=== PATIENT | female | born 1985 | race Caucasian/White ===

== ENCOUNTER 2017-07-31 20:17 | Emergency (ER) | payer MEDICARE, MEDICAID ==
[~2017-07-31 20:17] MED LIST: ISOVUE-370 76%-LOCM 1 ML ONE
--- OUTSIDE RECORDS SUMMARY | 2017-07-31 20:19 | XMS | Clinical Summary ---
:1985 Author Organization [facility] Address [address] [place] [address] Phone Care Team Providers Name Role Phone , Primary Care Provider Unavailable Allergies Active Allergy Reactions Severity Noted Date Comments Loratadine 03/06/2013 Hydrocodone-Acetaminophen 03/06/2013 Current Medications Prescription Sig. Disp. Refills Start Date End Date Status norethindrone-ethinyl Take 1 tablet by Active estradiol (MICROGESTIN mouth daily. 11/23) 1-20 mg-mcg per tablet sevelamer (RENVELA) 800 Take 800 mg by Active mg tablet mouth 3 (three) times daily with meals. Active Problems Patient Care Coordination Note Dr. 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 Social History Tobacco Use Types Packs/Day Years Used Date Never Smoker Smokeless Tobacco: Never Used Alcohol Use Drinks/Week oz/Week Comments No Sex Assigned at Date Recorded Not on file Last Filed Vital Signs Vital Sign Reading Time Taken Blood Pressure 135/82 06/28/2014 10:11 AM CDT Pulse 96 06/28/2014 10:11 AM CDT Temperature 36.7 C (98 F) 06/28/2014 10:11 AM CDT Respiratory Rate 18 06/28/2014 10:11 AM CDT Oxygen Saturation - - Inhaled Oxygen Concentration - - Weight 55 kg (121 lb 3.2 oz) 06/28/2014 10:11 AM CDT Height 152.4 cm (5') 06/28/2014 10:11 AM CDT Body Mass Index 23.67 06/28/2014 10:11 AM CDT Plan of Treatment Health Maintenance Due Date Last Done Comments INFLUENZA VACCINE 08/04/2017 Results Not on filefrom Last 3 Months
[2017-07-31 21:34] LABS: #Eosinphils 0.2 thou/uL (0.0-0.7); #Lymphocytes 0.7 thou/uL (1.20-3.40); #Neutrophils 6.8 thou/uL (1.40-6.50); %Basophils 0.3 % (0.0-1.0); %Eosinophils 2.3 % (0.0-10.0); %Lymphocytes 8.2 % (21.0-51.0); Hematocrit 31.5 % (36.0-47.0); Mean Platelet Volume 9.4 fL (7.4-10.4); Red Blood Cell (RBC) Count 3.26 mill/uL (4.20-5.40); White Blood Cell (WBC) Count 8.7 thou/uL (4.8-10.8)
[2017-07-31] MEDS ORDERED: Ondansetron HCl/PF 4 MG/2 ML Vial ONE (21:38)
[2017-07-31] MEDS ORDERED: Ketorolac Tromethamine 30 MG/ML VIAL ONE (21:38)
[2017-07-31 21:53] LABS: ALT (SGPT) Less than 7 U/L (8-55); AST (SGOT) 13 U/L (5-34); Alkaline Phosphatase 122 U/L (40-150); Anion Gap 16 mmol/L (10-20); BUN (Urea Nitrogen) 14 mg/dL (7.0-18.7); Bilirubin, Total 0.4 mg/dL (0.2-1.2); Calc. Creatinine Clearance 0 mL/min (70-130); Calcium 9.3 mg/dL (7.8-10.44); Carbon Dioxide 32 mmol/L (22-29); Chloride 94 mmol/L (98-107); Estimated GFR-MDRD 14; Globulin 3.2 g/dL (2.4-3.5); Lipase 5 U/L (8-78); Protein, Total 7.4 g/dL (6.0-8.3)
[2017-07-31 23:28] LABS: Bilirubin Negative (Negative); Blood, Urine Moderate (Negative); Glucose, Urine (Dipstick) Negative (Negative); Ketone, Urine Negative (Negative); Nitrite Negative (Negative); Protein, Urine (Dipstick) 300 mg/dL (Neg-Trace); Urobilinogen 0.2 mg/dL (0.2-1.0)
[2017-07-31 23:31] LABS: Bacteria/HPF 1+ HPF (None Seen); Hyaline Casts/LPF 0-3 HYALINE CAST LPF (0-3 Hyaline)
--- NOTE | 2017-08-01 00:46 | CT ---
CT ABDOMEN WITH IV CONTRAST CT PELVIS WITH IV CONTRAST 07/31/2017 HISTORY: Central abdominal pain that has been present for 4 days. COMPARISON: 12/16/2016. FINDINGS: Again noted is a tiny right pleural effusion with minimal bibasilar atelectasis. There is a tiny am ount of pericholecystic fluid which is overall nonspecific. There is a stable small hypodense cystic structure in expected location of the left kidney. Normal- appearing left kidney is seen. Densely calcified atrophic right-sided pelvic kidney is again identi fied. The spleen, pancreas, bilateral adrenal glands, and urinary bladder demonstrate a normal CT appearan ce. There are findings suggestive of a septate uterus. This was also present on a prior exam. There is a tiny fat density structure seen in the region of the right ovary with adjacent calcification. Th is may represent a very small ovarian dermoid measuring approximately 1.1 cm. This is stable from p rior study. Surgical clips are seen in the right lower quadrant. Again noted is sclerosis of the visualized osseous structures, stable from prior study. These findi ngs may be related to renal osteodystrophy. The appendix is not visualized. No other interval change. IMPRESSION: 1. Tiny right pleural effusion. 2. Atrophic and calcified right pelvic kidney with non-visualization of a normal-appearing left kidn ey, but there is a small low-density cystic structure in the region of the left kidney which may rep resent a dysplastic left kidney. 3. 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 4. Septate uterus. 5. Sclerotic appearance of the osseous structures probably related to renal osteodystrophy. 6. No acute findings are seen in the abdomen or pelvis. POS: JATIN
== END 2017-08-01 00:06 | disposition home or self-care (01) ==
LOC: ERS 20:17
DX: R10.33 Periumbilical pain (principal); I12.0 Hypertensive chronic kidney disease with stage 5 chronic kidney disease or end stage renal disease; N18.6 End stage renal disease; F31.9 Bipolar disorder, unspecified; Z79.899 Other long term (current) drug therapy
CPT/HCPCS: 36415; 74177; 80053; 81003; 81015; 81025; 83690; 84703; 85025; 93005; 96374; 96375; J1885; J2405

== ENCOUNTER 2017-08-14 19:19 | Emergency (ER) | payer MEDICARE, MEDICAID ==
[2017-08-14 20:56] LABS: Hematocrit 43.2 % (36.0-47.0); Red Blood Cell (RBC) Count 4.45 mill/uL (4.20-5.40); White Blood Cell (WBC) Count 11.4 thou/uL (4.8-10.8)
[2017-08-14 21:07] LABS: Band 3 % (5-11); Mean Platelet Volume 8.4 fL (7.4-10.4); Neutrophil 72 % (42-75); Polychromasia SLIGHT = 2-3 cells (100X) (0-2/hpf); Reactive Lymphocytes 1 % (0-10)
[2017-08-14 21:12] LABS: Bilirubin Negative (Negative); Blood, Urine Trace (Negative); Glucose, Urine (Dipstick) Negative (Negative); Ketone, Urine Negative (Negative); Nitrite Negative (Negative); Protein, Urine (Dipstick) 300 mg/dL (Neg-Trace); Urobilinogen 0.2 mg/dL (0.2-1.0)
[2017-08-14 21:14] LABS: Bacteria/HPF None Seen HPF (None Seen); Hyaline Casts/LPF 7-10 HYALINE CAST LPF (0-3 Hyaline); RBC/HPF 0-3 HPF (0-3)
[2017-08-14 21:14] LABS: ALT (SGPT) 8 U/L (8-55); AST (SGOT) 19 U/L (5-34); Alkaline Phosphatase 112 U/L (40-150); BUN (Urea Nitrogen) 17 mg/dL (7.0-18.7); Bilirubin, Total 0.7 mg/dL (0.2-1.2); Calc. Creatinine Clearance 0 mL/min (70-130); Calcium 11.2 mg/dL (7.8-10.44); Carbon Dioxide 26 mmol/L (22-29); Chloride 94 mmol/L (98-107); Estimated GFR-MDRD 12; Globulin 3.8 g/dL (2.4-3.5); Protein, Total 8.4 g/dL (6.0-8.3)
[2017-08-14 21:16] LABS: Anion Gap 21 mmol/L (10-20)
[2017-08-14 21:21] LABS: Amphetamine Not Detected (NotDetected); Methadone Not Detected (NotDetected); Methamphetamine Not Detected (NotDetected)
[2017-08-14 21:46] LABS: Acetaminophen Less than 6.0 mcg/mL (10.0-30.0); CK (CPK) 72 U/L (29-168); Salicylate Less than 8.0 mg/dL (15.0-30.0)
[2017-08-15] MEDS ORDERED: traZODone HCl 50 MG TAB ONE (00:58)
[2017-08-15] MEDS ORDERED: Ibuprofen 200 MG TAB ONE (00:58)
[2017-08-15] MEDS ORDERED: Ibuprofen 600 MG TAB PO PRN (06:19)
[2017-08-15] MEDS ORDERED: Acetaminophen 325 MG TAB PO PRN (06:21)
[2017-08-15] MEDS ORDERED: traZODone HCl 50 MG TAB PO PRN (06:21)
[2017-08-15] MEDS ORDERED: Nicotine 14 MG PATCH TOP SCH (06:30)
[2017-08-15] MEDS ORDERED: Calcium Acetate 667 MG CAP PO SCH ×2 (08:00→13:00)
[2017-08-15] MEDS ORDERED: traZODone HCl 50 MG TAB PO SCH (21:00)
--- OUTSIDE RECORDS SUMMARY | 2017-08-24 21:08 | XMS | Clinical Summary ---
:1985 Author Organization [facility] Address [address] [place] [address] Phone Care Team Providers Name Role Phone [...] Patient Care Coordination Note Dr. 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
== END 2017-08-15 20:58 ==
LOC: ERS 19:19
DX: T48.3X2A Poisoning by antitussives, intentional self-harm, initial encounter (principal); Q87.1 Congenital malformation syndromes predominantly associated with short stature; I12.0 Hypertensive chronic kidney disease with stage 5 chronic kidney disease or end stage renal disease; N18.6 End stage renal disease; F31.9 Bipolar disorder, unspecified; Z79.899 Other long term (current) drug therapy
CPT/HCPCS: 36415; 80053; 80306; 80307; 81003; 81015; 82550; 84443; 85025; 93005

== ENCOUNTER 2017-09-14 09:07 | Observation (INO) | payer MEDICARE, MEDICAID ==
--- OUTSIDE RECORDS SUMMARY | 2017-09-14 09:10 | XMS | Clinical Summary ---
:1985 Author Organization [facility] Address [address] [place] [address] Phone Care Team Providers Name Role Phone [...] Patient Care Coordination Note Dr. Ivonne Lazaro [phone] Problem Noted Date ESRD (end stage renal disease) ([facility]) 03/06/2013 Mickie syndrome 03/06/2013 Overview: Pt born with 1 [...]
[2017-09-14 10:16] LABS: Bacteria/HPF None Seen HPF (None Seen); Bilirubin Negative (Negative); Blood, Urine Moderate (Negative); Glucose, Urine (Dipstick) Negative (Negative); Hyaline Casts/LPF 4-6 HYALINE CAST LPF (0-3 Hyaline); Ketone, Urine Negative (Negative); Nitrite Negative (Negative); Protein, Urine (Dipstick) 100 mg/dL (Neg-Trace); RBC/HPF 0-3 HPF (0-3); Squamous Epithelial 0-3 HPF (0-3); Urobilinogen 0.2 mg/dL (0.2-1.0)
[2017-09-14] MEDS ORDERED: Acetaminophen 325 MG TAB ONE (10:37)
[2017-09-14] MEDS ORDERED: Ondansetron ODT 4 MG TAB ONE (10:37)
[2017-09-14 11:13] LABS: #Basophils 0.1 thou/uL (0.0-0.2); #Eosinphils 0.6 thou/uL (0.0-0.7); #Lymphocytes 2.1 thou/uL (1.20-3.40); #Monocytes 1.1 thou/uL (0.11-0.59); #Neutrophils 8.4 thou/uL (1.40-6.50); %Basophils 0.9 % (0.0-1.0); %Lymphocytes 16.9 % (21.0-51.0); %Monocytes 8.8 % (0.0-10.0); Hematocrit 32.5 % (36.0-47.0); Mean Platelet Volume 8.8 fL (7.4-10.4); Red Blood Cell (RBC) Count 3.38 mill/uL (4.20-5.40); White Blood Cell (WBC) Count 12.2 thou/uL (4.8-10.8)
[2017-09-14 11:35] LABS: ALT (SGPT) 11 U/L (8-55); AST (SGOT) 21 U/L (5-34); Alkaline Phosphatase 163 U/L (40-150); Anion Gap 29 mmol/L (10-20); BUN (Urea Nitrogen) 105 mg/dL (7.0-18.7); Bilirubin, Total 0.3 mg/dL (0.2-1.2); Calc. Creatinine Clearance 0 mL/min (70-130); Calcium 6.1 mg/dL (7.8-10.44); Carbon Dioxide 19 mmol/L (22-29); Chloride 93 mmol/L (98-107); Estimated GFR-MDRD 4; Globulin 3.7 g/dL (2.4-3.5); Protein, Total 7.9 g/dL (6.0-8.3)
[2017-09-14] MEDS ORDERED: Calcium Chloride 1 GM/10 ML Abboject SYRINGE ONE (12:01)
[2017-09-14] MEDS ORDERED: Dextrose 50% Abboject 50 ML SYRINGE ONE (12:01)
[2017-09-14] MEDS ORDERED: Sodium Bicarb 50 MEQ/50 ML Abboject 8.4% SYRINGE ONE (12:01)
[2017-09-14] MEDS ORDERED: Insulin Regular 300 UNITS/3 ML VIAL ONE (12:01)
[2017-09-14] MEDS ORDERED: Albuterol Sulfate 2.5 mg/3 ml Neb ONE (12:18)
[2017-09-14] MEDS ORDERED: Albuterol Sulfate 2.5 mg/0.5 ml Neb ONE (12:18)
[2017-09-14] MEDS ORDERED: Ondansetron HCl/PF 4 MG/2 ML Vial IVP PRN (15:04)
[2017-09-14] MEDS ORDERED: Acetaminophen 325 MG TAB PO PRN (15:04)
[2017-09-14] MEDS ORDERED: Ondansetron ODT 4 MG TAB SL PRN (15:04)
[2017-09-14] MEDS ORDERED: cefTRIAXone\\ROCEPHIN 1 GM in Sodium Chloride 0.9% 100 ML IVPB SCH (15:07)
[2017-09-14] MEDS ORDERED: cefTRIAXone\\ROCEPHIN 1 GM, Syringe 0.4 ML in Sterile Water 9.6 ML SLOW IVP SCH (16:00)
--- NOTE | 2017-09-14 16:08 | PRG ---
DATE OF SERVICE: 09/14/2017 SUBJECTIVE: The patient is a 32-year-old white female with ESRD and was admitted due to the hyperkal emia. She initially presented with some abdominal discomfort. During the initial workup, her potas sium was noted at 6.6. Please note that the patient did not show up for dialysis yesterday. She is currently undergoing emergent hemodialysis at the bedside, supervising her dialysis. Please note I used 1-0 potassium bath on the first of the dialysis. REVIEW OF SYSTEMS: Positive for epigastric discomfort. No nausea, no vomiting, no chest pain, no s hortness of breath, no syncopal episode, no productive cough, no fever or chills. No gross hematuri a. No dysuria, no urine frequency, no abdominal pain, no headache, no diplopia. MEDICATIONS: Of 09/14/2017 was reviewed. PHYSICAL EXAMINATION: VITAL SIGNS: Blood pressure is noted at 130/70, heart rate 70. GENERAL: Awake, alert, comfortable, not in distress. SKIN: Adequate turgor. HEENT: Pinkish conjunctivae, anicteric sclerae. NECK: No neck mass, no carotid bruits, no JVD. CHEST: No deformities. LUNGS: Clear breath sounds. No wheezing, no crackles. HEART: Normal sinus rhythm. No murmur, no gallops or rubs. ABDOMEN: Globular, soft, nontender. EXTREMITIES: No edema, no deformities. LABORATORY: Of 09/14/2017 white count 12.2, hemoglobin 11.1. Sodium 134, potassium 6.6, chloride 9 3, carbon dioxide 19, BUN 105, creatinine 10.54, calcium 6.1. Albumin 4.2. ASSESSMENT AND PLAN: 1. End-stage renal disease - the patient missed dialysis yesterday. We will continue her Saturday, W , Saturday dialysis. She is receiving extra dialysis today due to the hyperkalemia. 2. Hyperkalemia, emergent hemodialysis using 1-0 potassium bath during the first hour. We will the n use a 2-0 potassium bath the next 2-1/2 hours. Fluid removal as tolerated. 3. Anemia, no indication for any Epogen today. 4. Mild hypocalcemia - this patient is status post parathyroidectomy, consider resuming Tums at 500 mg 1 tab t.i.d. with meals. Recheck base met in a.m.
--- NOTE | 2017-09-14 16:51 | HP ---
DATE OF ADMISSION: 09/14/2017 CHIEF COMPLAINT: Nausea, vomiting, some abdominal pain and burning on urination. HISTORY OF PRESENT ILLNESS: The patient is a very frequent customer of emergency visit and this hos pital. She was just discharged from the hospital on the . She reports that she never got well a fter she was discharged from the hospital last time she was getting p.o. antibiotic, but she still b urning in her urination. She vomited yesterday. She did not have any diarrhea, but today she is no t having any vomiting and she missed her dialysis x1. Her potassium is elevated and she has changes in EKG and decision is made about hospitalizations and emergent hemodialysis. Dr. Espinoza was notified , her route driver salesperson and the team is coming to take her upstairs for emergent hemodialysis. In the [facility], she is getting treatment for her hyperkalemia. PAST MEDICAL HISTORY: 1. No known syndrome. 2. Chronic pancreatitis. 3. End-stage renal disease on hemodialysis 3 times a week. 4. Anemia of chronic disease. PAST SURGICAL HISTORY: 1. Right oophorectomy. 2. Cardiac surgery as a child. 3. Right hip surgery. 4. Peritoneal dialysis catheter placement and subsequent removal. FAMILY HISTORY: Mother has coronary artery disease and hypertension. Father has cancer and heart p roblems. SOCIAL HISTORY: She denies any alcohol use, tobacco use or illicit drug use. ALLERGIES: BACLOFEN, CLARITIN, FLEXERIL, RANITIDINE, and VANCOMYCIN. CURRENT MEDICATIONS: She was discharged on Ceftin 250 mg once a day for 7 days, Florastor 250 mg on ce a day for 7 days, Tylenol 1 gram q.6 hours p.r.n., PhosLo 667 mg 3 times a day, Tums 1000 mg p.o. 3 times a day, [place] 5 mg 1 tablet q.4 h. p.r.n. as needed, Zofran 4 mg q.12 h. p.r.n. as needed, S eroquel 50 mg at bedtime, tramadol 50 mg at q.6 hours p.r.n. as needed, and trazodone 100 mg at bedt helen. REVIEW OF SYSTEMS: Please refer to the previous hospitalization. PHYSICAL EXAMINATION: VITAL SIGNS: Blood pressure is 118/85, respiratory rate is 20 and nonlabored, temperature is 98.2. O2 saturation is 100% on room air. HEENT: Atraumatic, normocephalic. Eyes: Pupils are responding to light properly. Sclerae is oumou cteric. Conjunctivae pinkish. Oral mucosa is moist. NECK: Supple, no lymphadenopathy. LUNGS: Clear. HEART: S1, S2 normal. No S3, no S4. There is a systolic murmur 2/6 at the left sternal border, mo stly audible. ABDOMEN: Soft, mildly tender all over. No guarding, no masses. EXTREMITIES: No clubbing, cyanosis or edema. NEUROLOGIC: She is alert and oriented x4. There are no any motor or sensory deficits present. Glass Frame Fitter nial nerves are intact. LABORATORY AND X-RAY FINDINGS: Showed white count of 12.2, hemoglobin 11.1, hematocrit 32.5, platel et count is 153. Chemistries showed sodium of 134, potassium 6.6, chloride 93, CO2 of 19, BUN 105, creatinine 10.54, alkaline phosphatase 663, globulin 3.7. Urine showed moderate blood, small estera se of leukocytes, 4-6 WBCs and none bacteria. IMPRESSION: 1. Nausea and vomiting with some abdominal pain of unclear etiology at this point. This could be r elated to ongoing urinary tract infection which she just had it. 2. Hyperkalemia. She is getting acute treatment for that as we speak with 10 units of insulin with calcium and Kayexalate and glucose. She will have emergency dialysis done very soon by anurag Mcginnis o is coming to see her. 3. End-stage renal disease on hemodialysis 3 times a week. 4. No known syndrome. 5. Chronic pancreatitis. 6. Anemia of renal disease. PLAN: Admission for observation. Condition is guarded. We will use emergent hemodialysis by the [facility]. We will check her potassium after the treatment. We will start her on broad spectrum anti biotic. We will check urine. We will do the urine culture and we will review her home medications.
[2017-09-14] MEDS: Calcium Carbonate 500 MG ChewTAB PO SCH (17:12)
[2017-09-14] MEDS: Heparin 5,000 UNITS/ML VIAL SC SCH ×2 (17:12→21:56)
[2017-09-14 19:16] VITALS: BMI 25.5
[2017-09-15 05:00] LABS: Anion Gap 21 mmol/L (10-20); BUN (Urea Nitrogen) 40 mg/dL (7.0-18.7); Calc. Creatinine Clearance 11 mL/min (70-130); Calcium 7.5 mg/dL (7.8-10.44); Carbon Dioxide 29 mmol/L (22-29); Chloride 96 mmol/L (98-107); Estimated GFR-MDRD 8
[2017-09-15 07:49] VITALS: BP 108/65; TEMP 98.2
[2017-09-15] MEDS ORDERED: HYDROcodone/Acetaminophen 5/325 mg Tablet PO PRN (09:30)
[2017-09-15] MEDS ORDERED: traMADol HCl 50 MG TAB PO PRN (09:30)
[2017-09-15] MEDS ORDERED: Ondansetron ODT 4 MG TAB PO PRN (09:30)
[2017-09-15] MEDS: Heparin 5,000 UNITS/ML VIAL SC SCH (10:34)
[2017-09-15] MEDS: Calcium Carbonate 500 MG ChewTAB PO SCH (10:34)
--- NOTE | 2017-09-15 11:19 | DIS ---
DATE OF ADMISSION: 09/14/2017 DATE OF DISCHARGE: 09/15/2017 CONSULTANTS: Dr. Espinoza for Nephrology Service. FINAL DIAGNOSES: 1. Nausea and vomiting with some abdominal pain, which is most likely related to her chronic pancre atitis, improved. She has those episodes quite often. She was diagnosed with chronic pancreatitis after multiple diagnostic workups. 2. Hyperkalemia, status post emergent hemodialysis, improved. 3. End-stage renal disease, on hemodialysis three times a week. 4. Chronic pancreatitis. 5. Anemia of renal disease. 6. No known syndrome. HOSPITAL COURSE: The patient is a 32-year-old female, who presented to the emergency room with complaints of nausea, vomiting, abdominal pain, and burning on urination, where she was found to have potassium elevated at 6.6, and she was treated emergently for hyperkalemia in the emergency room and she was admitted to the hospital for dialysis. At the time of admission, her white count w as 12.2, hemoglobin 11.1, hematocrit 32.5, platelet count was 153. Chemistries showed sodium of 134 , potassium 6.6, chloride 93, CO2 of 19, BUN 105, creatinine 10.54, alkaline phosphatase 163, globul in 3.7. Urinalysis showed moderate amount of blood, urine protein 100, small amount of leukocyte es terase, 4-6 wbcs, and 4-6 hyaline casts, no bacteria. The patient had emergent hemodialysis done by Dr. Espinoza; her potassium is down to 4.7 this morning and creatinine is down to 6.16. She is doing si gnificantly better. She does not have any nausea or vomiting. She is ambulating in the hallway and she went to her mother's room since her mother was admitted yesterday too for some other reasons. She is seen and examined before she is discharged. We told her that she needs to keep her appointme nts in dialysis unit. She is going to stay on renal diet and activities as tolerated. MEDICATIONS AT THE TIME OF DISCHARGE: Calcium carbonate 500 mg tablets 1000 mg 3 times a day; calci um acetate, which is PhosLo, 667 mg 3 times a day; Tylenol 1000 mg q.6 hours p.r.n. for the pain; tr azodone 100 mg at bedtime; tramadol 50 mg tablets q.6 hours p.r.n. for the pain; Florastor 250 mg ca psules once a day; Seroquel 50 mg capsules 1 q.h.s.; Zofran 4 mg q.12 hours p.r.n. as needed for josué sea and vomiting; hydrocodone by titrate with acetaminophen 5/325 mg 1 tablet q.4 hours p.r.n. as ne eded for the pain. She is discharged in good condition. She will follow up with primary care physician in 1 week as ne eded and patient was seen and examined before she is discharged, and discharge time is less than 30 minutes.
[2017-09-15] MEDS ORDERED: traZODone HCl 50 MG TAB PO SCH (21:00)
[2017-09-15] MEDS ORDERED: QUEtiapine Fumarate ER 50 MG TAB PO SCH (21:00)
[2017-09-16] MEDS ORDERED: Saccharomyces boulardii 250 MG CAP PO SCH (09:00)
== END 2017-09-15 13:14 | disposition home or self-care (01) ==
LOC: ERS 09:07 → 2SW 15:06
PROVIDERS: ADMIT Internal Medicine; ATTEND Internal Medicine
DX: R11.2 Nausea with vomiting, unspecified (principal); R10.9 Unspecified abdominal pain; K86.1 Other chronic pancreatitis; E87.5 Hyperkalemia; N18.6 End stage renal disease; D63.1 Anemia in chronic kidney disease; E89.2 Postprocedural hypoparathyroidism; E83.51 Hypocalcemia; Z79.899 Other long term (current) drug therapy; Z99.2 Dependence on renal dialysis; Z88.1 Allergy status to other antibiotic agents; Z88.8 Allergy status to other drugs, medicaments and biological substances; Z90.721 Acquired absence of ovaries, unilateral; Z98.890 Other specified postprocedural states
CPT/HCPCS: 80048; 80053; 85025; 87086; 93005; 94640; 96374; 96375; 99285; G0378; 36415; 81003; 81015; 90935; A4216; G0257; J0696; J1644; J1815; J7611; Q0162

== ENCOUNTER 2017-12-08 15:05 | Inpatient (IN) | payer MEDICARE, MEDICAID ==
[2017-12-08 16:14] LABS: #Basophils 0.2 thou/uL (0.0-0.2); #Eosinphils 1.3 thou/uL (0.0-0.7); #Monocytes 1.7 thou/uL (0.11-0.59); #Neutrophils 7.7 thou/uL (1.40-6.50); %Basophils 1.4 % (0.0-1.0); %Eosinophils 9.6 % (0.0-10.0); %Lymphocytes 21.7 % (21.0-51.0); %Monocytes 11.9 % (0.0-10.0); %Neutrophils 55.3 % (42.0-75.0); Hemoglobin 12.4 g/dL (12.0-16.0); Mean Corpuscular HGB CONC 34.1 g/dL (32.0-36.0); Mean Corpuscular Hemoglobin 33.7 pg (27.0-31.0); Mean Corpuscular Volume 98.8 fl (81.0-99.0); Mean Platelet Volume 8.1 fL (7.4-10.4); Platelet Count 203 thou/uL (130-400); RBC Distribution Width 14.6 % (11.5-14.5); Red Blood Cell (RBC) Count 3.69 mill/uL (4.20-5.40); White Blood Cell (WBC) Count 13.9 thou/uL (4.8-10.8)
[2017-12-08 16:27] LABS: BHCG - Serum Negative (NEGATIVE); Pregs Control Background? CLEAR/WHITE (CLR/WHITE); Pregs Control Bar Appear? YES (CONTROL BAR)
[2017-12-08 16:38] LABS: ALT (SGPT) 12 U/L (8-55); AST (SGOT) 23 U/L (5-34); Albumin 4.6 g/dL (3.5-5.0); Alkaline Phosphatase 107 U/L (40-150); Anion Gap 28 mmol/L (10-20); BUN (Urea Nitrogen) 50 mg/dL (7.0-18.7); Bilirubin, Total 0.3 mg/dL (0.2-1.2); CK (CPK) 100 U/L (29-168); Calc. Creatinine Clearance 0 mL/min (70-130); Carbon Dioxide 22 mmol/L (22-29); Chloride 95 mmol/L (98-107); Estimated GFR-MDRD 5; Globulin 3.9 g/dL (2.4-3.5); Glucose 69 mg/dL (70-105); Lipase 40 U/L (8-78); Potassium 6.8 mmol/L (3.5-5.1); Protein, Total 8.5 g/dL (6.0-8.3); Sodium 138 mmol/L (136-145)
[2017-12-08] MEDS ORDERED: Dextrose 50% Abboject 50 ML SYRINGE ONE (17:04)
[2017-12-08 17:08] LABS: CKMB 1.4 ng/mL (0-6.6); Troponin I 0.013 ng/mL (< 0.028)
[2017-12-08] MEDS ORDERED: Calcium Gluc 4.6 MEQ/10 ML (100 MG/ML) SLOW IVP SCH (17:15)
[2017-12-08] MEDS ORDERED: Albuterol Sulfate 2.5 mg/0.5 ml Neb ONE (17:44)
[2017-12-08] MEDS ORDERED: Albuterol Sulfate 2.5 mg/3 ml Neb ONE (17:44)
[2017-12-08] MEDS ORDERED: Sodium Bicarb 50 MEQ/50 ML Abboject 8.4% SYRINGE ONE (18:08)
[2017-12-08] MEDS ORDERED: Acetaminophen 325 MG TAB PO PRN (18:25)
[2017-12-08] MEDS ORDERED: HYDROcodone/Acetaminophen 5/325 mg Tablet PO PRN (18:25)
[2017-12-08] MEDS ORDERED: HYDROcodone/Acetaminophen 10/325 mg Tablet ONE (18:26)
[2017-12-08 19:32] LABS: HBSAg Index 0.22 S/CO (0-0.99); Hep B Surf Ag Non-Reactive S/CO (NonReactive)
--- NOTE | 2017-12-08 19:49 | CT ---
CT ABDOMEN AND PELVIS WITH CONTRAST: Comparison: 07-31-17 History: Right lower quadrant abdominal pain and flank pain. Renal failure patient on dialysis. Technique: Multiple contiguous axial images were obtained in a CT of the abdomen and pelvis with cont rast. Coronal reformats were performed. FINDINGS: There is a small calcified kidney in the right aspect of the pelvis. The left kidney is not definitel y seen. The adrenal glands are unremarkable. There is a cystic structure just to the left of the left psoas muscle measuring 1.3 cm in greatest dimension. This may represent a cyst in a very small left kidney. The liver, gallbladder, spleen and pancreas are unremarkable. No free air, free fluid or stranding ch anges are seen in the abdomen or pelvis. The patient has a septated uterus. There is a small fat dens ity structure in the right ovary measuring approximately 1 cm in size which may represent a small te ratoma. Atherosclerotic calcifications are seen in the aorta. No abdominal or pelvic lymphadenopathy are seen . IMPRESSION: 1. No evidence of acute intraabdominal/pelvic abnormality. 2. Calcified low right pelvic kidney. 3. Smaller cystic structure in the left abdomen likely represents a cyst within a very small left kid choco. 4. Septated uterus. 5. Fat density structure in the right ovary likely represents a small teratoma. POS: JATIN
--- NOTE | 2017-12-08 19:55 | HP ---
DATE OF ADMISSION: 12/08/2017 TIME OF SERVICE: 1745. PRIMARY CARE PHYSICIAN: None. Last saw Dr. Pierre about 7 months ago. PRIMARY MANNEQUIN MOLDER: Dr. Espinoza. CHIEF COMPLAINT: Abdominal pain. HISTORY OF PRESENT ILLNESS: Ms. 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 The patient pre sents to the Emergency Department complaining of right lower quadrant pain radiating to her right fla nk that started sometime last night. It comes and goes and is colicky. It is associated with diarrh ea, but no blood. She denies any fevers or chills, no night sweats. Some nausea without vomiting. No chest pain or difficulty breathing. She denies any palpitations. She came into the Emergency Department for evaluation. Potassium was noted to be 6.8 and we subseque ntly called for admission. Dr. Espinoza is already been consulted by the emergency room staff and is send ing emergent dialysis. The patient had the last hemodialysis on Saturday, 2 days ago. She does not know if her access has bee n working right. She had some blood clots to her right upper extremity fistula declotted by Dr. Camila reeves has angina. She has had some bleeding issues after removal of the needles. No other complain ts, no other issues. PAST MEDICAL HISTORY: 1. Chronic pancreatitis. 2. Croton syndrome. 3. Hypertension. 4. End-stage renal disease. 5. Bipolar disorder. 6. History of suicidal ideation. PAST SURGICAL HISTORY: 1. Right extremity fistula creation. 2. Right oophorectomy. 3. Right hip surgery. 4. Peritoneal dialysis catheter placement and subsequent removal. HOME MEDICATIONS: 1. PhosLo 667 mg x2 t.i.d. with meals. 2. Benadryl and Tums p.r.n. ALLERGIES: 1. BACLOFEN causes throat swelling. 2. CLARITIN causes throat swelling. 3. FLEXERIL causes hives. 4. LEVOFLOXACIN causes throat swelling. 5. ZANTAC causes anaphylaxis. 6. VANCOMYCIN causes anaphylaxis. FAMILY HISTORY: Negative for clotting or bleeding disorder. No immune dysfunction. SOCIAL HISTORY: No habits x3. She was homeless, but recently her and her mother moved into an apart ment. REVIEW OF SYSTEMS: A 10-point review of systems was performed, negative for all other systems except stated as per HPI. PHYSICAL EXAMINATION: VITAL SIGNS: Temperature 98.8, pulse 99, blood pressure 126/84, respiratory rate 18 and satting 100% on room air. GENERAL: She is awake. She is alert. She is oriented x3. She is a well-developed, well-nourished syndromic appearing white female, appears to be in no acute distress. HEENT: Normocephalic and atraumatic. Pupils are equal, round and reactive to light bilaterally, muc ous membranes are moist. She has no visible lesions. No thrush. NECK: Supple, without lymphadenopathy, JVD, or thyromegaly. She has normal carotid upstrokes withou t bruits. LUNGS: Clear. No wheezes, no rales or rhonchi. CARDIOVASCULAR: Shows a regular rhythm with a normal rate, slightly tachycardic. She has no murmurs . ABDOMEN: Soft, nontender and nondistended. She has no masses, no organomegaly, no rebound, rigidity or guarding. No flank tenderness. EXTREMITIES: No cyanosis, no clubbing, no edema. SKIN: Warm, moist, and well perfused without any rashes or lesions. LOWER EXTREMITIES: The patient has a great thrill and an audible bruit. NEUROLOGIC: Cranial nerves II-XII are grossly intact. She has no focal deficits, 5/5 strength and n ormal speech. MUSCULOSKELETAL: Normal to inspection. She has no joint inflammation. No palpable effusions. LABORATORY AND IMAGING DATA: Sodium 138, potassium 6.8, chloride 95, bicarbonate 22, BUN 50, creatin ine 8.45, and glucose of 69. Liver function is normal. CBC showed a white of count of 13.9 with a normal differential. Hemoglobin 12.4, hematocrit of 36.5 and platelet count is 203,000. CT scan of the abdomen and pelvis currently pending. Lipase was 40. Lactic acid 1.9. test is negative. Troponin I 0.013. ASSESSMENT AND PLAN: 1. Right lower quadrant pain, certainly could be colitis. Patient with diarrhea. She has no blood loss. We will start her on Cipro and Flagyl if CT scan is suggested. She does have a history of heri al stones. We will follow up on the CT scan. 2. Hyperkalemia: The patient with end-stage renal disease. She got calcium gluconate in the ER. S he will get emergent dialysis tonight per Dr. Espinoza. Morning labs. 3. Chronic pancreatitis. Normal lipase. No treatment. 4. Croton syndrome. 5. Hypertension, not on medications. Blood pressure is normal right now. 6. End-stage renal disease, on hemodialysis Saturday, Saturday, Saturday. The patient has not missed a ny hemodialysis treatments. Dr. Espinoza will be following.
[2017-12-08] MEDS: HYDROcodone/Acetaminophen 10/325 mg Tablet PO PRN (22:51)
[2017-12-08] MEDS: metroNIDAZOLE 500 MG in Premix Bag 1 BAG IVPB SCH ×2 (22:52→23:51)
[2017-12-08 23:22] VITALS: BMI 27.2
[2017-12-08] MEDS ORDERED: diphenhydrAMINE 25 MG CAP PO PRN (23:40)
[2017-12-08] MEDS ORDERED: traZODone HCl 50 MG TAB PO SCH (23:45)
--- NOTE | 2017-12-09 00:16 | CON ---
DATE OF CONSULTATION: 12/08/2017 HISTORY OF PRESENT ILLNESS: Ms. Juarez is a 32-year-old white female with ESRD admitted for abdominal pain. She was evaluated and was incidentally found to have a potassium of 6.8. We are now being consulted for emergent hemodialysis. Patient has been brought to the dialysis unit and currently undergoing dialysis. At the bedside, supervising on dialysis. Abdominal pain is actually much improved. Please note the patient underwent a CT scan of the abdomen and pelvis tonight and there is no evidence of an acute intra-abdominal pelvic abnormality. REVIEW OF SYSTEMS: Positive for abdominal pain. Positive for nausea, no diarrhea, no constipation, no headache, no diplopia, no fever, or chills. Occasional diarrhea, no gross hematuria. No dysuria, no frequency, no syncopal episode, no productive cough, no fever or chills. MEDICATIONS: Medications of 12/08/2017, [place] 10/325 q.4 p.r.n., Flagyl 500 mg IV q.8, Cipro 400 mg IV q.12, Zofran 4 mg IV q.6 p.r.n., multivitamin q. da. PAST MEDICAL HISTORY: 1. 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 2. No known syndrome. 3. Bipolar disorder. 4. Status post pulmonary stenosis. 5. Status post UTI. 6. History of anxiety. 7. History of noncompliance. PAST SURGICAL HISTORY: 1. Status post hip surgery. 2. Status post AV fistula placement. 3. Status post PD catheter placement with subsequent removal. 4. Status post diagnostic laparoscopy with omentectomy. 5. Status post repair of pulmonary stenosis, status post AV fistula placement. 6. Status post hemodialysis catheter placement. 7. S/p parathyroidectomy ALLERGIES: ? VANCOMYCIN, CLARITIN, BACLOFEN. TRAUMA: Status post hip fracture. IMMUNIZATIONS: Up to date. HOSPITALIZATIONS: Please see past medical history. SOCIAL HISTORY: The patient lives in [place]. She lives with her mother, single. No children. Education high school. No alcohol intake. Status post blood transfusion. No smoking, no IV drug abuse. FAMILY HISTORY: No family history of ESRD. PHYSICAL EXAMINATION: VITAL SIGNS: Blood pressure is noted at 140/70, heart rate 70. GENERAL: Noted to be awake, alert, supine, comfortable. SKIN: Adequate turgor. HEENT: She has slightly pale conjunctivae, anicteric sclerae. NECK: No neck mass, no carotid bruits, no JVD. CHEST: No deformities. LUNGS: Clear breath sounds. No wheezing, no crackles. HEART: Normal sinus rhythm. No murmur, no gallops, or rubs. ABDOMEN: Globular, soft, nontender, no masses. EXTREMITIES: No edema, no deformities. NEUROLOGIC: Awake, oriented to 3 spheres. Moving all extremities. No tremors , no asterixis, no ataxia. LABORATORY DATA: Laboratories of 12/08/2017, white count 13.9, hemoglobin 12.4 , platelet count 23,000. Sodium 138, potassium 6.8, chloride 95, carbon dioxide 22, BUN is 50, creatinine 8.45, glucose 69, AST 23, ALT 12, albumin 4.6 , troponin I 0.013. Lipase is 40. IMAGING: CT scan of the abdomen - no acute intracranial abnormality. ASSESSMENT AND PLAN: 1. Abdominal pain. Supportive care. P.r.n. pain medications. No evidence of acute pancreatitis. 2. End-stage renal disease-we will continue current Saturday, Saturday, and Saturday hemodialysis. Due to the hyperkalemia, she is undergoing emergent hemodialysis using 1-0 potassium bath. My plan is to do 2 hour dialysis with her tonight. Attempting between 1 and 2 liters of fluid removal. 3. Hyperkalemia. Emergent hemodialysis. Agree with current management. [facility]
[2017-12-09] MEDS: HYDROcodone/Acetaminophen 10/325 mg Tablet PO PRN (05:32)
[2017-12-09] MEDS: metroNIDAZOLE 500 MG in Premix Bag 1 BAG IVPB SCH ×3 (06:14→20:54)
--- NOTE | 2017-12-09 09:32 | PRG ---
DATE OF SERVICE: 12/09/2017 SUBJECTIVE: Ms. Juarez is a 32-year-old white female with ESRD and was admitted for abdominal pain. Initial imaging of the abdomen/CT scan showed no acute intracranial abnormality. However, she was f ound to have potassium of 6.8. She underwent a 2-hour emergent dialysis yesterday. At the present t helen, she is dialyzing for her regular Saturday, Saturday, Saturday schedule. I am at the bedside superv ising her dialysis. She seems to be tolerating the said treatment. No new complaints. No chest pain, shortness of breath. Abdominal pain is better. PHYSICAL EXAMINATION: VITAL SIGNS: Blood pressure 101/50, heart rate 96, respiration 20, temperature 98.2, pulse ox 100%. GENERAL: Noted to be awake, alert, supine, comfortable, not in distress. SKIN: Adequate turgor. HEENT: She has pinkish conjunctivae, anicteric sclerae. NECK: No neck mass, no carotid bruits, no JVD. CHEST: No deformities. LUNGS: Clear breath sounds. No wheezing, no crackles. HEART: Normal sinus rhythm. No murmur, no gallops or rubs. ABDOMEN: Globular, soft, nontender, no masses. EXTREMITIES: No edema, no deformities. MEDICATIONS: 12/09/2017 - Reviewed. LABORATORY: 12/08/2017 - White count 13.9, hemoglobin 12.4. 12/08/2017 - Sodium 138, potassium 6.8, chloride 95, carbon dioxide 22, BUN 58, creatinine 8.45, calc ium is 8.0. ASSESSMENT AND PLAN: 1. Hyperkalemia, status post dialysis last night. She is now undergoing for her regular maintenance hemodialysis. 2. End-stage renal disease, stable. We will continue with 3-1/2 hours of hemodialysis. Fluid remov al only as tolerated by the patient. No changes with the current potassium bath. We will be using 2-0 potassium bath with her today.
--- NOTE | 2017-12-09 12:16 | PDOC.PN ---
- Subjective Encounter Start Date: 12/09/17 Encounter Start Time: 12:05 Subjective: f/u for hyperkalemia in context of ESRD receiving HD. Associated -: abd pain with neg CT abd/pel. Feels better overall and tolerated po intake. -: Diarrhea initially now resolving. - Objective Resuscitation Status: Resuscitation Status FULL:Full Resuscitation MAR Reviewed: Yes Vital Signs & Weight: Vital Signs (12 hours) Temp Pulse Resp BP Pulse Ox 12/09/17 11:48 98.8 F 95 16 90/55 L 98 12/09/17 08:00 98.3 F 96 20 12/09/17 04:00 98.3 F 96 20 85/54 L 100 Weight Weight 126 lb I&O: 12/08/17 12/09/17 12/10/17 06:59 06:59 06:59 Intake Total 780 Output Total 900 Balance -120 Result Diagrams: 12/08/17 16:07 12/08/17 16:07 Radiology Reviewed by me: Yes (CT abd/pel - no acute process) EKG Reviewed by me: Yes (Tele - SR) Phys Exam - Physical Examination Constitutional: NAD HEENT: PERRLA, oral pharynx no lesions Neck: no JVD, supple Respiratory: no wheezing, clear to auscultation bilateral Cardiovascular: RRR Gastrointestinal: soft, non-tender, no distention, positive bowel sounds Musculoskeletal: no edema, pulses present Neurological: moves all 4 limbs Psychiatric: A&O x 3 Skin: normal turgor, cap refill <2 seconds Dx/Plan (1) Hyperkalemia Code(s): E87.5 - HYPERKALEMIA Status: Acute Comment: HD completed per Renal service, repeat K+ level (2) Abdominal pain Code(s): R10.9 - UNSPECIFIED ABDOMINAL PAIN Status: Acute Comment: Suspect due to hyperkalemia, resolving (3) Diarrhea Code(s): R19.7 - DIARRHEA, UNSPECIFIED Status: Acute Comment: Resolving (4) Anemia of renal disease Code(s): D63.1 - ANEMIA IN CHRONIC KIDNEY DISEASE Status: Chronic Comment: Stable (5) Bipolar disorder Code(s): F31.9 - BIPOLAR DISORDER, UNSPECIFIED Status: Chronic Qualifiers: Current episode severity: unspecified Comment: Stable (6) ESRD (end stage renal disease) on dialysis Code(s): N18.6 - END STAGE RENAL DISEASE; Z99.2 - DEPENDENCE ON RENAL DIALYSIS Status: Chronic Comment: HD per Renal service - 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
[2017-12-09] MEDS ORDERED: diphenhydrAMINE 25 MG CAP PO PRN (12:23)
[2017-12-09] MEDS ORDERED: Vicks VapoRub 50 gm Jar TOP PRN (13:49)
[2017-12-09] MEDS: Ondansetron ODT 4 MG TAB PO PRN ×2 (14:07→22:00)
[2017-12-09] MEDS: Calcium Acetate 667 MG CAP PO SCH (17:31)
[2017-12-09] MEDS ORDERED: traZODone HCl 50 MG TAB PO SCH (21:00)
[2017-12-10] MEDS: metroNIDAZOLE 500 MG in Premix Bag 1 BAG IVPB SCH (05:51)
[2017-12-10 06:20] LABS: Band 1 % (5-11); Eosinophils 7 % (0-10); Lymphocytes 27 % (21-51); MDiff Complete? YES; Mean Corpuscular HGB CONC 33.2 g/dL (32.0-36.0); Mean Corpuscular Hemoglobin 33.4 pg (27.0-31.0); Mean Platelet Volume 7.6 fL (7.4-10.4); Monocytes 12 % (0-10); Neutrophil 53 % (42-75); Platelet Count 192 thou/uL (130-400); Red Blood Cell (RBC) Count 2.99 mill/uL (4.20-5.40); White Blood Cell (WBC) Count 10.4 thou/uL (4.8-10.8)
[2017-12-10 06:22] LABS: ALT (SGPT) 9 U/L (8-55); AST (SGOT) 15 U/L (5-34); Albumin 3.8 g/dL (3.5-5.0); Alkaline Phosphatase 64 U/L (40-150); Anion Gap 16 mmol/L (10-20); BUN (Urea Nitrogen) 20 mg/dL (7.0-18.7); Bilirubin, Total 0.4 mg/dL (0.2-1.2); Calc. Creatinine Clearance 14 mL/min (70-130); Calcium 8.2 mg/dL (7.8-10.44); Carbon Dioxide 27 mmol/L (22-29); Chloride 96 mmol/L (98-107); Estimated GFR-MDRD 11; Globulin 2.7 g/dL (2.4-3.5); Glucose 104 mg/dL (70-105); Potassium 4.1 mmol/L (3.5-5.1); Protein, Total 6.5 g/dL (6.0-8.3); Sodium 135 mmol/L (136-145)
[2017-12-10] MEDS: Calcium Acetate 667 MG CAP PO SCH ×2 (08:23→11:46)
--- NOTE | 2017-12-10 11:20 | PRG ---
DATE OF SERVICE: 12/10/2017 SERVICE: Renal Medicine. SUBJECTIVE: Ms. Juarez is a 32-year-old white female with ESRD - on maintenance hemodialysis and adm itted for abdominal pain. Initial imaging of the abdomen showed no acute intracranial abnormality. She was also empirically treated with IV antibiotics due to the elevated white count with ? of acute bronchitis. Furthermore, we were consulted for emergent hemodialysis due to a potassium of 6.8. She received 2 consecutive days of dialysis. This morning, she is feeling better and requesting to go h ome. She voices no new complaints. She denies any chest pain or shortness of breath. OBJECTIVE: VITAL SIGNS: Blood pressure 98/61, heart rate 101, respiratory rate 16, temperature 98.5, pulse ox i s 97%. GENERAL: Awake, alert, comfortable, not in distress. SKIN: Adequate turgor. HEENT: She has pinkish conjunctivae, anicteric sclerae. NECK: No neck mass, no carotid bruits, no JVD. CHEST: No deformities. LUNGS: Clear breath sounds. No wheezing, no crackles. HEART: Normal sinus rhythm. No murmur, no gallops or rubs. ABDOMEN: Globular, soft, nontender. No masses. EXTREMITIES: No edema, no deformities. MEDICATIONS: Of 12/10/2017 was reviewed. LABORATORY DATA: Of 12/10/2017, sodium 135, potassium 4.1, chloride 96, carbon dioxide 27, BUN 20, c reatinine 4.76, glucose 104, calcium 8.2. LFT was normal. White count 10.4, hemoglobin 10. ASSESSMENT AND PLAN: 1. End-stage renal disease, stable. Continue current Saturday, Saturday, Saturday hemodialysis. No in dication for any emergent hemodialysis today. 2. Hyperkalemia, much improved after 2 consecutive dialysis sessions. The patient has been recounse led regarding potassium intake. 3. Anemia. No indication for any Epogen dosing today. 4. Acute bronchitis on IV antibiotics. Consider changing her to p.o. antibiotics. She is clinicall y much improved.
[2017-12-10] MEDS: Ondansetron ODT 4 MG TAB PO PRN (11:47)
[2017-12-10 12:05] VITALS: BP 100/56; TEMP 98.9
--- NOTE | 2017-12-10 12:28 | PDOC.PN ---
- Subjective Encounter Start Date: 12/10/17 Encounter Start Time: 12:23 Ms. Juarez was seen today in follow-up of Hyperkalemia. She says she is having some vomiting, and feels a bit congested, but otherwise ok. - Objective Resuscitation Status: Resuscitation Status FULL:Full Resuscitation MAR Reviewed: Yes Vital Signs & Weight: Vital Signs (12 hours) Temp Pulse Resp BP Pulse Ox 12/10/17 12:00 98.9 F 88 18 100/56 L 97 12/10/17 08:30 98.5 F 101 H 16 12/10/17 07:48 98.5 F 101 H 16 98/61 97 12/10/17 03:12 99.1 F 101 H 20 90/55 L 92 L Weight Weight 116 lb 6.465 oz I&O: 12/09/17 12/10/17 12/11/17 06:59 06:59 06:59 Intake Total 780 1620 Output Total 900 Balance -120 1620 Result Diagrams: 12/10/17 05:29 12/10/17 05:29 Phys Exam - Physical Examination HEENT: PERRLA Respiratory: no wheezing, no rales, no rhonchi, clear to auscultation bilateral Cardiovascular: RRR, no significant murmur Gastrointestinal: soft, non-tender, positive bowel sounds Musculoskeletal: no edema Dx/Plan (1) Hyperkalemia Code(s): E87.5 - HYPERKALEMIA Status: Acute Comment: HD completed per Renal service, repeat K+ level (2) Bipolar disorder Code(s): F31.9 - BIPOLAR DISORDER, UNSPECIFIED Status: Chronic Qualifiers: Current episode severity: unspecified Comment: Stable (3) ESRD (end stage renal disease) on dialysis Code(s): N18.6 - END STAGE RENAL DISEASE; Z99.2 - DEPENDENCE ON RENAL DIALYSIS Status: Chronic Comment: HD per Renal service (4) [place]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 etiology possibly from Bronchitis * HTN blood pressure is stable * Stable for discharge home.
--- NOTE | 2017-12-10 13:12 | DIS ---
DATE OF ADMISSION: 12/08/2017 DATE OF DISCHARGE: 12/10/2017 DISCHARGE DISPOSITION: Home. PRIMARY DISCHARGE DIAGNOSES: 1. Hyperkalemia. 2. Probable acute bronchitis. 3. End-stage renal disease, on hemodialysis. 4. Mickie syndrome. 5. Hypertension. 6. Bipolar disorder. 7. History of chronic pancreatitis. DISCHARGE MEDICATIONS: Ciprofloxacin 250 mg daily for 3 days as well as Flagyl 250 mg t.i.d. for 3 d ays. She is to continue omeprazole 20 mg daily, Benadryl 25 mg q.6 h. and calcium acetate 5 capsules as directed. PROCEDURES DONE DURING ADMISSION: The patient had a CT of the abdomen and pelvis showing no evidence of any intraabdominal or pelvic abnormality. There was a calcified low right pelvic kidney. There was a smaller cystic structure in the left abdomen, which likely represents a cyst within a very smal l left kidney. 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 CODE: FULL CODE. ALLERGIES: RANITIDINE, BACLOFEN, CYCLOBENZAPRINE, LEVOFLOXACIN, and VANCOMYCIN. Please note that th e patient has been receiving ciprofloxacin in the hospital without any difficulty. HOSPITAL COURSE: Ms. Juarez is a pleasant 32-year-old female who presented to the emergency room wit h complaints of abdominal pain. She was evaluated by CT scan in the ER, which found some incidental findings, but no acute intra-abdominal abnormality. She was also noted to be hyperkalemic and also h ad a mild leukocytosis. This is the reason she was admitted. She underwent few back to back dialysi s sessions by Dr. Espinoza and this corrected the hyperkalemia. Dr. Esipnoza talked to her about low potassium diet once again. The patient says that she has been around her mother who has been sick with bronch itis-like symptoms and she says she has been coughing up some greenish yellow mucus. A chest x-ray w as not done on admission, but she could possibly have a bronchitis. This may account for the leukocy tosis. This was better with antibiotics. She will be discharged home on a short course of antibioti cs and also to follow up with her primary care physician in 1-2 weeks.
--- NOTE | 2018-01-11 18:18 | EKG ---
Test Reason : Blood Pressure : / mmHG Vent. Rate : 098 BPM Atrial Rate : 098 BPM P-R Int : 132 ms QRS Dur : 086 ms QT Int : 362 ms P-R-T Axes : 051 092 057 degrees QTc Int : 462 ms Normal sinus rhythm Rightward axis Borderline ECG Confirmed by LARRY NICKERSON ([id number]), supervising film or videotape editor KATY GREWAL ([id number]) on 01/11/2018 6:18:16 PM Referred By: Confirmed By:LARRY NICKERSON
== END 2017-12-10 13:34 | disposition home or self-care (01) | DRG 640 ==
LOC: ERS 15:05 → 2NO 17:21 → 2SE 12-09 06:20
PROVIDERS: ADMIT Internal Medicine Infectious Disease; ATTEND Internal Medicine Infectious Disease
PROC: 5A1D70Z Performance of Urinary Filtration, Intermittent, Less than 6 Hours Per Day (ICD-10-PCS; principal; 2017-12-08)
PROC: 5A1D70Z Performance of Urinary Filtration, Intermittent, Less than 6 Hours Per Day (ICD-10-PCS; 2017-12-09)
DX: E87.5 Hyperkalemia (principal); N18.6 End stage renal disease; I12.0 Hypertensive chronic kidney disease with stage 5 chronic kidney disease or end stage renal disease; Q87.1 Congenital malformation syndromes predominantly associated with short stature; J20.9 Acute bronchitis, unspecified; Z99.2 Dependence on renal dialysis; F31.9 Bipolar disorder, unspecified; Z87.19 Personal history of other diseases of the digestive system; D63.1 Anemia in chronic kidney disease; R19.7 Diarrhea, unspecified
CPT/HCPCS: 36415; 74177; 80053; 82550; 82553; 83605; 83690; 84484; 84703; 85025; 87340; 90935; 93005; 94644; 96372; 96374; 96375; G0257; J0744; J7611; Q0162

== ENCOUNTER 2018-04-15 00:28 | Emergency (ER) | payer MEDICARE, MEDICAID ==
[2018-04-15 01:46] LABS: #Basophils 0.1 thou/uL (0.0-0.2); #Eosinphils 0.6 thou/uL (0.0-0.7); #Lymphocytes 1.6 thou/uL (1.20-3.40); #Monocytes 1.4 thou/uL (0.11-0.59); #Neutrophils 8.3 thou/uL (1.40-6.50); %Basophils 0.4 % (0.0-1.0); %Eosinophils 5.3 % (0.0-10.0); %Lymphocytes 13.5 % (21.0-51.0); %Monocytes 11.2 % (0.0-10.0); %Neutrophils 69.5 % (42.0-75.0); Hemoglobin 11.5 g/dL (12.0-16.0); Mean Corpuscular Hemoglobin 33.6 pg (27.0-31.0); Mean Corpuscular Volume 96.1 fl (81.0-99.0); Mean Platelet Volume 7.9 fL (7.4-10.4); Platelet Count 230 thou/uL (130-400); Red Blood Cell (RBC) Count 3.42 mill/uL (4.20-5.40)
[2018-04-15 02:06] LABS: ALT (SGPT) Less than 7 U/L (8-55); AST (SGOT) 17 U/L (5-34); Alkaline Phosphatase 93 U/L (40-150); Anion Gap 18 mmol/L (10-20); BUN (Urea Nitrogen) 11 mg/dL (7.0-18.7); Bilirubin, Total 0.3 mg/dL (0.2-1.2); Calc. Creatinine Clearance 0 mL/min (70-130); Calcium 8.4 mg/dL (7.8-10.44); Carbon Dioxide 37 mmol/L (22-29); Chloride 92 mmol/L (98-107); Estimated GFR-MDRD 10; Globulin 3.5 g/dL (2.4-3.5); Potassium 4.7 mmol/L (3.5-5.1); Protein, Total 7.5 g/dL (6.0-8.3); Sodium 142 mmol/L (136-145)
[2018-04-15 02:09] LABS: CKMB 0.3 ng/mL (0-6.6); Troponin I Less than 0.010 ng/mL (< 0.028)
[2018-04-15 02:16] LABS: Glucose 44 mg/dL (70-105)
--- NOTE | 2018-04-15 08:44 | RAD ---
PORTABLE CHEST 1 VIEW: Date: 04/15/18 Time: 0051 hours HISTORY: Chest pain, vomiting. FINDINGS: Comparison made with exam of 07/12/17. Mild cardiomegaly is stable. Lungs are well expanded with stable increased interstitial markings. No focal areas of consolidation, pneumothoraces, or pleural effusions are seen. Vascular stents have bee n placed on the right. IMPRESSION: No acute process. POS: [facility]
== END 2018-04-15 03:12 | disposition home or self-care (01) ==
LOC: ERS 00:28
DX: R07.89 Other chest pain (principal); I12.0 Hypertensive chronic kidney disease with stage 5 chronic kidney disease or end stage renal disease; E16.2 Hypoglycemia, unspecified; N18.6 End stage renal disease; Q87.1 Congenital malformation syndromes predominantly associated with short stature; F31.9 Bipolar disorder, unspecified; Z79.899 Other long term (current) drug therapy
CPT/HCPCS: 36415; 36416; 71045; 80053; 82553; 84484; 85025; 93005; 94760

== ENCOUNTER 2018-06-16 07:05 | Emergency (ER) | payer MEDICARE, MEDICAID ==
[2018-06-16] MEDS ORDERED: Ondansetron ODT 4 MG TAB ONE (07:56)
[2018-06-16] MEDS ORDERED: Bisacodyl 10 MG SUPP ONE (08:34)
--- NOTE | 2018-06-16 08:49 | RAD ---
ABDOMEN 1 VIEW: HISTORY: Constipation, abdominal pain. FINDINGS: There is air in loops of small and large bowel. The bowel gas pattern is nonspecific. There are pablo gical clips in the right groin. POS: [facility]
== END 2018-06-16 12:30 | disposition home or self-care (01) ==
LOC: ERS 07:05
DX: K59.00 Constipation, unspecified (principal); F41.9 Anxiety disorder, unspecified; F45.8 Other somatoform disorders; I10 Essential (primary) hypertension; F31.9 Bipolar disorder, unspecified; Z79.899 Other long term (current) drug therapy
CPT/HCPCS: 74018; Q0162

== ENCOUNTER 2019-10-21 01:32 | Emergency (ER) | payer MEDICARE, MEDICAID ==
[2019-10-21] MEDS ORDERED: Ondansetron ODT 4 MG TAB ONE (01:55)
[2019-10-21 02:39] LABS: BHCG - Serum Negative (NEGATIVE); Pregs Control Background? CLEAR/WHITE (CLR/WHITE); Pregs Control Bar Appear? YES (CONTROL BAR)
[2019-10-21 02:46] LABS: Hemoglobin 12.3 g/dL (12.0-16.0); Mean Corpuscular HGB CONC 34.2 g/dL (32.0-36.0); Mean Corpuscular Hemoglobin 34.7 pg (27.0-31.0); Mean Platelet Volume 9.1 fL (7.4-10.4); Platelet Count 184 thou/uL (130-400); RBC Distribution Width 12.8 % (11.5-14.5); Red Blood Cell (RBC) Count 3.55 mill/uL (4.20-5.40); White Blood Cell (WBC) Count 13.3 thou/uL (4.8-10.8)
[2019-10-21 02:49] LABS: ALT (SGPT) 14 U/L (8-55); AST (SGOT) 28 U/L (5-34); Albumin 4.2 g/dL (3.5-5.0); Alkaline Phosphatase 83 U/L (40-110); Anion Gap 24 mmol/L (10-20); BUN (Urea Nitrogen) 39 mg/dL (7.0-18.7); Bilirubin, Total 0.3 mg/dL (0.2-1.2); Calc. Creatinine Clearance 0 mL/min (70-130); Carbon Dioxide 24 mmol/L (22-29); Chloride 96 mmol/L (98-107); Estimated GFR-MDRD 5; Globulin 3.8 g/dL (2.4-3.5); Glucose 99 mg/dL (70-105); Lipase 52 U/L (8-78); Potassium 5.8 mmol/L (3.5-5.1); Sodium 138 mmol/L (136-145)
[2019-10-21 02:58] LABS: Eosinophils 5 % (0-10); Lymphocytes 10 % (21-51); MDiff Complete? YES; Monocytes 10 % (0-10); Neutrophil 71 % (42-75); Platelet Morphology Comment Appears Adequate; RBC Morphology Normal; Reactive Lymphocytes 4 % (0-10)
== END 2019-10-21 03:14 | disposition home or self-care (01) ==
LOC: ERS 01:32
DX: R11.0 Nausea (principal); I12.0 Hypertensive chronic kidney disease with stage 5 chronic kidney disease or end stage renal disease; N18.6 End stage renal disease; F31.9 Bipolar disorder, unspecified; Z99.2 Dependence on renal dialysis; Z79.899 Other long term (current) drug therapy
CPT/HCPCS: 36415; 80053; 83690; 84703; 85025; 93005; Q0162

== ENCOUNTER 2019-11-29 10:18 | Inpatient (IN) | payer MEDICARE, MEDICAID ==
[2019-11-29 11:59] LABS: Hemoglobin 12.5 g/dL (12.0-16.0); Mean Corpuscular HGB CONC 33.5 g/dL (32.0-36.0); Mean Corpuscular Hemoglobin 33.1 pg (27.0-31.0); Mean Corpuscular Volume 98.6 fL (78.0-98.0); Mean Platelet Volume 7.3 fL (7.4-10.4); Platelet Count 294 thou/uL (130-400); RBC Distribution Width 12.3 % (11.5-14.5); Red Blood Cell (RBC) Count 3.79 mill/uL (4.20-5.40); White Blood Cell (WBC) Count 11.9 thou/uL (4.8-10.8)
[2019-11-29 12:29] LABS: Eosinophils 5 % (0-10); Hypersemented Neutrophil SLIGHT; Lymphocytes 10 % (21-51); MDiff Complete? YES; Monocytes 9 % (0-10); Neutrophil 74 % (42-75); Ovalocytes SLIGHT = 2-5 cells (100X) (0-1/hpf); Platelet Morphology Comment Appears Adequate; Reactive Lymphocytes 2 % (0-10); Vacuoles SLIGHT
[2019-11-29 12:30] LABS: ALT (SGPT) 9 U/L (8-55); AST (SGOT) 15 U/L (5-34); Albumin 4.4 g/dL (3.5-5.0); Alkaline Phosphatase 69 U/L (40-110); Anion Gap 21 mmol/L (10-20); BUN (Urea Nitrogen) 32 mg/dL (7.0-18.7); Bilirubin, Total 0.4 mg/dL (0.2-1.2); Calc. Creatinine Clearance 0 mL/min (70-130); Carbon Dioxide 23 mmol/L (22-29); Chloride 92 mmol/L (98-107); Estimated GFR-MDRD 4; Globulin 3.3 g/dL (2.4-3.5); Glucose 83 mg/dL (70-105); Lipase 461 U/L (8-78); Potassium 4.9 mmol/L (3.5-5.1); Protein, Total 7.7 g/dL (6.0-8.3); Sodium 131 mmol/L (136-145)
[2019-11-29] MEDS ORDERED: Ondansetron PF 4 MG/2 ML Vial ONE (14:39)
[2019-11-29] MEDS ORDERED: Morphine 4 MG/ML VIAL ONE (14:39)
[2019-11-29] MEDS ORDERED: Sodium Chloride 0.9% 1,000 ML IV SCH ×2 (16:36→17:15)
[2019-11-29] MEDS ORDERED: Ondansetron ODT 4 MG TAB SL PRN (16:36)
[2019-11-29] MEDS ORDERED: Ondansetron PF 4 MG/2 ML Vial IVP PRN (16:36)
[2019-11-29 17:41] VITALS: BMI 29.9
[2019-11-29] MEDS: Morphine 2 MG/ML SYRINGE SLOW IVP PRN ×2 (19:08→22:46)
--- NOTE | 2019-11-29 22:15 | HP ---
CHIEF COMPLAINT: Abdominal pain. HISTORY OF PRESENT ILLNESS: This patient is a 34-year-old female with a history of Austin syndrome and end-stage renal disease, on dialysis, followed by Dr. Espinoza. The patient has been in the emergency department several times in the past few days with report of abdominal pain. She apparently has a history of chronic pancreatitis. She states that she has pain in the upper abdomen and it is a sharp and stabbing type pain. This is the similar pain that she has had previously. She has no nausea or vomiting. She has continued to eat and reports that she is having some esophageal dysphagia. She denies any fevers or chills. REVIEW OF SYSTEMS: She does continue to have bowel movements somewhat sluggish. Otherwise, all systems reviewed. All pertinent positives and negatives noted in the history of present illness. PAST MEDICAL HISTORY: Notable for chronic pancreatitis, Austin syndrome, hypertension, end-stage renal disease on hemodialysis, bipolar disorder, and history of suicidal ideation. PAST SURGICAL HISTORY: Upper extremity fistula, right oophorectomy, and right hip surgery. FAMILY HISTORY: Reviewed, unremarkable other than the fact that she reports that her mother, grandmother, and great grandmother all had pancreatitis and she has been told that it is a genetic situation. SOCIAL HISTORY: Nonsmoker, nondrinker, nondrug user. She previously lived in a nursing facility. Currently lives in an apartment with her mother. She is full code and her mother would be her surrogate decision maker should that become necessary. ALLERGIES: INCLUDE RANITIDINE, BACLOFEN, CYCLOBENZAPRINE, LEVOFLOXACIN, LORATADINE, AND VANCOMYCIN. HOME MEDICATIONS: 1. Seroquel 50 mg at bedtime. 2. Latuda 120 mg regimen not otherwise known. 3. Pantoprazole 40 mg daily. 4. Duloxetine 20 mg daily. 5. Dicyclomine 20 mg p.r.n. PHYSICAL EXAMINATION: VITAL SIGNS: BP was 160/92, pulse 83, respirations 18, temperature 98.4, and O2 saturation 100% on room air. GENERAL APPEARANCE: Age-appropriate female with typical features of Austin syndrome with wide set eyes, low-set ears, short neck, and some spinal malalignment. She is awake, alert, pleasant, and cooperative. HEENT: DULCE. No OP lesions. NECK: Supple and symmetric. HEART: Regular rate and rhythm without murmurs, gallops, or rubs. LUNGS: Clear to auscultation bilaterally with good chest wall expansion and air exchange. ABDOMEN: Soft. It is tender to palpation across the upper abdomen, although I do not appreciate any voluntary guarding. There are no masses present. EXTREMITIES: No cyanosis, clubbing, or edema. PSYCH: She appears to have normal affect and behavior. LABORATORY DATA: Sodium 131, potassium 4.9, chloride 92, CO2 is 23, BUN 32, creatinine is 10.12, glucose 83, calcium 9.0, total bilirubin 0.4, AST 15, ALT 9, albumin 4.4, lipase 461, and hCG less than 1.2. White count 11.9, hemoglobin 12.5, and platelets 294. The patient had CT abdomen and pelvis performed on 11/22/2019, showed absence of normal kidneys, right-sided pelvic kidney with extensive nephrocalcinosis and dystrophic calcifications. There was appearance of the duodenum and superior mesenteric artery raising the possibility of SMA syndrome. The CT scan revealed mildly dilated 3rd stage of the duodenum, distal to that appeared to be very narrow. This was unchanged from prior studies. IMPRESSION AND PLAN: 1. Abdominal pain, likely exacerbation of her chronic pancreatitis. We will keep her n.p.o., give IV fluids and p.r.n. pain medications. 2. Esophageal dysphagia. We will consult GI to determine if the patient would benefit from endoscopic evaluation. 3. End-stage renal disease. Dr. Espinoza consulted for continuation of hemodialysis. 4. History of bipolar disorder. Continue with her usual home medication regimen. Job ID: [id number]
[2019-11-30] MEDS: Lorazepam 2 MG/ML VIAL SLOW IVP PRN ×2 (02:56→21:11)
[2019-11-30] MEDS: Morphine 2 MG/ML SYRINGE SLOW IVP PRN ×3 (05:11→18:04)
[2019-11-30] MEDS: Ondansetron PF 4 MG/2 ML Vial SLOW IVP PRN ×2 (05:11→13:52)
[2019-11-30] MEDS: Enoxaparin Sodium 30 MG/0.3 ML SYRINGE SC SCH (08:39)
[2019-11-30] MEDS ORDERED: FLU VACC QS2019-20(6MOS UP)/PF 60 MCG/0.5 ML SYRINGE IM ONE (09:00)
[2019-11-30] MEDS ORDERED: Sodium Chloride 0.9% (PF) 10 ML VIAL FS PRN (17:55)
--- NOTE | 2019-11-30 18:42 | PRG ---
DATE OF SERVICE: 11/30/2019 SUBJECTIVE: Ms. Juarez is a 34-year-old white female with ESRD-on maintenance hemodialysis and was admitted for abdominal pain. The patient has been having on and off abdominal pain. In the past, she has been admitted for her abdominal pain from her chronic pancreatitis. We have scheduled this patient for hemodialysis and she did undergo hemodialysis today and tolerated said treatment. Fluid removal was tolerated. No other complaints today. Abdominal pain is a little better. OBJECTIVE: VITAL SIGNS: Blood pressure 102/68, heart rate 88, respiratory rate 18, temperature 98.8 pulse ox 100%. GENERAL: Noted to be awake, alert, comfortable, not in distress. SKIN: Adequate turgor. HEENT: The patient has a pinkish conjunctivae. Anicteric sclerae. No neck mass. No carotid bruits. No JVD. CHEST: No deformities. LUNGS: Clear breath sounds. HEART: Normal sinus rhythm. No murmurs, gallops, or rubs. ABDOMEN: Globular, soft, nontender. No masses. EXTREMITIES: No edema. No deformities. MEDICATIONS: Medications of 11/30/2019, was reviewed. LABORATORY DATA: Laboratories of 11/29/2019; sodium 131, potassium 4.9, chloride 92, carbon dioxide 23, BUN 32, creatinine 10.12. AST 15, ALT 9, white count 11.9, hemoglobin 12.5. ASSESSMENT AND PLAN: 1. End-stage renal disease, stable, tolerating current hemodialysis regimen. Fluid removal only as tolerated. We will continue current Saturday, Saturday, and Saturday dialysis regimen. 2. Abdominal pain, consider possible chronic pancreatitis. Continue supportive care. 3. Please note that the lipase is only mildly elevated at 461. 4. Agree with current management. Job ID: [id number]
[2019-11-30] MEDS: Pantoprazole 40 MG VIAL IVP SCH (21:04)
--- NOTE | 2019-11-30 22:24 | PDOC.HOSPP ---
- Subjective Subjective: Patient seen in HD. Had some nausea. Says this is typical of her prior admissions with this problem. Nurse indicated she has some hypoxia with when sleeping, but sats are good as soon as she wakes. - Objective Vital Signs & Weight: Vital Signs (12 hours) Temp Pulse Resp BP Pulse Ox 11/30/19 19:54 99.0 F 94 16 120/79 99 11/30/19 16:31 98.8 F 88 18 102/68 100 11/30/19 11:36 97.8 F 95 18 168/80 H 95 Weight Admit Weight 138 lb 8 oz Weight 138 lb 8 oz Result Diagrams: 11/29/19 11:42 11/29/19 11:42 Hospitalist ROS - Medication Medications: Active Medications Generic Name Dose Route Start Last Admin Trade Name Freq PRN Reason Stop Dose Admin Enoxaparin Sodium 30 mg 11/30/19 09:00 11/30/19 08:39 Lovenox SC Not Given 0900 MARYAM Lorazepam 0.5 mg 11/30/19 02:47 11/30/19 21:11 Ativan SLOW IVP 0.5 mg Q6H PRN Administration Anxiety Morphine Sulfate 2 mg 11/29/19 17:04 11/30/19 18:04 Morphine SLOW IVP 2 mg Q4H PRN Administration Moderate to Severe Pain (6-10) Ondansetron HCl 4 mg 11/30/19 00:59 11/30/19 13:52 Zofran SLOW IVP 4 mg Q6H PRN Administration Nausea Pantoprazole Sodium 40 mg 11/30/19 21:00 11/30/19 21:04 Protonix IVP 40 mg Q12HR MARYAM Administration Quetiapine Fumarate 300 mg 11/30/19 21:00 11/30/19 21:05 Seroquel PO Not Given HS MARYAM Sodium Chloride 10 ml 11/30/19 09:00 11/30/19 21:05 Flush - Normal Saline IVF 10 ml Q12HR MARYAM Administration - Exam General Appearance: NAD, awake alert Heart: RRR, no murmur, no gallops, no rubs, normal peripheral pulses Respiratory: CTAB, no wheezes, no rales, no ronchi, normal chest expansion, no tachypnea, normal percussion Respiratory - other findings: Patient has some obstructive apnea at the time of the exam. Gastrointestinal: normal bowel sounds, tender to palpation Extremities: no cyanosis, no clubbing, no edema Musculoskeletal: normal tone Psychiatric: normal affect, normal behavior, A&O x 3, somnolent Hosp A/P (1) Pancreatitis Code(s): K85.90 - ACUTE PANCREATITIS WITHOUT NECROSIS OR INFECTION, UNSP Status: Acute (2) GRACIE (obstructive sleep apnea) Code(s): G47.33 - OBSTRUCTIVE SLEEP APNEA (ADULT) (PEDIATRIC) Status: Acute (3) Abdominal pain Code(s): R10.9 - UNSPECIFIED ABDOMINAL PAIN Status: Acute (4) Bipolar disorder Code(s): F31.9 - BIPOLAR DISORDER, UNSPECIFIED Status: Chronic Qualifiers: Current episode severity: unspecified (5) ESRD (end stage renal disease) on dialysis Code(s): N18.6 - END STAGE RENAL DISEASE; Z99.2 - DEPENDENCE ON RENAL DIALYSIS Status: Chronic (6) [place] syndrome Code(s): 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 Continuing pain meds, but may need some PRN oxygen. Will need sleep study. Nephrology following. Continue HD. PRN's for nausea.
--- NOTE | 2019-11-30 23:30 | CON ---
DATE OF CONSULTATION: 11/29/2019 REASON FOR CONSULTATION: Pancreatitis. HISTORY OF PRESENT ILLNESS: Ms. Juarez is a 34-year-old female, who came to the [facility] Emergency room in [place] on 11/29 for abdominal pain. She was found to have mildly elevated lipase. She has been here in October with some nausea and some diarrhea. In the emergency room, she had stable vital signs. She said her abdominal pain was very similar to when she had pancreatitis in the past. She also apparently been seen in 11/2018 and was recommend to follow up with her gastrologist, Dr. Ga Buchanan, which she has not yet. She denies any nausea, vomiting, diarrhea, but noted that for about 4 days prior to admission, she is having problems with eating. She was eating some meat and felt like it hung up, then she was able to get it down, now she is able to swallow liquids, but it hurts when she swallows. She reports she has had an EGD before and was told she had irritation from reflux. She has been on no reflux medicines except for H2 steve and has not been on any other medicines recently. As far as the pancreatitis, she has had multiple bouts of this in the past and she is not sure why. Again, most of her care she gets at [facility], where her primary physician is. She denies any dysuria, frequency, urgency, melena, hematochezia, or hematemesis. She is able to get down liquids. REVIEW OF SYSTEMS: Negative for fever or chills. She does state she feels short of breath. She had dialysis today. She denies any rashes, myalgias, arthralgias, dysuria, frequency, urgency, melena, hematochezia, or hematemesis. PAST MEDICAL HISTORY: General heart disease, chronic pancreatitis, [place] syndrome, hypertension, renal disease, hyperparathyroidism, shunt for which she does hemodialysis. PAST SURGICAL HISTORY: Dialysis shunt, oophorectomy of right ovary, orthopedic surgery, right hip surgery, peritoneal dialysis shunt removed in the past. FAMILY HISTORY: She reports that her mother, grandmother, and great grandmother all had pancreatitis and told it was genetic. SOCIAL HISTORY: Nonsmoker, nondrinker, nondrug user. Lives in apartment with her mother. ALLERGIES: RANITIDINE, BACLOFEN, CYCLOBENZAPRINE, LEVOFLOXACIN, LORATADINE, AND VANCOMYCIN. MEDICATIONS: 1. Seroquel. 2. Latuda. 3. Protonix. 4. Duloxetine. 5. Dicyclomine. PHYSICAL EXAMINATION: VITAL SIGNS: Blood pressure is 160/92, pulse 83, respirations 18, temperature 98. GENERAL: She has slight atkinson facies and buffalo hump. Facies consistent with typical [place] syndrome with wide-set eyes. She has a little bit of webbed neck, short neck, low-set ears. She is awake and oriented, in no distress. HEENT: Oropharynx, no lesions, slightly dry. NECK: Supple. No adenopathy. LUNGS: Clear. HEART: Regular rate and rhythm without clicks or murmurs. ABDOMEN: Soft and nontender without rebound or guarding. LABORATORY STUDIES: Essentially none today. Labs yesterday notable for white count 11.1, hemoglobin 12.5, and platelet count is 294. Chemistries yesterday; sodium 131, potassium 4.9, BUN and creatinine were 32 and 10. LFTs were normal. Lipase was 461. Beta-hCG negative. Triglycerides was not performed. ASSESSMENT: 1. Dysphagia. She has had this in the past and states she has been told she had a reflux. She has no symptoms or signs of bolus obstruction esophagus. I would start PPI on her and observe. 2. Abdominal pain consistent with history of recurrent pancreatitis in the past showed mild lipase elevation today. She states this has been dietary or congenital. She sees Dr. Ga Zamudio at [facility]. Her lipase was checked on admission and was mildly elevated, it has not been rechecked since in fact no labs were checked today. RECOMMENDATIONS: Recheck all labs tomorrow. Start IV PPI. I would give her some gentle IV fluids. She is n.p.o. even though she is a dialysis patient. If there is not slow improvement in her swallowing issues with b.i.d. PPI therapy, consider endoscopy when it is more clear that her pancreatitis is better. Otherwise if everything just improves, she can follow up with her primary gastrologist, Dr. Ga Buchanan, at [facility] on discharge. Job ID: [id number]
[2019-12-01] MEDS: Ondansetron PF 4 MG/2 ML Vial SLOW IVP PRN ×2 (05:37→14:02)
[2019-12-01] MEDS: Morphine 2 MG/ML SYRINGE SLOW IVP PRN ×3 (05:41→22:00)
[2019-12-01 06:43] LABS: ALT (SGPT) Less than 7 U/L (8-55); AST (SGOT) 17 U/L (5-34); Albumin 4.1 g/dL (3.5-5.0); Alkaline Phosphatase 68 U/L (40-110); Anion Gap 22 mmol/L (10-20); BUN (Urea Nitrogen) 19 mg/dL (7.0-18.7); Bilirubin, Total 0.5 mg/dL (0.2-1.2); Calc. Creatinine Clearance 11 mL/min (70-130); Calcium 8.8 mg/dL (7.8-10.44); Carbon Dioxide 21 mmol/L (22-29); Chloride 94 mmol/L (98-107); Estimated GFR-MDRD 6; Globulin 3.5 g/dL (2.4-3.5); Lipase 16 U/L (8-78); Potassium 4.8 mmol/L (3.5-5.1); Protein, Total 7.6 g/dL (6.0-8.3); Sodium 132 mmol/L (136-145); Triglycerides 79 mg/dL (Less than 150)
[2019-12-01 06:46] LABS: Glucose 57 mg/dL (70-105)
[2019-12-01 07:03] LABS: #Eosinphils 0.3 thou/uL (0.0-0.7); #Lymphocytes 0.9 thou/uL (1.20-3.40); #Monocytes 1.2 thou/uL (0.11-0.59); #Neutrophils 10.5 thou/uL (1.40-6.50); %Basophils 0.3 % (0.0-1.0); %Eosinophils 2.7 % (0.0-10.0); %Monocytes 8.9 % (0.0-10.0); %Neutrophils 81.2 % (42.0-75.0); Hemoglobin 11.4 g/dL (12.0-16.0); Mean Corpuscular HGB CONC 33.2 g/dL (32.0-36.0); Mean Corpuscular Hemoglobin 33.8 pg (27.0-31.0); Mean Platelet Volume 7.5 fL (7.4-10.4); Platelet Count 239 thou/uL (130-400); RBC Distribution Width 12.4 % (11.5-14.5); Red Blood Cell (RBC) Count 3.37 mill/uL (4.20-5.40)
[2019-12-01] MEDS ORDERED: Insulin Regular 300 UNITS/3 ML VIAL SC PRN ×2 (07:10)
[2019-12-01] MEDS ORDERED: Dextrose 5% in Water 1,000 ML IV PRN (07:10)
[2019-12-01] MEDS ORDERED: Dextrose 50% Abboject 50 ML SYRINGE SLOW IVP PRN (07:10)
[2019-12-01] MEDS ORDERED: Dextrose 5 % And 0.9 % NaCl 1,000 ML IV SCH (07:15)
[2019-12-01] MEDS: Pantoprazole 40 MG VIAL IVP SCH ×2 (07:35→19:35)
[2019-12-01] MEDS: Enoxaparin Sodium 30 MG/0.3 ML SYRINGE SC SCH (07:35)
[2019-12-01] MEDS: Lorazepam 2 MG/ML VIAL SLOW IVP PRN (16:00)
[2019-12-01] MEDS: Calcium Acetate 667 MG CAP PO SCH (17:27)
--- NOTE | 2019-12-01 18:51 | PDOC.HOSPP ---
- Subjective Subjective: Feeling some better. Wants to try some clear liquids. - Objective Vital Signs & Weight: Vital Signs (12 hours) Temp Pulse Resp BP Pulse Ox 12/01/19 07:57 98.1 F 88 16 146/93 H 99 Weight Admit Weight 138 lb 8 oz Weight 138 lb 8 oz Result Diagrams: 12/01/19 06:29 12/01/19 05:50 Additional Labs: Accuchecks 12/01/19 12/01/19 12/01/19 16:33 11:51 08:44 POC Glucose 71 69 L 71 Hospitalist ROS - Medication Medications: Active Medications Generic Name Dose Route Start Last Admin Trade Name Freq PRN Reason Stop Dose Admin Calcium Acetate 3,335 mg 12/01/19 17:00 12/01/19 17:27 Phoslo PO Not Given TID-WM MARYAM Duloxetine HCl 20 mg 12/01/19 09:00 12/01/19 07:32 Cymbalta PO Not Given BID MARYAM Enoxaparin Sodium 30 mg 11/30/19 09:00 12/01/19 07:35 Lovenox SC 30 mg 0900 MARYAM Administration Dextrose/Sodium Chloride 1,000 mls @ 50 mls/hr 12/01/19 07:15 12/01/19 07:36 D5 0.9% Ns IV 12/02/19 03:14 1,000 mls .Q20H MARYAM Administration Lorazepam 0.5 mg 11/30/19 02:47 12/01/19 16:00 Ativan SLOW IVP 0.5 mg Q6H PRN Administration Anxiety Morphine Sulfate 2 mg 11/29/19 17:04 12/01/19 14:02 Morphine SLOW IVP 2 mg Q4H PRN Administration Moderate to Severe Pain (6-10) Ondansetron HCl 4 mg 11/30/19 00:59 12/01/19 14:02 Zofran SLOW IVP 4 mg Q6H PRN Administration Nausea Pantoprazole Sodium 40 mg 11/30/19 21:00 12/01/19 07:35 Protonix IVP 40 mg Q12HR MAYRAM Administration Sodium Chloride 10 ml 11/30/19 09:00 12/01/19 07:36 Flush - Normal Saline IVF 10 ml Q12HR MARYAM Administration - Exam General Appearance: NAD, awake alert Heart: RRR, no murmur, no gallops, no rubs, normal peripheral pulses Respiratory: CTAB, no wheezes, no rales, no ronchi, normal chest expansion, no tachypnea, normal percussion Gastrointestinal: soft, non-distended, normal bowel sounds, no palpable masses, no hepatomegaly, no splenomegaly, no bruit, tender to palpation (Very modest epigastric pain.) Extremities: no cyanosis, no clubbing, no edema Musculoskeletal: normal tone, normal strength, no muscle wasting Psychiatric: normal affect, normal behavior, A&O x 3 Hosp A/P (1) Pancreatitis Code(s): K85.90 - ACUTE PANCREATITIS WITHOUT NECROSIS OR INFECTION, UNSP Status: Acute (2) GRACIE (obstructive sleep apnea) Code(s): G47.33 - OBSTRUCTIVE SLEEP APNEA (ADULT) (PEDIATRIC) Status: Acute (3) Abdominal pain Code(s): R10.9 - UNSPECIFIED ABDOMINAL PAIN Status: Acute (4) Bipolar disorder Code(s): F31.9 - BIPOLAR DISORDER, UNSPECIFIED Status: Chronic Qualifiers: Current episode severity: unspecified (5) ESRD (end stage renal disease) on dialysis Code(s): N18.6 - END STAGE RENAL DISEASE; Z99.2 - DEPENDENCE ON RENAL DIALYSIS Status: Chronic (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 Start clears. Lipase normal. Continuing pain meds, but may need some PRN oxygen. Will need sleep study. Nephrology following. Continue HD. PRN's for nausea.
--- NOTE | 2019-12-01 19:50 | PRG ---
DATE OF SERVICE: 12/01/2019 SUBJECTIVE: Ms. Juarez states she is feeling a lot better as far as her stomach goes, and one time she got in the ICU some Jell-O to start eating. She denies any chest pain. Feels that her throat just feels dry, but she is having odynophagia at this time. OBJECTIVE: VITAL SIGNS: Temperature max 99, temperature current 98, blood pressure 146/93, pulse 88. ABDOMEN: Soft and nontender. Bowel sounds are positive. LABORATORY DATA: White count 13, hemoglobin 11, platelet count 239. Sodium 132, potassium 4.9, BUN and creatinine 19 and 7.27. Lipase is 16. ASSESSMENT: [id number] pancreatitis, resolved. Reflux. No complaints of dysphagia. Feels her heartburn is better. RECOMMENDATIONS: Advance to full liquid diet as tolerated tomorrow. We will recheck lipase in the morning. Job ID: [id number]
[2019-12-02] MEDS: Morphine 2 MG/ML SYRINGE SLOW IVP PRN (04:25)
[2019-12-02] MEDS: Pantoprazole 40 MG VIAL IVP SCH ×2 (08:02→16:50)
[2019-12-02] MEDS: Calcium Acetate 667 MG CAP PO SCH ×3 (08:02→16:49)
[2019-12-02] MEDS: Enoxaparin Sodium 30 MG/0.3 ML SYRINGE SC SCH (08:02)
--- NOTE | 2019-12-02 08:36 | PRG ---
DATE OF SERVICE: 12/02/2019 SERVICE: Renal Medicine. SUBJECTIVE: Ms. Juarez is a 34-year-old white female with ESRD, admitted for abdominal pain secondary to her chronic pancreatitis. Likely, this is much improved. However, still with some intermittent abdominal pain. No complaints of chest pain or shortness of breath. She is currently undergoing hemodialysis. OBJECTIVE: VITAL SIGNS: Blood pressure is noted at 165/89 with a heart rate of 91, respiratory rate 18, temperature 98.3. GENERAL: Awake, alert, comfortable, not in overt distress. SKIN: Adequate turgor. HEENT: She has pinkish conjunctivae. Anicteric sclerae. NECK: No neck mass. No carotid bruits. No JVD. CHEST: No deformities. LUNGS: Clear breath sounds. No wheezing. No crackles. HEART: Normal sinus rhythm. No murmur. No gallops. No rubs. ABDOMEN: Globular, soft, nontender. No masses. EXTREMITIES: No edema. No deformities. MEDICATIONS: Medications of December 02, 2019, reviewed. LABORATORY DATA: Laboratories of December 01, 2019, white count 13, hemoglobin 11.4. Sodium 132, potassium 4.8, chloride 94, carbon dioxide 21, BUN is 19, creatinine is 7.27, lipase is 16. On December 02, 2019, glucose 95. ASSESSMENT AND PLAN: 1. Chronic pancreatitis, improving biochemical markers. Still with occasional intermittent abdominal pain. Continue supportive care. 2. End-stage renal disease, stable, tolerating current hemodialysis regimen. Fluid removal only as tolerated. We will continue Saturday, Saturday, and Saturday dialysis. No changes to be made. Overall, agree with current management. Addendum: The patient is to continue her phosphate binders. We will be rechecking a phosphorus level again tomorrow. Job ID: [id number]
[2019-12-02 09:05] LABS: Phosphorus 7.2 mg/dL (2.3-4.7)
[2019-12-02] MEDS: HYDROcodone/Acetaminophen 5/325 mg Tablet PO PRN ×3 (13:00→22:00)
[2019-12-02] MEDS ORDERED: Polyethylene Glycol 3350 17 GM Packet PO SCH (14:00)
--- NOTE | 2019-12-02 15:27 | CON ---
DATE OF CONSULTATION: 12/02/2019 HISTORY OF PRESENT ILLNESS: Ms. Juarez complains odynophagia. She did not yesterday, but she is today. She complains of suprapubic abdominal pain. Nurse notes she is getting out of bed since she has been getting [place]. OBJECTIVE: VITAL SIGNS: Temperature is 98.5, pulse 83, blood pressure 133/76. ABDOMEN: Soft and nontender. There is no rebound or guarding. LUNGS: Clear. LABORATORY DATA: Today none. ASSESSMENT: The patient was admitted with mild tjavh-hi-rdtjrwa pancreatitis. Yesterday, her lipase returned normal. She also admitted with some odynophagia and dysphagia. She reported that improved with PPI IV right now since she has returned. RECOMMENDATIONS: 1. I would recheck her lipase and labs tomorrow. I am going to plan for an EGD tomorrow. If that is normal, she can go home and follow up with her office support at [facility], who she sees on a regular basis. 2. As far as her lower abdominal pain, this could be related to either bladder distention or lower abdominal process. It may be reasonable to CAT scan her abdomen and pelvis. If that continues, that was not a complaint yesterday. 3. I would discontinue her narcotics if she can become constipated. Job ID: [id number]
[2019-12-02] MEDS ORDERED: Ondansetron ODT 8 MG TAB SL PRN (16:17)
[2019-12-02] MEDS ORDERED: Promethazine HCl 25 MG/ML VIAL IM PRN (16:18)
--- NOTE | 2019-12-02 22:09 | PDOC.HOSPP ---
- Subjective Subjective: Says she got increasing abdominal pain with the clear liquids. She lost her IV and no one has been successful in getting a new one. - Objective Vital Signs & Weight: Vital Signs (12 hours) Temp Pulse Resp BP Pulse Ox 12/02/19 21:35 98.5 F 83 12 120/80 95 12/02/19 16:00 98.4 F 83 20 108/63 95 12/02/19 11:42 98.5 F 93 20 133/73 Weight Admit Weight 138 lb 8 oz Weight 138 lb 8 oz Result Diagrams: 12/01/19 06:29 12/01/19 05:50 Additional Labs: Accuchecks 12/02/19 12/02/19 12/02/19 21:31 16:23 11:37 POC Glucose 138 H 142 H 57 L* 12/02/19 04:43 POC Glucose 95 Hospitalist ROS - Medication Medications: Active Medications Generic Name Dose Route Start Last Admin Trade Name Freq PRN Reason Stop Dose Admin Hydrocodone Bitart/Acetaminophen 1 tab 12/02/19 11:55 12/02/19 22:00 [place] 5/325 PO 1 tab Q4H PRN Administration Moderate to Severe Pain (6-10) Calcium Acetate 3,335 mg 12/01/19 17:00 12/02/19 16:49 Phoslo PO Not Given TID-WM MARYAM Duloxetine HCl 20 mg 12/01/19 09:00 12/02/19 20:56 Cymbalta PO 20 mg BID MARYAM Administration Enoxaparin Sodium 30 mg 11/30/19 09:00 12/02/19 08:02 Lovenox SC Not Given 0900 [facility] Lorazepam 0.5 mg 11/30/19 02:47 12/01/19 16:00 Ativan SLOW IVP 0.5 mg Q6H PRN Administration Anxiety Morphine Sulfate 2 mg 11/29/19 17:04 12/02/19 04:25 Morphine SLOW IVP 2 mg Q4H PRN Administration Moderate to Severe Pain (6-10) Ondansetron HCl 4 mg 11/30/19 00:59 12/01/19 14:02 Zofran SLOW IVP 4 mg Q6H PRN Administration Nausea Pantoprazole Sodium 40 mg 11/30/19 21:00 12/02/19 16:50 Protonix IVP Not Given Q12HR MARYAM Quetiapine Fumarate 300 mg 12/01/19 21:00 12/02/19 20:56 Seroquel PO 300 mg HS MARYAM Administration Sodium Chloride 10 ml 11/30/19 09:00 12/02/19 19:16 Flush - Normal Saline IVF Not Given Q12HR MARYAM - Exam General Appearance: NAD, awake alert Neck: supple, symmetric, no JVD, no thyromegaly, no lymphadenopathy, no carotid bruit Heart: RRR, no murmur, no gallops, no rubs, normal peripheral pulses Respiratory: CTAB, no wheezes, no rales, no ronchi, normal chest expansion, no tachypnea, normal percussion Gastrointestinal: soft, non-distended, normal bowel sounds, no palpable masses, no hepatomegaly, no splenomegaly, no bruit Extremities: no cyanosis, no clubbing, no edema Musculoskeletal: normal tone, no muscle wasting Psychiatric - other findings: Very child-like demeanor. 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 She is very child-like in her behavior. She indicates pain and tenderness in her epigastric area, but does not show any signs of hurting with palpation. GI felt she did, in fact, have pancreatitis. She has a history of pancreatitis. Treated with bowel rest, pain managment. Lost her IV and meds changed to po pain meds and anti-emetics today. Lipase normal for 28 hours. Continuing pain meds, but may need some PRN oxygen. Will need sleep study. Nephrology following. Continue HD. No IVF as fluids will be managed with HD.
[2019-12-03] MEDS: Morphine 2 MG/ML SYRINGE SLOW IVP PRN ×3 (09:28→19:27)
[2019-12-03] MEDS: Ondansetron PF 4 MG/2 ML Vial SLOW IVP PRN ×3 (09:32→19:28)
[2019-12-03] MEDS: Enoxaparin Sodium 30 MG/0.3 ML SYRINGE SC SCH (09:40)
[2019-12-03] MEDS: Polyethylene Glycol 3350 17 GM Packet PO SCH (09:41)
[2019-12-03] MEDS: Pantoprazole 40 MG VIAL IVP SCH ×2 (09:41→19:28)
[2019-12-03 10:18] LABS: ALT (SGPT) 8 U/L (8-55); AST (SGOT) 16 U/L (5-34); Albumin 3.8 g/dL (3.5-5.0); Alkaline Phosphatase 55 U/L (40-110); Anion Gap 17 mmol/L (10-20); BUN (Urea Nitrogen) 11 mg/dL (7.0-18.7); Bilirubin, Total 0.4 mg/dL (0.2-1.2); Calc. Creatinine Clearance 11 mL/min (70-130); Calcium 8.3 mg/dL (7.8-10.44); Carbon Dioxide 23 mmol/L (22-29); Chloride 98 mmol/L (98-107); Estimated GFR-MDRD 7; Glucose 75 mg/dL (70-105); Lipase 30 U/L (8-78); Potassium 4.2 mmol/L (3.5-5.1); Protein, Total 6.8 g/dL (6.0-8.3); Sodium 134 mmol/L (136-145)
--- NOTE | 2019-12-03 10:50 | PDOC.HOSPP ---
- Subjective Subjective: Still reports some abdominal pain. Same as yesterday. Now it is more in the lower abdomen. Says she is voiding well. - Objective Vital Signs & Weight: Vital Signs (12 hours) Temp Pulse Resp BP Pulse Ox 12/03/19 09:30 98.1 F 87 20 102/66 98 Weight Admit Weight 138 lb 8 oz Weight 138 lb 8 oz Result Diagrams: 12/01/19 06:29 12/03/19 09:54 Additional Labs: Accuchecks 12/03/19 12/02/19 12/02/19 05:04 21:31 16:23 POC Glucose 91 138 H 142 H 12/02/19 11:37 POC Glucose 57 L* Hospitalist ROS - Medication Medications: Active Medications Generic Name Dose Route Start Last Admin Trade Name Freq PRN Reason Stop Dose Admin Hydrocodone Bitart/Acetaminophen 1 tab 12/02/19 11:55 12/02/19 22:00 [place] 5/325 PO 1 tab Q4H PRN Administration Moderate to Severe Pain (6-10) Calcium Acetate 3,335 mg 12/01/19 17:00 12/02/19 16:49 Phoslo PO Not Given TID-WM MARYAM Duloxetine HCl 20 mg 12/01/19 09:00 12/02/19 20:56 Cymbalta PO 20 mg BID MARYAM Administration Enoxaparin Sodium 30 mg 11/30/19 09:00 12/03/19 09:40 Lovenox SC 30 mg 0900 MARYAM Administration Lorazepam 0.5 mg 11/30/19 02:47 12/01/19 16:00 Ativan SLOW IVP 0.5 mg Q6H PRN Administration Anxiety Morphine Sulfate 2 mg 11/29/19 17:04 12/03/19 09:28 Morphine SLOW IVP 2 mg Q4H PRN Administration Moderate to Severe Pain (6-10) Ondansetron HCl 4 mg 11/30/19 00:59 12/03/19 09:32 Zofran SLOW IVP 4 mg Q6H PRN Administration Nausea Pantoprazole Sodium 40 mg 11/30/19 21:00 12/03/19 09:41 Protonix IVP 40 mg Q12HR MARYAM Administration Polyethylene Glycol 17 gm 12/03/19 09:00 12/03/19 09:41 Miralax PO Not Given DAILY MARYAM Quetiapine Fumarate 300 mg 12/01/19 21:00 12/02/19 20:56 Seroquel PO 300 mg HS MARYAM Administration Sodium Chloride 10 ml 11/30/19 09:00 12/03/19 09:41 Flush - Normal Saline IVF 10 ml Q12HR MARYAM Administration - Exam Heart: RRR, no murmur, no gallops, no rubs, normal peripheral pulses, II/IV Respiratory: CTAB, no wheezes, no rales Gastrointestinal: soft, non-distended, normal bowel sounds, no palpable masses, no hepatomegaly, no splenomegaly, no bruit Gastrointestinal - other findings: TTP in lower abd/pelvis. Musculoskeletal: normal tone Psychiatric - other findings: Child-like demeanor. 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 She is very child-like in her behavior. She indicates pain and tenderness in her epigastric area, but does not show any signs of hurting with palpation. GI felt she did, in fact, have pancreatitis. She has a history of pancreatitis. Treated with bowel rest, pain managment. Lipase normal for over 48 hours. No has lower abd tenderness. ? constipation. Check KUB and bladder scan. Continuing pain meds, but may need some PRN oxygen. Will need sleep study as outpatient. Nephrology following. Continue HD. No IVF as fluids will be managed with HD. Suspect her heart murmur is a volume dependent flow murmur that changes with dialysis and volume status. It is more prominent than yesterday. Still a II/ holosystolic. She had a basically normal echo in 2014. Will obtain and echo today. Anesthesia was hesitant to do the EGD without a workup of the murmur. Once echo is done, plan EGD tomorrow. Discussed with Dr. Francisco.
[2019-12-03] MEDS: Calcium Acetate 667 MG CAP PO SCH ×3 (11:54→16:53)
[2019-12-03 12:14] LABS: Eosinophils 9 % (0-10); Lymphocytes 16 % (21-51); MDiff Complete? YES; Macrocytosis SLIGHT = 6-15 cells (100X) (0-5/hpf); Mean Corpuscular HGB CONC 32.3 g/dL (32.0-36.0); Mean Corpuscular Hemoglobin 33.3 pg (27.0-31.0); Mean Platelet Volume 7.8 fL (7.4-10.4); Monocytes 24 % (0-10); Neutrophil 50 % (42-75); Platelet Count 184 thou/uL (130-400); Platelet Morphology Comment Appears Adequate; RBC Distribution Width 12.4 % (11.5-14.5); White Blood Cell (WBC) Count 6.4 thou/uL (4.8-10.8)
--- NOTE | 2019-12-03 12:14 | RAD ---
ABDOMEN 1 VIEW: HISTORY: Lower abdominal TTP. COMPARISON: 06/16/2018, prior abdomen and pelvic CT, 11/22/2019. FINDINGS: There is some scattered gas and fecal material in the colon as well as some gas within nondilated sma ll bowel, nonspecific. There are some prominent vascular calcifications. Some diffusely chronic-rosalba earing bone sclerosis possibly related to renal osteodystrophy. Bilateral vascular calcifications. No evidence for overt large or small bowel obstruction. IMPRESSION: No large or small bowel obstruction. POS: OFF
--- NOTE | 2019-12-03 16:00 | PRG ---
DATE OF SERVICE: 12/03/2019 SUBJECTIVE: Ms. Juarez states she still has some pain when she swallows sometimes. She is sitting comfortably, watching cartoons. She complains of lower abdominal pain when you push, but it does not hurt otherwise. Her EGD was canceled by Anesthesia secondary to concerns for a systolic murmur. OBJECTIVE: VITAL SIGNS: Temperature is 98, pulse 87, blood pressure 103/67. ABDOMEN: Soft, nontender. She has facies consistent with Mickie syndrome. LABORATORY DATA: White count 6.4, hemoglobin 11, MCV 103, platelet count 184. Comprehensive metabolic profile normal except for sodium 134 and creatinine of 6.8. Lipase is 30. ASSESSMENT: 1. Pancreatitis, acute on chronic, resolved. 2. Vague odynophagia, dysphagia. EGD canceled today secondary to a large murmur and anesthesiologist concern for respiratory status. They want to get more clearance on her cardiovascular status before any sedation for elective procedure. 3. Vague abdominal discomfort with negative CAT scan this admission, transient hyperlipasemia resolved, likely had some mild acute on chronic pancreatitis. RECOMMENDATIONS: She can eat today after echocardiogram is done. Keep her n.p.o. after midnight. We can attempt for EGD tomorrow if her symptoms persisting. If her dysphagia resolves on its own with PPI therapy, we can cancel this. Job ID: [id number]
[2019-12-04] MEDS: Lorazepam 2 MG/ML VIAL SLOW IVP PRN (00:19)
[2019-12-04] MEDS: Enoxaparin Sodium 30 MG/0.3 ML SYRINGE SC SCH (08:05)
[2019-12-04] MEDS: Pantoprazole 40 MG VIAL IVP SCH ×2 (08:05→21:24)
[2019-12-04] MEDS: Polyethylene Glycol 3350 17 GM Packet PO SCH (08:06)
[2019-12-04] MEDS: Calcium Acetate 667 MG CAP PO SCH ×3 (08:06→15:33)
[2019-12-04] MEDS ORDERED: Dextrose 50 % In Water 50 ML SYRINGE IV PRN (10:30)
--- NOTE | 2019-12-04 11:21 | PRG ---
DATE OF SERVICE: 12/04/2019 SUBJECTIVE: Ms. Juarez is a 34-year-old white female with ESRD, admitted for abdominal pain secondary to an acute/chronic pancreatitis. She was supposed to undergo upper GI endoscopy yesterday, but this was placed on hold when she was not cleared by Anesthesia. The concern was a finding of a loud systolic murmur. A cardiac echo was done by Dr. Whelan, which showed no vegetation, but did show aortic stenosis. No new complaints today except for still some dysphagia. The plan is possible reconsideration for doing the upper GI endoscopy by the GI. OBJECTIVE: VITAL SIGNS: Blood pressure 143/84, heart rate 106, respiratory rate 20, temperature 99.7, and pulse ox 99. GENERAL: Noted to be awake, supine, comfortable, not in distress. SKIN: Adequate turgor. HEENT: She has pinkish conjunctivae. Anicteric sclerae. NECK: No neck mass. No carotid bruits. No JVD. CHEST: No deformities. Lungs, clear breath sounds. HEART: Normal sinus rhythm. No murmur. No gallops. No rubs. ABDOMEN: Globular. Soft. Nontender. No masses. EXTREMITIES: No edema. MEDICATIONS: Medications of December 04, 2019, reviewed. LABORATORY DATA: Laboratories of December 03, 2019; white count 6.4, hemoglobin 11. Sodium 134, potassium 4.2, chloride 98, carbon dioxide 23, BUN 11, creatinine 6.82. LFTs normal. December 04, 2019, glucose 84. ASSESSMENT AND PLAN: 1. End-stage renal disease, stable. We will continue current hemodialysis regimen. Fluid removal only as tolerated by this patient. 2. Abdominal pain-acute on top of chronic pancreatitis, supportive care. GI is following. Possible upper GI endoscopy. Job ID: [id number]
[2019-12-04] MEDS: Morphine 2 MG/ML SYRINGE SLOW IVP PRN (15:31)
[2019-12-04] MEDS ORDERED: Morphine 2 MG/ML SYRINGE SLOW IVP PRN (16:05)
--- NOTE | 2019-12-04 16:05 | PDOC.HOSPP ---
- Subjective Subjective: In dialysis a good part of the day. Says she is tired. She says she is still having some abdominal discomfort. - Objective Vital Signs & Weight: Vital Signs (12 hours) Temp Pulse Resp BP Pulse Ox 12/04/19 15:22 99.1 F 104 H 18 100/65 98 12/04/19 08:00 94 L 12/04/19 07:35 99.7 F H 106 H 20 143/84 H 99 Weight Admit Weight 138 lb 8 oz Weight 138 lb 8 oz Result Diagrams: 12/03/19 09:54 12/03/19 09:54 Additional Labs: Accuchecks 12/04/19 12/04/19 12/04/19 15:41 09:35 05:28 POC Glucose 111 H 84 81 12/03/19 12/03/19 20:38 16:08 POC Glucose 111 H 68 L Hospitalist ROS - Medication Medications: Active Medications Generic Name Dose Route Start Last Admin Trade Name Freq PRN Reason Stop Dose Admin Hydrocodone Bitart/Acetaminophen 1 tab 12/02/19 11:55 12/02/19 22:00 [place] 5/325 PO 1 tab Q4H PRN Administration Moderate to Severe Pain (6-10) Calcium Acetate 3,335 mg 12/01/19 17:00 12/04/19 15:33 Phoslo PO 3,335 mg TID-WM MARYAM Administration Duloxetine HCl 20 mg 12/01/19 09:00 12/04/19 08:06 Cymbalta PO Not Given BID MARYAM Enoxaparin Sodium 30 mg 11/30/19 09:00 12/04/19 08:05 Lovenox SC 30 mg 0900 MARYAM Administration Lorazepam 0.5 mg 11/30/19 02:47 12/04/19 00:19 Ativan SLOW IVP 0.5 mg Q6H PRN Administration Anxiety Morphine Sulfate 2 mg 11/29/19 17:04 12/04/19 15:31 Morphine SLOW IVP 2 mg Q4H PRN Administration Moderate to Severe Pain (6-10) Ondansetron HCl 4 mg 11/30/19 00:59 12/03/19 19:28 Zofran SLOW IVP 4 mg Q6H PRN Administration Nausea Pantoprazole Sodium 40 mg 11/30/19 21:00 12/04/19 08:05 Protonix IVP 40 mg Q12HR MARYAM Administration Polyethylene Glycol 17 gm 12/03/19 09:00 12/04/19 08:06 Miralax PO Not Given DAILY MARYAM Quetiapine Fumarate 300 mg 12/01/19 21:00 12/03/19 19:28 Seroquel PO 300 mg HS MARYAM Administration Sodium Chloride 10 ml 11/30/19 09:00 12/04/19 08:07 Flush - Normal Saline IVF 10 ml Q12HR MARYAM Administration - Exam General Appearance: NAD, awake alert Heart: RRR, no murmur, no gallops, no rubs, normal peripheral pulses Respiratory: CTAB, no wheezes, no rales, no ronchi, normal chest expansion, no tachypnea, normal percussion Gastrointestinal: soft, non-distended, normal bowel sounds Gastrointestinal - other findings: TTP in lower abd, but does not grimace with exam. Skin: normal turgor Psychiatric: normal affect, normal behavior, A&O x 3 Hosp A/P (1) Pancreatitis Code(s): K85.90 - ACUTE PANCREATITIS WITHOUT NECROSIS OR INFECTION, UNSP Status: Acute (2) GRACIE (obstructive sleep apnea) Code(s): G47.33 - OBSTRUCTIVE SLEEP APNEA (ADULT) (PEDIATRIC) Status: Acute (3) Abdominal pain Code(s): R10.9 - UNSPECIFIED ABDOMINAL PAIN Status: Acute (4) Bipolar disorder Code(s): F31.9 - BIPOLAR DISORDER, UNSPECIFIED Status: Chronic Qualifiers: Current episode severity: unspecified (5) ESRD (end stage renal disease) on dialysis Code(s): N18.6 - END STAGE RENAL DISEASE; Z99.2 - DEPENDENCE ON RENAL DIALYSIS Status: Chronic (6) [place]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 She is very child-like in her behavior. She indicates pain and tenderness in her epigastric area, but does not show any signs of hurting with palpation. GI felt she did, in fact, have pancreatitis. She has a history of pancreatitis. Treated with bowel rest, pain managment. Lipase normal for over 48 hours. No has lower abd tenderness. ? constipation. Check KUB and bladder scan. Continuing pain meds, but may need some PRN oxygen. Will need sleep study as outpatient. Nephrology following. Continue HD. No IVF as fluids will be managed with HD. Suspect her heart murmur is a volume dependent flow murmur that changes with dialysis and volume status. She had a basically normal echo. Discussed with Dr. Francisco. Could not get EGD done today because of dialysis. Will anticipate doing that tomorrow. Decreasing the interval of the norco and morphine. She does not act like she is in severe pain and she is sleeping too much.
--- NOTE | 2019-12-04 17:13 | PRG ---
DATE OF SERVICE: 12/04/2019 SUBJECTIVE: Ms. Juarez is on dialysis today. She is very tired. We were not been able to do her endoscopy for that reason. She still complains of odynophagia. OBJECTIVE: VITAL SIGNS: Temperature 99, pulse 104, blood pressure 100/65. LUNGS: Clear. HEART: Regular rhythm. ABDOMEN: Soft, nontender. Echocardiogram shows mild aortic stenosis. LABORATORY DATA: Labs none today except for glucose of 111. ASSESSMENT: 1. Acute on chronic pancreatitis, resolved. 2. Odynophagia. 3. End-stage renal disease. 4. Bipolar, anxiety, depression. PLAN: EGD tomorrow. Job ID: [id number]
[2019-12-04] MEDS: HYDROcodone/Acetaminophen 5/325 mg Tablet PO PRN (21:27)
[2019-12-05] MEDS: Ondansetron PF 4 MG/2 ML Vial SLOW IVP PRN ×2 (00:30→21:06)
[2019-12-05] MEDS: Calcium Acetate 667 MG CAP PO SCH ×3 (07:41→16:51)
[2019-12-05] MEDS: Enoxaparin Sodium 30 MG/0.3 ML SYRINGE SC SCH (07:41)
[2019-12-05] MEDS: Pantoprazole 40 MG VIAL IVP SCH (07:42)
[2019-12-05] MEDS: Polyethylene Glycol 3350 17 GM Packet PO SCH (07:42)
--- NOTE | 2019-12-05 09:26 | OP ---
DATE OF PROCEDURE: 12/05/2019 PROCEDURE PERFORMED: Esophagogastroduodenoscopy with biopsy. PREOPERATIVE DIAGNOSIS: Odynophagia. DESCRIPTION OF PROCEDURE: Informed consent was obtained. The patient was sedated with total intravenous anesthesia. The bite block was placed and the endoscope was advanced easily to the second portion of the duodenum and retroflexion was performed in the stomach. The esophagus was normal. There was no fungal esophagitis or ulceration. It was slightly patulous, but the lower esophageal sphincter was not tense. Biopsies were obtained from the esophagus to rule out eosinophilic esophagitis; however, there is no endoscopic appearance of this. The stomach had snake skin appearance to the mucosa of the fundus and body, which could be suggestive of portal hypertensive gastropathy. Biopsies were obtained from the stomach to rule out H pylori. The remainder of the stomach was unremarkable. The first and second portions of the duodenum were normal. IMPRESSION: 1. Mild snake skin appearance and erythema of the body and fundus of the stomach, which can be suggestive of portal hypertensive gastropathy. There are no other signs of this otherwise as she has normal platelet count and no prior history of cirrhosis. She has had imaging of the abdomen with no report of nodularity to the liver. Biopsies were obtained to rule out Helicobacter pylori. 2. Otherwise normal esophagogastroduodenoscopy. There was no esophageal pathology or fungal esophagitis to explain her odynophagia. Biopsies were obtained from the esophagus. RECOMMENDATIONS: 1. Mechanical soft diet. 2. Await histopathology. 3. I will sign off for now. Please call if GI can be of assistance. Job ID: [id number]
[2019-12-05] MEDS ORDERED: PROPOFOL 200 MG/20 ML VIAL ONE (10:23)
[2019-12-05] MEDS: HYDROcodone/Acetaminophen 5/325 mg Tablet PO PRN ×2 (14:58→20:37)
[2019-12-05] MEDS: Lorazepam 2 MG/ML VIAL SLOW IVP PRN (21:19)
--- NOTE | 2019-12-05 23:46 | PDOC.HOSPP ---
- Subjective Encounter Date: 12/05/19 Encounter Time: 11:00 Subjective: no overnight events. Feeling well, complains of "bubble in throat" that is improving, otherwise no complaints. - Objective Vital Signs & Weight: Vital Signs (12 hours) Temp Pulse Resp BP BP Pulse Ox 12/05/19 20:00 98.4 F 89 16 119/78 96 12/05/19 16:11 98.6 F 99 18 100/62 100 12/05/19 11:48 98.7 F 100 18 103/59 L 99 Weight Admit Weight 138 lb 8 oz Weight 138 lb 8 oz I&O: 12/04/19 12/05/19 12/06/19 06:59 06:59 06:59 Intake Total 520 Output Total 1200 Balance -680 Result Diagrams: 12/03/19 09:54 12/03/19 09:54 Additional Labs: Accuchecks 12/05/19 12/05/19 12/05/19 20:17 15:41 11:09 POC Glucose 133 H 117 H 101 12/05/19 12/05/19 03:48 00:50 POC Glucose 139 H 150 H Hospitalist ROS - Review of Systems Constitutional: denies: fever, chills, sweats, weakness, malaise, other Respiratory: denies: cough, dry, shortness of breath, hemoptysis, SOB with excertion, pleuritic pain, sputum, wheezing, other Cardiovascular: denies: chest pain, palpitations, orthopnea, paroxysmal noc. dyspnea, edema, light headedness, other Gastrointestinal: denies: nausea, vomiting, abdominal pain, diarrhea, constipation, melena, hematochezia, other Genitourinary: denies: dysuria, frequency, incontinence, hematuria, retention, other - Medication Medications: Active Medications Generic Name Dose Route Start Last Admin Trade Name Freq PRN Reason Stop Dose Admin Hydrocodone Bitart/Acetaminophen 1 tab 12/04/19 16:02 12/05/19 20:37 Hallett 5/325 PO 1 tab Q6H PRN Administration Moderate to Severe Pain (6-10) Calcium Acetate 3,335 mg 12/01/19 17:00 12/05/19 16:51 Phoslo PO 3,335 mg TID-WM MARYAM Administration Duloxetine HCl 20 mg 12/01/19 09:00 12/05/19 20:37 Cymbalta PO 20 mg BID MARYAM Administration Enoxaparin Sodium 30 mg 11/30/19 09:00 12/05/19 07:41 Lovenox SC Not Given 0900 MARYAM Lorazepam 0.5 mg 11/30/19 02:47 12/05/19 21:19 Ativan SLOW IVP 0.5 mg Q6H PRN Administration Anxiety Ondansetron HCl 4 mg 11/30/19 00:59 12/05/19 21:06 Zofran SLOW IVP 4 mg Q6H PRN Administration Nausea Pantoprazole Sodium 40 mg 12/05/19 09:00 12/05/19 09:49 Protonix PO Not Given DAILY [facility] Polyethylene Glycol 17 gm 12/03/19 09:00 12/05/19 07:42 Miralax PO Not Given DAILY MARYAM Quetiapine Fumarate 300 mg 12/01/19 21:00 12/05/19 20:37 Seroquel PO 300 mg HS MARYAM Administration Sodium Chloride 10 ml 11/30/19 09:00 12/05/19 20:38 Flush - Normal Saline IVF 10 ml Q12HR MARYAM Administration - Exam General Appearance: NAD, awake alert Heart: RRR, no murmur, no gallops, no rubs, normal peripheral pulses Respiratory: CTAB, no wheezes, no rales, no ronchi, normal chest expansion, no tachypnea, normal percussion Gastrointestinal: soft, non-tender, non-distended, normal bowel sounds Psychiatric: normal affect, normal behavior Hosp A/P - Plan (1) Pancreatitis Code(s): K85.90 - ACUTE PANCREATITIS WITHOUT NECROSIS OR INFECTION, UNSP Status: Acute (2) GRACIE (obstructive sleep apnea) Code(s): G47.33 - OBSTRUCTIVE SLEEP APNEA (ADULT) (PEDIATRIC) Status: Acute (3) Abdominal pain Code(s): R10.9 - UNSPECIFIED ABDOMINAL PAIN Status: Acute (4) Bipolar disorder Code(s): F31.9 - BIPOLAR DISORDER, UNSPECIFIED Status: Chronic Qualifiers: Current episode severity: unspecified (5) ESRD (end stage renal disease) on dialysis Code(s): N18.6 - END STAGE RENAL DISEASE; Z99.2 - DEPENDENCE ON RENAL DIALYSIS Status: Chronic (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 Nephrology following. Continue HD; No IVF as fluids will be managed with HD.
[2019-12-06] MEDS ORDERED: Ondansetron ODT 4 MG TAB SL PRN (04:12)
[2019-12-06] MEDS: Ondansetron PF 4 MG/2 ML Vial SLOW IVP PRN ×2 (04:18→20:51)
[2019-12-06 07:00] LABS: Anion Gap 18 mmol/L (10-20); BUN (Urea Nitrogen) 18 mg/dL (7.0-18.7); Calc. Creatinine Clearance 9 mL/min (70-130); Calcium 9.1 mg/dL (7.8-10.44); Carbon Dioxide 30 mmol/L (22-29); Chloride 95 mmol/L (98-107); Estimated GFR-MDRD 5; Glucose 127 mg/dL (70-105); Magnesium 2.2 mg/dL (1.6-2.6); Potassium 4.6 mmol/L (3.5-5.1); Sodium 138 mmol/L (136-145)
[2019-12-06] MEDS: Enoxaparin Sodium 30 MG/0.3 ML SYRINGE SC SCH (08:27)
[2019-12-06] MEDS: Polyethylene Glycol 3350 17 GM Packet PO SCH (08:27)
[2019-12-06] MEDS: Calcium Acetate 667 MG CAP PO SCH ×3 (08:28→17:25)
--- NOTE | 2019-12-06 11:50 | PRG ---
DATE OF SERVICE: 12/06/2019 SUBJECTIVE: Ms. Juarez is a 34-year-old white female, who was admitted for nausea, vomiting, and abdominal pain. She had an acute episode of her acute pancreatitis on top of her chronic pancreatitis. She also complained of a dysphagia. For that reason, the patient underwent an upper GI endoscopy with Dr. Huerta yesterday and no finding of any obstruction or significant lesions. Histopathology was done currently awaiting for results. No new complaints today except for some nausea. Denies any chest pain or shortness of breath. OBJECTIVE: VITAL SIGNS: Blood pressure 91/50, heart rate 118, respiratory rate 18, temperature 99.7, and pulse ox 95%. GENERAL: The patient is awake, alert, and comfortable, not in overt distress. SKIN: Adequate turgor. HEENT: She has pinkish conjunctivae. Anicteric sclerae. NECK: No neck mass. No carotid bruits. No JVD. CHEST: No deformities. LUNGS: Clear breath sounds. No wheezing. No crackles. HEART: Normal sinus rhythm. No murmur. No gallops. No rubs. ABDOMEN: Globular, soft, and nontender. No masses. EXTREMITIES: No edema. No deformities. MEDICATIONS: Medications of December 06, 2019 reviewed. LABORATORY DATA: Laboratories on December 03, 2019; white count 6.4, hemoglobin 11. On December 06, 2019; sodium 138, potassium 4.6, chloride 95, carbon dioxide 30, BUN 18, creatinine 9.12, calcium 9.1, magnesium 2.2, vitamin B12 of 887, and folate 8.1. ASSESSMENT AND PLAN: 1. End-stage renal disease, stable. We will continue current Saturday, Saturday, and Saturday hemodialysis regimen. Fluid removal only as tolerated. 2. Acute pancreatitis/chronic pancreatitis, improving. 3. Dysphagia, status post upper GI endoscopy with no mechanical lesions noted by GI. Continue supportive care. 4. Agree with current management. Job ID: [id number]
[2019-12-06 12:36] LABS: Anion Gap 19 mmol/L (10-20); BUN (Urea Nitrogen) 22 mg/dL (7.0-18.7); Calc. Creatinine Clearance 8 mL/min (70-130); Calcium 9.8 mg/dL (7.8-10.44); Carbon Dioxide 29 mmol/L (22-29); Chloride 94 mmol/L (98-107); Estimated GFR-MDRD 4; Glucose 112 mg/dL (70-105); Potassium 4.9 mmol/L (3.5-5.1); Sodium 137 mmol/L (136-145)
[2019-12-06] MEDS: HYDROcodone/Acetaminophen 5/325 mg Tablet PO PRN (20:51)
[2019-12-06 20:57] VITALS: BP 128/76; TEMP 98.8
--- NOTE | 2019-12-06 22:54 | PDOC.HOSPP ---
- Subjective Encounter Date: 12/06/19 Encounter Time: 11:00 Subjective: No overnight events. This morning, borderline low blood pressure but asymptomatic. Complains about abdominal pain but cannot elaborate - Objective Vital Signs & Weight: Vital Signs (12 hours) Temp Pulse Resp BP BP Pulse Ox 12/06/19 20:56 98.8 F 105 H 22 H 128/76 96 12/06/19 16:37 98.2 F 103 H 16 127/85 100 12/06/19 11:54 99.9 F H 124 H 18 124/76 90 L Weight Admit Weight 138 lb 8 oz Weight 138 lb 8 oz I&O: 12/05/19 12/06/19 12/07/19 06:59 06:59 06:59 Intake Total 520 610 Output Total 1200 0 Balance -680 610 Result Diagrams: 12/03/19 09:54 12/06/19 12:02 Additional Labs: Accuchecks 12/06/19 12/06/19 12/06/19 20:52 16:45 12:03 POC Glucose 93 94 123 H 12/06/19 12/06/19 12/06/19 09:19 05:46 00:43 POC Glucose 163 H 152 H 143 H Hospitalist ROS - Review of Systems Constitutional: denies: fever, chills, sweats, weakness, malaise, other Respiratory: denies: cough, dry, shortness of breath, hemoptysis, SOB with excertion, pleuritic pain, sputum, wheezing, other Cardiovascular: denies: chest pain, palpitations, orthopnea, paroxysmal noc. dyspnea, edema, light headedness, other Gastrointestinal: reports: abdominal pain. denies: nausea, vomiting, diarrhea, constipation, melena, hematochezia, other Genitourinary: denies: dysuria, frequency, incontinence, hematuria, retention, other Neurological: denies: weakness, numbness, incoordination, change in speech, confusion, seizures, other - Medication Medications: Active Medications Generic Name Dose Route Start Last Admin Trade Name Freq PRN Reason Stop Dose Admin Hydrocodone Bitart/Acetaminophen 1 tab 12/04/19 16:02 12/06/19 20:51 Carver 5/325 PO 1 tab Q6H PRN Administration Moderate to Severe Pain (6-10) Calcium Acetate 3,335 mg 12/01/19 17:00 12/06/19 17:25 Phoslo PO 3,335 mg TID-WM MARYAM Administration Duloxetine HCl 20 mg 12/01/19 09:00 12/06/19 20:56 Cymbalta PO 20 mg BID MARYAM Administration Enoxaparin Sodium 30 mg 11/30/19 09:00 12/06/19 08:27 Lovenox SC 30 mg 0900 MARYAM Administration Lorazepam 0.5 mg 11/30/19 02:47 12/05/19 21:19 Ativan SLOW IVP 0.5 mg Q6H PRN Administration Anxiety Ondansetron HCl 4 mg 11/30/19 00:59 12/06/19 20:51 Zofran SLOW IVP 4 mg Q6H PRN Administration Nausea Pantoprazole Sodium 40 mg 12/05/19 09:00 12/06/19 08:27 Protonix PO 40 mg DAILY MARYAM Administration Polyethylene Glycol 17 gm 12/03/19 09:00 12/06/19 08:27 Miralax PO 17 gm DAILY MARYAM Administration Quetiapine Fumarate 300 mg 12/01/19 21:00 12/06/19 20:52 Seroquel PO 300 mg HS MARYAM Administration Sodium Chloride 10 ml 11/30/19 09:00 12/06/19 20:52 Flush - Normal Saline IVF 10 ml Q12HR MARYAM Administration - Exam General Appearance: NAD, awake alert Neck: no JVD Heart: RRR, no murmur, no gallops, no rubs, normal peripheral pulses Respiratory: CTAB, no wheezes, no rales, no ronchi, normal chest expansion, no tachypnea, normal percussion Gastrointestinal: soft, non-tender, non-distended, normal bowel sounds, no guarding, no rigidity Extremities: no edema Psychiatric: normal affect, normal behavior Hosp A/P - Plan (1) Pancreatitis Code(s): K85.90 - ACUTE PANCREATITIS WITHOUT NECROSIS OR INFECTION, UNSP Status: Acute (2) GRACIE (obstructive sleep apnea) Code(s): G47.33 - OBSTRUCTIVE SLEEP APNEA (ADULT) (PEDIATRIC) Status: Acute (3) Abdominal pain Code(s): R10.9 - UNSPECIFIED ABDOMINAL PAIN Status: Acute (4) Bipolar disorder Code(s): F31.9 - BIPOLAR DISORDER, UNSPECIFIED Status: Chronic Qualifiers: Current episode severity: unspecified (5) ESRD (end stage renal disease) on dialysis Code(s): N18.6 - END STAGE RENAL DISEASE; Z99.2 - DEPENDENCE ON RENAL DIALYSIS Status: Chronic (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 Nephrology following. Continue HD; No IVF as fluids will be managed with HD.
[2019-12-07 06:06] LABS: Anion Gap 21 mmol/L (10-20); BUN (Urea Nitrogen) 33 mg/dL (7.0-18.7); Calc. Creatinine Clearance 7 mL/min (70-130); Calcium 9.8 mg/dL (7.8-10.44); Carbon Dioxide 25 mmol/L (22-29); Chloride 94 mmol/L (98-107); Estimated GFR-MDRD 4; Glucose 83 mg/dL (70-105); Potassium 5.7 mmol/L (3.5-5.1); Sodium 134 mmol/L (136-145)
--- NOTE | 2019-12-07 09:45 | PRG ---
DATE OF SERVICE: 12/07/2019 SUBJECTIVE: Ms. Juarez is a 34-year-old white female with ESRD and followed up by the Renal Service for management of her ESRD. She is undergoing hemodialysis today. She is tolerating the fluid removal. Her abdominal pain is somewhat decreased. She had an upper GI endoscopy, which showed no intrinsic abnormality. No complaints of chest pain or shortness of breath. OBJECTIVE: VITAL SIGNS: Blood pressure 128/76, heart rate 105, respiratory rate 22, temperature 98.8, and pulse ox 96%. GENERAL: Noted to be awake, supine, comfortable, not in distress. SKIN: Adequate turgor. HEENT: She has pinkish conjunctivae. Anicteric sclerae. NECK: No neck mass. No carotid bruits. No JVD. CHEST: No deformities. LUNGS: Clear breath sounds. No wheezing. No crackles. HEART: Tachycardic. No murmur. No gallops. No rubs. ABDOMEN: Globular, soft, nontender. No masses. EXTREMITIES: No edema. MEDICATIONS: Of December 07, 2019, were reviewed. LABORATORY DATA: Of December 07, 2019; sodium 134, potassium 5.7, chloride 94, carbon dioxide 25, BUN 33, creatinine 11.6, and calcium 9.8. ASSESSMENT AND PLAN: 1. Mild hyperkalemia-the patient undergoing hemodialysis. 2. End-stage renal disease, stable. Fluid removal with hemodialysis. We will continue Saturday, Saturday, and Saturday dialysis regimen. 3. Epigastric pain, clinically improving, status post upper GI endoscopy with negative findings. 4. Agree with current management. Job ID: [id number]
[2019-12-07] MEDS: Calcium Acetate 667 MG CAP PO SCH ×3 (12:13→17:53)
[2019-12-07] MEDS: Enoxaparin Sodium 30 MG/0.3 ML SYRINGE SC SCH (12:14)
[2019-12-07] MEDS: Polyethylene Glycol 3350 17 GM Packet PO SCH (12:16)
--- NOTE | 2019-12-08 14:59 | DIS ---
DATE OF ADMISSION: 11/29/2019 DATE OF DISCHARGE: 12/07/2019 HOSPITAL COURSE: Ms. Juarez is a 34-year-old female with medical history of Mickie syndrome and end-stage renal disease on hemodialysis, who has been several times to the emergency department prior to presentation and for abdominal pain. She has a history of chronic pancreatitis. This time, she presented similarly with pain in her upper abdomen and was diagnosed with acute on chronic pancreatitis. The patient received supportive treatment and improved. However, despite the improvement in pain, she developed pain with swallowing, so an EGD was done and she was found to have esophagitis consistent with GERD. The patient was discharged on pantoprazole with followup appointments with Gastroenterology, as well as her PCP. On the day of discharge, the patient was hemodynamically stable, vitals were unremarkable. PHYSICAL EXAMINATION: GENERAL APPEARANCE: Small stature, facial features consistent with Mickie syndrome, awake, alert, oriented x3. NECK: No JVD. HEART: Regular rate and rhythm. No murmur. No gallops. No rubs. RESPIRATORY: Clear to auscultation bilaterally. No wheezes, no rales, no rhonchi. Normal chest expansion. No tachypnea. GASTROINTESTINAL: Soft, nontender, nondistended. Normal bowel sounds. No guarding. No rigidity. EXTREMITIES: No edema. PSYCHIATRIC: Normal affect. Normal behavior. Alert and oriented x3. ASSESSMENT AND PLAN: Ms. Juarez is a 34-year-old female, who presented with acute on chronic pancreatitis, most likely related to her congenital disease as well as esophagitis due to gastroesophageal reflux disease. The patient was treated supportively and improved, and was discharged with followup appointments to her primary care physician as well as treasurer. The patient will continue dialysis with her top stop attacher, Dr. Espinoza. Job ID: [id number]
== END 2019-12-07 18:27 | disposition home or self-care (01) | DRG 438 ==
LOC: ERS 10:18 → T4-A 15:00
PROVIDERS: ADMIT Internal Medicine; ATTEND Internal Medicine
PROC: 0DB58ZX Excision of Esophagus, Via Natural or Artificial Opening Endoscopic, Diagnostic (ICD-10-PCS; principal; 2019-12-05)
PROC: 0DB68ZX Excision of Stomach, Via Natural or Artificial Opening Endoscopic, Diagnostic (ICD-10-PCS; 2019-12-05)
DX: K85.90 Acute pancreatitis without necrosis or infection, unspecified (principal); N18.6 End stage renal disease; I13.11 Hypertensive heart and chronic kidney disease without heart failure, with stage 5 chronic kidney disease, or end stage renal disease; Q87.19 Other congenital malformation syndromes predominantly associated with short stature; K86.1 Other chronic pancreatitis; R13.10 Dysphagia, unspecified; G47.33 Obstructive sleep apnea (adult) (pediatric); F31.9 Bipolar disorder, unspecified; E87.5 Hyperkalemia; Z88.8 Allergy status to other drugs, medicaments and biological substances; Z99.2 Dependence on renal dialysis; Z88.1 Allergy status to other antibiotic agents; K21.0 Gastro-esophageal reflux disease with esophagitis
CPT/HCPCS: 36415; 36416; 74018; 80048; 80053; 82607; 82746; 83690; 83735; 84100; 84478; 84702; 85025; 88305; 88312; 88313; 90935; 93306; 96361; 96374; 96375; C9113; G0257; J1650; J2060; J2270; J2405; J2704

== ENCOUNTER 2020-01-03 00:01 | Emergency (ER) | payer MEDICARE, MEDICAID | END 2020-01-03 00:35 | disposition home or self-care (01) | LOC: ERS 00:01 | DX: J06.9 Acute upper respiratory infection, unspecified (principal); I10 Essential (primary) hypertension; F31.9 Bipolar disorder, unspecified | CPT/HCPCS: 99283 ==

== ENCOUNTER 2020-01-03 02:55 | Emergency (ER) | payer MEDICARE, MEDICAID | END 2020-01-03 04:52 | disposition home or self-care (01) | LOC: ERS 02:55 | DX: J06.9 Acute upper respiratory infection, unspecified (principal); I12.0 Hypertensive chronic kidney disease with stage 5 chronic kidney disease or end stage renal disease; N18.6 End stage renal disease; F31.9 Bipolar disorder, unspecified; Z79.899 Other long term (current) drug therapy | CPT/HCPCS: 93005; 99283 ==

== ENCOUNTER 2020-01-12 06:39 | Observation (INO) | payer MEDICARE, MEDICAID ==
[2020-01-12 08:37] LABS: #Basophils 0.1 thou/uL (0.0-0.2); #Eosinphils 0.6 thou/uL (0.0-0.7); #Lymphocytes 1.4 thou/uL (1.20-3.40); #Neutrophils 8.5 thou/uL (1.40-6.50); %Basophils 0.6 % (0.0-1.0); %Eosinophils 5.1 % (0.0-10.0); %Lymphocytes 12.2 % (21.0-51.0); %Monocytes 8.4 % (0.0-10.0); %Neutrophils 73.8 % (42.0-75.0); Hemoglobin 11.1 g/dL (12.0-16.0); Mean Corpuscular Hemoglobin 33.5 pg (27.0-31.0); Mean Platelet Volume 8.7 fL (7.4-10.4); Platelet Count 195 thou/uL (130-400); RBC Distribution Width 14.6 % (11.5-14.5); White Blood Cell (WBC) Count 11.5 thou/uL (4.8-10.8)
--- NOTE | 2020-01-12 08:37 | RAD ---
CHEST 1 VIEW PORTABLE: HISTORY: Shortness of breath and cough. COMPARISON: 11/19/2019. FINDINGS: Minimal cardiomegaly. Bilateral vascular congestion. Numerous right-sided venous vascular stents. No confluent pneumonia. No overt pleural effusion. IMPRESSION: Cardiomegaly with bilateral vascular congestion showing some worsening from the prior study. POS: [facility]
[2020-01-12 09:01] LABS: ALT (SGPT) 8 U/L (8-55); AST (SGOT) 13 U/L (5-34); Albumin 4.6 g/dL (3.5-5.0); Alkaline Phosphatase 66 U/L (40-110); Anion Gap 21 mmol/L (10-20); BUN (Urea Nitrogen) 25 mg/dL (7.0-18.7); Bilirubin, Total 0.5 mg/dL (0.2-1.2); Calc. Creatinine Clearance 0 mL/min (70-130); Calcium 10.1 mg/dL (7.8-10.44); Carbon Dioxide 30 mmol/L (22-29); Chloride 93 mmol/L (98-107); Estimated GFR-MDRD 6; Globulin 3.4 g/dL (2.4-3.5); Glucose 103 mg/dL (70-105); Potassium 5.5 mmol/L (3.5-5.1); Sodium 138 mmol/L (136-145)
--- NOTE | 2020-01-12 10:12 | CON ---
DATE OF CONSULTATION: HISTORY OF PRESENT ILLNESS: Ms. Juarez is a 34-year-old white female with known history of ESRD - on maintenance hemodialysis and was admitted for congestive heart failure. She did undergo hemodialysis yesterday, but this was a shortened treatment due to the fact that the patient came late to the dialysis unit. She is noted to be hypoxemic. We are now being consulted for emergent hemodialysis. REVIEW OF SYSTEMS: Positive for shortness of breath. Occasional intermittent chest pain, noncardiac. No syncopal episode. Appetite and energy level are fair. No nausea. No vomiting. No diarrhea. No gross hematuria. No hematochezia. No melena. No diplopia. No fever or chills. MEDICATIONS: 1. Latuda dose unknown, one tablet daily. 2. She is on PhosLo 667 mg one tab t.i.d. with meals. The rest of the medications, the patient could not remember. PAST MEDICAL HISTORY: 1. 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 2. History of suicide ideation. 3. History of anxiety. 4. History of noncompliance. 5. Status post UTI. 6. Status post pulmonary stenosis. 7. Bipolar disorder. 8. Status post Dahlgren syndrome. PAST SURGICAL HISTORY: Status post upper GI endoscopy, status post repair of pulmonary stenosis as a child, status post AV fistula placement, status post diagnostic laparoscopy with omentectomy, status post cuffed dialysis catheter placement, status post hip surgery, and status post PD catheter placement with subsequent removal. ALLERGIES: VANCOMYCIN, CLARITIN, BACLOFEN, AND HYDROCODONE. TRAUMA: Status post hip fracture. IMMUNIZATIONS: Up-to-date. HOSPITALIZATIONS: Please see past medical history. SOCIAL HISTORY: The patient currently lives with her mother. She is single. Education, high school. No children. No alcohol abuse. No smoking. Status post multiple blood transfusion. FAMILY HISTORY: No family history of ESRD. PHYSICAL EXAMINATION: VITAL SIGNS: Blood pressure 120/70, heart rate 70, and Pulse ox noted to be at 98%. GENERAL: Noted to be awake, alert, comfortable. HEENT: She has pinkish conjunctivae. Anicteric sclerae. NECK: No neck mass. No carotid bruits. No JVD. CHEST: No deformities. LUNGS: Decreased breath sounds. HEART: Normal sinus rhythm. No murmurs. No gallops. No rubs. ABDOMEN: Globular, soft, and nontender. No masses. EXTREMITIES: No edema. No deformities. LABORATORY DATA: Laboratories of January 12, 2020; white count 11.5, hemoglobin 11.1. Sodium 138, potassium 5.5, chloride 93, carbon dioxide 30, BUN 25, creatinine 7.91, and glucose 103. LFT is normal. IMAGING DATA: Chest x-ray shows CHF. ASSESSMENT AND PLAN: 1. Congestive heart failure - we will do emergent hemodialysis today with fluid removal. 2. End-stage renal disease - emergent hemodialysis to be done due to the congestive heart failure. We will then place her back on a regular Saturday, Saturday, and Saturday hemodialysis regimen. 3. Bipolar disorder - consider resuming back Latuda. 4. Chronic anemia. No indication for any Epogen treatment today. I discussed the case with the dialysis nurse and will be doing an emergent dialysis today. Job ID: [id number]
[2020-01-12 12:18] VITALS: BMI 28.8
--- NOTE | 2020-01-12 13:00 | HP ---
CHIEF COMPLAINT: Shortness of breath. HISTORY OF PRESENT ILLNESS: The patient is a 34-year-old female with history of Mickie syndrome, hypertension, and end-stage renal disease, on dialysis, who presented to the hospital with complaints of shortness of breath and chest heaviness. The patient went to her dialysis yesterday late, and they were not able to remove enough fluids. She presented to the ER today with complaints of shortness of breath, and her chest x-ray revealed cardiomegaly and pulmonary edema. The patient denies fever, chills, nausea, vomiting, palpitations, or dizziness. REVIEW OF SYSTEMS: Negative except as noted in HPI. PAST MEDICAL HISTORY: Mickie syndrome; hypertension; end-stage renal disease, on dialysis; bipolar disorder; and chronic pancreatitis. SOCIAL HISTORY: Negative for alcohol use, smoking, or illicit drug use. The patient lives with her mother, who is the power of divorce attorney. PHYSICAL EXAMINATION: A&OX3 Head normocephalic atraumatic Neck is supple with no JVD Chest is clear to auscultation bilaterally CV normal S1,S2 No MRG, RRR Abdomen is soft, nontender, nondistended, BS + Neurological exam with no focal deficits RELEVANT DATA: Chest x-ray revealed cardiomegaly with vascular congestion. ASSESSMENT: 1. End-stage renal disease, on hemodialysis. 2. Acute respiratory failure with hypoxia. 3. Volume overload. 4. Mickie syndrome. 5. Hypertension. 6. Bipolar disorder. PLAN: The patient will undergo hemodialysis today and tomorrow per Dr. Espinoza, and hopefully, that will help to improve her volume status and lead to resolution of her hypoxia. Her home medications were reviewed and reconciled. Job ID: [id number] [facility]
[2020-01-12] MEDS: Heparin 5,000 UNITS/ML VIAL SC SCH ×2 (15:51→21:19)
[2020-01-12] MEDS: Acetaminophen 325 MG TAB PO PRN (17:36)
[2020-01-13] MEDS: Acetaminophen 325 MG TAB PO PRN (00:34)
[2020-01-13] MEDS: Benzonatate 100 MG CAP PO PRN ×2 (00:34→06:40)
[2020-01-13 05:18] LABS: #Basophils 0.1 thou/uL (0.0-0.2); #Eosinphils 0.9 thou/uL (0.0-0.7); #Lymphocytes 2.1 thou/uL (1.20-3.40); #Monocytes 1.1 thou/uL (0.11-0.59); #Neutrophils 5.7 thou/uL (1.40-6.50); %Eosinophils 9.1 % (0.0-10.0); %Lymphocytes 20.9 % (21.0-51.0); Hemoglobin 10.8 g/dL (12.0-16.0); Mean Corpuscular HGB CONC 32.5 g/dL (32.0-36.0); Mean Corpuscular Hemoglobin 33.5 pg (27.0-31.0); Mean Platelet Volume 7.6 fL (7.4-10.4); Platelet Count 238 thou/uL (130-400); RBC Distribution Width 14.6 % (11.5-14.5); Red Blood Cell (RBC) Count 3.22 mill/uL (4.20-5.40); White Blood Cell (WBC) Count 9.8 thou/uL (4.8-10.8)
[2020-01-13 05:41] LABS: Anion Gap 21 mmol/L (10-20); BUN (Urea Nitrogen) 16 mg/dL (7.0-18.7); Calc. Creatinine Clearance 18 mL/min (70-130); Calcium 9.1 mg/dL (7.8-10.44); Carbon Dioxide 24 mmol/L (22-29); Chloride 96 mmol/L (98-107); Estimated GFR-MDRD 8; Glucose 99 mg/dL (70-105); Potassium 4.6 mmol/L (3.5-5.1); Sodium 136 mmol/L (136-145)
[2020-01-13] MEDS ORDERED: Epoetin (ESRD) 20,000 UNITS/ML SC SCH (08:45)
[2020-01-13] MEDS ORDERED: Amlodipine 10 MG TAB PO SCH (09:00)
[2020-01-13] MEDS ORDERED: LURASIDONE HCL PO SCH (09:00)
[2020-01-13] MEDS ORDERED: Levothyroxine Sodium 50 MCG TAB PO SCH (09:00)
[2020-01-13] MEDS ORDERED: Lurasidone HCl 40 MG TABLET PO SCH (09:00)
--- NOTE | 2020-01-13 09:00 | PRG ---
DATE OF SERVICE: 01/13/2020 SERVICE: Renal Medicine. SUBJECTIVE: Ms. Juarez is a 34-year-old white female with ESRD, who was admitted for congestive heart failure yesterday. She was also noted to be hyperkalemic at that time. She underwent emergent hemodialysis with fluid removal. She is still complaining of some mild shortness of breath. She is still undergoing her regular dialysis today. Again, we are maxing out fluid removal as tolerated by this patient. Of note, her hyperkalemia is improved. OBJECTIVE: VITAL SIGNS: Blood pressure is 166/103, heart rate 86, respiratory rate 20, temperature 97.4, and pulse ox 94%. GENERAL: Awake, alert, comfortable, not in overt distress. SKIN: Adequate turgor. HEENT: Slightly pale conjunctivae. Anicteric sclerae. NECK: No neck mass. No carotid bruits. No JVD. CHEST: No deformities. LUNGS: Decreased breath sounds. HEART: Normal sinus rhythm. No murmur. No gallops. No rubs. ABDOMEN: Globular, soft, and nontender. No masses. EXTREMITIES: Positive for edema. No deformities. MEDICATIONS: Medications of January 13, 2020, were reviewed. LABORATORY DATA: Laboratories of January 13, 2020; sodium 136, potassium 4.6, chloride 96, carbon dioxide 24, BUN 16, creatinine 5.98, and calcium 9.1. Hemoglobin 10.8, hematocrit 33.1. ASSESSMENT AND PLAN: 1. Anemia - start Epogen at 7500 units subcu every week. 2. Hypertension. We will start amlodipine 10 mg tablet daily. 3. End-stage renal disease - still with some degree of congestive heart failure, undergoing hemodialysis. Attempting 3.5 L of fluid removal with this patient. 4. Bipolar disorder. Currently, on quetiapine and Latuda. 5. Hyperphosphatemia - the patient has history of elevated phosphorus. Consider starting the patient on Renvela 800 mg one tablet t.i.d. with meals. Job ID: [id number]
[2020-01-13] MEDS: Heparin 5,000 UNITS/ML VIAL SC SCH (09:09)
[2020-01-13] MEDS ORDERED: Sevelamer Carbonate 800 MG TAB PO SCH (12:00)
[2020-01-13] MEDS ORDERED: EPOETIN ALFA-EPBX (ESRD) 4,000 UNIT/ML VIAL SC SCH (12:00)
[2020-01-13 12:18] VITALS: BP 114/73; TEMP 98.4
--- NOTE | 2020-01-14 02:36 | DIS ---
DATE OF ADMISSION: 01/12/2020 DATE OF DISCHARGE: 01/13/2020 HISTORY OF PRESENT ILLNESS AND HOSPITAL COURSE: The patient is a 34-year-old female with history of [place] syndrome, hypertension, and end-stage renal disease, on dialysis, who presented to the hospital with complaints of shortness of breath and chest heaviness. The patient went to her dialysis late on the day prior to presentation and they were not able to remove the target amount of fluids. She presented to the ER complaining of shortness of breath and her x-ray revealed cardiomegaly and pulmonary edema. The patient was admitted to the hospital and received hemodialysis on the day of her presentation and on the subsequent day. Prior to discharge, the patient was feeling better and had no significant shortness of breath. DISCHARGE PHYSICAL EXAMINATION: GENERAL: The patient is alert and oriented x3. CHEST: Clear to auscultation bilaterally except for minimal crackles at the bases. ABDOMEN: Soft, nontender, nondistended. NEUROLOGICAL: Unremarkable. DISCHARGE DIAGNOSIS: 1. Acute hypoxic respiratory failure with hypoxia. 2. Volume overload. 3. End-stage renal disease, on dialysis. 4. Mickie syndrome. 5. Hypertension. 6. Bipolar disorder. DISCHARGE MEDICATIONS: 1. Sevelamer 1600 mg orally three times a day. 2. Oxymetazoline nasal spray 2-3 sprays each naris twice daily. 3. Metoprolol succinate 25 mg orally daily. 4. Benadryl 25 mg orally q.6 hours. 5. Calcium acetate 667 mg capsules 5 capsules orally three times a day with meals. 6. Seroquel 300 mg orally at night. 7. Latuda 40 mg orally daily. 8. Levothyroxine 50 mcg orally daily. FOLLOWUP: The patient was instructed to follow up with her family doctor and head golf coach within 1-2 weeks. Job ID: [id number]
== END 2020-01-13 14:28 | disposition home or self-care (01) ==
LOC: ERS 06:39 → 2SW 09:28
PROVIDERS: ADMIT Internal Medicine; ATTEND Internal Medicine
DX: J96.01 Acute respiratory failure with hypoxia (principal); I12.0 Hypertensive chronic kidney disease with stage 5 chronic kidney disease or end stage renal disease; N18.6 End stage renal disease; Q87.19 Other congenital malformation syndromes predominantly associated with short stature; F31.9 Bipolar disorder, unspecified; E87.70 Fluid overload, unspecified; D64.9 Anemia, unspecified; E83.39 Other disorders of phosphorus metabolism; Z99.2 Dependence on renal dialysis; Z79.899 Other long term (current) drug therapy; Z98.890 Other specified postprocedural states; Z88.5 Allergy status to narcotic agent; Z88.1 Allergy status to other antibiotic agents
CPT/HCPCS: 71045; 80048; 80053; 84484; 85025 ×2; 93005; 96372 ×2; 99285; G0378 ×3; Q5105; 36415; 90935; G0257; J1644

== ENCOUNTER 2020-01-21 20:54 | Emergency (ER) | payer MEDICARE, MEDICAID ==
[2020-01-21 21:38] LABS: #Basophils 0.1 thou/uL (0.0-0.2); #Lymphocytes 1.8 thou/uL (1.20-3.40); #Monocytes 1.3 thou/uL (0.11-0.59); #Neutrophils 7.8 thou/uL (1.40-6.50); %Basophils 0.7 % (0.0-1.0); %Eosinophils 8.2 % (0.0-10.0); %Lymphocytes 15.3 % (21.0-51.0); %Monocytes 10.5 % (0.0-10.0); %Neutrophils 65.3 % (42.0-75.0); Hemoglobin 10.4 g/dL (12.0-16.0); Mean Corpuscular HGB CONC 33.3 g/dL (32.0-36.0); Mean Corpuscular Hemoglobin 34.1 pg (27.0-31.0); Platelet Count 214 thou/uL (130-400); RBC Distribution Width 15.1 % (11.5-14.5); Red Blood Cell (RBC) Count 3.06 mill/uL (4.20-5.40)
--- NOTE | 2020-01-21 21:45 | RAD ---
Portable chest: HISTORY: Cough. Pulmonary edema. COMPARISON: 01/12/2020 FINDINGS:Cardiomegaly. Vascular congestion, similar to the prior exam. No confluent infiltrate or con solidation. IMPRESSION:Cardiomegaly with vascular congestion
[2020-01-21] MEDS ORDERED: Acetaminophen 500 MG TAB ONE (21:47)
[2020-01-21 22:01] LABS: ALT (SGPT) 9 U/L (8-55); AST (SGOT) 13 U/L (5-34); Albumin 3.9 g/dL (3.5-5.0); Alkaline Phosphatase 50 U/L (40-110); Anion Gap 23 mmol/L (10-20); BUN (Urea Nitrogen) 39 mg/dL (7.0-18.7); Bilirubin, Total 0.4 mg/dL (0.2-1.2); Calc. Creatinine Clearance 0 mL/min (70-130); Calcium 9.4 mg/dL (7.8-10.44); Carbon Dioxide 25 mmol/L (22-29); Chloride 94 mmol/L (98-107); Estimated GFR-MDRD 6; Globulin 2.6 g/dL (2.4-3.5); Glucose 82 mg/dL (70-105); Lipase 10 U/L (8-78); Potassium 4.2 mmol/L (3.5-5.1); Protein, Total 6.5 g/dL (6.0-8.3); Sodium 138 mmol/L (136-145)
[2020-01-21 22:06] LABS: Phosphorus 7.5 mg/dL (2.3-4.7)
[2020-01-21] MEDS ORDERED: Furosemide 40 MG TAB ONE (22:11)
== END 2020-01-21 22:14 | disposition home or self-care (01) ==
LOC: ERS 20:54
DX: E87.70 Fluid overload, unspecified (principal); E83.39 Other disorders of phosphorus metabolism; I12.0 Hypertensive chronic kidney disease with stage 5 chronic kidney disease or end stage renal disease; N18.6 End stage renal disease; F31.9 Bipolar disorder, unspecified; Z99.2 Dependence on renal dialysis; Z79.899 Other long term (current) drug therapy
CPT/HCPCS: 71045; 80053; 83690; 83735; 84100; 84484; 85025; 93005

== ENCOUNTER 2020-01-25 23:29 | Emergency (ER) | payer MEDICARE, MEDICAID ==
--- NOTE | 2020-01-26 00:10 | RAD ---
RADIOGRAPH CHEST 2 VIEW: DATE: 01/26/2020 12:56 AM HISTORY: 34-year-old female with cough and chest pain FINDINGS: There is no airspace density, pulmonary edema, pleural effusion, or pneumothorax. There are right sub clavian, axillary, brachial, and brachiocephalic venous stents, presumably related to hemodialysis AV fistula. There is a large amount of bowel gas. IMPRESSION: 1. No acute pulmonary findings. 2. Evidence for end-stage renal disease
== END 2020-01-26 00:23 | disposition home or self-care (01) ==
LOC: ERS 23:29
DX: R05 Cough (principal); R07.9 Chest pain, unspecified; I12.0 Hypertensive chronic kidney disease with stage 5 chronic kidney disease or end stage renal disease; N18.6 End stage renal disease; F31.9 Bipolar disorder, unspecified; Z99.2 Dependence on renal dialysis; Z79.899 Other long term (current) drug therapy
CPT/HCPCS: 71046

== ENCOUNTER 2020-02-15 07:24 | Emergency (ER) | payer MEDICARE, MEDICAID, OTHER ==
[2020-02-15 08:43] LABS: #Basophils 0.1 thou/uL (0.0-0.2); #Eosinphils 1.7 thou/uL (0.0-0.7); #Lymphocytes 1.7 thou/uL (1.20-3.40); #Monocytes 1.4 thou/uL (0.11-0.59); #Neutrophils 9.7 thou/uL (1.40-6.50); %Basophils 0.9 % (0.0-1.0); %Eosinophils 11.4 % (0.0-10.0); %Lymphocytes 11.5 % (21.0-51.0); %Monocytes 9.5 % (0.0-10.0); %Neutrophils 66.8 % (42.0-75.0); Hemoglobin 13.6 g/dL (12.0-16.0); Mean Corpuscular HGB CONC 32.2 g/dL (32.0-36.0); Mean Corpuscular Hemoglobin 33.3 pg (27.0-31.0); Mean Platelet Volume 7.3 fL (7.4-10.4); Platelet Count 268 thou/uL (130-400); RBC Distribution Width 14.8 % (11.5-14.5); Red Blood Cell (RBC) Count 4.09 mill/uL (4.20-5.40); White Blood Cell (WBC) Count 14.6 thou/uL (4.8-10.8)
--- NOTE | 2020-02-15 08:49 | RAD ---
CHEST 1 VIEW: Date: 02/15/2020 HISTORY: Nausea. COMPARISON: Chest radiograph dated 01/26/2020. FINDINGS: Subclavian and vascular stents are similar with a fracture of the subclavian stent. Heart size is enlarged. Mild pulmonary venous congestion. No pneumothorax. No significant effusion. No acute osseous abnormality. IMPRESSION: Cardiomegaly and mild pulmonary venous congestion/volume overload. POS: [facility]
[2020-02-15 08:55] LABS: ALT (SGPT) 17 U/L (8-55); AST (SGOT) 20 U/L (5-34); Albumin 4.9 g/dL (3.5-5.0); Alkaline Phosphatase 96 U/L (40-110); Anion Gap 29 mmol/L (10-20); BUN (Urea Nitrogen) 59 mg/dL (7.0-18.7); Bilirubin, Total 0.4 mg/dL (0.2-1.2); Calc. Creatinine Clearance 0 mL/min (70-130); Calcium 9.9 mg/dL (7.8-10.44); Carbon Dioxide 19 mmol/L (22-29); Chloride 93 mmol/L (98-107); Estimated GFR-MDRD 4; Glucose 73 mg/dL (70-105); Protein, Total 8.9 g/dL (6.0-8.3); Sodium 135 mmol/L (136-145)
== END 2020-02-15 10:36 | disposition home or self-care (01) ==
LOC: ERS 07:24
DX: J81.1 Chronic pulmonary edema (principal); N18.6 End stage renal disease; F31.9 Bipolar disorder, unspecified; I12.0 Hypertensive chronic kidney disease with stage 5 chronic kidney disease or end stage renal disease; Z79.899 Other long term (current) drug therapy
CPT/HCPCS: 36415; 71045; 80053; 84484; 85025; 93005

== ENCOUNTER 2020-03-06 09:58 | Observation (INO) | payer MEDICARE, MEDICAID ==
[2020-03-06 10:55] LABS: Hemoglobin 12.7 g/dL (12.0-16.0); Mean Corpuscular HGB CONC 32.9 g/dL (32.0-36.0); Mean Corpuscular Hemoglobin 32.8 pg (27.0-31.0); Mean Corpuscular Volume 99.7 fL (78.0-98.0); Mean Platelet Volume 7.5 fL (7.4-10.4); Platelet Count 189 thou/uL (130-400); RBC Distribution Width 14.4 % (11.5-14.5); Red Blood Cell (RBC) Count 3.86 mill/uL (4.20-5.40); White Blood Cell (WBC) Count 13.3 thou/uL (4.8-10.8)
[2020-03-06 11:08] LABS: Eosinophils 9 % (0-10); Lymphocytes 16 % (21-51); MDiff Complete? YES; Monocytes 9 % (0-10); Neutrophil 62 % (42-75); Ovalocytes SLIGHT = 2-5 cells (100X) (0-1/hpf); Platelet Morphology Comment Appears Adequate; Polychromasia SLIGHT = 2-3 cells (100X) (0-2/hpf); Reactive Lymphocytes 2 % (0-10)
--- NOTE | 2020-03-06 11:20 | RAD ---
CHEST 1 VIEW: Date: 03/06/2020 HISTORY: Chest pain. COMPARISON: Radiograph dated 02/15/2020. FINDINGS: Mild pulmonary venous congestion. Heart size is enlarged. No pneumothorax. The pulmonary vessels are distended with cephalization. Right-sided vascular stents are similar. There is a calcified likely graft of the left arm. IMPRESSION: Cardiomegaly and mild volume overload. POS: HOME
[2020-03-06 11:27] LABS: CKMB 2.1 ng/mL (0-6.6)
[2020-03-06 11:28] LABS: ALT (SGPT) 11 U/L (8-55); AST (SGOT) 18 U/L (5-34); Albumin 4.2 g/dL (3.5-5.0); Alkaline Phosphatase 73 U/L (40-110); Anion Gap 25 mmol/L (10-20); BUN (Urea Nitrogen) 55 mg/dL (7.0-18.7); Bilirubin, Total 0.3 mg/dL (0.2-1.2); CK (CPK) 46 U/L (29-168); Calc. Creatinine Clearance 0 mL/min (70-130); Calcium 9.6 mg/dL (7.8-10.44); Carbon Dioxide 15 mmol/L (22-29); Chloride 94 mmol/L (98-107); Estimated GFR-MDRD 4; Globulin 3.4 g/dL (2.4-3.5); Glucose 97 mg/dL (70-105); Lipase 17 U/L (8-78); Potassium 5.2 mmol/L (3.5-5.1); Protein, Total 7.6 g/dL (6.0-8.3); Sodium 129 mmol/L (136-145)
[2020-03-06] MEDS ORDERED: cefTRIAXone\\ROCEPHIN 2 GM VIAL ONE (12:06)
[2020-03-06] MEDS ORDERED: Morphine 2 MG/ML SYRINGE ONE ×2 (12:06→13:28)
[2020-03-06] MEDS ORDERED: Azithromycin 500 MG VIAL ONE (12:06)
[2020-03-06] MEDS ORDERED: Lidocaine 1% PF 5 ML VIAL ONE (13:06)
[2020-03-06] MEDS ORDERED: cefTRIAXone\\ROCEPHIN 1 GM VIAL ONE (13:06)
[2020-03-06] MEDS ORDERED: Senokot S 8.6-50 MG TAB PO PRN (14:35)
[2020-03-06] MEDS ORDERED: SODIUM CHLORIDE FS PRN (15:03)
[2020-03-06 15:10] VITALS: BMI 30.2
[2020-03-06] MEDS: Sodium Chloride 0.65% Nasal 44 ML BOT EA NARE SCH ×2 (16:04→21:30)
[2020-03-06] MEDS ORDERED: diphenhydrAMINE 25 MG CAP PO PRN (16:31)
[2020-03-06] MEDS: Sevelamer Carbonate 800 MG TAB PO SCH (17:11)
--- NOTE | 2020-03-06 18:17 | HP ---
PRIMARY CARE PHYSICIAN: Von Pierre MD. PRIMARY SAP CONSULTANT: Don Castañeda MD. CHIEF COMPLAINT: Shortness of breath. HISTORY OF PRESENT ILLNESS: The patient is a 35-year-old female with end-stage renal disease, on hemodialysis, hypertension with recent acute bronchitis, presented to the emergency room with shortness of breath. Over the last 1 week, the patient developed gradual worsening of shortness of breath along with cough. The cough was productive of thick greenish phlegm. She also had low-grade fever. Symptoms progressively got worse. She was started on antibiotics as outpatient without significant improvement. For this reason, she presented to the emergency room. She denies recent immobilization or travel. No sick contacts reported. She is compliant with hemodialysis. She denies orthopnea, paroxysmal nocturnal dyspnea, or leg swelling. In the emergency room, her initial vital signs showed temperature 97.4, respirations of 18, pulse rate of 104 with a blood pressure of 144/98, O2 saturation of 100% on room air. Chest x-ray was negative for infiltrate. It showed mild volume overload. She was started on ceftriaxone in the emergency room. PAST MEDICAL HISTORY: 1. End-stage renal disease, on hemodialysis. 2. History of Mickie syndrome. 3. Hypertension. 4. Bipolar disorder. PAST SURGICAL HISTORY: 1. Dialysis access. 2. Right oophorectomy. 3. Right hip surgery. ALLERGIES: THE PATIENT IS ALLERGIC TO RANITIDINE, BACLOFEN, CYCLOBENZAPRINE, LEVOFLOXACIN, LORATADINE, AND VANCOMYCIN. CURRENT HOME MEDICATIONS: 1. Seroquel 300 mg at bedtime. 2. Renvela 1600 mg 3 times a day. 3. Metoprolol succinate 25 mg daily. 4. Latuda 40 mg daily. SOCIAL HISTORY: The patient currently lives at home with her family. She denies current use of smoking, alcohol, or drug use. FAMILY HISTORY: Negative for premature coronary artery disease. REVIEW OF SYSTEMS: All other review of systems was reviewed and was found negative. PHYSICAL EXAMINATION: VITAL SIGNS: As discussed above. GENERAL: A 35-year-old female, in no apparent distress at rest. HEENT: Head, atraumatic and normocephalic. Sclerae anicteric. Moist mucous membranes. No oral lesion. NECK: Supple. No JVD appreciated. No carotid bruit. LUNGS: Bilateral rhonchi with bibasilar rales. No accessory muscle use. There was scattered wheezing. HEART: S1, S2 present. Regular rate and rhythm. No rubs or gallops. ABDOMEN: Soft, nontender. Bowel sounds present. No rebound or guarding. EXTREMITIES: Trace edema in bilateral lower extremity. No calf tenderness. SKIN: Warm and dry. LYMPH NODES: No palpable lymph nodes in the neck. PERIPHERAL VASCULAR: Radial pulses palpable bilaterally. MUSCULOSKELETAL: No joint swelling or tenderness. LABORATORY FINDINGS: CBC showed WBC 13.3 with hemoglobin 12.7, hematocrit 38.5, platelet of 189. Chemistry showed sodium 129, potassium 5.2, chloride 94, bicarb 15, BUN 15, creatinine 10.28. Troponin of 0.035. IMAGING STUDIES: Chest x-ray by my review as discussed above. EKG by my review showed sinus tachycardia with nonspecific ST-T wave changes. IMPRESSION: 1. Shortness of breath, multifactorial. 2. Recent acute bronchitis with questionable superimposed pneumonia. 3. Volume overload. 4. End-stage renal disease, on hemodialysis Saturday, Saturday, and Saturday. 5. Hypertension. 6. Bipolar disorder. 7. Mickie syndrome. 8. Hyponatremia/hyperkalemia. 9. Metabolic acidosis. 10. Obesity with a BMI of 30.2. PLAN: The patient will be monitored on the telemetry unit. She has been started on ceftriaxone in the emergency room. We will add doxycycline. She does not have IV access at this time. We will start her on intramuscular Rocephin. Home medications will be resumed. We will add sputum culture. Recheck labs in a.m. Consult Nephrology for hemodialysis maintenance. We will recheck chest x-ray, PA and lateral in a.m. DVT prophylaxis with SCDs. We will consider heparin if the patient is bed-bound. Job ID: [id number]
[2020-03-06] MEDS: Budesonide 0.5 MG/2 ML NEB INH SCH (18:40)
[2020-03-06] MEDS: Doxycycline 100 MG CAP PO SCH (21:30)
[2020-03-07 04:38] LABS: #Basophils 0.1 thou/uL (0.0-0.2); #Eosinphils 0.9 thou/uL (0.0-0.7); #Lymphocytes 1.8 thou/uL (1.20-3.40); #Monocytes 1.5 thou/uL (0.11-0.59); #Neutrophils 9.5 thou/uL (1.40-6.50); %Basophils 0.9 % (0.0-1.0); %Eosinophils 6.2 % (0.0-10.0); %Monocytes 10.6 % (0.0-10.0); %Neutrophils 69.3 % (42.0-75.0); Hemoglobin 12.5 g/dL (12.0-16.0); Mean Corpuscular HGB CONC 33.1 g/dL (32.0-36.0); Mean Corpuscular Hemoglobin 33.5 pg (27.0-31.0); Mean Platelet Volume 8.1 fL (7.4-10.4); Platelet Count 205 thou/uL (130-400); RBC Distribution Width 14.5 % (11.5-14.5); Red Blood Cell (RBC) Count 3.72 mill/uL (4.20-5.40); White Blood Cell (WBC) Count 13.7 thou/uL (4.8-10.8)
[2020-03-07 04:59] LABS: ALT (SGPT) 10 U/L (8-55); AST (SGOT) 17 U/L (5-34); Albumin 4.3 g/dL (3.5-5.0); Alkaline Phosphatase 72 U/L (40-110); Anion Gap 28 mmol/L (10-20); BUN (Urea Nitrogen) 72 mg/dL (7.0-18.7); Bilirubin, Total 0.3 mg/dL (0.2-1.2); Calc. Creatinine Clearance 6 mL/min (70-130); Calcium 8.9 mg/dL (7.8-10.44); Carbon Dioxide 19 mmol/L (22-29); Chloride 91 mmol/L (98-107); Estimated GFR-MDRD 3; Globulin 3.1 g/dL (2.4-3.5); Glucose 104 mg/dL (70-105); Potassium 4.6 mmol/L (3.5-5.1); Protein, Total 7.4 g/dL (6.0-8.3); Sodium 133 mmol/L (136-145)
[2020-03-07] MEDS: Budesonide 0.5 MG/2 ML NEB INH SCH ×2 (07:08→18:45)
[2020-03-07] MEDS: Sevelamer Carbonate 800 MG TAB PO SCH ×3 (07:30→16:34)
--- NOTE | 2020-03-07 09:56 | CON ---
DATE OF CONSULTATION: HISTORY OF PRESENT ILLNESS: Ms. Juarez is a 35-year-old white female with ESRD and was admitted for persistent cough. She presented at [facility] several days ago for the same complaints. She was foundwith essentially negative findings. She was also checked for COVID, which was negative. Due to the persistent cough and failure of the p.o. antibiotics, she is admitted for further evaluation. She has been started on IV antibiotics. Please note that the patient has also been started on a new set of IV antibiotics due to failed p.o. treatment with p.o. antibiotics. We are following her up for her ESRD. She is currently undergoing hemodialysis. We are maxing out fluid removal. Chest x-ray did show increased lung markings. REVIEW OF SYSTEMS: Positive for productive cough and greenish phlegm. No nausea. No vomiting. Appetite fair. Occasional chest pain. Occasional mild shortness of breath. No diarrhea. No constipation. No dysuria. No hematochezia. No melena. No hematemesis. MEDICATIONS: The patient is currently on: 1. Ceftriaxone 1 g IM daily. 2. Doxycycline 100 mg p.o. b.i.d. 3. Metoprolol succinate 25 mg daily. 4. Quetiapine 200 mg at bedtime. 5. Sevelamer 800 mg two tablets t.i.d. with meals. PAST MEDICAL HISTORY: 1. 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 2. Status post Mickie syndrome. 3. Status post suicide ideation, status post pulmonary stenosis, bipolar disorder, history of anxiety, history of noncompliance. PAST SURGICAL HISTORY: Status post pulmonary stenosis repair as a child, status post cuffed hemodialysis catheter placement, status post AV fistula placement, status post diagnostic laparoscopy with omentectomy, status post PD catheter placement with subsequent removal, status post hip surgery, status post upper GI endoscopy. ALLERGIES: VANCOMYCIN, CLARITIN, BACLOFEN, AND HYDROCODONE. TRAUMA: Status post hip fracture. IMMUNIZATION: Up-to-date. HOSPITALIZATIONS: Please see past medical history. SOCIAL HISTORY: The patient currently lives with her mother. She is single. No children. Education, high school. No alcohol use. No smoking. Status post multiple blood transfusion. FAMILY HISTORY: No family history of ESRD. PHYSICAL EXAMINATION: VITAL SIGNS: Blood pressure 124/77, heart rate 96, respiratory rate 16, temperature 97.6, and pulse ox 100% on room air. GENERAL: Noted to be awake, supine, comfortable, not in overt distress. SKIN: Adequate turgor. HEENT: She has a pinkish conjunctivae. Anicteric sclerae. NECK: No neck mass. No carotid bruits. No JVD. CHEST: No deformities. LUNGS: Harsh breath sounds. HEART: Normal sinus rhythm. No murmur. No gallops. No rubs. ABDOMEN: Globular, soft, and nontender. No masses. EXTREMITIES: No edema. No deformities. LABORATORY DATA: Laboratories of March 07, 2020; white count 13.7, hemoglobin 12.5. Sodium 133, potassium 4.6, chloride 91, carbon dioxide 19, BUN 72, creatinine 13.02, GFR 9 mL/minute, calcium 8.9. AST 17, ALT 10, and albumin 4.3. C-reactive protein is 2.35. Chest x-ray of March 06, 2020, showed cardiomegaly with mild volume overload. ASSESSMENT AND PLAN: 1. Congestive heart failure-we will max out fluid removal with hemodialysis. Continue supportive care. If needed, we will do another dialysis tomorrow for fluid removal. 2. Productive cough-underlying ? Of a possible pneumonia/bronchitis. On IV antibiotics. The patient is currently receiving ceftriaxone at 1 g IM daily due to the lack of peripheral access. She is also on doxycycline 100 mg p.o. b.i.d. 3. End-stage renal disease, stable. We will continue current Saturday, Saturday , and Saturday hemodialysis. Fluid removal as tolerated. Review of the last Kt/V suggests she is adequately dialyzed with the current dialysis regimen. Job ID: [id number] [facility]
[2020-03-07] MEDS: cefTRIAXone\\ROCEPHIN 1 GM VIAL IM SCH (12:12)
[2020-03-07] MEDS: Sodium Chloride 0.65% Nasal 44 ML BOT EA NARE SCH ×3 (12:13→21:20)
[2020-03-07] MEDS: Doxycycline 100 MG CAP PO SCH ×2 (12:13→21:20)
[2020-03-07] MEDS: Acetaminophen 325 MG TAB PO PRN (12:14)
--- NOTE | 2020-03-07 12:16 | PDOC.HOSPP ---
- Subjective Encounter Date: 03/07/20 Encounter Time: 09:35 Subjective: is getting HD, c/o dry coughing spells no chest pain says she feels weak to go home - Objective Vital Signs & Weight: Vital Signs (12 hours) Temp Pulse Resp BP Pulse Ox 03/07/20 12:01 98.6 F 108 H 19 114/77 97 03/07/20 07:22 97.6 F 96 16 124/77 100 03/07/20 07:08 100 14 03/07/20 04:37 98.1 F 97 14 109/62 98 03/07/20 02:08 107 H 14 98 03/07/20 00:52 99 Weight Weight 139 lb 11.2 oz I&O: 03/06/20 03/07/20 03/08/20 06:59 06:59 06:59 Intake Total 150 Balance 150 Result Diagrams: 03/07/20 04:13 03/07/20 04:13 Hospitalist ROS - Medication Medications: Active Medications Generic Name Dose Route Start Last Admin Trade Name Freq PRN Reason Stop Dose Admin Acetaminophen 650 mg 03/06/20 17:33 03/07/20 12:14 Tylenol PO 650 mg Q4H PRN Administration Headache/Fever or Mild Pain Albuterol/Ipratropium 3 ml 03/06/20 18:30 03/07/20 10:53 Duoneb NEB Not Given P4OX-ET MARYAM Budesonide 0.5 mg 03/06/20 18:30 03/07/20 07:08 Pulmicort Neb Solution INH 0.5 mg BID-RT MARYAM Administration Ceftriaxone Sodium 1 gm 03/07/20 09:00 03/07/20 12:12 Rocephin IM 1 gm DAILY MARYAM Administration Doxycycline Hyclate 100 mg 03/06/20 21:00 03/07/20 12:13 Vibramycin PO 100 mg BID MARYAM Administration Metoprolol Succinate 25 mg 03/07/20 09:00 03/07/20 12:13 Toprol Xl PO 25 mg DAILY MARYAM Administration Quetiapine Fumarate 300 mg 03/06/20 21:00 03/06/20 21:33 Seroquel PO 300 mg HS MARYAM Administration Sevelamer Carbonate 1,600 mg 03/06/20 17:00 03/07/20 12:14 Renvela PO 1,600 mg TID-WM MARYAM Administration Sodium Chloride 0 ml 03/06/20 15:00 03/07/20 12:13 Cocke Nasal [place] 0.65% EA NARE 1 spr TID MARYAM Administration - Exam General Appearance: awake alert Eye: PERRL, anicteric sclera ENT: no oropharyngeal lesions, dry oral mucosa Neck: supple, no JVD Heart: RRR, no rubs, murmur present Respiratory: no wheezes, no rales Gastrointestinal: soft, non-tender, non-distended, normal bowel sounds Extremities: no cyanosis, no edema Neurological: cranial nerve grossly intact, no focal deficits Hosp A/P (1) Acute bronchitis Code(s): J20.9 - ACUTE BRONCHITIS, UNSPECIFIED Status: Acute Qualifiers: Bronchitis organism: unspecified organism Qualified Code(s): J20.9 - Acute bronchitis, unspecified (2) GRACIE (obstructive sleep apnea) Code(s): G47.33 - OBSTRUCTIVE SLEEP APNEA (ADULT) (PEDIATRIC) Status: Chronic (3) Anemia of renal disease Code(s): D63.1 - ANEMIA IN CHRONIC KIDNEY DISEASE Status: Chronic (4) Bipolar disorder Code(s): F31.9 - BIPOLAR DISORDER, UNSPECIFIED Status: Chronic Qualifiers: Active/Remission status: currently active Current episode severity: moderate (5) ESRD (end stage renal disease) on dialysis Code(s): N18.6 - END STAGE RENAL DISEASE; Z99.2 - DEPENDENCE ON RENAL DIALYSIS Status: Chronic (6) H/O parathyroidectomy Code(s): E89.2 - POSTPROCEDURAL HYPOPARATHYROIDISM Status: Chronic (7) H/O partial thyroidectomy Code(s): E89.0 - POSTPROCEDURAL HYPOTHYROIDISM Status: Chronic (8) Noncompliance Code(s): Z91.19 - PATIENT'S NONCOMPLIANCE W OTH MEDICAL TREATMENT AND REGIMEN Status: Chronic (9) [place] syndrome Code(s): Q87.1 - CONGENITAL MALFORM SYNDROMES PREDOM ASSOC W S * DO NOT USE * Status: Chronic (10) Secondary hyperparathyroidism of renal origin Code(s): N25.81 - SECONDARY HYPERPARATHYROIDISM OF RENAL ORIGIN Status: Chronic - Plan hemostable cxr shows no infiltrate tessalon pearls, mucinex, robitussin prn, nebs prn may dc anytime if she is comfortable going home, says she feels very weak to go now volume overload resolved with HD is on ceftriaxone IM and oral doxy, johannyojaninal hs, latuda, toprol xl
[2020-03-07] MEDS: Lurasidone HCl 40 MG TABLET PO SCH (12:19)
--- NOTE | 2020-03-07 13:52 | RAD ---
PA AND LATERAL CHEST: History: Pneumonia, cough. Comparison: Prior day's exam. FINDINGS: Heart size and mediastinum are within normal limits. Lungs appear clear of any infiltrative process. Pulmonary vessels do not appear as engorged as on the prior exam. Right sided stents again noted. IMPRESSION: No active intrathoracic disease. POS: [facility]
[2020-03-07] MEDS: Promethazine HCl 25 MG/ML VIAL IM/IV PRN (13:57)
[2020-03-07] MEDS: Guaifenesin DM 100-10/5 ML UDCUP PO PRN ×2 (13:57→21:20)
[2020-03-07] MEDS: Benzonatate 100 MG CAP PO PRN ×2 (13:57→21:19)
[2020-03-07] MEDS ORDERED: Calcium Carbonate 500 MG ChewTAB PO PRN (17:04)
[2020-03-07] MEDS: Oxymetazoline HCl 0.05% (30 ML BOT) NS SCH (21:19)
[2020-03-07] MEDS: guaiFENesin ER 600 MG TAB PO SCH (21:19)
[2020-03-08] MEDS: Promethazine HCl 25 MG/ML VIAL IM/IV PRN (02:47)
[2020-03-08] MEDS: Benzonatate 100 MG CAP PO PRN (06:06)
[2020-03-08] MEDS: Guaifenesin DM 100-10/5 ML UDCUP PO PRN (06:06)
[2020-03-08 07:49] VITALS: BP 128/80; TEMP 98.2
[2020-03-08] MEDS: Budesonide 0.5 MG/2 ML NEB INH SCH (08:11)
[2020-03-08] MEDS: cefTRIAXone\\ROCEPHIN 1 GM VIAL IM SCH (08:37)
[2020-03-08] MEDS: guaiFENesin ER 600 MG TAB PO SCH (08:37)
[2020-03-08] MEDS: Sevelamer Carbonate 800 MG TAB PO SCH (08:37)
[2020-03-08] MEDS: Doxycycline 100 MG CAP PO SCH (08:38)
[2020-03-08] MEDS: Lurasidone HCl 40 MG TABLET PO SCH (08:38)
[2020-03-08] MEDS: Sodium Chloride 0.65% Nasal 44 ML BOT EA NARE SCH (08:39)
[2020-03-08] MEDS: Oxymetazoline HCl 0.05% (30 ML BOT) NS SCH (08:39)
[2020-03-08] MEDS: Acetaminophen 325 MG TAB PO PRN (08:52)
--- NOTE | 2020-03-08 09:54 | PRG ---
DATE OF SERVICE: 03/08/2020 SUBJECTIVE: Ms. Juarez is a 35-year-old white female with ESRD, and admitted for persistent cough and refractory to p.o. antibiotics with her underlying bronchitis. She failed p.o. therapy. For that reason, she was started on parenteral antibiotics. Currently, on ceftriaxone at 1 g IM daily. In addition, doxycycline 100 mg p.o. b.i.d. has been initiated. The coughing this morning has slightly improved. Denies any chest pain or shortness of breath. She did undergo hemodialysis yesterday and tolerated treatment. OBJECTIVE: VITAL SIGNS: Blood pressure 128/80, heart rate 96, respiratory rate 17, temperature 98.2, pulse ox 96% on room air. GENERAL: Noted to be awake, alert, comfortable, not in overt distress. SKIN: Adequate turgor. HEENT: Pinkish conjunctivae. Anicteric sclerae. NECK: No neck mass. No carotid bruits. No JVD. CHEST: No deformities. LUNGS: Decreased breath sounds. HEART: Normal sinus rhythm. No murmur. No gallops. No rubs. ABDOMEN: Globular, soft, nontender. No masses. EXTREMITIES: No edema. No deformities. MEDICATIONS: On March 08, 2020, were reviewed. LABORATORY DATA: On March 07, 2020; white count 13.7, hemoglobin 12.5. On March 08, 2020; glucose 172. On March 07, 2020; BUN 72, creatinine 13. C-reactive protein is 2.35, procalcitonin 3.1. ASSESSMENT AND PLAN: 1. End-stage renal disease-stable. We will continue current Saturday, Saturday, and Saturday hemodialysis. Tolerating said treatment. Fluid removal as tolerated. 2. Acute bronchitis-rule out pneumonia. The patient has been started on parenteral antibiotics. On IM ceftriaxone and on doxycycline. Continue current management. 3. Overall, agree with current management. Recheck basic metabolic panel and CBC in a.m. Job ID: [id number]
--- NOTE | 2020-03-08 15:31 | DIS ---
DATE OF ADMISSION: 03/06/2020 DATE OF DISCHARGE: 03/08/2020 DISCHARGE DISPOSITION: Home. PRIMARY DISCHARGE DIAGNOSES: Acute bronchitis, resolving; volume overload with end-stage renal disease, on hemodialysis, resolved. SECONDARY DISCHARGE DIAGNOSES: Chronic anemia due to renal disease, obstructive sleep apnea, bipolar disorder, noncompliance with medications and dialysis likely, history of Mickie syndrome. PROCEDURES DONE DURING HOSPITALIZATION: The patient has had chest x-ray done on admission, which showed mild volume overload with cardiomegaly. She has had a repeat chest x-ray done on 03/07/2020, which showed no acute intrathoracic disease. Sputum culture shows normal respiratory aysha. She had a white count of 13, hemoglobin and hematocrit 12 and 38, platelet count 189 with 62% neutrophils. DISCHARGE MEDICATIONS: 1. Toprol-XL 25 mg p.o. daily. 2. Latuda 40 mg daily. 3. Seroquel 300 mg p.o. at bedtime. 4. Albuterol inhaler q.6 hourly p.r.n. 5. Sevelamer 1600 mg p.o. three times daily. ALLERGIES: RANITIDINE, BACLOFEN, FLEXERIL, LEVAQUIN, LORATADINE, VANCOMYCIN. DISCHARGE PLAN: The patient to follow up with her primary care physician, Dr. Von Pierre in 1 week. BRIEF COURSE DURING HOSPITALIZATION: The patient initially came in with complaints of cough and shortness of breath. The patient had volume overload and likely was noncompliant with her dialysis/diet/medications. The patient has had recurrent hospitalizations here as well. In view of this history, she was placed under observation on telemetry. She was initially on broad-spectrum antibiotics, which has been discontinued at the time of discharge. The patient has remained afebrile all through her stay here. She had hemodialysis done with maximum fluid removal as she tolerated. She was evaluated by Dr. Espinoza. She has had two chest x-rays on two different days done, which shows no evidence of infiltrate. She remained hemodynamically stable and will be shortly discharged to home. The patient was counseled with regard to compliance with medications and diet and dialysis as well. Please note, I have seen and examined the patient on the day of discharge. Job ID: [id number]
== END 2020-03-08 11:25 | disposition home or self-care (01) ==
LOC: ERS 09:58 → 2NO 13:28
PROVIDERS: ADMIT Internal Medicine; ATTEND Internal Medicine
DX: J20.9 Acute bronchitis, unspecified (principal); E87.70 Fluid overload, unspecified; I13.2 Hypertensive heart and chronic kidney disease with heart failure and with stage 5 chronic kidney disease, or end stage renal disease; N18.6 End stage renal disease; I50.9 Heart failure, unspecified; D63.1 Anemia in chronic kidney disease; F31.9 Bipolar disorder, unspecified; Q87.19 Other congenital malformation syndromes predominantly associated with short stature; E87.1 Hypo-osmolality and hyponatremia; E87.6 Hypokalemia; E87.2 Acidosis; G47.33 Obstructive sleep apnea (adult) (pediatric); E89.2 Postprocedural hypoparathyroidism; E89.0 Postprocedural hypothyroidism; N25.81 Secondary hyperparathyroidism of renal origin; E66.9 Obesity, unspecified; Z68.30 Body mass index [BMI] 30.0-30.9, adult; Z91.14 Patient's other noncompliance with medication regimen; Z79.899 Other long term (current) drug therapy; Z88.1 Allergy status to other antibiotic agents; Z88.8 Allergy status to other drugs, medicaments and biological substances; Z99.2 Dependence on renal dialysis
CPT/HCPCS: 71045; 71046; 80053 ×2; 82550; 82553; 82962 ×2; 83690; 84145; 84484; 85025 ×2; 86140; 87070; 87205; 93005; 94640 ×4; 96372 ×3; 97139; 99285; G0378 ×4; 36415; 36416; 90935; G0257; J0456; J0696; J2001; J2270; J2550; J7620; J7626

== ENCOUNTER 2020-03-10 17:00 | Emergency (ER) | payer MEDICARE, MEDICAID ==
--- NOTE | 2020-03-10 17:53 | RAD ---
CHEST ONE VIEW: 03/10/20 HISTORY: Chest pain. COMPARISON: Radiograph 03/07/20. FINDINGS: Mild pulmonary venous congestion. No pneumothorax. No effusion. Multiple vascular stents. No acute osseous abnormality. IMPRESSION: Mild pulmonary venous congestion and early edema. POS: HOME
[2020-03-10 18:05] LABS: ALT (SGPT) 11 U/L (8-55); AST (SGOT) 17 U/L (5-34); Albumin 4.2 g/dL (3.5-5.0); Alkaline Phosphatase 67 U/L (40-110); Anion Gap 22 mmol/L (10-20); BUN (Urea Nitrogen) 36 mg/dL (7.0-18.7); Bilirubin, Total 0.4 mg/dL (0.2-1.2); Calc. Creatinine Clearance 0 mL/min (70-130); Calcium 9.7 mg/dL (7.8-10.44); Carbon Dioxide 23 mmol/L (22-29); Chloride 99 mmol/L (98-107); Estimated GFR-MDRD 5; Globulin 3.3 g/dL (2.4-3.5); Glucose 98 mg/dL (70-105); Potassium 4.3 mmol/L (3.5-5.1); Protein, Total 7.5 g/dL (6.0-8.3); Sodium 140 mmol/L (136-145)
[2020-03-10 18:33] LABS: Hemoglobin 10.9 g/dL (12.0-16.0); Mean Corpuscular HGB CONC 31.9 g/dL (32.0-36.0); Mean Corpuscular Hemoglobin 32.7 pg (27.0-31.0); Mean Platelet Volume 7.2 fL (7.4-10.4); Platelet Count 229 thou/uL (130-400); RBC Distribution Width 14.3 % (11.5-14.5); Red Blood Cell (RBC) Count 3.34 mill/uL (4.20-5.40); White Blood Cell (WBC) Count 10.9 thou/uL (4.8-10.8)
[2020-03-10 19:00] LABS: Band 5 % (5-11); Eosinophils 3 % (0-10); Hypochromia SLIGHT = 6-15 cells (100X) (0-5/hpf); Lymphocytes 15 % (21-51); MDiff Complete? YES; Macrocytosis SLIGHT = 6-15 cells (100X) (0-5/hpf); Monocytes 15 % (0-10); Neutrophil 60 % (42-75); Platelet Morphology Comment Appears Adequate; Polychromasia SLIGHT = 2-3 cells (100X) (0-2/hpf); Reactive Lymphocytes 2 % (0-10)
--- NOTE | 2020-03-17 16:11 | EKG ---
Test Reason : Blood Pressure : / mmHG Vent. Rate : 105 BPM Atrial Rate : 105 BPM P-R Int : 114 ms QRS Dur : 086 ms QT Int : 342 ms P-R-T Axes : 050 055 009 degrees QTc Int : 452 ms Sinus tachycardia Otherwise normal ECG Confirmed by REMINGTON THORNTON ([id number]), image editor KATY GREWAL ([id number]) on 03/17/2020 4:11:05 PM Referred By: Confirmed By:REMINGTON THORNTON
== END 2020-03-10 22:24 | disposition home or self-care (01) ==
LOC: ERS 17:00
DX: J06.9 Acute upper respiratory infection, unspecified (principal); I12.0 Hypertensive chronic kidney disease with stage 5 chronic kidney disease or end stage renal disease; F31.9 Bipolar disorder, unspecified; Z79.899 Other long term (current) drug therapy
CPT/HCPCS: 36415; 71045; 80053; 83880; 85025; 93005; 96360; 96361

== ENCOUNTER 2020-04-07 09:08 | Emergency (ER) | payer MEDICARE, MEDICAID ==
[2020-04-07 10:10] LABS: Anion Gap 21 mmol/L (10-20); BUN (Urea Nitrogen) 33 mg/dL (7.0-18.7); Calc. Creatinine Clearance 0 mL/min (70-130); Calcium 10.8 mg/dL (7.8-10.44); Carbon Dioxide 27 mmol/L (22-29); Chloride 94 mmol/L (98-107); Estimated GFR-MDRD 7; Glucose 83 mg/dL (70-105); Potassium 5.8 mmol/L (3.5-5.1); Sodium 136 mmol/L (136-145)
--- NOTE | 2020-04-09 14:51 | EKG ---
Test Reason : SOB Blood Pressure : / mmHG Vent. Rate : 096 BPM Atrial Rate : 096 BPM P-R Int : 136 ms QRS Dur : 084 ms QT Int : 328 ms P-R-T Axes : 048 085 050 degrees QTc Int : 414 ms Normal sinus rhythm Normal ECG Confirmed by REMINGTON THORNTON ([id number]), non linear editor SERAFIN BAUER ([id number]) on 04/09/2020 2:50:52 PM Referred By: NORBERTO Confirmed By:REMINGTON THORNTON
== END 2020-04-07 11:23 | disposition home or self-care (01) ==
LOC: ERS 09:08
DX: I12.0 Hypertensive chronic kidney disease with stage 5 chronic kidney disease or end stage renal disease (principal); N18.6 End stage renal disease; E87.5 Hyperkalemia; Q24.9 Congenital malformation of heart, unspecified; F31.9 Bipolar disorder, unspecified; Z79.899 Other long term (current) drug therapy
CPT/HCPCS: 36415; 80048; 93005; 94760

== ENCOUNTER 2020-04-14 14:36 | Emergency (ER) | payer MEDICARE, MEDICAID ==
[2020-04-14 15:59] LABS: Base Excess-Venous -0.9 mmol/L (-2.0 to 3.0); Bicarbonate (HCO3v) 22.4 mmol/L (22.0-28.0); CO2 Tension (PvCO2) 32.1 mmHg (40.0-50.0); Calcium, Ionized 0.87 mmol/L (See Comments:); Chloride 104 mmol/L (98-107); Hemoglobin - Calc 13.1 g/dL (12.0-16.0); Potassium 7.8 mmol/L (3.5-5.1); Sodium 130 mmol/L (138-145); T. Carbon Dioxide 23.4 mmol/L (22.0-28.0); vO2 Saturation-calc 88.1 % (60.0-85.0)
[2020-04-14] MEDS ORDERED: Dextrose 50% Abboject 50 ML SYRINGE ONE (16:09)
[2020-04-14] MEDS ORDERED: Insulin Regular 300 UNITS/3 ML VIAL ONE (16:09)
[2020-04-14] MEDS ORDERED: Calcium Chloride 1 GM/10 ML Abboject SYRINGE ONE ×2 (16:09→16:12)
[2020-04-14 16:11] LABS: #Basophils 0.1 thou/uL (0.0-0.2); #Eosinphils 0.7 thou/uL (0.0-0.7); #Lymphocytes 1.5 thou/uL (1.20-3.40); #Monocytes 1.3 thou/uL (0.11-0.59); #Neutrophils 8.8 thou/uL (1.40-6.50); %Basophils 0.6 % (0.0-1.0); %Eosinophils 5.3 % (0.0-10.0); %Lymphocytes 11.8 % (21.0-51.0); %Monocytes 10.5 % (0.0-10.0); %Neutrophils 71.7 % (42.0-75.0); Hemoglobin 12.2 g/dL (12.0-16.0); Mean Corpuscular HGB CONC 33.4 g/dL (32.0-36.0); Mean Platelet Volume 7.8 fL (7.4-10.4); Platelet Count 280 thou/uL (130-400); RBC Distribution Width 13.3 % (11.5-14.5); White Blood Cell (WBC) Count 12.3 thou/uL (4.8-10.8)
--- NOTE | 2020-04-14 16:22 | RAD ---
Exam: Chest one view HISTORY:Chest pain Comparison: 03/10/2020 FINDINGS: Cardiac silhouette: Normal Aorta: Unremarkable Pulmonary vessels: Normal Costophrenic angles: Clear LUNGS: No masses or consolidation. Pneumothorax: None Osseous abnormalities: None Aspect or: Stable stents project over the right axilla and right upper lung IMPRESSION: No acute cardiopulmonary process.
[2020-04-14 16:33] LABS: ALT (SGPT) 8 U/L (8-55); AST (SGOT) 12 U/L (5-34); Albumin 4.3 g/dL (3.5-5.0); Alkaline Phosphatase 66 U/L (40-110); Anion Gap 27 mmol/L (10-20); BUN (Urea Nitrogen) 63 mg/dL (7.0-18.7); Bilirubin, Total 0.2 mg/dL (0.2-1.2); Calc. Creatinine Clearance 0 mL/min (70-130); Calcium 9.5 mg/dL (7.8-10.44); Carbon Dioxide 25 mmol/L (22-29); Chloride 93 mmol/L (98-107); Estimated GFR-MDRD 4; Globulin 3.7 g/dL (2.4-3.5); Lipase 14 U/L (8-78); Magnesium 2.7 mg/dL (1.6-2.6); Sodium 137 mmol/L (136-145)
[2020-04-14 16:55] LABS: Glucose 59 mg/dL (70-105)
--- NOTE | 2020-04-14 21:23 | PRG ---
DATE OF SERVICE: 04/14/2020 SUBJECTIVE: Ms. Juarez is a 35-year-old white female with ESRD and initially presented with nonspecific complaints of nausea, chest pain, and abdominal pain. During this initial evaluation, she was noted to be hyperkalemic with a potassium of 8.0. Of note, this patient has missed 2 dialysis session. This may explain the severe hyperkalemia. She was given calcium gluconate and insulin as well as D50. We have been consulted for emergent hemodialysis. The patient is currently hemodialyzing at the present time due to the hyperkalemia. OBJECTIVE: VITAL SIGNS: Blood pressure is 159/99, heart rate 70. GENERAL: Awake, alert, comfortable, not in overt distress. SKIN: Adequate turgor. HEENT: The patient has pinkish conjunctivae. Anicteric sclerae. NECK: No neck mass. No carotid bruits. No JVD. CHEST: No deformities. LUNGS: Clear breath sounds. HEART: Normal sinus rhythm. No murmurs. No gallops. No rubs. ABDOMEN: Globular, soft, nontender. No masses. EXTREMITIES: No edema. No deformities. LABORATORY DATA: On April 14, 2020; white count 12.3, hemoglobin 12.2. Sodium 137, potassium is 8, chloride 93, carbon dioxide 25, BUN 63, creatinine 12, glucose 59, AST 12, ALT 8. On April 14, 2020; chest x-ray showed no masses or consolidation. No acute cardiopulmonary process. MEDICATIONS: 1. Seroquel 50 mg tablet once a day. 2. Latuda 120 mg once a day. 3. Calcium acetate 667 mg 4 tablets t.i.d. with meals. 4. Metoprolol tartrate 25 mg once a day. 5. Protonix 40 mg tablet once a day. ASSESSMENT AND PLAN: 1. Hyperkalemia, emergent hemodialysis. Our plan is to do a 4-hour hemodialysis with this patient using a 2.0 potassium bath. Please note, she missed 2 dialysis sessions. Fluid removal of about 3.5 L as tolerated. If potassium improves and symptoms improve, consider discharging back the patient. I did discuss at length with the patient regarding compliance with her dialysis sessions and regimen. I explained to her that if she gets discharged, she should follow up for hemodialysis tomorrow, which is regular dialysis today. 2. End-stage renal disease-stable. Review of the last Kt/V suggests she is adequately dialyzed with the current dialysis regimen. 3. Agree with current management. Case discussed with Dr. Elvis Iverson, ER physician. Job ID: [id number]
[2020-04-14 22:45] LABS: HBSAg Index 0.14 S/CO (0-0.99); Hep B Surf Ag Non-Reactive S/CO (NonReactive)
== END 2020-04-15 02:04 | disposition home or self-care (01) ==
LOC: ERS 14:36
DX: R07.9 Chest pain, unspecified (principal); E87.5 Hyperkalemia; R10.13 Epigastric pain; G89.29 Other chronic pain; I12.0 Hypertensive chronic kidney disease with stage 5 chronic kidney disease or end stage renal disease; N18.6 End stage renal disease; F31.9 Bipolar disorder, unspecified; Z79.899 Other long term (current) drug therapy
CPT/HCPCS: 36415; 36416; 71045; 80053; 82330; 82803; 83690; 83735; 84484; 85025; 87340; 90935; 93005; 96374; 96375; G0257; J1815

== ENCOUNTER 2020-04-24 15:35 | Emergency (ER) | payer MEDICARE, MEDICAID ==
[2020-04-24 16:30] LABS: #Lymphocytes 1.3 thou/uL (1.20-3.40); #Monocytes 1.3 thou/uL (0.11-0.59); #Neutrophils 7.8 thou/uL (1.40-6.50); %Basophils 0.4 % (0.0-1.0); %Eosinophils 8.4 % (0.0-10.0); %Lymphocytes 11.4 % (21.0-51.0); %Monocytes 11.2 % (0.0-10.0); %Neutrophils 68.7 % (42.0-75.0); Hemoglobin 11.5 g/dL (12.0-16.0); Mean Corpuscular HGB CONC 33.8 g/dL (32.0-36.0); Mean Corpuscular Hemoglobin 33.8 pg (27.0-31.0); Mean Platelet Volume 9.9 fL (7.4-10.4); Platelet Count 200 thou/uL (130-400); RBC Distribution Width 12.5 % (11.5-14.5); White Blood Cell (WBC) Count 11.4 thou/uL (4.8-10.8)
--- NOTE | 2020-04-24 16:31 | RAD ---
PORTABLE CHEST: Date: 04-24-2020 Provided Clinical History: Chest pressure and chest pain. Comparison: 04-14-2020 FINDINGS: Cardiac and mediastinal silhouette is unchanged in appearance. Vascular stent material is redemonstra tara. No focal consolidation, pleural fluid or pneumothorax apparent. IMPRESSION: No evidence for an acute cardiopulmonary process. POS: [facility]
[2020-04-24 16:53] LABS: ALT (SGPT) 8 U/L (8-55); AST (SGOT) 13 U/L (5-34); Albumin 4.2 g/dL (3.5-5.0); Alkaline Phosphatase 71 U/L (40-110); Anion Gap 29 mmol/L (10-20); BUN (Urea Nitrogen) 64 mg/dL (7.0-18.7); Bilirubin, Total 0.3 mg/dL (0.2-1.2); CK (CPK) 59 U/L (29-168); Calc. Creatinine Clearance 0 mL/min (70-130); Calcium 10.8 mg/dL (7.8-10.44); Carbon Dioxide 21 mmol/L (22-29); Chloride 89 mmol/L (98-107); Estimated GFR-MDRD 3; Globulin 3.6 g/dL (2.4-3.5); Glucose 62 mg/dL (70-105); Lipase 10 U/L (8-78); Potassium 5.6 mmol/L (3.5-5.1); Protein, Total 7.8 g/dL (6.0-8.3); Sodium 133 mmol/L (136-145)
== END 2020-04-24 19:10 | disposition home or self-care (01) ==
LOC: ERS 15:35
DX: R06.00 Dyspnea, unspecified (principal); I12.0 Hypertensive chronic kidney disease with stage 5 chronic kidney disease or end stage renal disease; N18.6 End stage renal disease; Z91.15 Patient's noncompliance with renal dialysis; F31.9 Bipolar disorder, unspecified; Z79.899 Other long term (current) drug therapy
CPT/HCPCS: 71045; 80053; 82550; 83690; 85025; 93005

== ENCOUNTER 2020-04-30 15:13 | Emergency (ER) | payer MEDICARE, MEDICAID ==
[2020-04-30] MEDS ORDERED: Ondansetron ODT 4 MG TAB ONE (15:39)
[2020-04-30] MEDS ORDERED: Dicyclomine 20 MG TAB ONE (15:43)
[2020-04-30 16:32] LABS: Mean Corpuscular HGB CONC 32.6 g/dL (32.0-36.0); Mean Corpuscular Hemoglobin 34.3 pg (27.0-31.0); Mean Platelet Volume 7.6 fL (7.4-10.4); Platelet Count 305 thou/uL (130-400); RBC Distribution Width 13.4 % (11.5-14.5); White Blood Cell (WBC) Count 10.3 thou/uL (4.8-10.8)
[2020-04-30 16:50] LABS: ALT (SGPT) 11 U/L (8-55); AST (SGOT) 18 U/L (5-34); Albumin 4.1 g/dL (3.5-5.0); Alkaline Phosphatase 74 U/L (40-110); Anion Gap 23 mmol/L (10-20); BUN (Urea Nitrogen) 26 mg/dL (7.0-18.7); Bilirubin, Total 0.3 mg/dL (0.2-1.2); Calc. Creatinine Clearance 0 mL/min (70-130); Carbon Dioxide 21 mmol/L (22-29); Chloride 93 mmol/L (98-107); Estimated GFR-MDRD 6; Globulin 3.8 g/dL (2.4-3.5); Glucose 81 mg/dL (70-105); Lipase 17 U/L (8-78); Potassium 4.7 mmol/L (3.5-5.1); Protein, Total 7.9 g/dL (6.0-8.3); Sodium 132 mmol/L (136-145)
[2020-04-30 16:56] LABS: Band 11 % (5-11); Eosinophils 9 % (0-10); Lymphocytes 17 % (21-51); MDiff Complete? YES; Macrocytosis SLIGHT = 6-15 cells (100X) (0-5/hpf); Metamyelocyte 3 % (0-0); Monocytes 2 % (0-10); Neutrophil 52 % (42-75); Reactive Lymphocytes 4 % (0-10)
[2020-04-30] MEDS ORDERED: Acetaminophen 500 MG TAB ONE ×2 (16:58→17:06)
[2020-04-30 17:38] LABS: Bacteria/HPF 1+ HPF (None Seen); Bilirubin Negative (Negative); Blood, Urine Negative (Negative); Clarity Clear (Clear); Glucose, Urine (Dipstick) Normal (Negative); Leukocyte Negative Leu/uL (Negative); Nitrite Negative (Negative); Protein, Urine (Dipstick) 70 mg/dL (Neg-Trace); RBC/HPF 0-3 HPF (0-3); Urobilinogen Normal mg/dL (Less than 2); WBC/HPF 0-3 HPF (0-3)
[2020-04-30 17:39] LABS: Pregnancy Test - Urine (BHCG) Negative (Negative); Pregu Control Background? CLEAR/WHITE (CLR/WHITE); Pregu Control Bar Appear? YES (CONTROL BAR); Specific Gravity 1.005 (1.002-1.036)
--- NOTE | 2020-05-01 10:27 | EKG ---
Test Reason : Blood Pressure : / mmHG Vent. Rate : 094 BPM Atrial Rate : 094 BPM P-R Int : 124 ms QRS Dur : 096 ms QT Int : 350 ms P-R-T Axes : 021 091 038 degrees QTc Int : 437 ms Normal sinus rhythm Rightward axis Borderline ECG Confirmed by LALI PERKINS, AMRIT Lee ([id number]), editor school photograph SERAFIN BAUER ([id number]) on 05/01/2020 10:27:05 AM Referred By: Confirmed By:AMRIT ESCALERA MD
== END 2020-04-30 17:13 | disposition home or self-care (01) ==
LOC: ERS 15:13
DX: R10.13 Epigastric pain (principal); I12.0 Hypertensive chronic kidney disease with stage 5 chronic kidney disease or end stage renal disease; N18.6 End stage renal disease; F31.9 Bipolar disorder, unspecified; Z99.2 Dependence on renal dialysis; Z79.899 Other long term (current) drug therapy
CPT/HCPCS: 36415; 80053; 81003; 81015; 81025; 83690; 85025; 93005; Q0162

== ENCOUNTER 2020-05-03 17:40 | Emergency (ER) | payer MEDICARE, MEDICAID ==
[2020-05-03] MEDS ORDERED: Ondansetron ODT 8 MG TAB ONE (18:50)
== END 2020-05-03 19:08 | disposition home or self-care (01) ==
LOC: ERS 17:40
DX: K29.70 Gastritis, unspecified, without bleeding (principal); I12.0 Hypertensive chronic kidney disease with stage 5 chronic kidney disease or end stage renal disease; N18.6 End stage renal disease; Q24.9 Congenital malformation of heart, unspecified; Z79.899 Other long term (current) drug therapy; Z79.84 Long term (current) use of oral hypoglycemic drugs
CPT/HCPCS: Q0162

== ENCOUNTER 2020-05-16 20:08 | Emergency (ER) | payer MEDICARE, MEDICAID ==
[2020-05-16 21:27] LABS: #Basophils 0.1 thou/uL (0.0-0.2); #Eosinphils 0.4 thou/uL (0.0-0.7); #Lymphocytes 1.3 thou/uL (1.20-3.40); #Monocytes 1.5 thou/uL (0.11-0.59); #Neutrophils 6.9 thou/uL (1.40-6.50); %Basophils 0.8 % (0.0-1.0); %Lymphocytes 12.7 % (21.0-51.0); %Monocytes 14.6 % (0.0-10.0); %Neutrophils 67.9 % (42.0-75.0); Hemoglobin 12.9 g/dL (12.0-16.0); Mean Corpuscular HGB CONC 32.7 g/dL (32.0-36.0); Mean Corpuscular Hemoglobin 33.6 pg (27.0-31.0); Mean Platelet Volume 8.6 fL (7.4-10.4); Platelet Count 304 thou/uL (130-400); RBC Distribution Width 12.8 % (11.5-14.5); Red Blood Cell (RBC) Count 3.85 mill/uL (4.20-5.40); White Blood Cell (WBC) Count 10.1 thou/uL (4.8-10.8)
[2020-05-16 21:52] LABS: ALT (SGPT) 21 U/L (8-55); AST (SGOT) 20 U/L (5-34); Albumin 4.6 g/dL (3.5-5.0); Alkaline Phosphatase 77 U/L (40-110); Anion Gap 20 mmol/L (10-20); BUN (Urea Nitrogen) 25 mg/dL (7.0-18.7); Bilirubin, Total 0.3 mg/dL (0.2-1.2); Calc. Creatinine Clearance 0 mL/min (70-130); Calcium 10.3 mg/dL (7.8-10.44); Carbon Dioxide 33 mmol/L (22-29); Chloride 92 mmol/L (98-107); Estimated GFR-MDRD 8; Glucose 74 mg/dL (70-105); Protein, Total 8.6 g/dL (6.0-8.3); Sodium 138 mmol/L (136-145)
[2020-05-16 21:55] LABS: Potassium 6.6 mmol/L (3.5-5.1)
[2020-05-16] MEDS ORDERED: traMADol HCl 50 MG TAB ONE (23:12)
[2020-05-16] MEDS ORDERED: Dextrose 50% Abboject 50 ML SYRINGE ONE ×2 (23:13→23:34)
[2020-05-16] MEDS ORDERED: Sodium Bicarb 50 MEQ/50 ML Abboject 8.4% SYRINGE ONE (23:13)
[2020-05-16] MEDS ORDERED: Insulin Regular 300 UNITS/3 ML VIAL ONE (23:13)
[2020-05-16] MEDS ORDERED: Calcium Chloride 1 GM/10 ML Abboject SYRINGE ONE (23:13)
[2020-05-17 02:59] LABS: HBSAg Index 0.11 S/CO (0-0.99); Hep B Surf Ag Non-Reactive S/CO (NonReactive)
--- NOTE | 2020-05-17 07:34 | RAD ---
XR Chest 1 View Portable History: Chest pain Comparison: Radiograph April 24, 2020 Findings: Stent grafts in the right axillary and subclavian vasculature. Calcified vessel of the left arm. No confluent airspace consolidation, pneumothorax or effusion. No acute osseous abnormality. Impression: No acute intrathoracic abnormality.
== END 2020-05-17 05:41 | disposition home or self-care (01) ==
LOC: ERS 20:08
DX: E87.5 Hyperkalemia (principal); R94.31 Abnormal electrocardiogram [ECG] [EKG]; R07.89 Other chest pain; I12.0 Hypertensive chronic kidney disease with stage 5 chronic kidney disease or end stage renal disease; N18.6 End stage renal disease; Z79.899 Other long term (current) drug therapy
CPT/HCPCS: 36415; 36416; 71045; 80053; 85025; 87340; 90935; 93005; 94760; 96374; 96375; G0257; J1815

== ENCOUNTER 2020-05-30 07:16 | Emergency (ER) | payer MEDICARE, MEDICAID ==
[2020-05-30 08:04] LABS: #Basophils 0.1 thou/uL (0.0-0.2); #Eosinphils 1.1 thou/uL (0.0-0.7); #Lymphocytes 1.2 thou/uL (1.20-3.40); #Monocytes 1.2 thou/uL (0.11-0.59); #Neutrophils 7.7 thou/uL (1.40-6.50); %Basophils 0.7 % (0.0-1.0); %Eosinophils 9.6 % (0.0-10.0); %Lymphocytes 10.8 % (21.0-51.0); %Monocytes 10.4 % (0.0-10.0); %Neutrophils 68.4 % (42.0-75.0); Hemoglobin 10.6 g/dL (12.0-16.0); Mean Corpuscular HGB CONC 32.8 g/dL (32.0-36.0); Mean Corpuscular Hemoglobin 33.5 pg (27.0-31.0); Mean Platelet Volume 8.3 fL (7.4-10.4); Platelet Count 282 thou/uL (130-400); RBC Distribution Width 13.3 % (11.5-14.5); Red Blood Cell (RBC) Count 3.15 mill/uL (4.20-5.40); White Blood Cell (WBC) Count 11.2 thou/uL (4.8-10.8)
--- NOTE | 2020-05-30 08:07 | RAD ---
RADIOGRAPH CHEST 1 VIEW: DATE: 05/30/2020 TIME: 7:56 AM HISTORY: 35-year-old female with dyspnea COMPARISON: 05/17/2020 FINDINGS: Right brachiocephalic, right subclavian, right axillary, and right brachial venous stents. Cardiomegaly appears larger than on prior study. New finding of prominent interstitial markings. No consolidation or pneumothorax. Lateral costophrenic angles are sharp. IMPRESSION: Interval development of cardiomegaly with mild pulmonary venous congestion and questionable early int erstitial edema, suggestive of possible mild, early congestive heart failure
[2020-05-30 08:26] LABS: ALT (SGPT) 7 U/L (8-55); AST (SGOT) 12 U/L (5-34); Albumin 4.2 g/dL (3.5-5.0); Alkaline Phosphatase 75 U/L (40-110); Anion Gap 21 mmol/L (10-20); BUN (Urea Nitrogen) 51 mg/dL (7.0-18.7); Bilirubin, Total 0.3 mg/dL (0.2-1.2); Calc. Creatinine Clearance 0 mL/min (70-130); Calcium 8.7 mg/dL (7.8-10.44); Carbon Dioxide 21 mmol/L (22-29); Chloride 92 mmol/L (98-107); Estimated GFR-MDRD 4; Globulin 3.4 g/dL (2.4-3.5); Glucose 74 mg/dL (70-105); Lipase 22 U/L (8-78); Potassium 4.8 mmol/L (3.5-5.1); Protein, Total 7.6 g/dL (6.0-8.3); Sodium 129 mmol/L (136-145)
== END 2020-05-30 09:51 | disposition home or self-care (01) ==
LOC: ERS 07:16
DX: K29.70 Gastritis, unspecified, without bleeding (principal); R07.89 Other chest pain; I13.2 Hypertensive heart and chronic kidney disease with heart failure and with stage 5 chronic kidney disease, or end stage renal disease; I50.9 Heart failure, unspecified; N18.6 End stage renal disease; Q87.19 Other congenital malformation syndromes predominantly associated with short stature; F31.9 Bipolar disorder, unspecified; Z79.899 Other long term (current) drug therapy
CPT/HCPCS: 36415; 71045; 80053; 82553; 83690; 84484; 85025; 93005

== ENCOUNTER 2020-06-03 04:25 | Emergency (ER) | payer MEDICARE, MEDICAID ==
[2020-06-03 05:04] LABS: #Basophils 0.1 thou/uL (0.0-0.2); #Eosinphils 1.2 thou/uL (0.0-0.7); #Lymphocytes 1.9 thou/uL (1.20-3.40); #Monocytes 1.5 thou/uL (0.11-0.59); #Neutrophils 5.8 thou/uL (1.40-6.50); %Basophils 0.6 % (0.0-1.0); %Eosinophils 11.5 % (0.0-10.0); %Lymphocytes 17.8 % (21.0-51.0); %Monocytes 14.6 % (0.0-10.0); %Neutrophils 55.4 % (42.0-75.0); Hemoglobin 10.1 g/dL (12.0-16.0); Mean Corpuscular HGB CONC 32.2 g/dL (32.0-36.0); Mean Corpuscular Hemoglobin 33.7 pg (27.0-31.0); Mean Platelet Volume 8.4 fL (7.4-10.4); Platelet Count 253 thou/uL (130-400); White Blood Cell (WBC) Count 10.5 thou/uL (4.8-10.8)
[2020-06-03 05:25] LABS: ALT (SGPT) 7 U/L (8-55); AST (SGOT) 9 U/L (5-34); Alkaline Phosphatase 78 U/L (40-110); Anion Gap 23 mmol/L (10-20); BUN (Urea Nitrogen) 41 mg/dL (7.0-18.7); Bilirubin, Total 0.2 mg/dL (0.2-1.2); Calc. Creatinine Clearance 0 mL/min (70-130); Calcium 8.3 mg/dL (7.8-10.44); Carbon Dioxide 21 mmol/L (22-29); Chloride 94 mmol/L (98-107); Estimated GFR-MDRD 5; Globulin 3.1 g/dL (2.4-3.5); Glucose 126 mg/dL (70-105); Potassium 4.4 mmol/L (3.5-5.1); Protein, Total 7.1 g/dL (6.0-8.3); Sodium 134 mmol/L (136-145)
--- NOTE | 2020-06-03 07:45 | RAD ---
RADIOGRAPH CHEST 1 VIEW: DATE: 06/03/2020 TIME: 4:42 AM HISTORY: 35-year-old female with chest pain COMPARISON: 05/30/2020 FINDINGS: Prominent cardiac transverse diameter, at least partially due to magnification. Diffusely prominent i nterstitial markings. No pneumothorax. No large consolidation. Lateral costophrenic angles are sharp. No interval change. IMPRESSION: No interval change since 05/30/2020
== END 2020-06-03 06:39 | disposition home or self-care (01) ==
LOC: ERS 04:25
DX: R07.89 Other chest pain (principal); I12.0 Hypertensive chronic kidney disease with stage 5 chronic kidney disease or end stage renal disease; N18.6 End stage renal disease; Z99.2 Dependence on renal dialysis; F31.9 Bipolar disorder, unspecified; Z79.899 Other long term (current) drug therapy
CPT/HCPCS: 36415; 71045; 80053; 84484; 85025; 93005

== ENCOUNTER 2020-08-22 16:01 | Emergency (ER) | payer MEDICARE, MEDICAID ==
[2020-08-22] MEDS ORDERED: Nitroglycerin 2% Ointment 1 INCH/1 GM Packet ONE (16:43)
--- NOTE | 2020-08-22 17:04 | RAD ---
Chest one view HISTORY: Chest pain. COMPARISON: 06/03/2020. FINDINGS: Cardiac silhouette is magnified by projection and enlarged. Pulmonary vasculature is unrema rkable. Mediastinum is midline. No lobar consolidation or evidence of pneumothorax. Vascular stents projectin g over the right subclavian and axillary vessels unchanged in position. IMPRESSION : Chronic-type findings are stable. No active cardiopulmonary abnormalities are demonstrated.
[2020-08-22 17:06] LABS: #Basophils 0.1 thou/uL (0.0-0.2); #Eosinphils 0.6 thou/uL (0.0-0.7); #Lymphocytes 1.5 thou/uL (1.20-3.40); #Monocytes 1.1 thou/uL (0.11-0.59); %Basophils 0.4 % (0.0-1.0); %Eosinophils 4.5 % (0.0-10.0); %Lymphocytes 11.3 % (21.0-51.0); %Neutrophils 75.8 % (42.0-75.0); Hemoglobin 10.1 g/dL (12.0-16.0); Mean Corpuscular HGB CONC 34.2 g/dL (32.0-36.0); Mean Corpuscular Hemoglobin 33.3 pg (27.0-31.0); Mean Corpuscular Volume 97.4 fL (78.0-98.0); Mean Platelet Volume 7.8 fL (7.4-10.4); Platelet Count 237 thou/uL (130-400); RBC Distribution Width 12.2 % (11.5-14.5); Red Blood Cell (RBC) Count 3.03 mill/uL (4.20-5.40); White Blood Cell (WBC) Count 13.2 thou/uL (4.8-10.8)
[2020-08-22 17:28] LABS: ALT (SGPT) 18 U/L (8-55); AST (SGOT) 17 U/L (5-34); Albumin 4.2 g/dL (3.5-5.0); Alkaline Phosphatase 67 U/L (40-110); Anion Gap 16 mmol/L (10-20); BUN (Urea Nitrogen) 16 mg/dL (7.0-18.7); Bilirubin, Total 0.7 mg/dL (0.2-1.2); Calc. Creatinine Clearance 0 mL/min (70-130); Calcium 9.8 mg/dL (7.8-10.44); Carbon Dioxide 30 mmol/L (22-29); Chloride 92 mmol/L (98-107); Estimated GFR-MDRD 9; Globulin 3.6 g/dL (2.4-3.5); Glucose 83 mg/dL (70-105); Potassium 4.4 mmol/L (3.5-5.1); Protein, Total 7.8 g/dL (6.0-8.3); Sodium 134 mmol/L (136-145)
[2020-08-22] MEDS ORDERED: Morphine 4 MG/ML VIAL ONE (18:28)
== END 2020-08-22 18:55 | disposition home or self-care (01) ==
LOC: ERS 16:01
DX: R07.9 Chest pain, unspecified (principal); D64.9 Anemia, unspecified; I12.0 Hypertensive chronic kidney disease with stage 5 chronic kidney disease or end stage renal disease; N18.6 End stage renal disease; Z79.899 Other long term (current) drug therapy; Z79.82 Long term (current) use of aspirin
CPT/HCPCS: 71045; 80053; 84484; 85025; 93005; 94760; 96374; J2270

== ENCOUNTER 2020-09-02 07:49 | Emergency (ER) | payer MEDICARE, MEDICAID ==
--- NOTE | 2020-09-02 08:17 | RAD ---
Exam: Chest one view HISTORY:Chest pain Comparison: 08/22/2020 FINDINGS: Cardiac silhouette: Normal Aorta: Unremarkable Pulmonary vessels: Normal Costophrenic angles: Clear LUNGS: No masses or consolidation. Hyperinflation with chronic changes. Pneumothorax: None Osseous abnormalities: None Incidentals: Stable stents project over the right hemithorax. IMPRESSION: No acute cardiopulmonary process.
[2020-09-02 08:29] LABS: #Basophils 0.1 thou/uL (0.0-0.2); #Eosinphils 0.8 thou/uL (0.0-0.7); #Lymphocytes 1.5 thou/uL (1.20-3.40); #Monocytes 1.1 thou/uL (0.11-0.59); #Neutrophils 5.9 thou/uL (1.40-6.50); %Basophils 0.8 % (0.0-1.0); %Eosinophils 8.2 % (0.0-10.0); %Lymphocytes 16.2 % (21.0-51.0); %Monocytes 11.4 % (0.0-10.0); %Neutrophils 63.4 % (42.0-75.0); Hemoglobin 10.2 g/dL (12.0-16.0); Mean Corpuscular HGB CONC 32.7 g/dL (32.0-36.0); Mean Corpuscular Hemoglobin 32.6 pg (27.0-31.0); Mean Corpuscular Volume 99.6 fL (78.0-98.0); Mean Platelet Volume 7.7 fL (7.4-10.4); Platelet Count 238 thou/uL (130-400); RBC Distribution Width 12.4 % (11.5-14.5); Red Blood Cell (RBC) Count 3.12 mill/uL (4.20-5.40); White Blood Cell (WBC) Count 9.3 thou/uL (4.8-10.8)
[2020-09-02 08:52] LABS: ALT (SGPT) 12 U/L (8-55); AST (SGOT) 12 U/L (5-34); Albumin 4.3 g/dL (3.5-5.0); Alkaline Phosphatase 78 U/L (40-110); Anion Gap 20 mmol/L (10-20); BUN (Urea Nitrogen) 33 mg/dL (7.0-18.7); Bilirubin, Total 0.4 mg/dL (0.2-1.2); CK (CPK) 41 U/L (29-168); Calc. Creatinine Clearance 0 mL/min (70-130); Calcium 9.4 mg/dL (7.8-10.44); Carbon Dioxide 26 mmol/L (22-29); Chloride 98 mmol/L (98-107); Estimated GFR-MDRD 5; Globulin 2.6 g/dL (2.4-3.5); Glucose 67 mg/dL (70-105); Lipase 19 U/L (8-78); Potassium 5.7 mmol/L (3.5-5.1); Protein, Total 6.9 g/dL (6.0-8.3); Sodium 138 mmol/L (136-145)
[2020-09-02] MEDS ORDERED: Aspirin Chewable 81 MG TAB ONE (08:59)
[2020-09-02] MEDS ORDERED: Nitroglycerin 2% Ointment 1 INCH/1 GM Packet ONE (08:59)
[2020-09-02] MEDS ORDERED: Pantoprazole 40 MG VIAL ONE (10:12)
[2020-09-02] MEDS ORDERED: Dextrose 50% Abboject 50 ML SYRINGE ONE (10:12)
[2020-09-02] MEDS ORDERED: Mag-Al 1200 mg/1200 mg/30 ML UDCUP ONE (10:12)
[2020-09-02] MEDS ORDERED: Lidocaine Viscous Sol 2% 15 ml UD Cup ONE (10:12)
[2020-09-02 10:16] LABS: HBSAg Index 0.15 S/CO (0-0.99); HIV (1/2) Antibody/Antigen Non-Reactive (NonReactive); HIV 1/2 INDEX 0.17 S/CO (<1.00); Hep B Surf Ag Non-Reactive S/CO (NonReactive); Hep C IgG Ab Non-Reactive (NonReactive); Hep C Index 0.18 S/CO (0-0.79)
--- NOTE | 2020-09-10 16:39 | EKG ---
Test Reason : Blood Pressure : / mmHG Vent. Rate : 084 BPM Atrial Rate : 084 BPM P-R Int : 138 ms QRS Dur : 084 ms QT Int : 354 ms P-R-T Axes : 072 087 056 degrees QTc Int : 418 ms Normal sinus rhythm Normal ECG Confirmed by FLACO PERKINS, TALISHA ([id number]), index editor SERAFIN BAUER ([id number]) on 09/10/2020 4:39:42 PM Referred By: Confirmed By:TALISHA SAM MD
== END 2020-09-02 10:50 | disposition home or self-care (01) ==
LOC: ERS 07:49
DX: R07.89 Other chest pain (principal); I13.11 Hypertensive heart and chronic kidney disease without heart failure, with stage 5 chronic kidney disease, or end stage renal disease; N18.6 End stage renal disease; Z91.15 Patient's noncompliance with renal dialysis; Z79.82 Long term (current) use of aspirin; Z79.899 Other long term (current) drug therapy
CPT/HCPCS: 36415; 71045; 80053; 82550; 83690; 84484; 85025; 86803; 87340; 87389; 93005; 94760; 96374; 96375; C9113

== ENCOUNTER 2020-09-10 18:00 | Inpatient (IN) | payer MEDICARE, MEDICAID ==
[2020-09-10 18:51] LABS: #Basophils 0.1 thou/uL (0.0-0.2); #Eosinphils 0.2 thou/uL (0.0-0.7); #Lymphocytes 1.2 thou/uL (1.20-3.40); #Monocytes 0.7 thou/uL (0.11-0.59); #Neutrophils 3.8 thou/uL (1.40-6.50); %Basophils 1.2 % (0.0-1.0); %Eosinophils 2.8 % (0.0-10.0); %Lymphocytes 20.6 % (21.0-51.0); %Monocytes 11.6 % (0.0-10.0); %Neutrophils 63.9 % (42.0-75.0); Hemoglobin 9.4 g/dL (12.0-16.0); Mean Corpuscular HGB CONC 33.2 g/dL (32.0-36.0); Mean Corpuscular Volume 99.4 fL (78.0-98.0); Mean Platelet Volume 10.3 fL (7.4-10.4); Platelet Count 127 thou/uL (130-400); RBC Distribution Width 12.3 % (11.5-14.5); Red Blood Cell (RBC) Count 2.86 mill/uL (4.20-5.40)
--- NOTE | 2020-09-10 19:14 | RAD ---
XR Chest 1 View Portable HISTORY: Chest pain COMPARISON: 09/02/2020 FINDINGS: The heart size is normal. The aorta is tortuous. Chronic changes in the lung agrawal are aga in noted. Right-sided vascular stents again noted. The lungs are well expanded without focal areas of consolidation, pneumothorax or pleural effusions. IMPRESSION: No radiographic evidence of acute cardiopulmonary process.
[2020-09-10] MEDS ORDERED: Dexamethasone 10 MG/ML VIAL ONE (19:22)
[2020-09-10 19:23] LABS: ALT (SGPT) 10 U/L (8-55); AST (SGOT) 15 U/L (5-34); Albumin 4.3 g/dL (3.5-5.0); Alkaline Phosphatase 58 U/L (40-110); Anion Gap 23 mmol/L (10-20); BUN (Urea Nitrogen) 39 mg/dL (7.0-18.7); Bilirubin, Total 0.6 mg/dL (0.2-1.2); Calc. Creatinine Clearance 0 mL/min (70-130); Calcium 8.7 mg/dL (7.8-10.44); Carbon Dioxide 25 mmol/L (22-29); Chloride 96 mmol/L (98-107); Estimated GFR-MDRD 4; Globulin 2.8 g/dL (2.4-3.5); Glucose 95 mg/dL (70-105); Potassium 5.6 mmol/L (3.5-5.1); Protein, Total 7.1 g/dL (6.0-8.3); Sodium 138 mmol/L (136-145)
--- NOTE | 2020-09-10 21:18 | PDOC.HHP ---
Hospitalist HPI - History of Present Illness History of Present Illness: ADMISSION DATE: 09/10/2020 TIME OF ASSESSMENT: 2099 PRIMARY CARE PHYSICIAN: Ignacio CHIEF COMPLAINT: Chest pain and missed dialysis HPI: The patient is a 35-year-old female who lives at [facility] with past medical history significant for Mickie syndrome, hypertension, and end-stage renal disease on dialysis. She presents to the ER today for chest pain after testing positive for Covid yesterday. She states that she was tested due to a cough and low-grade fever. T-max was 100.8. She also endorses a cough. Patient states that after she tested positive she was unable to go to dialysis today due to them not accepting her with her positive test. She denies any significant shortness of breath. She does states she is having some abdominal discomfort though no diarrhea. ED COURSE: Today in the ER they completed a chest x-ray, EKG, and lab work. She did receive a dose of dexamethasone IV. Vital signs were 149/100, pulse 82, respiratory rate 18, temp 99.4, O2 saturation 100% on room air. PAST MEDICAL HISTORY: Congenital heart disease, chronic pancreatitis, Mickie syndrome, hypertension, end-stage renal disease on dialysis Saturday, , Saturday, anxiety, bipolar disorder, depression PAST SURGICAL HISTORY: Right upper extremity dialysis shunt, oophorectomy, right hip surgery SOCIAL HISTORY: Patient lives in a snf with her mother. Denies any smoking, alcohol, drug use. FAMILY HISTORY: Negative for premature coronary artery disease ALLERGIES: Ranitidine, baclofen, cyclobenzaprine, levofloxacin, loratadine, vancomycin CURRENT MEDICATIONS: Aspirin Metoprolol tartrate Renvela Seroquel Tylenol Esomeprazole Flonase Vitamin C Vitamin D3 Zinc Hospitalist ROS - Review of Systems Constitutional: reports: fever Respiratory: reports: cough Cardiovascular: reports: chest pain All other systems reviewed; all pertinent +/- noted in HPI/Subj - Exam General Appearance: NAD, awake alert Eye: PERRL, anicteric sclera Heart: RRR, no murmur, no gallops, no rubs, normal peripheral pulses Respiratory: CTAB, no wheezes, no rales, no ronchi, normal chest expansion Gastrointestinal: soft, non-tender, non-distended, normal bowel sounds Extremities: no cyanosis, no edema Psychiatric: normal affect, normal behavior, A&O x 3 Hospitalist Results - Labs Result Diagrams: 09/10/20 18:43 09/10/20 18:43 Lab results: WBC 6.0 thou/uL (4.8-10.8) 09/10/20 18:43 Hgb 9.4 g/dL (12.0-16.0) L 09/10/20 18:43 Hct 28.4 % (36.0-47.0) L 09/10/20 18:43 MCV 99.4 fL (78.0-98.0) H 09/10/20 18:43 Plt Count 127 thou/uL (130-400) L 09/10/20 18:43 Neutrophils % 63.9 % (42.0-75.0) 09/10/20 18:43 Sodium 138 mmol/L (136-145) 09/10/20 18:43 Potassium 5.6 mmol/L (3.5-5.1) H 09/10/20 18:43 Chloride 96 mmol/L (98-107) L 09/10/20 18:43 Carbon Dioxide 25 mmol/L (22-29) 09/10/20 18:43 BUN 39 mg/dL (7.0-18.7) H 09/10/20 18:43 Creatinine 11.82 mg/dL (0.6-1.1) H 09/10/20 18:43 Glucose 95 mg/dL (70-105) 09/10/20 18:43 Calcium 8.7 mg/dL (7.8-10.44) 09/10/20 18:43 Total Bilirubin 0.6 mg/dL (0.2-1.2) 09/10/20 18:43 AST 15 U/L (5-34) 09/10/20 18:43 ALT 10 U/L (8-55) 09/10/20 18:43 Alkaline Phosphatase 58 U/L (40-110) 09/10/20 18:43 Troponin I 0.018 ng/mL (< 0.028) 09/10/20 18:43 Serum Total Protein 7.1 g/dL (6.0-8.3) 09/10/20 18:43 Albumin 4.3 g/dL (3.5-5.0) 09/10/20 18:43 - EKG Interpretation EKG: Sinus rhythm 84 bpm - Radiology Interpretation Chest x-ray Status: image reviewed by me, report reviewed by me Additional Comment: XR Chest 1 View Portable HISTORY: Chest pain COMPARISON: 09/02/2020 FINDINGS: The heart size is normal. The aorta is tortuous. Chronic changes in the lung agrawal are again noted. Right-sided vascular stents again noted. The lungs are well expanded without focal areas of consolidation, pneumothorax or pleural effusions. IMPRESSION: No radiographic evidence of acute cardiopulmonary process. Hospitalist H&P A/P - Plan Plan: Covid positive Continue zinc, vitamin D3 and vitamin C No respiratory distress at this time, chest x-ray did not show pneumonia Antipyretics and analgesics as needed Chest pain Monitor on telemetry overnight Continue to trend troponins Vital signs every 4 hour Hyperkalemia Dialysis in a.m. Monitor on telemetry End-stage renal disease on dialysis Patient of Dr. Espinoza's, he was consulted by ER staff Plan for dialysis in a.m. We will need plan in place for dialysis treatments with her Covid positive status Anemia No acute bleeding Patient close to her baseline SCDs for DVT prophylaxis CODE STATUS: Full Her mother is her surrogate decision-maker Patient was discussed with Dr. Dempsey
[2020-09-10] MEDS ORDERED: Acetaminophen 325 MG TAB PO PRN ×2 (21:33→21:45)
[2020-09-10] MEDS ORDERED: Ondansetron ODT 4 MG TAB PO PRN (21:33)
[2020-09-10] MEDS ORDERED: hydrALAZINE 20 MG/ML VIAL SLOW IVP PRN (21:33)
[2020-09-10] MEDS ORDERED: Diabetic Tussin 200 MG/10 ML UDCUP PO PRN (21:33)
[2020-09-10] MEDS ORDERED: Labetalol HCl 100 MG/20 ML VIAL SLOW IVP PRN (21:33)
[2020-09-10 21:35] VITALS: BMI 28.2
[2020-09-10] MEDS ORDERED: Ondansetron ODT 4 MG TAB SL PRN (21:45)
[2020-09-10] MEDS ORDERED: Ondansetron PF 4 MG/2 ML Vial IVP PRN (21:45)
[2020-09-10 21:55] LABS: Troponin I Less than 0.010 ng/mL (< 0.028)
[2020-09-11] MEDS ORDERED: Acetaminophen 500 MG TAB PO PRN ×2 (00:27→07:36)
[2020-09-11] MEDS ORDERED: guaiFENesin 200 MG TAB PO PRN (00:27)
[2020-09-11 01:14] LABS: Troponin I 0.019 ng/mL (< 0.028)
[2020-09-11] MEDS: traMADol HCl 50 MG TAB PO PRN ×2 (02:05→17:33)
[2020-09-11 04:50] LABS: #Lymphocytes 0.5 thou/uL (1.20-3.40); #Monocytes 0.1 thou/uL (0.11-0.59); #Neutrophils 6.5 thou/uL (1.40-6.50); %Basophils 0.5 % (0.0-1.0); %Eosinophils 0.4 % (0.0-10.0); %Lymphocytes 6.7 % (21.0-51.0); %Monocytes 1.6 % (0.0-10.0); %Neutrophils 90.9 % (42.0-75.0); Hemoglobin 9.3 g/dL (12.0-16.0); Mean Corpuscular HGB CONC 33.7 g/dL (32.0-36.0); Mean Corpuscular Hemoglobin 33.8 pg (27.0-31.0); Mean Platelet Volume 9.3 fL (7.4-10.4); Platelet Count 135 thou/uL (130-400); RBC Distribution Width 12.3 % (11.5-14.5); Red Blood Cell (RBC) Count 2.76 mill/uL (4.20-5.40); White Blood Cell (WBC) Count 7.2 thou/uL (4.8-10.8)
[2020-09-11 05:10] LABS: Anion Gap 21 mmol/L (10-20); BUN (Urea Nitrogen) 46 mg/dL (7.0-18.7); Calc. Creatinine Clearance 6 mL/min (70-130); Calcium 8.1 mg/dL (7.8-10.44); Carbon Dioxide 24 mmol/L (22-29); Chloride 98 mmol/L (98-107); Estimated GFR-MDRD 3; Glucose 253 mg/dL (70-105); Potassium 5.5 mmol/L (3.5-5.1); Sodium 137 mmol/L (136-145)
[2020-09-11] MEDS ORDERED: Loperamide HCl 2 MG CAP PO PRN (07:35)
[2020-09-11] MEDS ORDERED: Senokot S 8.6-50 MG TAB PO PRN (07:35)
[2020-09-11] MEDS ORDERED: Zolpidem Tartrate 5 MG TAB PO PRN (07:35)
[2020-09-11] MEDS ORDERED: Bisacodyl 5 MG TAB PO PRN (07:35)
[2020-09-11] MEDS: Sevelamer Carbonate 800 MG TAB PO SCH ×4 (08:47→20:14)
[2020-09-11] MEDS: Ascorbic Acid 500 mg Chewable Tablet PO SCH (08:49)
[2020-09-11] MEDS: Zinc Sulfate 220 MG CAP PO SCH (08:49)
[2020-09-11] MEDS: Aspirin 81 mg Enteric Coated Tablet PO SCH (08:49)
[2020-09-11] MEDS: Cholecalciferol 1,000 UNITS (25 MCG) TAB PO SCH (08:50)
--- NOTE | 2020-09-11 10:14 | PDOC.HOSPP ---
- Subjective Encounter Date: 09/11/20 Encounter Time: 08:10 - Objective Vital Signs & Weight: Vital Signs (12 hours) Temp Pulse Resp BP Pulse Ox 09/11/20 09:03 97.6 F 81 28 H 143/95 H 100 09/11/20 04:37 97.9 F 94 20 127/84 98 09/10/20 23:17 99.6 F 90 23 H 165/92 H 94 L Weight Weight 130 lb 8 oz Result Diagrams: 09/11/20 04:26 09/11/20 04:26 Radiology Reviewed by me: Yes EKG Reviewed by me: Yes Hospitalist ROS - Review of Systems Constitutional: reports: weakness. denies: fever, chills, sweats, malaise, other Respiratory: reports: cough, shortness of breath. denies: dry, hemoptysis, SOB with excertion, pleuritic pain, sputum, wheezing, other Cardiovascular: denies: chest pain, palpitations, orthopnea, paroxysmal noc. dyspnea, edema, light headedness, other Gastrointestinal: denies: nausea, vomiting, abdominal pain, diarrhea, constipation, melena, hematochezia, other Genitourinary: denies: dysuria, frequency, incontinence, hematuria, retention, other Musculoskeletal: denies: neck pain, shoulder pain, arm pain, back pain, hand pain, leg pain, foot pain, other - Medication Medications: Active Medications Generic Name Dose Route Start Last Admin Trade Name Freq PRN Reason Stop Dose Admin Ascorbic Acid 1,000 mg 09/11/20 09:00 09/11/20 08:49 Ascorbic Acid 500 Mg Chewable Tablet PO 1,000 mg DAILY MARYAM Administration Aspirin 81 mg 09/11/20 09:00 09/11/20 08:49 Aspirin 81 Mg Enteric Coated Tablet PO 81 mg DAILY MARYAM Administration Cholecalciferol 250 units 09/11/20 09:00 09/11/20 08:50 Cholecalciferol 1,000 Units (25 Mcg) Tab PO 250 units DAILY MARYAM Administration Metoprolol Succinate 25 mg 09/11/20 09:00 09/11/20 08:49 Metoprolol Succinate Xl 25 Mg Tab PO 25 mg DAILY MARYAM Administration Pantoprazole Sodium 40 mg 09/11/20 09:00 09/11/20 08:48 Pantoprazole 40 Mg Tab PO 40 mg DAILY MARYAM Administration Sevelamer Carbonate 2,400 mg 09/11/20 08:00 09/11/20 08:47 Sevelamer Carbonate 800 Mg Tab PO 2,400 mg TID-WM MARYAM Administration Tramadol HCl 50 mg 09/10/20 21:33 09/11/20 02:05 Tramadol Hcl 50 Mg Tab PO 50 mg Q6H PRN Administration Pain Zinc Sulfate 220 mg 09/11/20 09:00 09/11/20 08:49 Zinc Sulfate 220 Mg Cap PO 220 mg DAILY MARYAM Administration - Exam General Appearance: NAD, awake alert Eye: PERRL, anicteric sclera ENT: normocephalic atraumatic, no oropharyngeal lesions Neck: supple, symmetric, no JVD, no thyromegaly Heart: no murmur, no gallops, no rubs Respiratory: no wheezes, no rales, no ronchi Gastrointestinal: soft, non-tender, non-distended, normal bowel sounds Extremities: no cyanosis, no clubbing Skin: normal turgor, no lesions Neurological: no focal deficits Musculoskeletal: normal tone, normal strength Psychiatric: normal affect, normal behavior Hosp A/P (1) COVID-19 Code(s): U07.1 - COVID-19 Status: Acute (2) Hyperkalemia Code(s): E87.5 - HYPERKALEMIA Status: Acute (3) Anemia of renal disease Code(s): D63.1 - ANEMIA IN CHRONIC KIDNEY DISEASE Status: Chronic (4) Bipolar disorder Code(s): F31.9 - BIPOLAR DISORDER, UNSPECIFIED Status: Chronic Qualifiers: Active/Remission status: currently active Current episode severity: moder ate (5) ESRD (end stage renal disease) on dialysis Code(s): N18.6 - END STAGE RENAL DISEASE; Z99.2 - DEPENDENCE ON RENAL DIALYSIS Status: Chronic (6) H/O parathyroidectomy Code(s): E89.2 - POSTPROCEDURAL HYPOPARATHYROIDISM Status: Chronic (7) H/O partial thyroidectomy Code(s): E89.0 - POSTPROCEDURAL HYPOTHYROIDISM Status: Chronic (8) Macrocytosis Code(s): D75.89 - OTHER SPECIFIED DISEASES OF BLOOD AND BLOOD-FORMING ORGANS Status: Chronic (9) [place] syndrome Code(s): Q87.1 - CONGENITAL MALFORM SYNDROMES PREDOM ASSOC W S * DO NOT USE * Status: Chronic (10) Secondary hyperparathyroidism of renal origin Code(s): N25.81 - SECONDARY HYPERPARATHYROIDISM OF RENAL ORIGIN Status: Chronic - Plan old records reviewed/req Plan We will recheck COVID-19 Hemodialysis Her halfway medication has been reconciled Medication reviewed and continue provide symptomatic and supportive care Continue vitamin supplementation
[2020-09-11] MEDS ORDERED: EPOETIN ALFA-EPBX (ESRD) 4,000 UNIT/ML VIAL SC SCH (12:00)
[2020-09-11] MEDS ORDERED: Epoetin (ESRD) 20,000 UNITS/ML SC SCH (12:15)
--- NOTE | 2020-09-11 17:08 | CON ---
DATE OF CONSULTATION: 09/11/20 HISTORY OF PRESENT ILLNESS: Ms. Juarez is a 35-year-old white female with known history of ESRD - maintenance hemodialysis and was admitted for her missed dialysis treatment. She was also noted to be hyperkalemic, for that reason she is admitted for further management. Please note, the patient was recently tested positive for COVID-19. This was done several days ago. She is currently a long-term patient. REVIEW OF SYSTEMS: Positive for cough, but no chest pain. No shortness of breath. Denies any overt fever. No nausea. No vomiting. No diarrhea. No constipation. No productive cough. No ? of dry cough. Appetite and energy level are decreased no abdominal pain. No dysuria. No diarrhea. No constipation. MEDICATIONS: Currently on; 1. Acetaminophen 650 mg q.4 p.r.n. 2. Ascorbic acid one tablet daily. 3. Aspirin 81 mg daily. 4. Tessalon Perles q.6 hours p.r.n. 5. Hydralazine 10 mg IV q.4. 6. Labetalol 20 mg IV q.2 hours p.r.n. 7. Metoprolol succinate 25 mg p.o. daily. 8. Protonix 40 mg tablet once a day. 9. Quetiapine 300 mg at bedtime. 10. Sevelamer 800 mg three tablets t.i.d. with meals. 11. Zolpidem 5 mg at bedtime. PAST MEDICAL HISTORY: 1. 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 2. Hypertension. 3. Anxiety. 4. History of a Mickie syndrome status post pulmonary stenosis, bipolar disorder. PAST SURGICAL HISTORY: Status post pulmonary stenosis repair as a child, status post cuffed hemodialysis catheter placement, status post PD catheter placement with subsequent removal, status post diagnostic laparoscopy with omentectomy, status post hip surgery, status post upper GI endoscopy status post AV fistula placement. SOCIAL HISTORY: The patient is single, lives in a long-term. She is with her mother. Single. Education, high school. No alcohol. No smoking. No IV drug abuse. Status post multiple blood transfusion. ALLERGIES: VANCOMYCIN, CLARITIN, BACLOFEN, AND HYDROCODONE. TRAUMA: Status post hip fracture. IMMUNIZATION: Up-to-date. HOSPITALIZATIONS: Please see past medical history. FAMILY HISTORY: No family history of ESRD. PHYSICAL EXAMINATION: VITAL SIGNS: Blood pressure 143/95, heart rate 81 respiratory rate 28, O2 saturation 100%, and temperature 97.6. GENERAL: The patient is awake, alert, comfortable, not in distress. SKIN: Adequate turgor. HEENT: She has a slightly pale conjunctivae. Anicteric sclerae. NECK: No neck mass. No carotid bruits. No JVD. CHEST: No deformities. LUNGS: Clear breath sounds. No wheezing. No crackles. HEART: Normal sinus rhythm. No murmur. No gallops. No rubs. ABDOMEN: Globular, soft, and nontender. No masses. EXTREMITIES: No edema. No deformities. LABORATORY DATA: Laboratories of September 11, 2020, white count 7.2 and hemoglobin 9.3. Sodium 137, potassium 5.5, chloride 98, carbon dioxide 24, BUN 46, creatinine 13, glucose 253, and calcium 8.1. September 10, 2020 chest x-ray shows no radiographic evidence of cardiopulmonary process. ASSESSMENT AND PLAN: 1. COVID-19 infection - no evidence of overt clinical pneumonia. Continue supportive care. Continue isolation with this patient. 2. End-stage renal disease, stable. We will do hemodialysis today due to the hyperkalemia. She did miss dialysis yesterday. They have made arrangements for her to undergo hemodialysis at [facility] due to her COVID-19. Unfortunately due to some problem with transportation, they were not able to pick her up yesterday. a. Our plan is to observe her. Hemodialysis today for at least 3 hours. Fluid removal as tolerated. 3. Recheck CBC, basic metabolic in a.m. 4. Anemia. Epogen 7500 units subcu. Job ID: [id number] [facility]
[2020-09-11] MEDS: Benzonatate 100 MG CAP PO PRN (17:34)
[2020-09-12] MEDS: Cepastat Lozenges 1 LOZ PO PRN (00:50)
[2020-09-12 05:16] LABS: #Eosinphils 0.3 thou/uL (0.0-0.7); #Monocytes 0.8 thou/uL (0.11-0.59); #Neutrophils 5.5 thou/uL (1.40-6.50); %Basophils 0.5 % (0.0-1.0); %Eosinophils 3.4 % (0.0-10.0); %Lymphocytes 23.2 % (21.0-51.0); %Neutrophils 63.9 % (42.0-75.0); Hemoglobin 8.6 g/dL (12.0-16.0); Mean Corpuscular HGB CONC 36.1 g/dL (32.0-36.0); Mean Corpuscular Hemoglobin 35.7 pg (27.0-31.0); Mean Corpuscular Volume 98.9 fL (78.0-98.0); Mean Platelet Volume 8.3 fL (7.4-10.4); Platelet Count 173 thou/uL (130-400); RBC Distribution Width 12.4 % (11.5-14.5); Red Blood Cell (RBC) Count 2.41 mill/uL (4.20-5.40); White Blood Cell (WBC) Count 8.7 thou/uL (4.8-10.8)
[2020-09-12 05:23] LABS: Anion Gap 23 mmol/L (10-20); BUN (Urea Nitrogen) 59 mg/dL (7.0-18.7); Calc. Creatinine Clearance 5 mL/min (70-130); Calcium 7.9 mg/dL (7.8-10.44); Carbon Dioxide 25 mmol/L (22-29); Chloride 95 mmol/L (98-107); Estimated GFR-MDRD 3; Glucose 83 mg/dL (70-105); Potassium 4.9 mmol/L (3.5-5.1); Sodium 138 mmol/L (136-145)
[2020-09-12] MEDS: Zinc Sulfate 220 MG CAP PO SCH (08:03)
[2020-09-12] MEDS: Aspirin 81 mg Enteric Coated Tablet PO SCH (08:03)
[2020-09-12] MEDS: Ascorbic Acid 500 mg Chewable Tablet PO SCH (08:03)
[2020-09-12] MEDS: Cholecalciferol 1,000 UNITS (25 MCG) TAB PO SCH (08:04)
[2020-09-12] MEDS: Sevelamer Carbonate 800 MG TAB PO SCH ×4 (08:06→19:40)
--- NOTE | 2020-09-12 10:21 | PDOC.HOSPP ---
- Subjective Encounter Date: 09/12/20 Encounter Time: 08:10 Subjective: Patient seen and examined bedside today, patient is feeling shortness of breath, patient is getting hemodialysis this morning, no fever, no nausea or vomiting. - Objective Vital Signs & Weight: Vital Signs (12 hours) Temp Pulse Resp BP Pulse Ox 09/12/20 08:06 98.2 F 70 18 135/77 95 09/12/20 04:00 98.6 F 83 18 123/74 91 L Weight Weight 130 lb 8 oz I&O: 09/11/20 09/12/20 09/13/20 06:59 06:59 06:59 Intake Total 1000 Balance 1000 Result Diagrams: 09/12/20 04:45 09/12/20 04:45 EKG Reviewed by me: Yes Hospitalist ROS - Review of Systems Constitutional: reports: weakness. denies: fever, chills, sweats, malaise, other Respiratory: reports: shortness of breath. denies: cough, dry, hemoptysis, SOB with excertion, pleuritic pain, sputum, wheezing, other Cardiovascular: denies: chest pain, palpitations, orthopnea, paroxysmal noc. dyspnea, edema, light headedness, other Gastrointestinal: denies: nausea, vomiting, abdominal pain, diarrhea, constipation, melena, hematochezia, other Genitourinary: denies: dysuria, frequency, incontinence, hematuria, retention, other Musculoskeletal: denies: neck pain, shoulder pain, arm pain, back pain, hand pain, leg pain, foot pain, other - Medication Medications: Active Medications Generic Name Dose Route Start Last Admin Trade Name Freq PRN Reason Stop Dose Admin Acetaminophen 650 mg 09/11/20 07:36 09/11/20 17:34 Acetaminophen 500 Mg Tab PO 650 mg Q6H PRN Administration pain or fever Ascorbic Acid 1,000 mg 09/11/20 09:00 09/12/20 08:03 Ascorbic Acid 500 Mg Chewable Tablet PO 1,000 mg DAILY MARYAM Administration Aspirin 81 mg 09/11/20 09:00 09/12/20 08:03 Aspirin 81 Mg Enteric Coated Tablet PO 81 mg DAILY MARYAM Administration Benzonatate 100 mg 09/10/20 21:33 09/11/20 17:34 Benzonatate 100 Mg Cap PO 100 mg Q6H PRN Administration Cough Cholecalciferol 250 units 09/11/20 09:00 09/12/20 08:04 Cholecalciferol 1,000 Units (25 Mcg) Tab PO 250 units DAILY MARYAM Administration Epoetin Evans-epbx 7,500 unit 09/11/20 12:00 09/11/20 14:12 Epoetin Evans-Epbx (Esrd) 4,000 Unit/Ml Vial SC 7,500 unit Q7D MARYAM Administration Metoprolol Succinate 25 mg 09/11/20 09:00 09/12/20 08:03 Metoprolol Succinate Xl 25 Mg Tab PO 25 mg DAILY MARYAM Administration Pantoprazole Sodium 40 mg 09/11/20 09:00 09/12/20 08:03 Pantoprazole 40 Mg Tab PO 40 mg DAILY MARYAM Administration Quetiapine Fumarate 300 mg 09/11/20 21:00 09/11/20 20:13 Quetiapine Fumarate 300 Mg Tab PO 300 mg HS MARYAM Administration Sevelamer Carbonate 1,600 mg 09/11/20 21:00 09/11/20 20:14 Sevelamer Carbonate 800 Mg Tab PO 1,600 mg HS MARYAM Administration Sevelamer Carbonate 2,400 mg 09/11/20 08:00 09/12/20 08:06 Sevelamer Carbonate 800 Mg Tab PO 2,400 mg TID-WM MARYAM Administration Throat Lozenges 1 zeeshan 09/11/20 07:35 09/12/20 00:50 Cepastat Lozenges 1 Zeeshan PO 1 zeeshan Q2H PRN Administration Sore Throat Tramadol HCl 50 mg 09/10/20 21:33 09/11/20 17:33 Tramadol Hcl 50 Mg Tab PO 50 mg Q6H PRN Administration Pain Zinc Sulfate 220 mg 09/11/20 09:00 09/12/20 08:03 Zinc Sulfate 220 Mg Cap PO 220 mg DAILY MARYAM Administration Zolpidem Tartrate 5 mg 09/11/20 07:35 09/11/20 20:15 Zolpidem Tartrate 5 Mg Tab PO 5 mg HSPRN PRN Administration Insomnia - Exam General Appearance: NAD, awake alert Eye: PERRL, anicteric sclera ENT: normocephalic atraumatic, no oropharyngeal lesions Neck: symmetric, no JVD, no thyromegaly Heart: RRR, no murmur, no gallops, no rubs Respiratory: no wheezes, no rales, no ronchi Gastrointestinal: soft, non-tender, non-distended, normal bowel sounds Extremities: no cyanosis, no clubbing Skin: normal turgor Neurological: no focal deficits Musculoskeletal: normal tone, normal strength Psychiatric: normal affect, normal behavior Hosp A/P (1) COVID-19 Code(s): U07.1 - COVID-19 Status: Acute (2) Hyperkalemia Code(s): E87.5 - HYPERKALEMIA Status: Acute (3) Anemia of renal disease Code(s): D63.1 - ANEMIA IN CHRONIC KIDNEY DISEASE Status: Chronic (4) Bipolar disorder Code(s): F31.9 - BIPOLAR DISORDER, UNSPECIFIED Status: Chronic Qualifiers: Active/Remission status: currently active Current episode severity: moderate (5) ESRD (end stage renal disease) on dialysis Code(s): N18.6 - END STAGE RENAL DISEASE; Z99.2 - DEPENDENCE ON RENAL DIALYSIS Status: Chronic (6) H/O parathyroidectomy Code(s): E89.2 - POSTPROCEDURAL HYPOPARATHYROIDISM Status: Chronic (7) H/O partial thyroidectomy Code(s): E89.0 - POSTPROCEDURAL HYPOTHYROIDISM Status: Chronic (8) Macrocytosis Code(s): D75.89 - OTHER SPECIFIED DISEASES OF BLOOD AND BLOOD-FORMING ORGANS Status: Chronic (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 PREDOM ASSOC W S * DO NOT USE * Status: Chronic (10) Secondary hyperparathyroidism of renal origin Code(s): N25.81 - SECONDARY HYPERPARATHYROIDISM OF RENAL ORIGIN Status: Chronic - Plan old records reviewed/req Plan Patient has been tested positive for COVID-19 in intermediate, initially she was requiring oxygen, but now she is on room air, Patient is subjectively feeling not good but overall numbers are better, Today patient is getting dialysis and hoping that after dialysis patient will feel better Unsure whether patient can go back to intermediate with Covid positive status and she can continue to get dialysis chair or not as an outpatient basis, business initiatives manager consultation to assist with the discharge planning. I have reviewed all her medication and patient is medically stable with current treatment plan
[2020-09-12] MEDS: traMADol HCl 50 MG TAB PO PRN ×2 (13:23→19:46)
[2020-09-12] MEDS: Benzonatate 100 MG CAP PO PRN (15:57)
--- NOTE | 2020-09-12 18:25 | PRG ---
DATE OF SERVICE: 09/12/20 SUBJECTIVE: Ms. Juarze is a 35-year-old white female, who was initially admitted due to COVID-19 infection. She was initially hyperkalemic. For that reason, she was admitted for further management. She did undergo hemodialysis today with fluid removal. She is complaining of some mild shortness of breath at the present time, but no chest pain. OBJECTIVE: VITAL SIGNS: Blood pressure 116/62, heart rate 65, respiratory rate 18, temperature 98.1, and O2 saturation 98% on room air. GENERAL: The patient is awake, alert, comfortable, not in overt distress. SKIN: Adequate turgor. HEENT: Slightly pale conjunctivae. Anicteric sclerae. No neck mass. No carotid bruits. No JVD. CHEST: No deformities. LUNGS: Decreased breath sounds. HEART: Normal sinus rhythm. No murmur. No gallops. No rubs. ABDOMEN: Globular, soft, nontender. No masses. EXTREMITIES: No edema. No deformities. MEDICATIONS: Medications of September 12, 2020, reviewed. LABORATORY DATA: Laboratories of September 12, 2020; white count 8.7, hemoglobin 8.6. Sodium 138, potassium 4.9, chloride 95, carbon dioxide 25, BUN 59, creatinine 14.6, glucose 83, calcium 7.9. ASSESSMENT AND PLAN: 1. COVID-19 infection-supportive care. 2. End-stage renal disease, stable. The patient underwent hemodialysis today. Fluid removal was done. The plan is to continue three times a week hemodialysis. This patient is scheduled for regular dialysis tomorrow, which we will schedule if she is still here. 3. Anemia. Continuing weekly Epogen with the patient. 4. Recheck basic met, CBC in the a.m. Job ID: [id number] [facility]
[2020-09-13] MEDS: Cepastat Lozenges 1 LOZ PO PRN (01:21)
[2020-09-13 05:23] LABS: Anion Gap 16 mmol/L (10-20); BUN (Urea Nitrogen) 29 mg/dL (7.0-18.7); Calc. Creatinine Clearance 8 mL/min (70-130); Calcium 8.1 mg/dL (7.8-10.44); Carbon Dioxide 31 mmol/L (22-29); Chloride 94 mmol/L (98-107); Estimated GFR-MDRD 5; Glucose 78 mg/dL (70-105); Potassium 5.2 mmol/L (3.5-5.1); Sodium 136 mmol/L (136-145)
[2020-09-13 06:17] LABS: #Eosinphils 0.4 thou/uL (0.0-0.7); #Lymphocytes 1.6 thou/uL (1.20-3.40); #Monocytes 0.8 thou/uL (0.11-0.59); #Neutrophils 3.3 thou/uL (1.40-6.50); %Basophils 0.5 % (0.0-1.0); %Eosinophils 6.6 % (0.0-10.0); %Lymphocytes 25.9 % (21.0-51.0); %Monocytes 12.6 % (0.0-10.0); %Neutrophils 54.4 % (42.0-75.0); Hemoglobin 8.4 g/dL (12.0-16.0); Mean Corpuscular HGB CONC 32.8 g/dL (32.0-36.0); Mean Corpuscular Hemoglobin 32.7 pg (27.0-31.0); Mean Corpuscular Volume 99.7 fL (78.0-98.0); Mean Platelet Volume 8.3 fL (7.4-10.4); Platelet Count 152 thou/uL (130-400); RBC Distribution Width 12.5 % (11.5-14.5); Red Blood Cell (RBC) Count 2.58 mill/uL (4.20-5.40); White Blood Cell (WBC) Count 6.1 thou/uL (4.8-10.8)
[2020-09-13] MEDS: Ascorbic Acid 500 mg Chewable Tablet PO SCH (08:34)
[2020-09-13] MEDS: Cholecalciferol 1,000 UNITS (25 MCG) TAB PO SCH (08:34)
[2020-09-13] MEDS: Aspirin 81 mg Enteric Coated Tablet PO SCH (08:34)
[2020-09-13] MEDS: Zinc Sulfate 220 MG CAP PO SCH (08:35)
[2020-09-13] MEDS: Sevelamer Carbonate 800 MG TAB PO SCH ×3 (08:36→18:03)
--- NOTE | 2020-09-13 10:21 | PRG ---
DATE OF SERVICE: 09/13/2020 SUBJECTIVE: Ms. Juarez is a 35-year-old white female with ESRD, who was initially admitted for hyperkalemia as well as a recent diagnosis of COVID-19. She is feeling better this morning. We are following up for her management of her ESRD. She underwent hemodialysis yesterday due to a missed dialysis on Saturday. I brought her back to her regular Saturday, , Saturday dialysis regimen. She is scheduled to be done today. No other new complaints. OBJECTIVE: VITAL SIGNS: Blood pressure 136/90, heart rate 89, respiratory rate 18, temperature 97.8, O2 saturation 97%. GENERAL: The patient is awake, alert, comfortable, not in overt distress. SKIN: Adequate turgor. HEENT: Pinkish conjunctivae. Anicteric sclerae. NECK: No neck mass. No carotid bruits. No JVD. CHEST: No deformities. LUNGS: Clear breath sounds. HEART: Normal sinus rhythm. No murmur. No gallops. No rubs. ABDOMEN: Globular, soft, nontender. No masses. EXTREMITIES: No edema. No deformities. MEDICATIONS: On September 13, 2020, were reviewed. LABORATORY DATA: On September 13, 2020; white count 6.1, hemoglobin 8.4. Sodium 136, potassium 5.2, chloride 94, carbon dioxide 31, BUN 29, creatinine 8.57, glucose 78, calcium 8.1. ASSESSMENT AND PLAN: 1. Mild hyperkalemia-the patient due for dialysis today. 2. End-stage renal disease, stable. Continuing Saturday, , and Saturday dialysis regimen. Again, fluid removal only as tolerated. 3. Anemia. The patient has been initiated on her weekly Epogen. 4. [id number] care. Job ID: [id number]
[2020-09-13] MEDS: traMADol HCl 50 MG TAB PO PRN ×2 (10:37→17:12)
[2020-09-13] MEDS: Ondansetron PF 4 MG/2 ML Vial IVP PRN ×2 (10:38→17:44)
--- NOTE | 2020-09-13 11:09 | PDOC.HOSPP ---
- Subjective Encounter Date: 09/13/20 Encounter Time: 09:10 Subjective: Patient seen and examined. She continued to complain of chest discomfort with the coughing, shortness of breath, no overnight events - Objective Vital Signs & Weight: Vital Signs (12 hours) Temp Pulse Resp BP Pulse Ox 09/13/20 08:19 97.8 F 89 18 136/90 97 09/13/20 04:00 98.4 F 79 18 107/59 L 100 Weight Weight 130 lb 8 oz I&O: 09/12/20 09/13/20 09/14/20 06:59 06:59 06:59 Intake Total 1000 400 Output Total 0 Balance 1000 400 Result Diagrams: 09/13/20 04:46 09/13/20 04:46 Hospitalist ROS - Review of Systems Respiratory: reports: shortness of breath. denies: cough, dry, hemoptysis, SOB with excertion, pleuritic pain, sputum, wheezing, other Cardiovascular: reports: chest pain. denies: palpitations, orthopnea, paroxysmal noc. dyspnea, edema, light headedness, other Gastrointestinal: denies: nausea, vomiting, abdominal pain, diarrhea, constipation, melena, hematochezia, other Genitourinary: denies: dysuria, frequency, incontinence, hematuria, retention, other Musculoskeletal: denies: neck pain, shoulder pain, arm pain, back pain, hand pain, leg pain, foot pain, other - Medication Medications: Active Medications Generic Name Dose Route Start Last Admin Trade Name Freq PRN Reason Stop Dose Admin Acetaminophen 650 mg 09/11/20 07:36 09/11/20 17:34 Acetaminophen 500 Mg Tab PO 650 mg Q6H PRN Administration pain or fever Ascorbic Acid 1,000 mg 09/11/20 09:00 09/13/20 08:34 Ascorbic Acid 500 Mg Chewable Tablet PO 1,000 mg DAILY MARYAM Administration Aspirin 81 mg 09/11/20 09:00 09/13/20 08:34 Aspirin 81 Mg Enteric Coated Tablet PO 81 mg DAILY MARYAM Administration Benzonatate 100 mg 09/10/20 21:33 09/12/20 15:57 Benzonatate 100 Mg Cap PO 100 mg Q6H PRN Administration Cough Cholecalciferol 250 units 09/11/20 09:00 09/13/20 08:34 Cholecalciferol 1,000 Units (25 Mcg) Tab PO 250 units DAILY MARYAM Administration Epoetin Evans-epbx 7,500 unit 09/11/20 12:00 09/11/20 14:12 Epoetin Evans-Epbx (Esrd) 4,000 Unit/Ml Vial SC 7,500 unit Q7D MARYAM Administration Metoprolol Succinate 25 mg 09/11/20 09:00 09/13/20 08:34 Metoprolol Succinate Xl 25 Mg Tab PO 25 mg DAILY MARYAM Administration Ondansetron HCl 4 mg 09/10/20 21:33 09/13/20 10:38 Ondansetron Pf 4 Mg/2 Ml Vial IVP 4 mg Q6H PRN Administration Nausea/Vomiting Pantoprazole Sodium 40 mg 09/11/20 09:00 09/13/20 08:35 Pantoprazole 40 Mg Tab PO 40 mg DAILY MARYAM Administration Quetiapine Fumarate 300 mg 09/11/20 21:00 09/12/20 19:41 Quetiapine Fumarate 300 Mg Tab PO 300 mg HS MARYAM Administration Sevelamer Carbonate 1,600 mg 09/11/20 21:00 09/12/20 19:40 Sevelamer Carbonate 800 Mg Tab PO 1,600 mg HS MARYAM Administration Sevelamer Carbonate 2,400 mg 09/11/20 08:00 09/13/20 08:36 Sevelamer Carbonate 800 Mg Tab PO 2,400 mg TID-WM MARYAM Administration Throat Lozenges 1 zeeshan 09/11/20 07:35 09/13/20 01:21 Cepastat Lozenges 1 Zeeshan PO 1 zeeshan Q2H PRN Administration Sore Throat Tramadol HCl 50 mg 09/10/20 21:33 09/13/20 10:37 Tramadol Hcl 50 Mg Tab PO 50 mg Q6H PRN Administration Pain Zinc Sulfate 220 mg 09/11/20 09:00 09/13/20 08:35 Zinc Sulfate 220 Mg Cap PO 220 mg DAILY MARYAM Administration Zolpidem Tartrate 5 mg 09/11/20 07:35 09/11/20 20:15 Zolpidem Tartrate 5 Mg Tab PO 5 mg HSPRN PRN Administration Insomnia - Exam General Appearance: NAD, awake alert Eye: PERRL, anicteric sclera ENT: normocephalic atraumatic, no oropharyngeal lesions Neck: supple, symmetric, no JVD, no thyromegaly Heart: no murmur, no gallops, no rubs Respiratory: no wheezes, no rales, no ronchi Gastrointestinal: soft, non-tender, non-distended, normal bowel sounds Extremities: no cyanosis, no clubbing, no edema Skin: normal turgor, no lesions Neurological: no focal deficits Musculoskeletal: normal tone, normal strength Psychiatric: normal affect, normal behavior Hosp A/P (1) COVID-19 Code(s): U07.1 - COVID-19 Status: Acute (2) Hyperkalemia Code(s): E87.5 - HYPERKALEMIA Status: Acute (3) Anemia of renal disease Code(s): D63.1 - ANEMIA IN CHRONIC KIDNEY DISEASE Status: Chronic (4) Bipolar disorder Code(s): F31.9 - BIPOLAR DISORDER, UNSPECIFIED Status: Chronic Qualifiers: Active/Remission status: currently active Current episode severity: moderate (5) ESRD (end stage renal disease) on dialysis Code(s): N18.6 - END STAGE RENAL DISEASE; Z99.2 - DEPENDENCE ON RENAL DIALYSIS Status: Chronic (6) H/O parathyroidectomy Code(s): E89.2 - POSTPROCEDURAL HYPOPARATHYROIDISM Status: Chronic (7) H/O partial thyroidectomy Code(s): E89.0 - POSTPROCEDURAL HYPOTHYROIDISM Status: Chronic (8) Macrocytosis Code(s): D75.89 - OTHER SPECIFIED DISEASES OF BLOOD AND BLOOD-FORMING ORGANS Status: Chronic (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
--- NOTE | 2020-09-13 12:01 | PDOC.DS.DS ---
Provider - Provider Date of Admission: 09/10/20 20:12 Date of Discharge: 09/13/20 Admitting Provider: Malena Dempsey MD Consultations: Nephrology Primary Care Physician: Von Pierre MD Course - Hospital Course Hospital Course: 35-year-old female who has ESRD on dialysis, she lives at residential home, where she was tested positive for COVID-19, her chest x-ray was unremarkable, patient was having mild cough and mild shortness of breath, she was not requiring any oxygen, she was admitted in hospital because she was not able to get dialysis because of her Covid positive status and that is why patient was sent to emergency room and patient was found with elevated potassium and creatinine, patient was also symptomatic because she did not get dialysis because of her Covid positive status, she was admitted in hospital, patient was treated with vitamin supplementation, nephrology was consulted for hemodialysis, patient remains on room air and she does not have any worsening of her condition, regarding COVID-19 perspective she is mostly asymptomatic and she needs symptomatic treatment with the cough medication and quarantine measures [facility] jail. Outpatient dialysis in view of COVID-19 positive status has been arranged and patient is overall medically stable for discharge. Resuscitation Status: 09/10/20 21:33 Resuscitation Status Routine Co-Sign Provider: Resuscitation Status: FULL: Full Resuscitation Discussed with: pt - Labs Lab Results: 09/13/20 04:46 09/13/20 04:46 Abnormal Lab Results - Last 48 hrs 09/12/20 04:45: RBC 2.41 L, Hgb 8.6 L, Hct 23.8 L, MCV 98.9 H, MCH 35.7 H, MCHC 36.1 H, Monocytes # 0.8 H 09/12/20 04:45: Chloride 95 L, Anion Gap 23 H, BUN 59 H, Creatinine 14.61 H 09/13/20 04:46: Potassium 5.2 H, Chloride 94 L, Carbon Dioxide 31 H, BUN 29 H, Creatinine 8.57 H 09/13/20 04:46: RBC 2.58 L, Hgb 8.4 L, Hct 25.8 L, MCV 99.7 H, MCH 32.7 H, Monocytes % 12.6 H, Monocytes # 0.8 H - Diagnostic Interpretation Chest x-ray Additional comments: Chest x-ray showed no acute cardiopulmonary process - Physical Exam Vitals: Vital Signs (12 hours) Temp Pulse Resp BP Pulse Ox 09/13/20 08:19 97.8 F 89 18 136/90 97 09/13/20 04:00 98.4 F 79 18 107/59 L 100 Weight Weight 130 lb 8 oz Physical Exam: The patient was seen and examined on the day of discharge. Problem - Problem (1) COVID-19 Code(s): U07.1 - COVID-19 Status: Acute (2) Hyperkalemia Code(s): E87.5 - HYPERKALEMIA Status: Resolved (3) Anemia of renal disease Code(s): D63.1 - ANEMIA IN CHRONIC KIDNEY DISEASE Status: Chronic (4) Bipolar disorder Code(s): F31.9 - BIPOLAR DISORDER, UNSPECIFIED Status: Chronic Qualifiers: Active/Remission status: currently active Current episode severity: moderate (5) ESRD (end stage renal disease) on dialysis Code(s): N18.6 - END STAGE RENAL DISEASE; Z99.2 - DEPENDENCE ON RENAL DIALYSIS Status: Chronic (6) H/O parathyroidectomy Code(s): E89.2 - POSTPROCEDURAL HYPOPARATHYROIDISM Status: Chronic (7) H/O partial thyroidectomy Code(s): E89.0 - POSTPROCEDURAL HYPOTHYROIDISM Status: Chronic (8) Macrocytosis Code(s): D75.89 - OTHER SPECIFIED DISEASES OF BLOOD AND BLOOD-FORMING ORGANS Status: Chronic (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 PREDOM ASSOC W S * DO NOT USE * Status: Chronic (10) Secondary hyperparathyroidism of renal origin Code(s): N25.81 - SECONDARY HYPERPARATHYROIDISM OF RENAL ORIGIN Status: Chronic Plan - Discharge Medications Home Medications: Medication Instructions Recorded Confirmed Type diphenhydrAMINE [Benadryl] 25 mg PO Q6HR PRN 12/08/17 09/10/20 History QUEtiapine Fumarate [SEROquel] 300 mg PO HS 11/20/19 09/10/20 History Metoprolol Succinate 25 mg PO DAILY 01/12/20 09/10/20 History Acetaminophen [Tylenol Extra 1,000 mg PO Q6HR PRN 09/10/20 09/10/20 History Strength] Ascorbic Acid [Vitamin C] 1,000 mg PO DAILY 09/10/20 09/10/20 History Aspirin [Ecotrin Low Strength] 81 mg PO DAILY 09/10/20 09/10/20 History Cholecalciferol (Vitamin D3) 250 mcg PO DAILY 09/10/20 09/10/20 History [Vitamin D3] Esomeprazole Magnesium 20 mg PO DAILY 09/10/20 09/10/20 History Eucalyptus/Menthol [Cough Drops] 1 lozenge PO Q2H PRN 09/10/20 09/10/20 History Fluticasone Propionate [Flonase 1 spray EA NARE DAILY PRN 09/10/20 09/10/20 History Nasal [place]] Nitroglycerin [Nitrostat] 0.3 mg SL PRN PRN 09/10/20 09/10/20 History Sevelamer Carbonate [Renvela] 1,600 mg PO HS 09/10/20 09/10/20 History Sevelamer Carbonate [Renvela] 2,400 mg PO TID-WM 09/10/20 09/10/20 History Zinc 50 mg PO DAILY 09/10/20 09/10/20 History guaiFENesin [Guaifenesin] 2 tab PO Q8H PRN 09/10/20 09/10/20 History Allergies: ranitidine Allergy (Severe, Verified 09/10/20 21:46) Anaphylaxis PER PATIENT baclofen Allergy (Verified 09/10/20 21:46) Anaphylaxis PER PATIENT cyclobenzaprine [From Flexeril] Allergy (Verified 09/10/20 21:46) Hives cyclobenzaprine HCl [From Flexeril] Allergy (Verified 09/10/20 21:15) Hives PER PATIENT levofloxacin [From Levaquin] Allergy (Verified 09/10/20 21:46) throat closed up, couldn't breath loratadine [From Claritin] Allergy (Verified 09/10/20 21:46) hard time breathing, hives PER PATIENT vancomycin Allergy (Verified 09/10/20 21:15) Anaphylaxis PER PATIENT - Discharge Instructions Activity:: Activity as Tolerated Nourishment:: Renal Diet Therapies:: Not Applicable Equipment/Supplies:: Not Applicable IV Therapy:: Not Applicable - Follow up Plan Referrals: Von Pierre MD [Primary Care Provider] - Disposition: ASSISTED FACILITY Quality - Care Measures CORE MEASURES:: N/A
[2020-09-13 17:07] VITALS: BP 103/61; TEMP 98.6
== END 2020-09-13 20:05 | DRG 177 ==
LOC: ERS 18:00 → OBSVTOIN 20:12 → 2SW 20:12
PROVIDERS: ADMIT Internal Medicine; ATTEND Internal Medicine
PROC: 8E0ZXY6 Isolation (ICD-10-PCS; principal; 2020-09-10)
PROC: 5A1D70Z Performance of Urinary Filtration, Intermittent, Less than 6 Hours Per Day (ICD-10-PCS; 2020-09-12)
PROC: 5A1D70Z Performance of Urinary Filtration, Intermittent, Less than 6 Hours Per Day (ICD-10-PCS; 2020-09-13)
DX: U07.1 COVID-19 (principal); N18.6 End stage renal disease; Q87.19 Other congenital malformation syndromes predominantly associated with short stature; N25.81 Secondary hyperparathyroidism of renal origin; I12.0 Hypertensive chronic kidney disease with stage 5 chronic kidney disease or end stage renal disease; E87.5 Hyperkalemia; D63.1 Anemia in chronic kidney disease; E89.2 Postprocedural hypoparathyroidism; D75.89 Other specified diseases of blood and blood-forming organs; F31.9 Bipolar disorder, unspecified; E89.0 Postprocedural hypothyroidism; F41.9 Anxiety disorder, unspecified; Z90.721 Acquired absence of ovaries, unilateral; Z99.2 Dependence on renal dialysis; Z88.1 Allergy status to other antibiotic agents; Z88.8 Allergy status to other drugs, medicaments and biological substances; Z79.82 Long term (current) use of aspirin
CPT/HCPCS: 36415; 36416; 71045; 80048; 80053; 84484; 85025; 90935; 93005; 96374; G0257; G0378; J1100; J2405; Q5105

== ENCOUNTER 2020-09-28 19:41 | Emergency (ER) | payer MEDICARE, MEDICAID ==
[2020-09-28 20:44] LABS: #Basophils 0.1 thou/uL (0.0-0.2); #Eosinphils 0.3 thou/uL (0.0-0.7); #Lymphocytes 1.5 thou/uL (1.20-3.40); #Monocytes 1.1 thou/uL (0.11-0.59); #Neutrophils 6.6 thou/uL (1.40-6.50); %Basophils 0.9 % (0.0-1.0); %Eosinophils 3.4 % (0.0-10.0); %Lymphocytes 15.8 % (21.0-51.0); %Monocytes 11.8 % (0.0-10.0); %Neutrophils 68.1 % (42.0-75.0); Mean Corpuscular HGB CONC 33.3 g/dL (32.0-36.0); Mean Corpuscular Hemoglobin 32.9 pg (27.0-31.0); Mean Platelet Volume 8.2 fL (7.4-10.4); Platelet Count 219 thou/uL (130-400); RBC Distribution Width 12.6 % (11.5-14.5); Red Blood Cell (RBC) Count 3.05 mill/uL (4.20-5.40); White Blood Cell (WBC) Count 9.7 thou/uL (4.8-10.8)
[2020-09-28 21:03] LABS: ALT (SGPT) 7 U/L (8-55); AST (SGOT) 12 U/L (5-34); Albumin 4.3 g/dL (3.5-5.0); Alkaline Phosphatase 64 U/L (40-110); Anion Gap 16 mmol/L (10-20); BUN (Urea Nitrogen) 16 mg/dL (7.0-18.7); Bilirubin, Total 0.6 mg/dL (0.2-1.2); Calc. Creatinine Clearance 0 mL/min (70-130); Calcium 10.2 mg/dL (7.8-10.44); Carbon Dioxide 33 mmol/L (22-29); Chloride 98 mmol/L (98-107); Estimated GFR-MDRD 10; Globulin 3.1 g/dL (2.4-3.5); Glucose 92 mg/dL (70-105); Potassium 4.5 mmol/L (3.5-5.1); Protein, Total 7.4 g/dL (6.0-8.3); Sodium 142 mmol/L (136-145)
--- NOTE | 2020-09-28 21:10 | RAD ---
Portable frontal chest radiograph: 09/28/2020 COMPARISON: 09/10/2020 HISTORY: Chest pain with inspiration, Covid positive patient FINDINGS: Mild increased linear interstitial density noted bilaterally, unchanged when compared to th e prior exam. Stable prominence of the cardiac silhouette. Stable stent material overlies the right subclavian region and right axillary region. IMPRESSION: Stable appearance of the chest.
== END 2020-09-28 22:43 ==
LOC: ERS 19:41
DX: U07.1 COVID-19 (principal); I12.9 Hypertensive chronic kidney disease with stage 1 through stage 4 chronic kidney disease, or unspecified chronic kidney disease; N18.6 End stage renal disease; F41.9 Anxiety disorder, unspecified; F31.9 Bipolar disorder, unspecified
CPT/HCPCS: 36415; 71045; 80053; 83880; 84484; 85025; 85379; 93005; 94760

== ENCOUNTER 2020-10-19 11:37 | Emergency (ER) | payer MEDICARE, MEDICAID ==
--- NOTE | 2020-10-19 12:20 | RAD ---
Chest AP view INDICATION: Cough and shortness of breath COMPARISON: September 28, 2020 FINDINGS: Lungs: There are increased interstitial and airspace opacities within the right lower lobe superimpo sed on chronic interstitial markings. Cardiac silhouette: There is stable moderate cardiomegaly Pulmonary vasculature: Normal Pleural spaces: No pleural effusion or pneumothorax is demonstrated. Upper abdomen: No abnormality seen. Osseous structures: No acute osseous abnormality. Additional findings: There are endograft stents in the region of the right axilla and right subclavi an vasculature. IMPRESSION: Findings suspicious for right lower lobe pneumonia.
[2020-10-19 12:45] LABS: #Basophils 0.1 thou/uL (0.0-0.2); #Lymphocytes 1.3 thou/uL (1.20-3.40); #Monocytes 1.2 thou/uL (0.11-0.59); #Neutrophils 6.1 thou/uL (1.40-6.50); %Basophils 0.6 % (0.0-1.0); %Eosinophils 10.6 % (0.0-10.0); %Lymphocytes 13.1 % (21.0-51.0); %Monocytes 12.1 % (0.0-10.0); %Neutrophils 63.6 % (42.0-75.0); Hemoglobin 9.2 g/dL (12.0-16.0); Mean Corpuscular HGB CONC 33.5 g/dL (32.0-36.0); Mean Corpuscular Hemoglobin 33.2 pg (27.0-31.0); Mean Corpuscular Volume 99.1 fL (78.0-98.0); Mean Platelet Volume 8.2 fL (7.4-10.4); Platelet Count 139 thou/uL (130-400); RBC Distribution Width 12.7 % (11.5-14.5); Red Blood Cell (RBC) Count 2.77 mill/uL (4.20-5.40); White Blood Cell (WBC) Count 9.6 thou/uL (4.8-10.8)
[2020-10-19 13:25] LABS: ALT (SGPT) 7 U/L (8-55); AST (SGOT) 12 U/L (5-34); Alkaline Phosphatase 62 U/L (40-110); Anion Gap 21 mmol/L (10-20); BUN (Urea Nitrogen) 21 mg/dL (7.0-18.7); Bilirubin, Total 0.5 mg/dL (0.2-1.2); Calc. Creatinine Clearance 0 mL/min (70-130); Calcium 7.9 mg/dL (7.8-10.44); Carbon Dioxide 24 mmol/L (22-29); Chloride 95 mmol/L (98-107); Globulin 2.3 g/dL (2.4-3.5); Glucose 74 mg/dL (70-105); Potassium 4.2 mmol/L (3.5-5.1); Protein, Total 6.3 g/dL (6.0-8.3); Sodium 136 mmol/L (136-145)
--- NOTE | 2020-10-22 15:21 | EKG ---
Test Reason : Blood Pressure : / mmHG Vent. Rate : 087 BPM Atrial Rate : 087 BPM P-R Int : 142 ms QRS Dur : 084 ms QT Int : 382 ms P-R-T Axes : 076 092 055 degrees QTc Int : 459 ms Normal sinus rhythm Rightward axis Borderline ECG Confirmed by JESSICA GARNER DO ([id number]), production editor SERAFIN BAUER ([id number]) on 10/22/2020 3:21:21 PM Referred By: Confirmed By:JESSICA GARNER DO
== END 2020-10-19 15:30 ==
LOC: ERS 11:37
DX: J18.9 Pneumonia, unspecified organism (principal); I12.0 Hypertensive chronic kidney disease with stage 5 chronic kidney disease or end stage renal disease; I50.9 Heart failure, unspecified; Z79.899 Other long term (current) drug therapy
CPT/HCPCS: 36415; 71045; 80053; 84484; 85025; 93005

== ENCOUNTER 2020-12-20 18:21 | Emergency (ER) | payer MEDICARE, MEDICAID ==
[2020-12-20 20:13] LABS: #Basophils 0.1 thou/uL (0.0-0.2); #Eosinphils 0.8 thou/uL (0.0-0.7); #Lymphocytes 1.3 thou/uL (1.20-3.40); #Neutrophils 7.3 thou/uL (1.40-6.50); %Basophils 0.6 % (0.0-1.0); %Eosinophils 7.3 % (0.0-10.0); %Lymphocytes 12.5 % (21.0-51.0); %Monocytes 9.6 % (0.0-10.0); Mean Corpuscular Hemoglobin 31.5 pg (27.0-31.0); Mean Corpuscular Volume 98.3 fL (78.0-98.0); Mean Platelet Volume 7.8 fL (7.4-10.4); Platelet Count 226 thou/uL (130-400); RBC Distribution Width 13.4 % (11.5-14.5); Red Blood Cell (RBC) Count 3.51 mill/uL (4.20-5.40); White Blood Cell (WBC) Count 10.4 thou/uL (4.8-10.8)
[2020-12-20 20:36] LABS: Phosphorus 5.3 mg/dL (2.3-4.7)
[2020-12-20 20:40] LABS: ALT (SGPT) 11 U/L (8-55); AST (SGOT) 21 U/L (5-34); Albumin 4.6 g/dL (3.5-5.0); Alkaline Phosphatase 61 U/L (40-110); Anion Gap 24 mmol/L (10-20); BUN (Urea Nitrogen) 56 mg/dL (7.0-18.7); Bilirubin, Total 0.5 mg/dL (0.2-1.2); Calc. Creatinine Clearance 0 mL/min (70-130); Calcium 8.6 mg/dL (7.8-10.44); Carbon Dioxide 24 mmol/L (22-29); Chloride 99 mmol/L (98-107); Globulin 2.9 g/dL (2.4-3.5); Glucose 75 mg/dL (70-105); Lipase 17 U/L (8-78); Protein, Total 7.5 g/dL (6.0-8.3); Sodium 140 mmol/L (136-145)
[2020-12-20] MEDS ORDERED: INSULIN REGULAR IN 0.9 % NACL 100 UNIT/100 ML BAG ONE (21:07)
[2020-12-20] MEDS ORDERED: Calcium Chloride 1 GM/10 ML Abboject SYRINGE ONE (21:07)
[2020-12-20] MEDS ORDERED: Dextrose 50% Abboject 50 ML SYRINGE ONE (21:07)
[2020-12-20] MEDS ORDERED: Ondansetron PF 4 MG/2 ML Vial ONE (21:07)
[2020-12-20] MEDS ORDERED: Insulin Regular 300 UNITS/3 ML VIAL ONE (21:10)
[2020-12-20] MEDS ORDERED: Albuterol Sulfate 2.5 mg/3 ml Neb ONE (21:39)
[2020-12-21 01:43] LABS: HBSAg Index 0.25 S/CO (0-0.99); Hep B Surf Ag Non-Reactive S/CO (NonReactive)
== END 2020-12-21 10:24 ==
LOC: ERS 18:21
DX: E87.5 Hyperkalemia (principal); I12.0 Hypertensive chronic kidney disease with stage 5 chronic kidney disease or end stage renal disease; N18.6 End stage renal disease; Z99.2 Dependence on renal dialysis; Z86.16 Personal history of COVID-19
CPT/HCPCS: 36415; 80053; 83690; 83735; 84100; 85025; 87340; 90935; 93005; 94640; 96374; 96375; G0257; J1815; J2405; J7611

== ENCOUNTER 2022-03-09 03:16 | Emergency (ER) | payer MEDICARE, MEDICAID ==
[2022-03-09] MEDS ORDERED: Ketorolac Tromethamine 30 MG/ML VIAL ONE (03:32)
== END 2022-03-09 05:31 ==
LOC: ERS 03:16
DX: S82.831A Other fracture of upper and lower end of right fibula, initial encounter for closed fracture (principal); I10 Essential (primary) hypertension; W18.30XA Fall on same level, unspecified, initial encounter
CPT/HCPCS: 29515; 96372; J1885

== ENCOUNTER 2022-03-10 01:54 | Emergency (ER) | payer MEDICARE, MEDICAID ==
[2022-03-10] MEDS ORDERED: traMADol HCl 50 MG TAB ONE (03:25)
== END 2022-03-10 04:20 ==
LOC: ERS 01:54
DX: S82.831A Other fracture of upper and lower end of right fibula, initial encounter for closed fracture (principal); I10 Essential (primary) hypertension; E20.9 Hypoparathyroidism, unspecified; X58.XXXA Exposure to other specified factors, initial encounter
CPT/HCPCS: 99283

== ENCOUNTER 2022-03-15 19:01 | Inpatient (IN) | payer MEDICARE, MEDICAID ==
[2022-03-15 19:38] LABS: #Basophils 0.1 thou/uL (0.0-0.2); #Eosinphils 1.1 thou/uL (0.0-0.7); #Lymphocytes 1.5 thou/uL (1.20-3.40); #Monocytes 1.1 thou/uL (0.11-0.59); #Neutrophils 7.1 thou/uL (1.40-6.50); %Basophils 0.5 % (0.0-1.0); %Eosinophils 9.8 % (0.0-10.0); %Lymphocytes 13.6 % (21.0-51.0); %Monocytes 10.2 % (0.0-10.0); %Neutrophils 65.9 % (42.0-75.0); Hemoglobin 8.7 g/dL (12.0-16.0); Mean Corpuscular HGB CONC 32.1 g/dL (32.0-36.0); Mean Corpuscular Hemoglobin 34.4 pg (27.0-31.0); Mean Platelet Volume 7.3 fL (7.4-10.4); Platelet Count 355 thou/uL (130-400); RBC Distribution Width 13.4 % (11.5-14.5); Red Blood Cell (RBC) Count 2.53 mill/uL (4.20-5.40); White Blood Cell (WBC) Count 10.7 thou/uL (4.8-10.8)
[2022-03-15 19:45] LABS: INR-International Normal Ratio 1.1; Prothrombin Time 14.2 sec (12.0-14.7)
[2022-03-15 19:54] LABS: ALT (SGPT) Less than 7 U/L (8-55); AST (SGOT) 13 U/L (5-34); Albumin 4.4 g/dL (3.5-5.0); Alkaline Phosphatase 105 U/L (40-110); Anion Gap 23 mmol/L (10-20); BUN (Urea Nitrogen) 50 mg/dL (7.0-18.7); Bilirubin, Total 0.6 mg/dL (0.2-1.2); Calc. Creatinine Clearance 0 mL/min (70-130); Carbon Dioxide 28 mmol/L (22-29); Chloride 93 mmol/L (98-107); Globulin 3.8 g/dL (2.4-3.5); Glucose 92 mg/dL (70-105); Potassium 5.3 mmol/L (3.5-5.1); Protein, Total 8.2 g/dL (6.0-8.3); Sodium 139 mmol/L (136-145)
[2022-03-15] MEDS ORDERED: Morphine 4 MG/ML VIAL ONE (23:13)
[2022-03-16] MEDS ORDERED: Ondansetron ODT 4 MG TAB PO PRN (01:13)
[2022-03-16] MEDS ORDERED: Acetaminophen 650 MG Suppository PR PRN (01:13)
[2022-03-16] MEDS ORDERED: Morphine 4 MG/ML VIAL SLOW IVP PRN (02:48)
[2022-03-16 04:10] LABS: #Basophils 0.1 thou/uL (0.0-0.2); #Eosinphils 1.5 thou/uL (0.0-0.7); #Lymphocytes 2.2 thou/uL (1.20-3.40); #Monocytes 1.6 thou/uL (0.11-0.59); #Neutrophils 9.3 thou/uL (1.40-6.50); %Basophils 0.5 % (0.0-1.0); %Eosinophils 10.1 % (0.0-10.0); %Lymphocytes 15.2 % (21.0-51.0); %Monocytes 10.8 % (0.0-10.0); %Neutrophils 63.5 % (42.0-75.0); Hemoglobin 8.6 g/dL (12.0-16.0); Mean Corpuscular HGB CONC 32.2 g/dL (32.0-36.0); Mean Corpuscular Hemoglobin 34.7 pg (27.0-31.0); Mean Platelet Volume 8.8 fL (7.4-10.4); Platelet Count 273 thou/uL (130-400); RBC Distribution Width 13.5 % (11.5-14.5); Red Blood Cell (RBC) Count 2.47 mill/uL (4.20-5.40); White Blood Cell (WBC) Count 14.7 thou/uL (4.8-10.8)
[2022-03-16 04:29] LABS: Anion Gap 22 mmol/L (10-20); BUN (Urea Nitrogen) 53 mg/dL (7.0-18.7); Calc. Creatinine Clearance 7 mL/min (70-130); Calcium 7.8 mg/dL (7.8-10.44); Carbon Dioxide 27 mmol/L (22-29); Chloride 95 mmol/L (98-107); Glucose 99 mg/dL (70-105); Potassium 5.4 mmol/L (3.5-5.1); Sodium 139 mmol/L (136-145)
[2022-03-16] MEDS: diphenhydrAMINE 25 MG CAP PO SCH ×5 (05:00→22:31)
[2022-03-16] MEDS: Midodrine HCl 5 MG TAB PO SCH ×3 (08:43→22:32)
[2022-03-16] MEDS: Sevelamer Carbonate 800 MG TAB PO SCH ×3 (08:43→17:32)
[2022-03-16] MEDS: Enoxaparin Sodium 30 MG/0.3 ML SYRINGE SC SCH ×2 (08:43→08:47)
[2022-03-16 11:45] LABS: SARS-CoV-2 PCR by NAA Not Detected (NotDetected)
[2022-03-16] MEDS ORDERED: ceFAZolin (BATCH) 2 GM in Premix Bag 1 BAG IVPB SCH (11:45)
[2022-03-16] MEDS ORDERED: Lidocaine 1% w/Epinephrine 1:100K 20 ML VIAL ONE (15:18)
[2022-03-16] MEDS ORDERED: Heparin 10,000 UNITS/ 10 ML VIAL ONE (15:18)
[2022-03-16] MEDS ORDERED: Bupivacaine PF 0.5% 30 ML VIAL ONE (15:18)
[2022-03-16] MEDS ORDERED: PHENYLEPHRINE-NS 100 MCG/ML 10 ML SYRINGE ONE (15:47)
[2022-03-16] MEDS ORDERED: traMADol HCl 50 MG TAB PO PRN (21:00)
[2022-03-17] MEDS ORDERED: Morphine 4 MG/ML VIAL SLOW IVP PRN (00:09)
[2022-03-17] MEDS: diphenhydrAMINE 25 MG CAP PO SCH ×6 (00:32→19:54)
[2022-03-17 08:18] LABS: Actual Bicarbonate (HCO3a) 27.4 mEq/L (22-28); Base Excess (BEa) -1.4 mEq/L (-2.0 to +3.0); Calcium, Ionized (arterial) 0.89 mmol/L (1.12-1.30); Carboxyhemoglobin (COHb) 1.1 gm% (0.0-3.0); Hemoglobin (Hb) 6.7 g/dL (12.0-16.0); Potassium - ABG Lab 6.59 mmol/L (3.70-5.30)
[2022-03-17 08:19] LABS: CO2 Tension 79.1 mmHg (35.0-45.0); pH, Arterial 7.16 (7.35-7.45)
[2022-03-17 08:20] LABS: Puncture Site LRA
[2022-03-17] MEDS ORDERED: Sodium Bicarb 50 MEQ/50 ML Abboject 8.4% SYRINGE ONE (08:20)
[2022-03-17 08:39] LABS: ALT (SGPT) Less than 7 U/L (8-55); AST (SGOT) 23 U/L (5-34); Albumin 4.2 g/dL (3.5-5.0); Alkaline Phosphatase 82 U/L (40-110); Anion Gap 26 mmol/L (10-20); BUN (Urea Nitrogen) 63 mg/dL (7.0-18.7); Bilirubin, Total 0.5 mg/dL (0.2-1.2); Calc. Creatinine Clearance 6 mL/min (70-130); Calcium 7.4 mg/dL (7.8-10.44); Carbon Dioxide 23 mmol/L (22-29); Chloride 93 mmol/L (98-107); Globulin 3.5 g/dL (2.4-3.5); Glucose 168 mg/dL (70-105); Potassium 6.5 mmol/L (3.5-5.1); Protein, Total 7.7 g/dL (6.0-8.3); Sodium 135 mmol/L (136-145)
[2022-03-17] MEDS ORDERED: Propofol 1,000 MG/100 ML VIAL IV ONE (08:43)
[2022-03-17] MEDS ORDERED: Ventilator Sedation Protocol 1 EACH FS SCH (08:45)
[2022-03-17] MEDS ORDERED: Heparin 10,000 UNITS/ 10 ML VIAL ONE (08:46)
[2022-03-17 08:49] LABS: #Eosinphils 0.4 thou/uL (0.0-0.7); #Lymphocytes 0.8 thou/uL (1.20-3.40); #Monocytes 1.5 thou/uL (0.11-0.59); #Neutrophils 12.2 thou/uL (1.40-6.50); %Basophils 0.1 % (0.0-1.0); %Eosinophils 2.5 % (0.0-10.0); %Lymphocytes 5.4 % (21.0-51.0); %Monocytes 9.7 % (0.0-10.0); %Neutrophils 82.2 % (42.0-75.0); Hemoglobin 7.3 g/dL (12.0-16.0); Mean Corpuscular HGB CONC 31.3 g/dL (32.0-36.0); Mean Corpuscular Hemoglobin 34.1 pg (27.0-31.0); Mean Platelet Volume 6.7 fL (7.4-10.4); Platelet Count 317 thou/uL (130-400); RBC Distribution Width 13.4 % (11.5-14.5); Red Blood Cell (RBC) Count 2.13 mill/uL (4.20-5.40); White Blood Cell (WBC) Count 14.9 thou/uL (4.8-10.8)
[2022-03-17] MEDS ORDERED: DISCONTINUE PREVIOUS NARCOTIC PAIN MEDICATIONS AND BENZODIAZEPINES FS SCH (09:00)
[2022-03-17] MEDS ORDERED: Propofol BOLUS 1,000 MG/100 ML VIAL IV PRN (09:00)
[2022-03-17] MEDS ORDERED: Fentanyl BOLUS 250 ML IVPB PRN (09:00)
[2022-03-17] MEDS ORDERED: Fentanyl CADD 100 ML IV SCH (09:00)
[2022-03-17] MEDS ORDERED: Morphine 2 MG/ML VIAL SLOW IVP PRN (09:00)
[2022-03-17] MEDS: Propofol 1,000 MG/100 ML VIAL IV PRN ×2 (09:42→20:14)
[2022-03-17] MEDS: Sevelamer Carbonate 800 MG TAB PO SCH ×3 (09:43→17:04)
[2022-03-17] MEDS: Midodrine HCl 5 MG TAB PO SCH ×3 (09:58→19:55)
[2022-03-17] MEDS: Enoxaparin Sodium 30 MG/0.3 ML SYRINGE SC SCH (09:58)
[2022-03-17 10:12] LABS: Actual Bicarbonate (HCO3v) 27 mEq/L (22-28); Base Excess 2.1 mEq/L (-2.0 to +3.0); Calcium, Ionized (venous) 0.77 mmol/L (1.16-1.32); Chloride (VBG) 93 mmol/L (98-106); Hemoglobin (Hb) 7.9 g/dL (11.7-15.5); Potassium (VBG) 5.98 mmol/L (3.70-5.30); Sodium 134.1 mmol/L (133-146); pH (venous) 7.41 (7.32-7.43)
[2022-03-17] MEDS ORDERED: Norepinephrine 8 MG/0.9% NS 250 ML ONE (10:34)
[2022-03-17] MEDS: Lorazepam 2 MG/ML VIAL SLOW IVP PRN ×2 (11:26→15:00)
[2022-03-17] MEDS: Norepinephrine 8 MG/0.9% NS 250 ML IVPB SCH ×3 (11:26→19:09)
[2022-03-17] MEDS: Epoetin (ESRD) 10,000 UNITS/ML VIAL SC SCH (11:26)
[2022-03-17] MEDS: cefTRIAXone\\ROCEPHIN 1 GM in Sodium Chloride 0.9% 100 ML IVPB SCH (13:26)
[2022-03-17] MEDS: Acetaminophen 325 MG TAB PO PRN (19:21)
[2022-03-17] MEDS: Senokot S 8.6-50 MG TAB PO SCH (19:55)
[2022-03-18] MEDS: fentaNYL Citrate-0.9 % NaCl/PF 100 ML IVPB SCH ×2 (01:44→18:04)
[2022-03-18] MEDS: diphenhydrAMINE 25 MG CAP PO SCH ×7 (01:54→23:14)
[2022-03-18] MEDS: Norepinephrine 8 MG/0.9% NS 250 ML IVPB SCH ×2 (01:58→07:38)
[2022-03-18 03:48] LABS: Actual Bicarbonate (HCO3v) 23 mEq/L (22-28); Base Excess 1.2 mEq/L (-2.0 to +3.0); Calcium, Ionized (venous) 0.91 mmol/L (1.16-1.32); Chloride (VBG) 94 mmol/L (98-106); Hemoglobin (Hb) 7.9 g/dL (11.7-15.5); Potassium (VBG) 4.29 mmol/L (3.70-5.30); pH (venous) 7.55 (7.32-7.43)
[2022-03-18 05:19] LABS: ALT (SGPT) Less than 7 U/L (8-55); AST (SGOT) 24 U/L (5-34); Albumin 3.6 g/dL (3.5-5.0); Alkaline Phosphatase 74 U/L (40-110); Anion Gap 22 mmol/L (10-20); BUN (Urea Nitrogen) 24 mg/dL (7.0-18.7); Bilirubin, Total 0.6 mg/dL (0.2-1.2); Calc. Creatinine Clearance 12 mL/min (70-130); Carbon Dioxide 23 mmol/L (22-29); Chloride 93 mmol/L (98-107); Globulin 3.2 g/dL (2.4-3.5); Glucose 113 mg/dL (70-105); Potassium 4.3 mmol/L (3.5-5.1); Protein, Total 6.8 g/dL (6.0-8.3); Sodium 134 mmol/L (136-145)
[2022-03-18 05:49] LABS: Band 43 % (5-11); Eosinophils 2 % (0-10); Hemoglobin 7.3 g/dL (12.0-16.0); Hypochromia SLIGHT = 6-15 cells (100X) (0-5/hpf); Lymphocytes 7 % (21-51); MDiff Complete? YES; Macrocytosis SLIGHT = 6-15 cells (100X) (0-5/hpf); Mean Corpuscular HGB CONC 33.2 g/dL (32.0-36.0); Mean Corpuscular Hemoglobin 34.8 pg (27.0-31.0); Mean Platelet Volume 8.5 fL (7.4-10.4); Metamyelocyte 1 % (0-0); Monocytes 2 % (0-10); Neutrophil 45 % (42-75); Platelet Count 233 thou/uL (130-400); Platelet Morphology Comment Appears Adequate; RBC Distribution Width 13.2 % (11.5-14.5); Red Blood Cell (RBC) Count 2.08 mill/uL (4.20-5.40); Reflex for Review?? YES; White Blood Cell (WBC) Count 25.3 thou/uL (4.8-10.8)
[2022-03-18] MEDS: Propofol 1,000 MG/100 ML VIAL IV PRN ×2 (07:37→15:06)
[2022-03-18] MEDS: Lorazepam 2 MG/ML VIAL SLOW IVP PRN (07:39)
[2022-03-18 07:49] LABS: Actual Bicarbonate (HCO3a) 26.8 mEq/L (22-28); Base Excess (BEa) 4.1 mEq/L (-2.0 to +3.0); CO2 Tension 32.4 mmHg (35.0-45.0); Calcium, Ionized (arterial) 0.94 mmol/L (1.12-1.30); Carboxyhemoglobin (COHb) 0.5 gm% (0.0-3.0); Hemoglobin (Hb) 7.7 g/dL (12.0-16.0); O2 Tension (PaO2), arterial 122.9 mmHg (80.0-100.0); Potassium - ABG Lab 4.15 mmol/L (3.70-5.30); pH, Arterial 7.54 (7.35-7.45)
[2022-03-18 07:52] LABS: Puncture Site RRA
[2022-03-18] MEDS ORDERED: Lactated Ringer's 500 ML IV SCH (09:15)
[2022-03-18] MEDS: Midodrine HCl 5 MG TAB PO SCH ×4 (10:13→23:18)
[2022-03-18] MEDS: Polyethylene Glycol 3350 17 GM Packet PER TUBE SCH (10:13)
[2022-03-18] MEDS: Sevelamer Carbonate 800 MG TAB PO SCH ×3 (10:14→17:23)
[2022-03-18] MEDS: Senokot S 8.6-50 MG TAB PO SCH ×3 (10:15→23:19)
[2022-03-18] MEDS: Enoxaparin Sodium 30 MG/0.3 ML SYRINGE SC SCH (10:15)
[2022-03-18] MEDS: cefTRIAXone\\ROCEPHIN 1 GM in Sodium Chloride 0.9% 100 ML IVPB SCH (12:59)
[2022-03-18] MEDS: Pantoprazole 40 MG VIAL IVP SCH (14:34)
[2022-03-18] MEDS: Clindamycin/D5W 600 MG in Premix Bag 1 BAG IVPB SCH ×2 (14:34→22:58)
[2022-03-18] MEDS ORDERED: Lactated Ringer's 1,000 ML IV SCH (15:15)
[2022-03-18] MEDS ORDERED: Pancrelipase DR 12,000 1 CAP FS PRN (21:30)
[2022-03-18] MEDS ORDERED: Sodium Bicarbonate Tab 325 MG TAB PER TUBE PRN (21:30)
[2022-03-19] MEDS: diphenhydrAMINE 25 MG CAP PO SCH ×6 (00:19→20:07)
[2022-03-19] MEDS: Clindamycin/D5W 600 MG in Premix Bag 1 BAG IVPB SCH ×3 (05:32→21:07)
[2022-03-19] MEDS: Propofol 1,000 MG/100 ML VIAL IV PRN ×2 (05:53→18:01)
[2022-03-19 06:01] LABS: #Eosinphils 1.3 thou/uL (0.0-0.7); #Lymphocytes 1.1 thou/uL (1.20-3.40); #Monocytes 1.3 thou/uL (0.11-0.59); #Neutrophils 15.7 thou/uL (1.40-6.50); %Basophils 0.2 % (0.0-1.0); %Eosinophils 6.6 % (0.0-10.0); %Lymphocytes 5.5 % (21.0-51.0); %Monocytes 6.9 % (0.0-10.0); %Neutrophils 80.8 % (42.0-75.0); Hemoglobin 6.6 g/dL (12.0-16.0); Mean Corpuscular HGB CONC 33.5 g/dL (32.0-36.0); Mean Corpuscular Hemoglobin 35.7 pg (27.0-31.0); Mean Platelet Volume 7.6 fL (7.4-10.4); Platelet Count 253 thou/uL (130-400); RBC Distribution Width 13.1 % (11.5-14.5); Red Blood Cell (RBC) Count 1.84 mill/uL (4.20-5.40); White Blood Cell (WBC) Count 19.4 thou/uL (4.8-10.8)
[2022-03-19] MEDS: Norepinephrine 8 MG/0.9% NS 250 ML IVPB SCH (06:04)
[2022-03-19 06:17] LABS: Anion Gap 18 mmol/L (10-20); BUN (Urea Nitrogen) 39 mg/dL (7.0-18.7); Calc. Creatinine Clearance 11 mL/min (70-130); Carbon Dioxide 26 mmol/L (22-29); Chloride 93 mmol/L (98-107); Potassium 4.5 mmol/L (3.5-5.1); Sodium 132 mmol/L (136-145)
[2022-03-19 06:18] LABS: ALT (SGPT) Less than 7 U/L (8-55); AST (SGOT) 20 U/L (5-34); Albumin 3.2 g/dL (3.5-5.0); Alkaline Phosphatase 74 U/L (40-110); Bilirubin, Total 0.5 mg/dL (0.2-1.2); Globulin 3.2 g/dL (2.4-3.5); Glucose 90 mg/dL (70-105); Protein, Total 6.4 g/dL (6.0-8.3)
[2022-03-19] MEDS ORDERED: Heparin 10,000 UNITS/ 10 ML VIAL ONE (08:48)
[2022-03-19] MEDS: Sevelamer Carbonate 800 MG TAB PO SCH ×3 (09:28→17:41)
[2022-03-19] MEDS: Senokot S 8.6-50 MG TAB PO SCH ×2 (09:29→20:07)
[2022-03-19] MEDS: Polyethylene Glycol 3350 17 GM Packet PER TUBE SCH (09:29)
[2022-03-19] MEDS: Midodrine HCl 5 MG TAB PO SCH ×3 (09:29→20:07)
[2022-03-19] MEDS: Enoxaparin Sodium 30 MG/0.3 ML SYRINGE SC SCH (10:26)
[2022-03-19] MEDS: Pantoprazole 40 MG VIAL IVP SCH (10:26)
[2022-03-19] MEDS: cefTRIAXone\\ROCEPHIN 1 GM in Sodium Chloride 0.9% 100 ML IVPB SCH (12:57)
[2022-03-19] MEDS: fentaNYL Citrate-0.9 % NaCl/PF 100 ML IVPB SCH (13:06)
[2022-03-20] MEDS: diphenhydrAMINE 25 MG CAP PO SCH ×5 (00:09→17:38)
[2022-03-20] MEDS: Propofol 1,000 MG/100 ML VIAL IV PRN ×3 (00:32→15:54)
[2022-03-20] MEDS: fentaNYL Citrate-0.9 % NaCl/PF 100 ML IVPB SCH (03:08)
[2022-03-20] MEDS: Clindamycin/D5W 600 MG in Premix Bag 1 BAG IVPB SCH ×3 (05:21→23:02)
[2022-03-20 05:31] LABS: #Basophils 0.1 thou/uL (0.0-0.2); #Lymphocytes 1.3 thou/uL (1.20-3.40); #Monocytes 1.2 thou/uL (0.11-0.59); #Neutrophils 12.6 thou/uL (1.40-6.50); %Basophils 0.3 % (0.0-1.0); %Lymphocytes 7.9 % (21.0-51.0); %Monocytes 7.4 % (0.0-10.0); %Neutrophils 78.4 % (42.0-75.0); Mean Corpuscular HGB CONC 34.7 g/dL (32.0-36.0); Mean Corpuscular Hemoglobin 34.5 pg (27.0-31.0); Mean Corpuscular Volume 99.4 fL (78.0-98.0); Mean Platelet Volume 7.5 fL (7.4-10.4); Platelet Count 225 thou/uL (130-400); RBC Distribution Width 14.7 % (11.5-14.5)
[2022-03-20 05:52] LABS: Anion Gap 20 mmol/L (10-20); BUN (Urea Nitrogen) 22 mg/dL (7.0-18.7); Calc. Creatinine Clearance 17 mL/min (70-130); Calcium 8.6 mg/dL (7.8-10.44); Carbon Dioxide 24 mmol/L (22-29); Chloride 92 mmol/L (98-107); Glucose 84 mg/dL (70-105); Potassium 3.9 mmol/L (3.5-5.1); Sodium 132 mmol/L (136-145)
[2022-03-20] MEDS ORDERED: ceFAZolin 2 GM/Dextrose 50 ML 2 GM in Premix Bag 1 BAG IVPB SCH (07:15)
[2022-03-20] MEDS ORDERED: Heparin 10,000 UNITS/ 10 ML VIAL ONE (08:38)
[2022-03-20] MEDS: Enoxaparin Sodium 30 MG/0.3 ML SYRINGE SC SCH (08:43)
[2022-03-20] MEDS: Sevelamer Carbonate 800 MG TAB PO SCH ×3 (10:09→17:38)
[2022-03-20] MEDS: Polyethylene Glycol 3350 17 GM Packet PER TUBE SCH (10:10)
[2022-03-20] MEDS: Pantoprazole 40 MG VIAL IVP SCH (10:10)
[2022-03-20] MEDS: Midodrine HCl 5 MG TAB PO SCH ×3 (10:10→20:53)
[2022-03-20] MEDS: Senokot S 8.6-50 MG TAB PO SCH ×2 (10:11→20:52)
[2022-03-20] MEDS ORDERED: Phenylephrine 10 MG/ML VIAL ONE (11:56)
[2022-03-20] MEDS ORDERED: Albumin 25% 0 ML ONE (11:56)
[2022-03-20] MEDS ORDERED: fentaNYL Citrate/PF 100 MCG/2 ML SYRINGE ONE (11:56)
[2022-03-20] MEDS ORDERED: ePHEDrine 50 MG/ML VIAL ONE (13:14)
[2022-03-20] MEDS ORDERED: Rocuronium Bromide 10 MG/ML (10ML VIAL) ONE (13:14)
[2022-03-20] MEDS ORDERED: PROPOFOL 200 MG/20 ML VIAL ONE (13:14)
[2022-03-20] MEDS: cefTRIAXone\\ROCEPHIN 1 GM in Sodium Chloride 0.9% 100 ML IVPB SCH (13:30)
[2022-03-20] MEDS ORDERED: HYDROmorphone 2 MG/ML VIAL ONE (14:54)
[2022-03-20] MEDS: Norepinephrine 8 MG/0.9% NS 250 ML IVPB SCH (15:54)
[2022-03-20] MEDS ORDERED: Activase 2 MG VIAL CATH SCH (23:45)
[2022-03-20] MEDS ORDERED: Sterile Water 10 ML VIAL IVP SCH (23:45)
[2022-03-21] MEDS: fentaNYL Citrate-0.9 % NaCl/PF 100 ML IVPB SCH
[2022-03-21 04:29] LABS: #Basophils 0.1 thou/uL (0.0-0.2); #Eosinphils 0.6 thou/uL (0.0-0.7); #Lymphocytes 0.6 thou/uL (1.20-3.40); #Monocytes 1.4 thou/uL (0.11-0.59); #Neutrophils 12.6 thou/uL (1.40-6.50); %Basophils 0.5 % (0.0-1.0); %Monocytes 9.1 % (0.0-10.0); %Neutrophils 82.3 % (42.0-75.0); Hemoglobin 9.6 g/dL (12.0-16.0); Mean Corpuscular HGB CONC 32.8 g/dL (32.0-36.0); Mean Corpuscular Hemoglobin 32.9 pg (27.0-31.0); Mean Platelet Volume 8.1 fL (7.4-10.4); Platelet Count 217 thou/uL (130-400); RBC Distribution Width 14.6 % (11.5-14.5); Red Blood Cell (RBC) Count 2.93 mill/uL (4.20-5.40); White Blood Cell (WBC) Count 15.3 thou/uL (4.8-10.8)
[2022-03-21 04:51] LABS: Anion Gap 20 mmol/L (10-20); BUN (Urea Nitrogen) 23 mg/dL (7.0-18.7); Calc. Creatinine Clearance 17 mL/min (70-130); Calcium 8.4 mg/dL (7.8-10.44); Carbon Dioxide 24 mmol/L (22-29); Chloride 90 mmol/L (98-107); Glucose 102 mg/dL (70-105); Potassium 4.2 mmol/L (3.5-5.1); Sodium 130 mmol/L (136-145)
[2022-03-21] MEDS: Clindamycin/D5W 600 MG in Premix Bag 1 BAG IVPB SCH ×3 (05:38→17:01)
[2022-03-21] MEDS ORDERED: Heparin 10,000 UNITS/ 10 ML VIAL ONE (08:49)
[2022-03-21 11:31] LABS: Actual Bicarbonate (HCO3v) 26 mEq/L (22-28); Base Excess -1.9 mEq/L (-2.0 to +3.0); Calcium, Ionized (venous) 0.96 mmol/L (1.16-1.32); Chloride (VBG) 93 mmol/L (98-106); Hemoglobin (Hb) 9.9 g/dL (11.7-15.5); Potassium (VBG) 3.75 mmol/L (3.70-5.30)
[2022-03-21 11:34] LABS: pH (venous) 7.23 (7.32-7.43)
[2022-03-21] MEDS ORDERED: Morphine 4 MG/ML VIAL SLOW IVP SCH (13:45)
[2022-03-21] MEDS: Sevelamer Carbonate 800 MG TAB PO SCH ×3 (13:53→15:34)
[2022-03-21] MEDS: Hydrocortisone Sod Succ/PF 100 mg/2 ml Vial IVP SCH ×3 (13:59→21:23)
[2022-03-21] MEDS: Enoxaparin Sodium 30 MG/0.3 ML SYRINGE SC SCH (13:59)
[2022-03-21] MEDS: Pantoprazole 40 MG VIAL IVP SCH (14:00)
[2022-03-21] MEDS: cefTRIAXone\\ROCEPHIN 1 GM in Sodium Chloride 0.9% 100 ML IVPB SCH (14:02)
[2022-03-21] MEDS: Midodrine HCl 5 MG TAB PO SCH ×3 (15:27→21:33)
[2022-03-21] MEDS: Senokot S 8.6-50 MG TAB PO SCH ×2 (15:29→21:33)
[2022-03-21] MEDS: Polyethylene Glycol 3350 17 GM Packet PER TUBE SCH (15:29)
[2022-03-21] MEDS ORDERED: Hydrocortisone Sod Succ/PF 100 mg/2 ml Vial IVP SCH (18:00)
[2022-03-21] MEDS: Morphine 2 MG/ML VIAL SLOW IVP PRN (21:23)
[2022-03-21] MEDS ORDERED: Lorazepam 2 MG/ML VIAL SLOW IVP SCH (23:00)
[2022-03-22] MEDS: Clindamycin/D5W 600 MG in Premix Bag 1 BAG IVPB SCH ×3 (00:28→15:57)
[2022-03-22] MEDS: Morphine 2 MG/ML VIAL SLOW IVP PRN ×2 (01:25→14:08)
[2022-03-22] MEDS: Hydrocortisone Sod Succ/PF 100 mg/2 ml Vial IVP SCH ×3 (01:25→21:40)
[2022-03-22 04:45] LABS: Anion Gap 22 mmol/L (10-20); BUN (Urea Nitrogen) 17 mg/dL (7.0-18.7); Calc. Creatinine Clearance 20 mL/min (70-130); Calcium 8.7 mg/dL (7.8-10.44); Carbon Dioxide 22 mmol/L (22-29); Chloride 96 mmol/L (98-107); Glucose 101 mg/dL (70-105); Potassium 3.8 mmol/L (3.5-5.1); Sodium 136 mmol/L (136-145)
[2022-03-22 04:57] LABS: Band 18 % (5-11); Hemoglobin 9.4 g/dL (12.0-16.0); Lymphocytes 8 % (21-51); MDiff Complete? YES; Mean Corpuscular HGB CONC 33.1 g/dL (32.0-36.0); Mean Corpuscular Hemoglobin 33.3 pg (27.0-31.0); Mean Platelet Volume 8.3 fL (7.4-10.4); Monocytes 7 % (0-10); Neutrophil 66 % (42-75); Platelet Count 198 thou/uL (130-400); Platelet Morphology Comment Appears Adequate; RBC Distribution Width 14.2 % (11.5-14.5); RBC Morphology Normal; Reactive Lymphocytes 1 % (0-10); Red Blood Cell (RBC) Count 2.82 mill/uL (4.20-5.40); White Blood Cell (WBC) Count 15.6 thou/uL (4.8-10.8)
[2022-03-22] MEDS: Ondansetron PF 4 MG/2 ML Vial IVP PRN ×2 (08:27→16:07)
[2022-03-22] MEDS: Pantoprazole 40 MG VIAL IVP SCH (08:28)
[2022-03-22] MEDS: Enoxaparin Sodium 30 MG/0.3 ML SYRINGE SC SCH (08:30)
[2022-03-22] MEDS ORDERED: Hydrocortisone Sod Succ/PF 100 mg/2 ml Vial IVP SCH (10:15)
[2022-03-22] MEDS: Polyethylene Glycol 3350 17 GM Packet PER TUBE SCH (13:34)
[2022-03-22] MEDS: Sevelamer Carbonate 800 MG TAB PO SCH ×2 (13:34→16:29)
[2022-03-22] MEDS: Midodrine HCl 5 MG TAB PO SCH ×3 (13:34→21:44)
[2022-03-22] MEDS: Senokot S 8.6-50 MG TAB PO SCH ×2 (13:35→21:45)
[2022-03-23] MEDS: Clindamycin/D5W 600 MG in Premix Bag 1 BAG IVPB SCH ×2 (01:45→08:27)
[2022-03-23] MEDS: Morphine 2 MG/ML VIAL SLOW IVP PRN ×3 (03:48→23:05)
[2022-03-23] MEDS: Ondansetron PF 4 MG/2 ML Vial IVP PRN (04:24)
[2022-03-23 06:31] LABS: Anion Gap 23 mmol/L (10-20); BUN (Urea Nitrogen) 42 mg/dL (7.0-18.7); Calc. Creatinine Clearance 14 mL/min (70-130); Calcium 8.7 mg/dL (7.8-10.44); Carbon Dioxide 22 mmol/L (22-29); Chloride 95 mmol/L (98-107); Glucose 89 mg/dL (70-105); Sodium 136 mmol/L (136-145)
[2022-03-23 06:37] LABS: Hemoglobin 8.8 g/dL (12.0-16.0); Mean Corpuscular HGB CONC 31.9 g/dL (32.0-36.0); Mean Corpuscular Hemoglobin 32.5 pg (27.0-31.0); Mean Platelet Volume 7.6 fL (7.4-10.4); Platelet Count 284 thou/uL (130-400); Red Blood Cell (RBC) Count 2.71 mill/uL (4.20-5.40); White Blood Cell (WBC) Count 13.7 thou/uL (4.8-10.8)
[2022-03-23 07:21] LABS: Band 8 % (5-11); Lymphocytes 3 % (21-51); MDiff Complete? YES; Metamyelocyte 4 % (0-0); Monocytes 16 % (0-10); Neutrophil 69 % (42-75); Platelet Morphology Comment Appears Adequate; Polychromasia SLIGHT = 2-3 cells (100X) (0-2/hpf)
[2022-03-23] MEDS: Sevelamer Carbonate 800 MG TAB PO SCH ×3 (07:55→17:49)
[2022-03-23] MEDS: Senokot S 8.6-50 MG TAB PO SCH ×2 (07:57→21:07)
[2022-03-23] MEDS: Midodrine HCl 5 MG TAB PO SCH ×3 (07:57→21:07)
[2022-03-23] MEDS: Polyethylene Glycol 3350 17 GM Packet PER TUBE SCH (07:57)
[2022-03-23] MEDS: Enoxaparin Sodium 30 MG/0.3 ML SYRINGE SC SCH (08:27)
[2022-03-23] MEDS: Pantoprazole 40 MG VIAL IVP SCH (08:27)
[2022-03-23] MEDS: Hydrocortisone Sod Succ/PF 100 mg/2 ml Vial IVP SCH ×2 (08:27→21:07)
[2022-03-23 09:53] VITALS: BMI 39.3
[2022-03-23 11:59] LABS: SARS-CoV-2 PCR by NAA Not Detected (NotDetected)
[2022-03-23] MEDS ORDERED: Heparin 10,000 UNITS/ 10 ML VIAL ONE (12:43)
[2022-03-23 13:28] LABS: Hemoglobin 9.4 g/dL (12.0-16.0)
[2022-03-24] MEDS: Morphine 2 MG/ML VIAL SLOW IVP PRN ×4 (04:57→21:55)
[2022-03-24 06:42] LABS: Hemoglobin 9.3 g/dL (12.0-16.0); Mean Corpuscular HGB CONC 32.8 g/dL (32.0-36.0); Mean Corpuscular Hemoglobin 33.1 pg (27.0-31.0); Mean Platelet Volume 8.3 fL (7.4-10.4); Platelet Count 258 thou/uL (130-400); RBC Distribution Width 13.7 % (11.5-14.5); Red Blood Cell (RBC) Count 2.81 mill/uL (4.20-5.40); White Blood Cell (WBC) Count 12.1 thou/uL (4.8-10.8)
[2022-03-24 07:19] LABS: Anion Gap 24 mmol/L (10-20); BUN (Urea Nitrogen) 26 mg/dL (7.0-18.7); Calc. Creatinine Clearance 20 mL/min (70-130); Calcium 8.5 mg/dL (7.8-10.44); Carbon Dioxide 18 mmol/L (22-29); Chloride 100 mmol/L (98-107); Glucose 69 mg/dL (70-105); Potassium 4.3 mmol/L (3.5-5.1); Sodium 138 mmol/L (136-145)
[2022-03-24 07:36] LABS: Band 10 % (5-11); Lymphocytes 10 % (21-51); MDiff Complete? YES; Macrocytosis SLIGHT = 6-15 cells (100X) (0-5/hpf); Metamyelocyte 2 % (0-0); Monocytes 8 % (0-10); Neutrophil 70 % (42-75); Platelet Morphology Comment Appears Adequate
[2022-03-24] MEDS: Sevelamer Carbonate 800 MG TAB PO SCH ×3 (09:36→16:20)
[2022-03-24] MEDS: Midodrine HCl 5 MG TAB PO SCH ×3 (09:36→20:58)
[2022-03-24] MEDS: Senokot S 8.6-50 MG TAB PO SCH ×2 (09:36→20:58)
[2022-03-24] MEDS: Polyethylene Glycol 3350 17 GM Packet PER TUBE SCH (09:38)
[2022-03-24] MEDS: Pantoprazole 40 MG VIAL IVP SCH ×2 (09:39→21:01)
[2022-03-24] MEDS: Hydrocortisone Sod Succ/PF 100 mg/2 ml Vial IVP SCH ×2 (09:41→20:57)
[2022-03-24] MEDS: Enoxaparin Sodium 30 MG/0.3 ML SYRINGE SC SCH (09:43)
[2022-03-24] MEDS: Epoetin (ESRD) 10,000 UNITS/ML VIAL SC SCH (12:13)
[2022-03-24] MEDS: Acetaminophen 325 MG TAB PO PRN (20:59)
[2022-03-24] MEDS: traMADol HCl 50 MG TAB PO PRN (21:00)
[2022-03-25] MEDS: Morphine 2 MG/ML VIAL SLOW IVP PRN ×3 (06:17→20:21)
[2022-03-25] MEDS: Hydrocortisone Sod Succ/PF 100 mg/2 ml Vial IVP SCH ×2 (08:10→20:22)
[2022-03-25] MEDS: Pantoprazole 40 MG VIAL IVP SCH ×2 (08:10→20:29)
[2022-03-25] MEDS: Sevelamer Carbonate 800 MG TAB PO SCH ×3 (08:11→15:57)
[2022-03-25] MEDS: Midodrine HCl 5 MG TAB PO SCH ×3 (08:11→20:31)
[2022-03-25] MEDS: Senokot S 8.6-50 MG TAB PO SCH ×2 (08:11→20:30)
[2022-03-25] MEDS: traMADol HCl 50 MG TAB PO PRN ×2 (08:11→17:50)
[2022-03-25] MEDS: Polyethylene Glycol 3350 17 GM Packet PER TUBE SCH (08:21)
[2022-03-25 09:14] LABS: #Basophils 0.1 thou/uL (0.0-0.2); #Eosinphils 0.3 thou/uL (0.0-0.7); #Lymphocytes 1.6 thou/uL (1.20-3.40); #Monocytes 1.4 thou/uL (0.11-0.59); #Neutrophils 6.7 thou/uL (1.40-6.50); %Basophils 0.6 % (0.0-1.0); %Eosinophils 2.7 % (0.0-10.0); %Lymphocytes 16.2 % (21.0-51.0); %Monocytes 13.9 % (0.0-10.0); %Neutrophils 66.6 % (42.0-75.0); Hemoglobin 9.7 g/dL (12.0-16.0); Mean Corpuscular HGB CONC 32.8 g/dL (32.0-36.0); Mean Corpuscular Hemoglobin 33.2 pg (27.0-31.0); Mean Platelet Volume 8.7 fL (7.4-10.4); Platelet Count 287 thou/uL (130-400); RBC Distribution Width 13.7 % (11.5-14.5); Red Blood Cell (RBC) Count 2.94 mill/uL (4.20-5.40); White Blood Cell (WBC) Count 10.1 thou/uL (4.8-10.8)
[2022-03-25 09:39] LABS: Anion Gap 22 mmol/L (10-20); BUN (Urea Nitrogen) 46 mg/dL (7.0-18.7); Calc. Creatinine Clearance 13 mL/min (70-130); Calcium 8.2 mg/dL (7.8-10.44); Carbon Dioxide 22 mmol/L (22-29); Chloride 98 mmol/L (98-107); Glucose 147 mg/dL (70-105); Sodium 138 mmol/L (136-145)
[2022-03-26 05:12] LABS: Anion Gap 21 mmol/L (10-20); BUN (Urea Nitrogen) 56 mg/dL (7.0-18.7); Calc. Creatinine Clearance 11 mL/min (70-130); Carbon Dioxide 25 mmol/L (22-29); Chloride 96 mmol/L (98-107); Glucose 147 mg/dL (70-105); Potassium 4.4 mmol/L (3.5-5.1); Sodium 138 mmol/L (136-145)
[2022-03-26 06:48] LABS: Hemoglobin 9.1 g/dL (12.0-16.0); Mean Corpuscular HGB CONC 32.4 g/dL (32.0-36.0); Mean Corpuscular Hemoglobin 33.4 pg (27.0-31.0); Mean Platelet Volume 7.1 fL (7.4-10.4); Platelet Count 342 thou/uL (130-400); RBC Distribution Width 13.8 % (11.5-14.5); Red Blood Cell (RBC) Count 2.74 mill/uL (4.20-5.40); White Blood Cell (WBC) Count 10.9 thou/uL (4.8-10.8)
[2022-03-26 08:42] LABS: Band 13 % (5-11); Eosinophils 1 % (0-10); Lymphocytes 5 % (21-51); MDiff Complete? YES; Monocytes 6 % (0-10); Myelocyte 4 % (0-0); Neutrophil 71 % (42-75); RBC Morphology Normal
[2022-03-26] MEDS ORDERED: Heparin 10,000 UNITS/ 10 ML VIAL ONE (08:54)
[2022-03-26] MEDS: Sevelamer Carbonate 800 MG TAB PO SCH ×3 (09:44→16:02)
[2022-03-26] MEDS: Midodrine HCl 5 MG TAB PO SCH ×3 (09:45→20:49)
[2022-03-26] MEDS: Polyethylene Glycol 3350 17 GM Packet PER TUBE SCH (09:45)
[2022-03-26] MEDS: Pantoprazole 40 MG VIAL IVP SCH ×2 (12:56→20:50)
[2022-03-26] MEDS: Senokot S 8.6-50 MG TAB PO SCH ×2 (12:56→20:50)
[2022-03-26] MEDS: traMADol HCl 50 MG TAB PO PRN (13:04)
[2022-03-26] MEDS: Morphine 2 MG/ML VIAL SLOW IVP PRN ×2 (14:15→20:49)
[2022-03-26] MEDS: Ondansetron PF 4 MG/2 ML Vial IVP PRN (21:32)
[2022-03-27] MEDS: Morphine 2 MG/ML VIAL SLOW IVP PRN (04:46)
[2022-03-27 05:32] LABS: #Basophils 0.1 thou/uL (0.0-0.2); #Eosinphils 0.7 thou/uL (0.0-0.7); #Lymphocytes 2.2 thou/uL (1.20-3.40); #Monocytes 1.1 thou/uL (0.11-0.59); #Neutrophils 5.1 thou/uL (1.40-6.50); %Eosinophils 7.5 % (0.0-10.0); %Lymphocytes 24.1 % (21.0-51.0); %Monocytes 12.1 % (0.0-10.0); %Neutrophils 55.3 % (42.0-75.0); Hemoglobin 9.2 g/dL (12.0-16.0); Mean Corpuscular HGB CONC 32.3 g/dL (32.0-36.0); Mean Corpuscular Hemoglobin 33.3 pg (27.0-31.0); Mean Platelet Volume 7.6 fL (7.4-10.4); Platelet Count 343 thou/uL (130-400); RBC Distribution Width 14.1 % (11.5-14.5); Red Blood Cell (RBC) Count 2.76 mill/uL (4.20-5.40); White Blood Cell (WBC) Count 9.3 thou/uL (4.8-10.8)
[2022-03-27 05:59] LABS: Anion Gap 16 mmol/L (10-20); BUN (Urea Nitrogen) 27 mg/dL (7.0-18.7); Calc. Creatinine Clearance 17 mL/min (70-130); Calcium 7.8 mg/dL (7.8-10.44); Carbon Dioxide 28 mmol/L (22-29); Chloride 98 mmol/L (98-107); Glucose 80 mg/dL (70-105); Potassium 3.2 mmol/L (3.5-5.1); Sodium 139 mmol/L (136-145)
[2022-03-27] MEDS: Sevelamer Carbonate 800 MG TAB PO SCH ×2 (08:51→12:33)
[2022-03-27] MEDS: Senokot S 8.6-50 MG TAB PO SCH ×2 (08:51→08:53)
[2022-03-27] MEDS: Pantoprazole 40 MG VIAL IVP SCH (08:51)
[2022-03-27] MEDS: Midodrine HCl 5 MG TAB PO SCH (08:51)
[2022-03-27] MEDS: Polyethylene Glycol 3350 17 GM Packet PER TUBE SCH (08:52)
[2022-03-27 11:50] VITALS: BP 92/56; TEMP 98.1
== END 2022-03-27 14:00 | DRG 981 ==
LOC: ERS 19:01 → 2NO 20:59 → CCU 03-17 09:03 → OBSVTOIN 03-17 12:04 → IMCU/EMU 03-22 14:10 → T4-B 03-23 11:31
PROVIDERS: ADMIT Internal Medicine; ATTEND Internal Medicine
PROC: 02H633Z Insertion of Infusion Device into Right Atrium, Percutaneous Approach (ICD-10-PCS; 2022-03-16)
PROC: B548ZZA Ultrasonography of Superior Vena Cava, Guidance (ICD-10-PCS; 2022-03-16)
PROC: 0JH63XZ Insertion of Tunneled Vascular Access Device into Chest Subcutaneous Tissue and Fascia, Percutaneous Approach (ICD-10-PCS; 2022-03-16)
PROC: 0BH18EZ Insertion of Endotracheal Airway into Trachea, Via Natural or Artificial Opening Endoscopic (ICD-10-PCS; 2022-03-17)
PROC: 5A1955Z Respiratory Ventilation, Greater than 96 Consecutive Hours (ICD-10-PCS; 2022-03-17)
PROC: 3E033XZ Introduction of Vasopressor into Peripheral Vein, Percutaneous Approach (ICD-10-PCS; 2022-03-17)
PROC: 0DH67UZ Insertion of Feeding Device into Stomach, Via Natural or Artificial Opening (ICD-10-PCS; 2022-03-17)
PROC: 06HY33Z Insertion of Infusion Device into Lower Vein, Percutaneous Approach (ICD-10-PCS; 2022-03-17)
PROC: 5A1D70Z Performance of Urinary Filtration, Intermittent, Less than 6 Hours Per Day (ICD-10-PCS; 2022-03-17)
PROC: 3E03329 Introduction of Other Anti-infective into Peripheral Vein, Percutaneous Approach (ICD-10-PCS; 2022-03-17)
PROC: 30233N1 Transfusion of Nonautologous Red Blood Cells into Peripheral Vein, Percutaneous Approach (ICD-10-PCS; 2022-03-19)
PROC: 0QSG04Z Reposition Right Tibia with Internal Fixation Device, Open Approach (ICD-10-PCS; principal; 2022-03-20)
PROC: 5A09457 Assistance with Respiratory Ventilation, 24-96 Consecutive Hours, Continuous Positive Airway Pressure (ICD-10-PCS; 2022-03-21)
DX: T82.868A Thrombosis due to vascular prosthetic devices, implants and grafts, initial encounter (principal); N18.6 End stage renal disease; J96.21 Acute and chronic respiratory failure with hypoxia; J96.22 Acute and chronic respiratory failure with hypercapnia; A41.9 Sepsis, unspecified organism; R65.21 Severe sepsis with septic shock; J69.0 Pneumonitis due to inhalation of food and vomit; R57.1 Hypovolemic shock; R57.8 Other shock; S82.292A Other fracture of shaft of left tibia, initial encounter for closed fracture; K86.1 Other chronic pancreatitis; N03.9 Chronic nephritic syndrome with unspecified morphologic changes; Q87.19 Other congenital malformation syndromes predominantly associated with short stature; E66.2 Morbid (severe) obesity with alveolar hypoventilation; Z20.822 Contact with and (suspected) exposure to COVID-19; Y84.1 Kidney dialysis as the cause of abnormal reaction of the patient, or of later complication, without mention of misadventure at the time of the procedure; D75.89 Other specified diseases of blood and blood-forming organs; D63.1 Anemia in chronic kidney disease; G89.4 Chronic pain syndrome; I95.89 Other hypotension; E89.2 Postprocedural hypoparathyroidism; S82.841A Displaced bimalleolar fracture of right lower leg, initial encounter for closed fracture; W19.XXXA Unspecified fall, initial encounter; E87.5 Hyperkalemia; F41.9 Anxiety disorder, unspecified; F31.9 Bipolar disorder, unspecified; I11.0 Hypertensive heart disease with heart failure; I50.9 Heart failure, unspecified; E87.6 Hypokalemia; Z88.8 Allergy status to other drugs, medicaments and biological substances; Z88.1 Allergy status to other antibiotic agents; Z79.899 Other long term (current) drug therapy; Q90.9 Down syndrome, unspecified; Z90.49 Acquired absence of other specified parts of digestive tract; Z98.890 Other specified postprocedural states; Z99.2 Dependence on renal dialysis; Z78.1 Physical restraint status; Q24.9 Congenital malformation of heart, unspecified; Z68.39 Body mass index [BMI] 39.0-39.9, adult; Z86.16 Personal history of COVID-19; Z90.710 Acquired absence of both cervix and uterus
CPT/HCPCS: 36415; 36416; 36430; 36600; 71045; 74018; 74230; 76000; 80048; 80053; 82274; 82805; 83880; 84145; 85025; 85060; 85610; 85730; 86850; 86900; 86901; 87040; 90935; 93005; 93925; 93970; 94002; 94003; 94660; 96372; 96374; 96375; 96376; C1713; C1752; C9113; G0257; G0378; J0696; J1170; J1644; J1650; J1720; J2060; J2270; J2370; J2405; J2704; J2997; J3010; J3490; J7120; P9016; P9047; Q4081; S0020; U0003; U0005

== ENCOUNTER 2022-05-02 06:16 | Day surgery (SDC) | payer MEDICARE, MEDICAID ==
[2022-05-02] MEDS ORDERED: fentaNYL Citrate/PF 100 MCG/2 ML SYRINGE ONE (06:47)
[2022-05-02] MEDS ORDERED: Ondansetron PF 4 MG/2 ML Vial ONE (07:46)
[2022-05-02] MEDS ORDERED: Rocuronium Bromide 10 MG/ML (10ML VIAL) ONE (07:46)
[2022-05-02] MEDS ORDERED: Midazolam HCl 2 mg/2 ml Vial ONE (07:46)
[2022-05-02] MEDS ORDERED: Dexamethasone 20 MG/5 ML VIAL ONE (07:46)
[2022-05-02] MEDS ORDERED: PROPOFOL 200 MG/20 ML VIAL ONE (07:46)
[2022-05-02] MEDS ORDERED: Lidocaine 1% PF 5 ML VIAL ONE (07:46)
[2022-05-02 07:57] LABS: #Basophils 0.1 thou/uL (0.0-0.2); #Eosinphils 0.6 thou/uL (0.0-0.7); #Lymphocytes 1.6 thou/uL (1.20-3.40); #Neutrophils 4.1 thou/uL (1.40-6.50); %Basophils 1.1 % (0.0-1.0); %Eosinophils 8.1 % (0.0-10.0); %Lymphocytes 21.8 % (21.0-51.0); %Monocytes 13.8 % (0.0-10.0); %Neutrophils 55.2 % (42.0-75.0); Hemoglobin 11.1 g/dL (12.0-16.0); Mean Corpuscular Hemoglobin 32.8 pg (27.0-31.0); Mean Platelet Volume 8.2 fL (7.4-10.4); Platelet Count 184 thou/uL (130-400); RBC Distribution Width 13.2 % (11.5-14.5); Red Blood Cell (RBC) Count 3.39 mill/uL (4.20-5.40); White Blood Cell (WBC) Count 7.5 thou/uL (4.8-10.8)
[2022-05-02 08:13] LABS: Anion Gap 18 mmol/L (10-20); BUN (Urea Nitrogen) 32 mg/dL (7.0-18.7); Calc. Creatinine Clearance 10 mL/min (70-130); Calcium 8.8 mg/dL (7.8-10.44); Carbon Dioxide 29 mmol/L (22-29); Chloride 98 mmol/L (98-107); Estimated GFR 5; Glucose 79 mg/dL (70-105); Sodium 140 mmol/L (136-145)
[2022-05-02] MEDS ORDERED: SUGAMMADEX SODIUM 200 MG/2 ML VIAL ONE (09:46)
[2022-05-02] MEDS ORDERED: Fentanyl 100 MCG/2 ML VIAL ONE (10:33)
[2022-05-02] MEDS ORDERED: Heparin 10,000 UNITS/ 10 ML VIAL ONE (10:54)
[2022-05-02] MEDS ORDERED: HYDROcodone/Acetaminophen 5/325 mg Tablet ONE (15:17)
== END 2022-05-02 15:15 ==
LOC: SDC 06:16
PROVIDERS: ATTEND Specialist
PROC: 06HN33Z Insertion of Infusion Device into Left Femoral Vein, Percutaneous Approach (ICD-10-PCS; principal; 2022-05-02)
PROC: 05PY33Z Removal of Infusion Device from Upper Vein, Percutaneous Approach (ICD-10-PCS; 2022-05-02)
PROC: 03180JV Bypass Left Brachial Artery to Superior Vena Cava with Synthetic Substitute, Open Approach (ICD-10-PCS; 2022-05-02)
DX: I12.0 Hypertensive chronic kidney disease with stage 5 chronic kidney disease or end stage renal disease (principal); N18.6 End stage renal disease; Q87.19 Other congenital malformation syndromes predominantly associated with short stature; J98.11 Atelectasis; Z79.899 Other long term (current) drug therapy; Z88.1 Allergy status to other antibiotic agents; Z88.8 Allergy status to other drugs, medicaments and biological substances; Z99.2 Dependence on renal dialysis
CPT/HCPCS: 71045; 80048; 85025; C1752; C1776; J1100; J1644; J2250; J2405; J2704; J3010; L8670

== ENCOUNTER 2022-05-05 23:42 | Emergency (ER) | payer MEDICARE, MEDICAID ==
[2022-05-06 01:01] LABS: ALT (SGPT) Less than 7 U/L (8-55); AST (SGOT) 11 U/L (5-34); Albumin 3.7 g/dL (3.5-5.0); Alkaline Phosphatase 89 U/L (40-110); Anion Gap 18 mmol/L (10-20); BUN (Urea Nitrogen) 28 mg/dL (7.0-18.7); Bilirubin, Total 0.4 mg/dL (0.2-1.2); Calc. Creatinine Clearance 0 mL/min (70-130); Calcium 8.8 mg/dL (7.8-10.44); Carbon Dioxide 27 mmol/L (22-29); Chloride 98 mmol/L (98-107); Estimated GFR 5; Globulin 3.2 g/dL (2.4-3.5); Glucose 129 mg/dL (70-105); Potassium 4.5 mmol/L (3.5-5.1); Protein, Total 6.9 g/dL (6.0-8.3); Sodium 138 mmol/L (136-145)
[2022-05-06 01:26] LABS: #Eosinphils 0.8 thou/uL (0.0-0.7); #Lymphocytes 1.8 thou/uL (1.20-3.40); #Monocytes 0.9 thou/uL (0.11-0.59); #Neutrophils 7.7 thou/uL (1.40-6.50); %Basophils 0.3 % (0.0-1.0); %Eosinophils 7.1 % (0.0-10.0); %Lymphocytes 16.1 % (21.0-51.0); %Monocytes 8.1 % (0.0-10.0); %Neutrophils 68.3 % (42.0-75.0); Hemoglobin 9.1 g/dL (12.0-16.0); Mean Corpuscular HGB CONC 31.3 g/dL (32.0-36.0); Mean Corpuscular Hemoglobin 32.1 pg (27.0-31.0); Mean Platelet Volume 8.6 fL (7.4-10.4); Platelet Count 168 thou/uL (130-400); RBC Distribution Width 13.5 % (11.5-14.5); Red Blood Cell (RBC) Count 2.83 mill/uL (4.20-5.40); White Blood Cell (WBC) Count 11.2 thou/uL (4.8-10.8)
== END 2022-05-06 02:06 ==
LOC: ERS 23:42
DX: J06.9 Acute upper respiratory infection, unspecified (principal); I12.0 Hypertensive chronic kidney disease with stage 5 chronic kidney disease or end stage renal disease; N18.6 End stage renal disease; E20.9 Hypoparathyroidism, unspecified; K86.1 Other chronic pancreatitis; Z86.16 Personal history of COVID-19; Z95.5 Presence of coronary angioplasty implant and graft; Z79.82 Long term (current) use of aspirin; Z79.899 Other long term (current) drug therapy
CPT/HCPCS: 36415; 71045; 80053; 85025; 93005

== ENCOUNTER 2022-05-29 09:31 | Emergency (ER) | payer MEDICARE, MEDICAID ==
[2022-05-29 10:13] LABS: #Eosinphils 0.6 thou/uL (0.0-0.7); #Lymphocytes 1.4 thou/uL (1.20-3.40); #Monocytes 0.9 thou/uL (0.11-0.59); #Neutrophils 5.7 thou/uL (1.40-6.50); %Basophils 0.3 % (0.0-1.0); %Eosinophils 7.4 % (0.0-10.0); %Lymphocytes 15.9 % (21.0-51.0); %Monocytes 9.9 % (0.0-10.0); %Neutrophils 66.5 % (42.0-75.0); Mean Corpuscular HGB CONC 30.4 g/dL (32.0-36.0); Mean Corpuscular Hemoglobin 31.6 pg (27.0-31.0); Mean Platelet Volume 8.6 fL (7.4-10.4); Platelet Count 174 thou/uL (130-400); RBC Distribution Width 14.1 % (11.5-14.5); Red Blood Cell (RBC) Count 3.18 mill/uL (4.20-5.40); White Blood Cell (WBC) Count 8.6 thou/uL (4.8-10.8)
[2022-05-29 10:31] LABS: ALT (SGPT) 8 U/L (8-55); AST (SGOT) 16 U/L (5-34); Albumin 4.5 g/dL (3.5-5.0); Alkaline Phosphatase 85 U/L (40-110); Anion Gap 16 mmol/L (10-20); BUN (Urea Nitrogen) 20 mg/dL (7.0-18.7); Bilirubin, Total 0.6 mg/dL (0.2-1.2); Calc. Creatinine Clearance 0 mL/min (70-130); Carbon Dioxide 30 mmol/L (22-29); Chloride 99 mmol/L (98-107); Estimated GFR 5; Globulin 3.8 g/dL (2.4-3.5); Glucose 90 mg/dL (70-105); Lipase 24 U/L (8-78); Protein, Total 8.3 g/dL (6.0-8.3); Sodium 140 mmol/L (136-145)
== END 2022-05-29 14:50 ==
LOC: ERS 09:31
DX: J06.9 Acute upper respiratory infection, unspecified (principal); I12.0 Hypertensive chronic kidney disease with stage 5 chronic kidney disease or end stage renal disease; N18.6 End stage renal disease; E20.9 Hypoparathyroidism, unspecified; Z20.822 Contact with and (suspected) exposure to COVID-19; Z99.2 Dependence on renal dialysis; Z86.718 Personal history of other venous thrombosis and embolism; Z79.899 Other long term (current) drug therapy
CPT/HCPCS: 71045; 80053; 83690; 83880; 84484; 85025; 93005; 99285; U0003; U0005

== ENCOUNTER 2022-08-15 03:03 | Inpatient (IN) | payer MEDICARE, MEDICAID ==
[~2022-08-15 03:03] MED LIST changes: +Albuterol Sulfate 2.5 mg/3 ml Neb ONE; +Cefepime 2 GM VIAL ONE; +Dexamethasone 10 MG/ML VIAL ONE; -ISOVUE-370 76%-LOCM 1 ML ONE; +Magnesium 2 GM/50 ML BAG (IN WATER) ONE
[2022-08-15 03:50] LABS: Actual Bicarbonate (HCO3a) 24.7 mEq/L (22-28); Analyzer IN Cardio ER; Base Excess (BEa) -2.5 mEq/L (-2.0 to +3.0); CO2 Tension 53.4 mmHg (35.0-45.0); Calcium, Ionized (arterial) 1.08 mmol/L (1.12-1.30); Carboxyhemoglobin (COHb) 0.5 gm% (0.0-3.0); O2 Tension (PaO2), arterial 111.5 mmHg (80.0-100.0); Potassium - ABG Lab 4.56 mmol/L (3.70-5.30); pH, Arterial 7.28 (7.35-7.45)
[2022-08-15 03:53] LABS: Puncture Site RBA
[2022-08-15 04:07] LABS: #Eosinphils 0.1 thou/uL (0.0-0.7); #Lymphocytes 0.6 thou/uL (1.20-3.40); #Monocytes 0.5 thou/uL (0.11-0.59); #Neutrophils 6.8 thou/uL (1.40-6.50); %Basophils 0.3 % (0.0-1.0); %Eosinophils 1.3 % (0.0-10.0); %Lymphocytes 7.7 % (21.0-51.0); %Monocytes 6.4 % (0.0-10.0); %Neutrophils 84.3 % (42.0-75.0); Hemoglobin 11.4 g/dL (12.0-16.0); Mean Corpuscular HGB CONC 30.7 g/dL (32.0-36.0); Mean Corpuscular Hemoglobin 31.1 pg (27.0-31.0); Mean Platelet Volume 8.7 fL (7.4-10.4); Platelet Count 162 thou/uL (130-400); RBC Distribution Width 14.5 % (11.5-14.5); Red Blood Cell (RBC) Count 3.67 mill/uL (4.20-5.40)
[2022-08-15] MEDS ORDERED: Vancomycin 1 GM/200 ML BAG ONE (04:16)
[2022-08-15 04:27] LABS: Anion Gap 20 mmol/L (10-20); BUN (Urea Nitrogen) 30 mg/dL (7.0-18.7); Calc. Creatinine Clearance 0 mL/min (70-130); Carbon Dioxide 24 mmol/L (22-29); Chloride 100 mmol/L (98-107); Potassium 4.8 mmol/L (3.5-5.1); Sodium 139 mmol/L (136-145)
[2022-08-15 04:28] LABS: ALT (SGPT) 8 U/L (8-55); AST (SGOT) 14 U/L (5-34); Albumin 4.3 g/dL (3.5-5.0); Alkaline Phosphatase 77 U/L (40-110); Bilirubin, Total 0.8 mg/dL (0.2-1.2); CK (CPK) 38 U/L (29-168); Calcium 8.3 mg/dL (7.8-10.44); Estimated GFR 5; Globulin 2.7 g/dL (2.4-3.5); Glucose 106 mg/dL (70-105); Lipase 11 U/L (8-78)
[2022-08-15 04:51] LABS: SARS-CoV-2 NAA Rapid Test Not Detected (NotDetected)
[2022-08-15] MEDS ORDERED: Acetaminophen 650 MG Suppository PR PRN (06:16)
[2022-08-15] MEDS ORDERED: Ondansetron PF 4 MG/2 ML Vial IVP PRN (06:16)
[2022-08-15] MEDS ORDERED: Ondansetron ODT 4 MG TAB PO PRN (06:16)
[2022-08-15] MEDS ORDERED: Ondansetron PF 4 MG/2 ML Vial ONE (08:16)
[2022-08-15] MEDS: Heparin 5,000 UNITS/ML VIAL SC SCH ×3 (08:56→20:55)
[2022-08-15] MEDS ORDERED: Promethazine HCl 25 MG/ML VIAL IVPB PRN (10:52)
[2022-08-15] MEDS ORDERED: HYDROmorphone 2 MG/ML VIAL SLOW IVP PRN (10:52)
[2022-08-15] MEDS ORDERED: Ondansetron HCl/PF 4 MG/2 ML Vial IVP PRN (10:52)
[2022-08-15] MEDS ORDERED: Promethazine HCl 25 MG/ML VIAL IM PRN (10:52)
[2022-08-15] MEDS ORDERED: PACU-Morphine 4MG/ML VIAL SLOW IVP PRN (10:52)
[2022-08-15 12:25] VITALS: BMI 33.9
[2022-08-15] MEDS ORDERED: VANCOMYCIN 1.25 GM/250 ML BAG IVPB SCH (13:00)
[2022-08-15] MEDS: traMADol HCl 50 MG TAB PO PRN (15:36)
[2022-08-16 04:30] LABS: Anion Gap 19 mmol/L (10-20); BUN (Urea Nitrogen) 26 mg/dL (7.0-18.7); Calc. Creatinine Clearance 13 mL/min (70-130); Calcium 8.3 mg/dL (7.8-10.44); Carbon Dioxide 25 mmol/L (22-29); Chloride 95 mmol/L (98-107); Estimated GFR 8; Glucose 109 mg/dL (70-105); Potassium 4.8 mmol/L (3.5-5.1); Sodium 134 mmol/L (136-145)
[2022-08-16 05:00] LABS: Hemoglobin 10.1 g/dL (12.0-16.0); MDiff Complete? YES; Mean Corpuscular HGB CONC 30.9 g/dL (32.0-36.0); Mean Corpuscular Hemoglobin 31.1 pg (27.0-31.0); Mean Platelet Volume 9.4 fL (7.4-10.4); Platelet Count 161 thou/uL (130-400); RBC Distribution Width 14.4 % (11.5-14.5); Red Blood Cell (RBC) Count 3.25 mill/uL (4.20-5.40); White Blood Cell (WBC) Count 6.6 thou/uL (4.8-10.8)
[2022-08-16 05:01] LABS: Band 5 % (5-11); Eosinophils 3 % (0-10); Lymphocytes 27 % (21-51); Monocytes 13 % (0-10); Neutrophil 51 % (42-75); Reactive Lymphocytes 1 % (0-10)
[2022-08-16] MEDS: Heparin 5,000 UNITS/ML VIAL SC SCH ×3 (07:30→20:34)
[2022-08-16] MEDS: traMADol HCl 50 MG TAB PO PRN (07:30)
[2022-08-16] MEDS: Acetaminophen 325 MG TAB PO PRN (07:30)
[2022-08-16] MEDS ORDERED: FLU VACC QS2022-23(6MOS UP)/PF 60 MCG/0.5 ML SYRINGE IM ONE (09:00)
[2022-08-16] MEDS ORDERED: Cefepime 0.5 GM, IV Admixture Fee-Chemo 1 UNITS in Sodium Chloride 0.9% 100 ML IVPB SCH (17:00)
[2022-08-16] MEDS: Amoxicillin/Potassium Clav 250 MG TAB PO SCH ×2 (19:28→20:33)
[2022-08-16] MEDS: Gabapentin 300 MG CAP PO SCH (20:34)
[2022-08-17] MEDS: Gabapentin 300 MG CAP PO SCH ×2 (07:45→22:23)
[2022-08-17] MEDS: Heparin 5,000 UNITS/ML VIAL SC SCH ×3 (07:46→22:27)
[2022-08-17] MEDS: Amoxicillin/Potassium Clav 250 MG TAB PO SCH ×2 (07:46→22:27)
[2022-08-17] MEDS: Stress 600 With Zinc 1 TAB PO SCH (07:46)
[2022-08-17] MEDS: Docusate 100 MG CAP PO SCH (07:46)
[2022-08-17] MEDS: Folic Acid/Vit B Comp W-C PO SCH (07:46)
[2022-08-17] MEDS: Sevelamer Carbonate 800 MG TAB PO SCH ×2 (07:49→14:30)
[2022-08-17] MEDS ORDERED: Epoetin (ESRD) 20,000 UNITS/ML SC SCH (10:30)
[2022-08-17] MEDS ORDERED: Epoetin (ESRD) 10,000 UNITS/ML VIAL SC SCH (12:00)
[2022-08-18] MEDS: traMADol HCl 50 MG TAB PO PRN (01:54)
[2022-08-18] MEDS: Acetaminophen 325 MG TAB PO PRN (01:55)
[2022-08-18 06:11] LABS: Anion Gap 16 mmol/L (10-20); BUN (Urea Nitrogen) 19 mg/dL (7.0-18.7); Calc. Creatinine Clearance 14 mL/min (70-130); Calcium 8.7 mg/dL (7.8-10.44); Carbon Dioxide 25 mmol/L (22-29); Chloride 99 mmol/L (98-107); Estimated GFR 9; Glucose 88 mg/dL (70-105); Potassium 4.4 mmol/L (3.5-5.1); Sodium 136 mmol/L (136-145)
[2022-08-18 06:49] LABS: Eosinophils 10 % (0-10); Hemoglobin 11.2 g/dL (12.0-16.0); Hypochromia SLIGHT = 6-15 cells (100X) (0-5/hpf); Lymphocytes 41 % (21-51); MDiff Complete? YES; Macrocytosis SLIGHT = 6-15 cells (100X) (0-5/hpf); Mean Corpuscular Hemoglobin 31.3 pg (27.0-31.0); Mean Platelet Volume 8.7 fL (7.4-10.4); Monocytes 6 % (0-10); Neutrophil 43 % (42-75); Ovalocytes SLIGHT = 2-5 cells (100X) (0-1/hpf); Platelet Count 162 thou/uL (130-400); Platelet Morphology Comment Appears Adequate; Polychromasia SLIGHT = 2-3 cells (100X) (0-2/hpf); RBC Distribution Width 14.2 % (11.5-14.5); White Blood Cell (WBC) Count 7.3 thou/uL (4.8-10.8)
[2022-08-18] MEDS: Amoxicillin/Potassium Clav 250 MG TAB PO SCH (10:05)
[2022-08-18] MEDS: Sevelamer Carbonate 800 MG TAB PO SCH ×2 (10:05→14:44)
[2022-08-18] MEDS: Stress 600 With Zinc 1 TAB PO SCH (10:05)
[2022-08-18] MEDS: Gabapentin 300 MG CAP PO SCH (10:06)
[2022-08-18] MEDS: Docusate 100 MG CAP PO SCH (10:06)
[2022-08-18] MEDS: Heparin 5,000 UNITS/ML VIAL SC SCH ×2 (10:07→14:45)
[2022-08-18] MEDS: Folic Acid/Vit B Comp W-C PO SCH (10:07)
[2022-08-18 16:40] VITALS: BP 107/71; TEMP 98.3
== END 2022-08-18 18:00 | DRG 177 ==
LOC: ERS 03:03 → ERHOLD 05:28 → IMCU/EMU 12:08 → SURG B 08-17 13:13
PROVIDERS: ADMIT Internal Medicine; ATTEND Internal Medicine
PROC: 5A09357 Assistance with Respiratory Ventilation, Less than 24 Consecutive Hours, Continuous Positive Airway Pressure (ICD-10-PCS; principal; 2022-08-16)
PROC: 5A1D70Z Performance of Urinary Filtration, Intermittent, Less than 6 Hours Per Day (ICD-10-PCS; 2022-08-16)
DX: J69.0 Pneumonitis due to inhalation of food and vomit (principal); J96.21 Acute and chronic respiratory failure with hypoxia; N18.6 End stage renal disease; J96.22 Acute and chronic respiratory failure with hypercapnia; I13.2 Hypertensive heart and chronic kidney disease with heart failure and with stage 5 chronic kidney disease, or end stage renal disease; K86.1 Other chronic pancreatitis; Q87.19 Other congenital malformation syndromes predominantly associated with short stature; E87.1 Hypo-osmolality and hyponatremia; Z20.822 Contact with and (suspected) exposure to COVID-19; F41.9 Anxiety disorder, unspecified; F31.9 Bipolar disorder, unspecified; E03.9 Hypothyroidism, unspecified; E87.70 Fluid overload, unspecified; D63.1 Anemia in chronic kidney disease; I50.9 Heart failure, unspecified; Z99.2 Dependence on renal dialysis; Z88.1 Allergy status to other antibiotic agents; Z88.5 Allergy status to narcotic agent; Z88.8 Allergy status to other drugs, medicaments and biological substances; Z79.899 Other long term (current) drug therapy; Z79.51 Long term (current) use of inhaled steroids; Z90.49 Acquired absence of other specified parts of digestive tract; Z99.81 Dependence on supplemental oxygen; Z87.01 Personal history of pneumonia (recurrent)
CPT/HCPCS: 36415; 36600; 71045; 80048; 80053; 82550; 82805; 83605; 83690; 83880; 84145; 84484; 85025; 87040; 87081; 90935; 93005; 94644; 94660; 96374; 96375; G0257; J0692; J1100; J1644; J2405; J3370; J3475; J3490; J7611; J7620; Q4081

== ENCOUNTER 2022-11-16 08:21 | Emergency (ER) | payer MEDICARE, MEDICAID ==
[2022-11-16] MEDS ORDERED: Aspirin Chewable 81 MG TAB ONE ×2 (08:45)
[2022-11-16 09:01] LABS: #Basophils 0.1 thou/uL (0.0-0.2); #Eosinphils 1.3 thou/uL (0.0-0.7); #Lymphocytes 1.6 thou/uL (1.20-3.40); #Monocytes 1.2 thou/uL (0.11-0.59); #Neutrophils 5.6 thou/uL (1.40-6.50); %Basophils 0.9 % (0.0-1.0); %Eosinophils 13.2 % (0.0-10.0); %Lymphocytes 16.1 % (21.0-51.0); %Monocytes 12.3 % (0.0-10.0); %Neutrophils 57.6 % (42.0-75.0); Hemoglobin 12.4 g/dL (12.0-16.0); Mean Corpuscular HGB CONC 31.5 g/dL (32.0-36.0); Mean Corpuscular Hemoglobin 31.2 pg (27.0-31.0); Mean Corpuscular Volume 99.2 fl (78.0-98.0); Mean Platelet Volume 9.7 fL (7.4-10.4); Platelet Count 123 10x3/uL (130-400); RBC Distribution Width 14.7 % (11.5-14.5); Red Blood Cell (RBC) Count 3.96 mill/uL (4.20-5.40); White Blood Cell (WBC) Count 9.8 10x3/uL (4.8-10.8)
[2022-11-16 09:23] LABS: ALT (SGPT) Less than 7 U/L (8-55); AST (SGOT) 20 U/L (5-34); Albumin 4.7 g/dL (3.5-5.0); Alkaline Phosphatase 126 U/L (40-110); Anion Gap 18 mmol/L (10-20); BUN (Urea Nitrogen) 25 mg/dL (7.0-18.7); Bilirubin, Total 0.5 mg/dL (0.2-1.2); Calc. Creatinine Clearance 0 mL/min (70-130); Calcium 8.8 mg/dL (7.8-10.44); Carbon Dioxide 30 mmol/L (22-29); Chloride 100 mmol/L (98-107); Estimated GFR 5; Globulin 3.7 g/dL (2.4-3.5); Glucose 85 mg/dL (70-105); Magnesium 2.5 mg/dL (1.6-2.6); Potassium 5.5 mmol/L (3.5-5.1); Protein, Total 8.4 g/dL (6.0-8.3); Sodium 142 mmol/L (136-145)
[2022-11-16 09:42] LABS: SARS-CoV-2 NAA Rapid Test Not Detected (NotDetected)
[2022-11-16] MEDS ORDERED: Ipratropium/Albuterol 3 ML NEB ONE (09:44)
[2022-11-16] MEDS ORDERED: Albuterol 2.5 MG/0.5 ML NEB ONE (09:50)
[2022-11-16] MEDS ORDERED: predniSONE 20 MG TAB ONE (10:37)
== END 2022-11-16 12:35 ==
LOC: ERS 08:21
DX: J20.9 Acute bronchitis, unspecified (principal); Z20.822 Contact with and (suspected) exposure to COVID-19; I12.0 Hypertensive chronic kidney disease with stage 5 chronic kidney disease or end stage renal disease; N18.6 End stage renal disease; Z99.2 Dependence on renal dialysis; Z79.899 Other long term (current) drug therapy
CPT/HCPCS: 0240U; 71045; 80053; 83605; 83735; 84484; 85025; 87040; 93005; 94640; 94644; 94760; 99285; J7512; J7611; J7620

== ENCOUNTER 2022-11-20 14:03 | Emergency (ER) | payer MEDICARE, MEDICAID ==
[2022-11-20] MEDS ORDERED: Acetaminophen 500 MG TAB ONE (15:20)
[2022-11-20 15:21] LABS: #Basophils 0.1 thou/uL (0.0-0.2); #Eosinphils 0.4 thou/uL (0.0-0.7); #Lymphocytes 0.9 thou/uL (1.20-3.40); #Monocytes 1.3 thou/uL (0.11-0.59); #Neutrophils 8.2 thou/uL (1.40-6.50); %Basophils 0.5 % (0.0-1.0); %Neutrophils 75.6 % (42.0-75.0); Hemoglobin 12.1 g/dL (12.0-16.0); Mean Corpuscular HGB CONC 30.7 g/dL (32.0-36.0); Mean Corpuscular Hemoglobin 30.7 pg (27.0-31.0); Mean Corpuscular Volume 99.8 fl (78.0-98.0); Mean Platelet Volume 11.1 fL (7.4-10.4); Platelet Count 80 10x3/uL (130-400); RBC Distribution Width 15.1 % (11.5-14.5); Red Blood Cell (RBC) Count 3.94 mill/uL (4.20-5.40); White Blood Cell (WBC) Count 10.8 10x3/uL (4.8-10.8)
[2022-11-20 15:34] LABS: ALT (SGPT) Less than 7 U/L (8-55); AST (SGOT) 13 U/L (5-34); Albumin 4.7 g/dL (3.5-5.0); Alkaline Phosphatase 106 U/L (40-110); Anion Gap 16 mmol/L (10-20); BUN (Urea Nitrogen) 35 mg/dL (7.0-18.7); Bilirubin, Total 0.6 mg/dL (0.2-1.2); Calc. Creatinine Clearance 0 mL/min (70-130); Calcium 9.1 mg/dL (7.8-10.44); Carbon Dioxide 31 mmol/L (22-29); Chloride 99 mmol/L (98-107); Estimated GFR 5; Globulin 3.3 g/dL (2.4-3.5); Glucose 103 mg/dL (70-105); Potassium 5.4 mmol/L (3.5-5.1); Sodium 141 mmol/L (136-145)
[2022-11-20] MEDS ORDERED: Ondansetron ODT 4 MG TAB ONE (17:41)
== END 2022-11-20 20:22 ==
LOC: ERS 14:03
DX: M54.50 Low back pain, unspecified (principal); I12.0 Hypertensive chronic kidney disease with stage 5 chronic kidney disease or end stage renal disease; N18.6 End stage renal disease; E20.9 Hypoparathyroidism, unspecified; Z99.2 Dependence on renal dialysis; Z79.899 Other long term (current) drug therapy
CPT/HCPCS: 36415; 71045; 72100; 80053; 84484; 85025; 93005; Q0162

== ENCOUNTER 2022-11-21 05:56 | Emergency (ER) | payer MEDICARE, MEDICAID | END 2022-11-21 09:50 | LOC: ERS 05:56 | DX: R04.0 Epistaxis (principal); I12.0 Hypertensive chronic kidney disease with stage 5 chronic kidney disease or end stage renal disease; N18.6 End stage renal disease; Z99.2 Dependence on renal dialysis | CPT/HCPCS: 99283 ==

== ENCOUNTER 2022-11-21 22:57 | Inpatient (IN) | payer MEDICARE, MEDICAID ==
[2022-11-21] MEDS ORDERED: Acetaminophen 325 MG Suppository ONE (23:14)
[2022-11-21] MEDS ORDERED: NOREPINEPHRINE 8 MG/250 ML-D5W 250 ML ONE (23:32)
[2022-11-21 23:49] LABS: #Eosinphils 0.5 thou/uL (0.0-0.7); #Lymphocytes 1.9 thou/uL (1.20-3.40); #Monocytes 1.7 thou/uL (0.11-0.59); #Neutrophils 7.6 thou/uL (1.40-6.50); %Basophils 0.3 % (0.0-1.0); %Eosinophils 4.2 % (0.0-10.0); %Lymphocytes 15.9 % (21.0-51.0); %Monocytes 14.4 % (0.0-10.0); %Neutrophils 65.2 % (42.0-75.0); Mean Corpuscular Hemoglobin 31.8 pg (27.0-31.0); Mean Corpuscular Volume 99.4 fl (78.0-98.0); Mean Platelet Volume 9.1 fL (7.4-10.4); Platelet Count 125 10x3/uL (130-400); RBC Distribution Width 14.9 % (11.5-14.5); Red Blood Cell (RBC) Count 3.78 mill/uL (4.20-5.40); White Blood Cell (WBC) Count 11.6 10x3/uL (4.8-10.8)
[2022-11-22 00:07] LABS: ALT (SGPT) Less than 7 U/L (8-55); AST (SGOT) 16 U/L (5-34); Albumin 4.1 g/dL (3.5-5.0); Alkaline Phosphatase 90 U/L (40-110); Anion Gap 19 mmol/L (10-20); BUN (Urea Nitrogen) 22 mg/dL (7.0-18.7); Bilirubin, Total 0.5 mg/dL (0.2-1.2); Calc. Creatinine Clearance 0 mL/min (70-130); Calcium 8.7 mg/dL (7.8-10.44); Carbon Dioxide 27 mmol/L (22-29); Chloride 98 mmol/L (98-107); Estimated GFR 8; Glucose 97 mg/dL (70-105); Potassium 5.5 mmol/L (3.5-5.1); Protein, Total 7.1 g/dL (6.0-8.3); Sodium 138 mmol/L (136-145)
[2022-11-22] MEDS ORDERED: Ketamine 50 MG/ML (10ML VIAL) ONE (00:15)
[2022-11-22] MEDS ORDERED: EPINEPHrine 1 MG/10 ML Abboject SYRINGE ONE (00:15)
[2022-11-22 00:30] LABS: CKMB 0.9 ng/mL (0-6.6)
[2022-11-22 00:40] LABS: Actual Bicarbonate (HCO3a) 20.2 mEq/L (22-28); Analyzer IN Cardio ER; Base Excess (BEa) -6.5 mEq/L (-2.0 to +3.0); CO2 Tension 44.4 mmHg (35.0-45.0); Calcium, Ionized (arterial) 1.02 mmol/L (1.12-1.30); Carboxyhemoglobin (COHb) 0.6 gm% (0.0-3.0); Hemoglobin (Hb) 13.5 g/dL (12.0-16.0); Potassium - ABG Lab 5.74 mmol/L (3.70-5.30); pH, Arterial 7.28 (7.35-7.45)
[2022-11-22] MEDS ORDERED: Fentanyl CADD 100 ML IV SCH ×2 (00:45→02:15)
[2022-11-22] MEDS ORDERED: EPINEPHrine 1 MG/ML VIAL ONE (00:46)
[2022-11-22] MEDS ORDERED: Ipratropium/Albuterol 3 ML NEB ONE (00:50)
[2022-11-22 00:58] LABS: Puncture Site RBA
[2022-11-22] MEDS ORDERED: Cefepime 2 GM VIAL ONE (01:48)
[2022-11-22] MEDS ORDERED: Acetaminophen 650 MG Suppository PR PRN (01:58)
[2022-11-22] MEDS ORDERED: Ventilator Sedation Protocol 1 EACH FS SCH (01:58)
[2022-11-22] MEDS ORDERED: NOREPINEPHRINE 8 MG/250 ML-D5W 250 ML IVPB SCH (02:00)
[2022-11-22] MEDS ORDERED: Midazolam HCl 2 mg/2 ml Vial SLOW IVP PRN (02:04)
[2022-11-22] MEDS ORDERED: DISCONTINUE PREVIOUS NARCOTIC PAIN MEDICATIONS AND BENZODIAZEPINES FS SCH (02:15)
[2022-11-22] MEDS ORDERED: Morphine 2 MG/ML VIAL SLOW IVP PRN (02:15)
[2022-11-22] MEDS ORDERED: Propofol BOLUS 1,000 MG/100 ML VIAL IV PRN (02:15)
[2022-11-22] MEDS ORDERED: Propofol 1,000 MG/100 ML VIAL IV PRN (02:15)
[2022-11-22] MEDS ORDERED: Dextrose 50% Abboject 50 ML SYRINGE SLOW IVP PRN (02:19)
[2022-11-22] MEDS ORDERED: Dextrose 5% in Water 1,000 ML IV PRN (02:19)
[2022-11-22 02:39] LABS: Hemoglobin 12.6 g/dL (12.0-16.0); Mean Corpuscular HGB CONC 31.3 g/dL (32.0-36.0); Mean Corpuscular Hemoglobin 31.4 pg (27.0-31.0); Mean Platelet Volume 9.3 fL (7.4-10.4); Platelet Count 137 10x3/uL (130-400); Red Blood Cell (RBC) Count 4.02 mill/uL (4.20-5.40); White Blood Cell (WBC) Count 20.1 10x3/uL (4.8-10.8)
[2022-11-22 02:58] LABS: Anion Gap 24 mmol/L (10-20); BUN (Urea Nitrogen) 24 mg/dL (7.0-18.7); Calc. Creatinine Clearance 13 mL/min (70-130); Calcium 8.7 mg/dL (7.8-10.44); Carbon Dioxide 20 mmol/L (22-29); Chloride 97 mmol/L (98-107); Estimated GFR 8; Glucose 209 mg/dL (70-105); Potassium 5.4 mmol/L (3.5-5.1); Sodium 136 mmol/L (136-145)
[2022-11-22 02:59] LABS: Troponin I 0.688 ng/mL (< 0.028)
[2022-11-22 03:04] LABS: Band 11 % (5-11); Eosinophils 2 % (0-10); Lymphocytes 6 % (21-51); MDiff Complete? YES; Monocytes 5 % (0-10); Neutrophil 76 % (42-75)
[2022-11-22] MEDS: Linezolid 600 MG in Premix Bag 1 BAG IVPB SCH ×2 (03:42→15:27)
[2022-11-22] MEDS ORDERED: Piperacillin/Tazobactam 3.375 GM in Sodium Chloride 0.9% 100 ML IVPB SCH (06:00)
[2022-11-22 06:06] LABS: SARS-CoV-2 NAA Rapid Test Not Detected (NotDetected)
[2022-11-22] MEDS ORDERED: Rocuronium Bromide 10 MG/ML (10ML VIAL) ONE (06:25)
[2022-11-22] MEDS: Ipratropium/Albuterol 3 ML NEB NEB SCH ×4 (07:14→23:43)
[2022-11-22 07:19] LABS: Troponin I 2.877 ng/mL (< 0.028)
[2022-11-22] MEDS: Pantoprazole 40 MG VIAL IVP SCH (09:59)
[2022-11-22] MEDS: Heparin 5,000 UNITS/ML VIAL SC SCH ×3 (09:59→21:09)
[2022-11-22] MEDS: Piperacillin/Tazobactam 3.375 GM in Sodium Chloride 0.9% 100 ML IVPB SCH ×2 (09:59→21:09)
[2022-11-22] MEDS ORDERED: Iopamidol-370 76% 500 ML 1 ML ONE (14:59)
[2022-11-22 19:28] LABS: INR-International Normal Ratio 1.3; PTT 38.4 sec (22.9-36.1); Prothrombin Time 16.6 sec (12.0-14.7)
[2022-11-22 19:30] LABS: D-Dimer Test 1.68 *mcg/mL (0.27-0.43)
[2022-11-23] MEDS: Linezolid 600 MG in Premix Bag 1 BAG IVPB SCH ×2 (02:40→14:58)
[2022-11-23 04:25] LABS: #Basophils 0.1 thou/uL (0.0-0.2); #Eosinphils 1.6 thou/uL (0.0-0.7); #Lymphocytes 1.6 thou/uL (1.20-3.40); #Monocytes 2.3 thou/uL (0.11-0.59); #Neutrophils 11.8 thou/uL (1.40-6.50); %Basophils 0.5 % (0.0-1.0); %Eosinophils 9.2 % (0.0-10.0); %Monocytes 13.4 % (0.0-10.0); Mean Corpuscular Hemoglobin 31.3 pg (27.0-31.0); Mean Platelet Volume 9.1 fL (7.4-10.4); Platelet Count 175 10x3/uL (130-400); RBC Distribution Width 15.5 % (11.5-14.5); Red Blood Cell (RBC) Count 3.82 mill/uL (4.20-5.40); White Blood Cell (WBC) Count 17.4 10x3/uL (4.8-10.8)
[2022-11-23 04:57] LABS: ALT (SGPT) Less than 7 U/L (8-55); AST (SGOT) 25 U/L (5-34); Albumin 3.8 g/dL (3.5-5.0); Alkaline Phosphatase 72 U/L (40-110); Anion Gap 18 mmol/L (10-20); BUN (Urea Nitrogen) 31 mg/dL (7.0-18.7); Bilirubin, Total 0.5 mg/dL (0.2-1.2); Calc. Creatinine Clearance 9 mL/min (70-130); Calcium 8.5 mg/dL (7.8-10.44); Carbon Dioxide 26 mmol/L (22-29); Chloride 95 mmol/L (98-107); Estimated GFR 6; Globulin 3.3 g/dL (2.4-3.5); Glucose 147 mg/dL (70-105); Potassium 5.9 mmol/L (3.5-5.1); Protein, Total 7.1 g/dL (6.0-8.3); Sodium 133 mmol/L (136-145)
[2022-11-23] MEDS ORDERED: Levothyroxine Sodium 200 MCG VIAL IVP SCH (06:00)
[2022-11-23 06:53] LABS: Actual Bicarbonate (HCO3a) 25.6 mEq/L (22-28); Base Excess (BEa) -1.8 mEq/L (-2.0 to +3.0); CO2 Tension 54.4 mmHg (35.0-45.0); O2 Tension (PaO2), arterial 78.4 mmHg (80.0-100.0); pH, Arterial 7.29 (7.35-7.45)
[2022-11-23 06:54] LABS: Analyzer IN Cardio ER; Calcium, Ionized (arterial) 1.07 mmol/L (1.12-1.30); Carboxyhemoglobin (COHb) 0.5 gm% (0.0-3.0); Hemoglobin (Hb) 13.2 g/dL (12.0-16.0); Potassium - ABG Lab 5.97 mmol/L (3.70-5.30)
[2022-11-23 07:01] LABS: Puncture Site RBA
[2022-11-23] MEDS: Ipratropium/Albuterol 3 ML NEB NEB SCH ×4 (07:03→23:42)
[2022-11-23] MEDS ORDERED: Levothyroxine Sodium 25 MCG TAB PO SCH (07:45)
[2022-11-23] MEDS ORDERED: Heparin 10,000 UNITS/ 10 ML VIAL ONE (08:59)
[2022-11-23] MEDS: Pantoprazole 40 MG VIAL IVP SCH (10:03)
[2022-11-23] MEDS: Heparin 5,000 UNITS/ML VIAL SC SCH ×2 (10:03→20:35)
[2022-11-23] MEDS: Piperacillin/Tazobactam 3.375 GM in Sodium Chloride 0.9% 100 ML IVPB SCH ×2 (10:04→21:19)
[2022-11-23 15:14] LABS: Actual Bicarbonate (HCO3v) 29 mEq/L (22-28); Base Excess 3.4 mEq/L (-2.0 to +3.0); Calcium, Ionized (venous) 1.06 mmol/L (1.16-1.32); Chloride (VBG) 97 mmol/L (98-106); Hemoglobin (Hb) 13.3 g/dL (11.7-15.5); Potassium (VBG) 4.39 mmol/L (3.70-5.30); Sodium 136.8 mmol/L (133-146); pH (venous) 7.41 (7.32-7.43)
[2022-11-23 19:01] LABS: MONO NEGATIVE CONTROL ZONE White (Negative) (White); MONO POSITIVE CONTROL Pink Line (Positive) (PINK/RED); Mononucleosis NEGATIVE (NEGATIVE)
[2022-11-23] MEDS ORDERED: guaiFENesin 200 MG TAB PO PRN (19:07)
[2022-11-23] MEDS: Chloraseptic Spray 180 ml Bottle PO PRN ×2 (20:35→22:30)
[2022-11-23] MEDS: Benzonatate 100 MG CAP PO PRN (20:36)
[2022-11-23] MEDS: Ondansetron PF 4 MG/2 ML Vial IVP PRN (21:19)
[2022-11-24] MEDS: Linezolid 600 MG in Premix Bag 1 BAG IVPB SCH (02:17)
[2022-11-24] MEDS: Chloraseptic Spray 180 ml Bottle PO PRN ×3 (02:19→15:17)
[2022-11-24] MEDS ORDERED: Midodrine HCl 5 MG TAB PO SCH (02:45)
[2022-11-24] MEDS: Ondansetron PF 4 MG/2 ML Vial IVP PRN ×2 (04:34→18:09)
[2022-11-24] MEDS: Acetaminophen 325 MG TAB PO PRN (04:34)
[2022-11-24] MEDS: Levothyroxine Sodium 25 MCG TAB PO SCH (04:36)
[2022-11-24 05:04] LABS: Hemoglobin 10.7 g/dL (12.0-16.0); Mean Corpuscular HGB CONC 30.9 g/dL (32.0-36.0); Mean Corpuscular Hemoglobin 31.2 pg (27.0-31.0); Mean Platelet Volume 9.5 fL (7.4-10.4); Platelet Count 153 10x3/uL (130-400); RBC Distribution Width 15.5 % (11.5-14.5); Red Blood Cell (RBC) Count 3.43 mill/uL (4.20-5.40); White Blood Cell (WBC) Count 16.3 10x3/uL (4.8-10.8)
[2022-11-24 05:31] LABS: ALT (SGPT) Less than 7 U/L (8-55); AST (SGOT) 40 U/L (5-34); Albumin 3.9 g/dL (3.5-5.0); Alkaline Phosphatase 70 U/L (40-110); Anion Gap 21 mmol/L (10-20); BUN (Urea Nitrogen) 13 mg/dL (7.0-18.7); Bilirubin, Total 0.6 mg/dL (0.2-1.2); Calc. Creatinine Clearance 0 mL/min (70-130); Calcium 8.7 mg/dL (7.8-10.44); Carbon Dioxide 24 mmol/L (22-29); Chloride 94 mmol/L (98-107); Estimated GFR 10; Globulin 3.2 g/dL (2.4-3.5); Glucose 79 mg/dL (70-105); Protein, Total 7.1 g/dL (6.0-8.3); Sodium 135 mmol/L (136-145)
[2022-11-24 05:45] LABS: Band 6 % (5-11); Eosinophils 2 % (0-10); Hypochromia SLIGHT = 6-15 cells (100X) (0-5/hpf); Lymphocytes 7 % (21-51); MDiff Complete? YES; Monocytes 22 % (0-10); Neutrophil 63 % (42-75); Platelet Morphology Comment Appears Adequate
[2022-11-24] MEDS: Ipratropium/Albuterol 3 ML NEB NEB SCH ×3 (07:09→19:02)
[2022-11-24] MEDS: Benzonatate 100 MG CAP PO PRN (07:53)
[2022-11-24] MEDS: Heparin 5,000 UNITS/ML VIAL SC SCH ×2 (08:06→20:57)
[2022-11-24] MEDS: Pantoprazole 40 MG VIAL IVP SCH (08:07)
[2022-11-24] MEDS: Midodrine HCl 5 MG TAB PO SCH ×3 (08:07→20:57)
[2022-11-24] MEDS: Piperacillin/Tazobactam 3.375 GM in Sodium Chloride 0.9% 100 ML IVPB SCH ×2 (10:36→20:58)
[2022-11-24] MEDS: Polyethylene Glycol 3350 17 GM Packet PO PRN ×2 (10:37→15:17)
[2022-11-24] MEDS ORDERED: EPOETIN ALFA-EPBX (ESRD) 10,000 UNIT/ML VIAL SC SCH (11:00)
[2022-11-24] MEDS: Ondansetron ODT 4 MG TAB PO PRN (11:43)
[2022-11-24] MEDS: Senokot S 8.6-50 MG TAB PO SCH (18:37)
[2022-11-24] MEDS ORDERED: Bisacodyl 10 MG SUPP PR SCH (19:15)
[2022-11-25] MEDS: Ipratropium/Albuterol 3 ML NEB NEB SCH ×5 (00:24→23:58)
[2022-11-25] MEDS: Levothyroxine Sodium 25 MCG TAB PO SCH (05:23)
[2022-11-25] MEDS: Senokot S 8.6-50 MG TAB PO SCH ×2 (08:51→20:07)
[2022-11-25] MEDS: Midodrine HCl 5 MG TAB PO SCH ×3 (08:51→20:06)
[2022-11-25] MEDS: Piperacillin/Tazobactam 3.375 GM in Sodium Chloride 0.9% 100 ML IVPB SCH ×2 (08:51→20:20)
[2022-11-25] MEDS: Heparin 5,000 UNITS/ML VIAL SC SCH ×2 (08:51→20:07)
[2022-11-25] MEDS: Pantoprazole 40 MG VIAL IVP SCH (08:51)
[2022-11-25] MEDS: Ondansetron ODT 4 MG TAB PO PRN (20:19)
[2022-11-25] MEDS: Acetaminophen 325 MG TAB PO PRN (20:19)
[2022-11-26] MEDS: Levothyroxine Sodium 25 MCG TAB PO SCH (05:05)
[2022-11-26] MEDS: Ipratropium/Albuterol 3 ML NEB NEB SCH ×4 (07:13→23:59)
[2022-11-26] MEDS ORDERED: Heparin 10,000 UNITS/ 10 ML VIAL ONE (08:38)
[2022-11-26] MEDS: Senokot S 8.6-50 MG TAB PO SCH ×2 (08:44→19:02)
[2022-11-26] MEDS: Piperacillin/Tazobactam 3.375 GM in Sodium Chloride 0.9% 100 ML IVPB SCH ×2 (08:44→21:32)
[2022-11-26] MEDS: Midodrine HCl 5 MG TAB PO SCH ×3 (08:44→19:40)
[2022-11-26] MEDS: Heparin 5,000 UNITS/ML VIAL SC SCH ×2 (08:44→19:40)
[2022-11-26] MEDS: Pantoprazole 40 MG VIAL IVP SCH (08:44)
[2022-11-26 10:26] LABS: #Basophils 0.1 thou/uL (0.0-0.2); #Eosinphils 0.9 thou/uL (0.0-0.7); #Lymphocytes 1.2 thou/uL (1.20-3.40); #Monocytes 1.8 thou/uL (0.11-0.59); %Basophils 0.7 % (0.0-1.0); %Eosinophils 6.9 % (0.0-10.0); %Lymphocytes 8.9 % (21.0-51.0); %Monocytes 14.2 % (0.0-10.0); %Neutrophils 69.3 % (42.0-75.0); Hemoglobin 11.2 g/dL (12.0-16.0); Mean Corpuscular HGB CONC 31.1 g/dL (32.0-36.0); Mean Corpuscular Hemoglobin 31.6 pg (27.0-31.0); Mean Platelet Volume 8.5 fL (7.4-10.4); Platelet Count 205 10x3/uL (130-400); RBC Distribution Width 16.1 % (11.5-14.5); Red Blood Cell (RBC) Count 3.54 mill/uL (4.20-5.40); White Blood Cell (WBC) Count 12.9 10x3/uL (4.8-10.8)
[2022-11-26 10:58] LABS: ALT (SGPT) Less than 7 U/L (8-55); AST (SGOT) 34 U/L (5-34); Albumin 3.9 g/dL (3.5-5.0); Alkaline Phosphatase 74 U/L (40-110); Anion Gap 29 mmol/L (10-20); BUN (Urea Nitrogen) 32 mg/dL (7.0-18.7); Bilirubin, Total 0.5 mg/dL (0.2-1.2); Calc. Creatinine Clearance 8 mL/min (70-130); Calcium 8.1 mg/dL (7.8-10.44); Carbon Dioxide 17 mmol/L (22-29); Chloride 97 mmol/L (98-107); Estimated GFR 4; Globulin 3.7 g/dL (2.4-3.5); Glucose 82 mg/dL (70-105); Potassium 5.3 mmol/L (3.5-5.1); Protein, Total 7.6 g/dL (6.0-8.3); Sodium 138 mmol/L (136-145)
[2022-11-26] MEDS: Acetaminophen 325 MG TAB PO PRN (13:19)
[2022-11-26] MEDS: Ondansetron PF 4 MG/2 ML Vial IVP PRN (19:40)
[2022-11-27] MEDS ORDERED: Melatonin 3 MG TAB PO PRN (00:41)
[2022-11-27] MEDS: Levothyroxine Sodium 25 MCG TAB PO SCH (02:54)
[2022-11-27] MEDS: Ipratropium/Albuterol 3 ML NEB NEB SCH ×2 (06:37→12:56)
[2022-11-27] MEDS: Midodrine HCl 5 MG TAB PO SCH ×2 (08:55→15:25)
[2022-11-27] MEDS: Heparin 5,000 UNITS/ML VIAL SC SCH (08:55)
[2022-11-27] MEDS: Senokot S 8.6-50 MG TAB PO SCH (08:56)
[2022-11-27] MEDS: Piperacillin/Tazobactam 3.375 GM in Sodium Chloride 0.9% 100 ML IVPB SCH (08:57)
[2022-11-27] MEDS: Pantoprazole 40 MG VIAL IVP SCH (08:57)
[2022-11-27 16:07] VITALS: BP 111/81; TEMP 98.1
[2022-11-27 16:29] VITALS: BMI 29.4
== END 2022-11-27 16:21 | DRG 871 ==
LOC: ERS 22:57 → CCU 23:46 → T4-A 11-24 12:55
PROVIDERS: ADMIT Student in an Organized Health Care Education/Training Program; ATTEND Internal Medicine
PROC: 0BH17EZ Insertion of Endotracheal Airway into Trachea, Via Natural or Artificial Opening (ICD-10-PCS; principal; 2022-11-21)
PROC: 3E04329 Introduction of Other Anti-infective into Central Vein, Percutaneous Approach (ICD-10-PCS; 2022-11-21)
PROC: 3E043XZ Introduction of Vasopressor into Central Vein, Percutaneous Approach (ICD-10-PCS; 2022-11-21)
PROC: 06H033Z Insertion of Infusion Device into Inferior Vena Cava, Percutaneous Approach (ICD-10-PCS; 2022-11-21)
PROC: 5A1945Z Respiratory Ventilation, 24-96 Consecutive Hours (ICD-10-PCS; 2022-11-21)
PROC: 5A09357 Assistance with Respiratory Ventilation, Less than 24 Consecutive Hours, Continuous Positive Airway Pressure (ICD-10-PCS; 2022-11-23)
PROC: 5A1D70Z Performance of Urinary Filtration, Intermittent, Less than 6 Hours Per Day (ICD-10-PCS; 2022-11-23)
DX: A41.9 Sepsis, unspecified organism (principal); G93.41 Metabolic encephalopathy; R65.21 Severe sepsis with septic shock; N18.6 End stage renal disease; I21.A1 Myocardial infarction type 2; J96.21 Acute and chronic respiratory failure with hypoxia; J96.02 Acute respiratory failure with hypercapnia; K86.1 Other chronic pancreatitis; I13.2 Hypertensive heart and chronic kidney disease with heart failure and with stage 5 chronic kidney disease, or end stage renal disease; K81.0 Acute cholecystitis; Q87.19 Other congenital malformation syndromes predominantly associated with short stature; E66.2 Morbid (severe) obesity with alveolar hypoventilation; I12.0 Hypertensive chronic kidney disease with stage 5 chronic kidney disease or end stage renal disease; Z20.822 Contact with and (suspected) exposure to COVID-19; E87.5 Hyperkalemia; I50.9 Heart failure, unspecified; D63.1 Anemia in chronic kidney disease; F41.9 Anxiety disorder, unspecified; F31.9 Bipolar disorder, unspecified; E20.9 Hypoparathyroidism, unspecified; R79.89 Other specified abnormal findings of blood chemistry; Z99.2 Dependence on renal dialysis; Z99.81 Dependence on supplemental oxygen; Z88.8 Allergy status to other drugs, medicaments and biological substances; Z88.1 Allergy status to other antibiotic agents; Z79.899 Other long term (current) drug therapy; Z90.5 Acquired absence of kidney; Z78.1 Physical restraint status; Z90.721 Acquired absence of ovaries, unilateral; Z68.29 Body mass index [BMI] 29.0-29.9, adult; M54.50 Low back pain, unspecified; R04.0 Epistaxis
CPT/HCPCS: 31500; 36415; 36416; 36556; 36600; 70450; 71045; 72100; 74177; 76705; 78227; 80048; 80053; 82533; 82550; 82553; 82805; 83605; 83880; 84443; 84484; 85025; 85379; 85610; 85730; 86140; 86308; 86850; 86900; 86901; 87040; 87081; 87430; 93005; 93010; 93306; 94002; 94003; 94640; 94660; 96374; 96375; 99283; A9537; C9113; J0171; J0692; J1644; J2020; J2405; J2543; J3010; J3490; J7620; Q0162; Q5105; Q9967

== ENCOUNTER 2022-11-28 03:54 | Emergency (ER) | payer MEDICARE, MEDICAID ==
[2022-11-28 05:26] LABS: Hemoglobin 10.2 g/dL (12.0-16.0); Mean Corpuscular Hemoglobin 31.8 pg (27.0-31.0); Mean Corpuscular Volume 99.3 fl (78.0-98.0); Platelet Count 180 10x3/uL (130-400); RBC Distribution Width 15.9 % (11.5-14.5)
[2022-11-28 05:34] LABS: ALT (SGPT) Less than 7 U/L (8-55); AST (SGOT) 23 U/L (5-34); Albumin 3.7 g/dL (3.5-5.0); Alkaline Phosphatase 82 U/L (40-110); Anion Gap 21 mmol/L (10-20); BUN (Urea Nitrogen) 25 mg/dL (7.0-18.7); Bilirubin, Total 0.4 mg/dL (0.2-1.2); Calc. Creatinine Clearance 0 mL/min (70-130); Calcium 8.1 mg/dL (7.8-10.44); Carbon Dioxide 25 mmol/L (22-29); Chloride 98 mmol/L (98-107); Estimated GFR 5; Globulin 3.5 g/dL (2.4-3.5); Glucose 110 mg/dL (70-105); Potassium 3.9 mmol/L (3.5-5.1); Protein, Total 7.2 g/dL (6.0-8.3); Sodium 140 mmol/L (136-145)
[2022-11-28 06:02] LABS: Eosinophils 1 % (0-10); Hypochromia SLIGHT = 6-15 cells (100X) (0-5/hpf); Lymphocytes 11 % (21-51); MDiff Complete? YES; Monocytes 27 % (0-10); Neutrophil 57 % (42-75); Platelet Morphology Comment Appears Adequate; Reactive Lymphocytes 4 % (0-10)
== END 2022-11-28 06:15 ==
LOC: ERS 03:54
DX: R09.02 Hypoxemia (principal); D72.829 Elevated white blood cell count, unspecified; I12.0 Hypertensive chronic kidney disease with stage 5 chronic kidney disease or end stage renal disease; N18.6 End stage renal disease; Z79.82 Long term (current) use of aspirin; Z99.2 Dependence on renal dialysis
CPT/HCPCS: 71045; 80053; 83880; 85025

== ENCOUNTER 2022-11-29 08:32 | Inpatient (IN) | payer MEDICARE, MEDICAID ==
[2022-11-29] MEDS ORDERED: Ipratropium/Albuterol 3 ML NEB ONE (09:17)
[2022-11-29] MEDS ORDERED: methylPREDNISolone Sod Succ/PF 125 MG/2 ML VIAL ONE (09:28)
[2022-11-29] MEDS ORDERED: Ipratropium Bromide 2.5 ml Neb ONE (09:33)
[2022-11-29] MEDS ORDERED: Rocuronium Bromide 10 MG/ML (10ML VIAL) ONE (09:55)
[2022-11-29] MEDS ORDERED: Ketamine 50 MG/ML (10ML VIAL) ONE (09:55)
[2022-11-29 10:07] LABS: Anisocytosis SLIGHT = 6-15 cells (100X) (0-5/hpf); Band 4 % (5-11); Eosinophils 3 % (0-10); Hemoglobin 11.5 g/dL (12.0-16.0); Lymphocytes 6 % (21-51); MDiff Complete? YES; Macrocytosis SLIGHT = 6-15 cells (100X) (0-5/hpf); Mean Corpuscular HGB CONC 32.3 g/dL (32.0-36.0); Mean Corpuscular Hemoglobin 32.9 pg (27.0-31.0); Monocytes 6 % (0-10); Neutrophil 80 % (42-75); Platelet Morphology Comment PLT clumps seen-ADEQ; Polychromasia SLIGHT = 2-3 cells (100X) (0-2/hpf); RBC Distribution Width 16.9 % (11.5-14.5); Reactive Lymphocytes 1 % (0-10); White Blood Cell (WBC) Count 14.4 10x3/uL (4.8-10.8)
[2022-11-29 10:11] LABS: ALT (SGPT) Less than 7 U/L (8-55); AST (SGOT) 42 U/L (5-34); Albumin 4.4 g/dL (3.5-5.0); Alkaline Phosphatase 78 U/L (40-110); Anion Gap 21 mmol/L (10-20); BUN (Urea Nitrogen) 12 mg/dL (7.0-18.7); Bilirubin, Total 0.9 mg/dL (0.2-1.2); Calc. Creatinine Clearance 0 mL/min (70-130); Calcium 8.9 mg/dL (7.8-10.44); Carbon Dioxide 27 mmol/L (22-29); Chloride 97 mmol/L (98-107); Estimated GFR 9; Globulin 3.5 g/dL (2.4-3.5); Glucose 102 mg/dL (70-105); Potassium 3.9 mmol/L (3.5-5.1); Protein, Total 7.9 g/dL (6.0-8.3); Sodium 141 mmol/L (136-145)
[2022-11-29] MEDS ORDERED: Fentanyl CADD 100 ML IV SCH ×2 (10:30→14:15)
[2022-11-29 10:48] LABS: CKMB 1.4 ng/mL (0-6.6)
[2022-11-29 10:52] LABS: Actual Bicarbonate (HCO3a) 26.4 mEq/L (22-28); Analyzer IN Cardio ER; Base Excess (BEa) 4.1 mEq/L (-2.0 to +3.0); CO2 Tension 31.8 mmHg (35.0-45.0); Calcium, Ionized (arterial) 0.96 mmol/L (1.12-1.30); Carboxyhemoglobin (COHb) 0.2 gm% (0.0-3.0); Hemoglobin (Hb) 11.6 g/dL (12.0-16.0); O2 Tension (PaO2), arterial 117.1 mmHg (80.0-100.0); Potassium - ABG Lab 3.68 mmol/L (3.70-5.30); pH, Arterial 7.54 (7.35-7.45)
[2022-11-29] MEDS ORDERED: Cefepime 2 GM VIAL ONE (11:01)
[2022-11-29 11:02] LABS: Actual Bicarbonate (HCO3a) 29.2 mEq/L (22-28); Analyzer IN Cardio ER; Base Excess (BEa) 3.6 mEq/L (-2.0 to +3.0); CO2 Tension 48.7 mmHg (35.0-45.0); Calcium, Ionized (arterial) 1.04 mmol/L (1.12-1.30); Carboxyhemoglobin (COHb) 0.3 gm% (0.0-3.0); Hemoglobin (Hb) 11.9 g/dL (12.0-16.0); O2 Tension (PaO2), arterial 80.2 mmHg (80.0-100.0); Potassium - ABG Lab 3.82 mmol/L (3.70-5.30)
[2022-11-29 11:03] LABS: ALV-art Gradient 87.085 mmHg (0-20); Puncture Site RRA
[2022-11-29 11:04] LABS: Puncture Site RRA
[2022-11-29 11:09] LABS: Bilirubin Negative (Negative); Blood, Urine 1+ (Negative); Glucose, Urine (Dipstick) Normal (Negative); Ketone, Urine Negative (Negative); Leukocyte 75 Leu/uL (Negative); Nitrite Negative (Negative); Protein, Urine (Dipstick) 100 mg/dL (Neg-Trace); Specific Gravity, Urine 1.025 (1.002-1.036); Urobilinogen Normal mg/dL (Less than 2)
[2022-11-29 11:19] LABS: Clarity Cloudy (Clear)
[2022-11-29 11:20] LABS: Bacteria/HPF 1+ HPF (None Seen)
[2022-11-29] MEDS ORDERED: Ondansetron PF 4 MG/2 ML Vial IVP PRN (12:17)
[2022-11-29] MEDS ORDERED: Merrem (PEDI) 500 MG in Syringe 0 ML IVPB SCH (12:17)
[2022-11-29] MEDS ORDERED: Ventilator Sedation Protocol FS SCH (12:17)
[2022-11-29 12:19] LABS: SARS-CoV-2 NAA Rapid Test Not Detected (NotDetected)
[2022-11-29 13:29] LABS: Lactic Acid 3.1 mmol/L (0.5-2.2)
[2022-11-29 13:33] LABS: Troponin I 0.612 ng/mL (< 0.028)
[2022-11-29] MEDS: Ipratropium/Albuterol 3 ML NEB NEB SCH ×2 (14:00→18:27)
[2022-11-29] MEDS ORDERED: Fentanyl BOLUS 250 ML IVPB PRN (14:15)
[2022-11-29] MEDS ORDERED: Propofol BOLUS 1,000 MG/100 ML VIAL IV PRN (14:15)
[2022-11-29] MEDS ORDERED: Propofol 1,000 MG/100 ML VIAL IV PRN (14:15)
[2022-11-29] MEDS ORDERED: DISCONTINUE PREVIOUS NARCOTIC PAIN MEDICATIONS AND BENZODIAZEPINES FS SCH (14:15)
[2022-11-29] MEDS ORDERED: Midazolam HCl 2 mg/2 ml Vial SLOW IVP PRN (14:15)
[2022-11-29] MEDS: Midodrine HCl 5 MG TAB PER TUBE SCH ×2 (15:11→21:25)
[2022-11-29] MEDS: Divalproex Sodium 250 MG (DR) TAB PER TUBE SCH (21:26)
[2022-11-29] MEDS: Meropenem 500 MG in Sodium Chloride 0.9% 100 ML IVPB SCH (21:34)
[2022-11-30] MEDS: Morphine 4 MG/ML VIAL SLOW IVP PRN ×2 (00:48→06:18)
[2022-11-30 01:24] LABS: Troponin I 2.635 ng/mL (< 0.028)
[2022-11-30] MEDS: Ipratropium/Albuterol 3 ML NEB NEB SCH ×4 (01:37→18:13)
[2022-11-30] MEDS ORDERED: Aspirin 325 mg Enteric Coated Tablet PO SCH (01:45)
[2022-11-30] MEDS: Heparin 10,000 UNITS/ 10 ML VIAL SLOW IVP SCH (03:34)
[2022-11-30] MEDS: Heparin 25,000 units/D5W 500 ML IVPB SCH (03:35)
[2022-11-30 04:21] LABS: #Eosinphils 0.2 thou/uL (0.0-0.7); #Lymphocytes 1.3 thou/uL (1.20-3.40); #Monocytes 1.6 thou/uL (0.11-0.59); %Basophils 0.2 % (0.0-1.0); %Eosinophils 1.5 % (0.0-10.0); %Lymphocytes 9.9 % (21.0-51.0); %Monocytes 12.1 % (0.0-10.0); %Neutrophils 76.2 % (42.0-75.0); Hemoglobin 10.6 g/dL (12.0-16.0); Mean Corpuscular HGB CONC 32.4 g/dL (32.0-36.0); Mean Corpuscular Hemoglobin 32.3 pg (27.0-31.0); Mean Corpuscular Volume 99.6 fl (78.0-98.0); Mean Platelet Volume 9.9 fL (7.4-10.4); Platelet Count 168 10x3/uL (130-400); RBC Distribution Width 17.3 % (11.5-14.5); Red Blood Cell (RBC) Count 3.28 mill/uL (4.20-5.40); White Blood Cell (WBC) Count 13.1 10x3/uL (4.8-10.8)
[2022-11-30 04:35] LABS: ALT (SGPT) 11 U/L (8-55); AST (SGOT) 42 U/L (5-34); Albumin 3.6 g/dL (3.5-5.0); Alkaline Phosphatase 65 U/L (40-110); Anion Gap 24 mmol/L (10-20); BUN (Urea Nitrogen) 23 mg/dL (7.0-18.7); Bilirubin, Total 0.5 mg/dL (0.2-1.2); Calc. Creatinine Clearance 12 mL/min (70-130); Calcium 8.2 mg/dL (7.8-10.44); Carbon Dioxide 22 mmol/L (22-29); Chloride 97 mmol/L (98-107); Estimated GFR 7; Globulin 3.2 g/dL (2.4-3.5); Glucose 113 mg/dL (70-105); Potassium 4.5 mmol/L (3.5-5.1); Protein, Total 6.8 g/dL (6.0-8.3); Sodium 138 mmol/L (136-145)
[2022-11-30] MEDS: Levothyroxine Sodium 25 MCG TAB PER TUBE SCH (06:20)
[2022-11-30 06:54] LABS: Critical Call Chem Troponin I RESULT DECREASING; Troponin I 2.525 ng/mL (< 0.028)
[2022-11-30] MEDS ORDERED: EPOETIN ALFA-EPBX (ESRD) 10,000 UNIT/ML VIAL SC SCH (09:15)
[2022-11-30] MEDS: Pantoprazole 40 MG VIAL IVP SCH (09:49)
[2022-11-30] MEDS: Aspirin Chewable 81 MG TAB PO SCH (09:49)
[2022-11-30] MEDS: Midodrine HCl 5 MG TAB PER TUBE SCH ×3 (09:49→21:20)
[2022-11-30] MEDS: Non-Formulary Item 1 EACH (Sevelamer Hcl [Sevelamer Hcl] 800 MG Tablet) PO SCH ×2 (09:59→10:03)
[2022-11-30] MEDS: Sertraline 100 MG TAB PER TUBE SCH (09:59)
[2022-11-30] MEDS ORDERED: NOREPINEPHRINE 8 MG/250 ML-D5W 250 ML IVPB SCH (10:00)
[2022-11-30] MEDS ORDERED: Albumin 25% 25 GM/100 ML BOT IVPB SCH (10:00)
[2022-11-30] MEDS: Folic Acid/Vit B Comp W-C PER TUBE SCH (10:03)
[2022-11-30 11:09] LABS: PTT 144.1 sec (22.9-36.1)
[2022-11-30] MEDS: Acetaminophen 325 MG TAB PER TUBE PRN (15:22)
[2022-11-30] MEDS ORDERED: Meropenem 500 MG in Sodium Chloride 0.9% 100 ML IVPB SCH (17:00)
[2022-11-30] MEDS: Divalproex Sodium 250 MG (DR) TAB PER TUBE SCH (22:00)
[2022-11-30] MEDS: Meropenem 500 MG in Sodium Chloride 0.9% 100 ML IVPB SCH (22:20)
[2022-12-01] MEDS: Ipratropium/Albuterol 3 ML NEB NEB SCH ×4 (01:50→18:09)
[2022-12-01 01:53] VITALS: BP 146/100
[2022-12-01 04:09] LABS: #Basophils 0.1 thou/uL (0.0-0.2); #Eosinphils 0.4 thou/uL (0.0-0.7); #Lymphocytes 2.5 thou/uL (1.20-3.40); #Monocytes 1.6 thou/uL (0.11-0.59); #Neutrophils 11.5 thou/uL (1.40-6.50); %Basophils 0.6 % (0.0-1.0); %Eosinophils 2.4 % (0.0-10.0); %Lymphocytes 15.7 % (21.0-51.0); %Monocytes 9.8 % (0.0-10.0); %Neutrophils 71.5 % (42.0-75.0); Hemoglobin 10.1 g/dL (12.0-16.0); Mean Corpuscular HGB CONC 31.5 g/dL (32.0-36.0); Mean Corpuscular Hemoglobin 31.7 pg (27.0-31.0); Mean Platelet Volume 9.1 fL (7.4-10.4); Platelet Count 184 10x3/uL (130-400); RBC Distribution Width 17.7 % (11.5-14.5); Red Blood Cell (RBC) Count 3.19 mill/uL (4.20-5.40)
[2022-12-01 04:25] LABS: Anion Gap 21 mmol/L (10-20); BUN (Urea Nitrogen) 14 mg/dL (7.0-18.7); Calc. Creatinine Clearance 17 mL/min (70-130); Calcium 8.6 mg/dL (7.8-10.44); Carbon Dioxide 25 mmol/L (22-29); Chloride 97 mmol/L (98-107); Estimated GFR 11; Glucose 73 mg/dL (70-105); Potassium 3.3 mmol/L (3.5-5.1); Sodium 140 mmol/L (136-145)
[2022-12-01] MEDS: Acetaminophen 325 MG TAB PER TUBE PRN (04:25)
[2022-12-01] MEDS: Levothyroxine Sodium 25 MCG TAB PER TUBE SCH (05:50)
[2022-12-01] MEDS ORDERED: Potassium Bicarbonate/Cit Ac 20 MEQ TAB PER TUBE SCH (07:30)
[2022-12-01] MEDS: Pantoprazole 40 MG VIAL IVP SCH (09:41)
[2022-12-01] MEDS: Aspirin Chewable 81 MG TAB PO SCH (09:42)
[2022-12-01] MEDS: Midodrine HCl 5 MG TAB PER TUBE SCH ×4 (09:42→21:53)
[2022-12-01] MEDS: Folic Acid/Vit B Comp W-C PER TUBE SCH (09:42)
[2022-12-01] MEDS: Sertraline 100 MG TAB PER TUBE SCH (09:48)
[2022-12-01] MEDS: Sevelamer Carbonate 800 MG TAB PO SCH ×2 (09:48→21:53)
[2022-12-01] MEDS: Heparin 10,000 UNITS/ 10 ML VIAL SLOW IVP SCH ×2 (11:54→19:01)
[2022-12-01] MEDS: Heparin 25,000 units/D5W 500 ML IVPB SCH (15:39)
[2022-12-01] MEDS: Divalproex Sodium 250 MG (DR) TAB PER TUBE SCH (21:53)
[2022-12-01] MEDS: Meropenem 500 MG in Sodium Chloride 0.9% 100 ML IVPB SCH (21:56)
[2022-12-02] MEDS: Ipratropium/Albuterol 3 ML NEB NEB SCH ×5 (00:03→23:49)
[2022-12-02 05:15] LABS: #Basophils 0.1 thou/uL (0.0-0.2); #Eosinphils 0.7 thou/uL (0.0-0.7); #Monocytes 1.7 thou/uL (0.11-0.59); %Basophils 0.5 % (0.0-1.0); %Eosinophils 4.2 % (0.0-10.0); %Lymphocytes 11.3 % (21.0-51.0); %Monocytes 9.8 % (0.0-10.0); %Neutrophils 74.2 % (42.0-75.0); Hemoglobin 10.2 g/dL (12.0-16.0); Mean Corpuscular HGB CONC 30.9 g/dL (32.0-36.0); Mean Corpuscular Hemoglobin 31.9 pg (27.0-31.0); Mean Platelet Volume 9.7 fL (7.4-10.4); Platelet Count 156 10x3/uL (130-400); White Blood Cell (WBC) Count 17.5 10x3/uL (4.8-10.8)
[2022-12-02 05:35] LABS: Anion Gap 21 mmol/L (10-20); BUN (Urea Nitrogen) 23 mg/dL (7.0-18.7); Calc. Creatinine Clearance 12 mL/min (70-130); Calcium 8.4 mg/dL (7.8-10.44); Carbon Dioxide 26 mmol/L (22-29); Chloride 95 mmol/L (98-107); Estimated GFR 7; Glucose 69 mg/dL (70-105); Potassium 3.8 mmol/L (3.5-5.1); Sodium 138 mmol/L (136-145)
[2022-12-02] MEDS: Levothyroxine Sodium 25 MCG TAB PER TUBE SCH (05:50)
[2022-12-02] MEDS: Pantoprazole 40 MG VIAL IVP SCH (08:42)
[2022-12-02] MEDS: Folic Acid/Vit B Comp W-C PER TUBE SCH (09:57)
[2022-12-02] MEDS: Midodrine HCl 5 MG TAB PER TUBE SCH ×3 (09:57→20:16)
[2022-12-02] MEDS: Sevelamer Carbonate 800 MG TAB PO SCH ×2 (09:57→20:16)
[2022-12-02] MEDS: Aspirin Chewable 81 MG TAB PO SCH (09:57)
[2022-12-02] MEDS: Sertraline 100 MG TAB PER TUBE SCH (09:57)
[2022-12-02] MEDS: Moisturizing Cream (Eucerin) 113 GM JAR TOP PRN (17:04)
[2022-12-02] MEDS: Divalproex Sodium 250 MG (DR) TAB PER TUBE SCH (20:16)
[2022-12-03 05:24] LABS: #Basophils 0.1 thou/uL (0.0-0.2); #Eosinphils 0.8 thou/uL (0.0-0.7); #Lymphocytes 1.4 thou/uL (1.20-3.40); #Monocytes 1.6 thou/uL (0.11-0.59); #Neutrophils 12.1 thou/uL (1.40-6.50); %Basophils 0.4 % (0.0-1.0); %Lymphocytes 8.5 % (21.0-51.0); %Neutrophils 76.1 % (42.0-75.0); Mean Corpuscular HGB CONC 30.4 g/dL (32.0-36.0); Mean Corpuscular Hemoglobin 31.1 pg (27.0-31.0); Mean Platelet Volume 9.1 fL (7.4-10.4); Platelet Count 170 10x3/uL (130-400); RBC Distribution Width 18.1 % (11.5-14.5); Red Blood Cell (RBC) Count 3.21 mill/uL (4.20-5.40)
[2022-12-03 05:25] LABS: Anion Gap 26 mmol/L (10-20); BUN (Urea Nitrogen) 29 mg/dL (7.0-18.7); Calc. Creatinine Clearance 10 mL/min (70-130); Calcium 8.1 mg/dL (7.8-10.44); Carbon Dioxide 21 mmol/L (22-29); Chloride 97 mmol/L (98-107); Estimated GFR 5; Potassium 3.9 mmol/L (3.5-5.1); Sodium 140 mmol/L (136-145)
[2022-12-03] MEDS: Levothyroxine Sodium 25 MCG TAB PER TUBE SCH (05:28)
[2022-12-03 05:30] LABS: Glucose 59 mg/dL (70-105)
[2022-12-03] MEDS ORDERED: Dextrose 50% Abboject 50 ML SYRINGE SLOW IVP PRN (05:40)
[2022-12-03] MEDS ORDERED: Dextrose 10% in Water 250 ML IV SCH (06:00)
[2022-12-03] MEDS: Dextrose 5% in Water 1,000 ML IV SCH (06:12)
[2022-12-03] MEDS: Ipratropium/Albuterol 3 ML NEB NEB SCH ×3 (07:02→19:02)
[2022-12-03] MEDS: Midodrine HCl 5 MG TAB PER TUBE SCH ×3 (09:30→20:07)
[2022-12-03] MEDS: Sertraline 100 MG TAB PER TUBE SCH (09:30)
[2022-12-03] MEDS: Sevelamer Carbonate 800 MG TAB PO SCH ×2 (09:30→20:08)
[2022-12-03] MEDS: Folic Acid/Vit B Comp W-C PER TUBE SCH (09:30)
[2022-12-03] MEDS: Aspirin Chewable 81 MG TAB PO SCH (09:30)
[2022-12-03] MEDS: Pantoprazole 40 MG VIAL IVP SCH (09:46)
[2022-12-03] MEDS: Moisturizing Cream (Eucerin) 113 GM JAR TOP PRN (09:58)
[2022-12-03 15:13] LABS: Actual Bicarbonate (HCO3v) 24 mEq/L (22-28); Base Excess -1.9 mEq/L (-2.0 to +3.0); Calcium, Ionized (venous) 0.97 mmol/L (1.16-1.32); Chloride (VBG) 95 mmol/L (98-106); Hemoglobin (Hb) 10.9 g/dL (11.7-15.5); Potassium (VBG) 3.91 mmol/L (3.70-5.30); Sodium 136.9 mmol/L (133-146); pH (venous) 7.36 (7.32-7.43)
[2022-12-03] MEDS ORDERED: Albumin 25% 25 GM/100 ML BOT IVPB PRN (15:19)
[2022-12-03] MEDS: Divalproex Sodium 250 MG (DR) TAB PER TUBE SCH (20:07)
[2022-12-04] MEDS: Ipratropium/Albuterol 3 ML NEB NEB SCH ×3 (00:12→11:59)
[2022-12-04] MEDS: Dextrose 5% in Water 1,000 ML IV SCH (01:14)
[2022-12-04] MEDS: Sevelamer Carbonate 800 MG TAB PO SCH ×3 (03:46→11:13)
[2022-12-04] MEDS: Divalproex Sodium 250 MG (DR) TAB PER TUBE SCH (03:47)
[2022-12-04] MEDS: Midodrine HCl 5 MG TAB PER TUBE SCH ×3 (03:47→11:11)
[2022-12-04 04:19] LABS: #Eosinphils 0.7 thou/uL (0.0-0.7); #Lymphocytes 1.9 thou/uL (1.20-3.40); #Monocytes 2.1 thou/uL (0.11-0.59); #Neutrophils 13.2 thou/uL (1.40-6.50); %Basophils 0.3 % (0.0-1.0); %Eosinophils 3.9 % (0.0-10.0); %Lymphocytes 10.6 % (21.0-51.0); %Monocytes 11.7 % (0.0-10.0); %Neutrophils 73.6 % (42.0-75.0); Hemoglobin 10.4 g/dL (12.0-16.0); Mean Corpuscular HGB CONC 30.7 g/dL (32.0-36.0); Mean Platelet Volume 9.2 fL (7.4-10.4); Platelet Count 175 10x3/uL (130-400); Red Blood Cell (RBC) Count 3.34 mill/uL (4.20-5.40); White Blood Cell (WBC) Count 17.9 10x3/uL (4.8-10.8)
[2022-12-04 04:40] LABS: Anion Gap 17 mmol/L (10-20); BUN (Urea Nitrogen) 16 mg/dL (7.0-18.7); Calc. Creatinine Clearance 14 mL/min (70-130); Calcium 8.5 mg/dL (7.8-10.44); Carbon Dioxide 26 mmol/L (22-29); Chloride 95 mmol/L (98-107); Estimated GFR 9; Glucose 123 mg/dL (70-105); Potassium 3.4 mmol/L (3.5-5.1); Sodium 135 mmol/L (136-145)
[2022-12-04] MEDS: Levothyroxine Sodium 25 MCG TAB PER TUBE SCH (05:02)
[2022-12-04] MEDS: Acetaminophen 325 MG TAB PER TUBE PRN (05:02)
[2022-12-04] MEDS: Aspirin Chewable 81 MG TAB PO SCH ×2 (08:54→11:11)
[2022-12-04] MEDS: Folic Acid/Vit B Comp W-C PER TUBE SCH ×2 (08:55→11:14)
[2022-12-04] MEDS: Sertraline 100 MG TAB PER TUBE SCH ×2 (08:55→11:12)
[2022-12-04] MEDS: Pantoprazole 40 MG VIAL IVP SCH ×2 (08:55→11:13)
[2022-12-04] MEDS ORDERED: Acetaminophen 325 MG TAB PO PRN (11:00)
[2022-12-04 12:45] VITALS: BMI 31.4
[2022-12-04] MEDS ORDERED: Midodrine HCl 5 MG TAB PO SCH (15:00)
[2022-12-04 16:29] VITALS: TEMP 98.9
[2022-12-04] MEDS ORDERED: Divalproex Sodium 250 MG (DR) TAB PO SCH (21:00)
[2022-12-05] MEDS ORDERED: Levothyroxine Sodium 25 MCG TAB PO SCH (06:00)
[2022-12-05] MEDS ORDERED: Folic Acid/Vit B Comp W-C PO SCH (09:00)
[2022-12-05] MEDS ORDERED: Sertraline 100 MG TAB PO SCH (09:00)
== END 2022-12-04 17:00 | DRG 871 ==
LOC: ERS 08:32 → CCU 11:29
PROVIDERS: ADMIT Internal Medicine; ATTEND Family Medicine
PROC: 0BH17EZ Insertion of Endotracheal Airway into Trachea, Via Natural or Artificial Opening (ICD-10-PCS; principal; 2022-11-29)
PROC: 5A1945Z Respiratory Ventilation, 24-96 Consecutive Hours (ICD-10-PCS; 2022-11-29)
PROC: 0D9670Z Drainage of Stomach with Drainage Device, Via Natural or Artificial Opening (ICD-10-PCS; 2022-11-29)
PROC: 06HY33Z Insertion of Infusion Device into Lower Vein, Percutaneous Approach (ICD-10-PCS; 2022-11-29)
PROC: 3E033XZ Introduction of Vasopressor into Peripheral Vein, Percutaneous Approach (ICD-10-PCS; 2022-11-29)
PROC: 3E03329 Introduction of Other Anti-infective into Peripheral Vein, Percutaneous Approach (ICD-10-PCS; 2022-11-29)
PROC: 5A1D70Z Performance of Urinary Filtration, Intermittent, Less than 6 Hours Per Day (ICD-10-PCS; 2022-11-29)
DX: A41.9 Sepsis, unspecified organism (principal); I21.4 Non-ST elevation (NSTEMI) myocardial infarction; J96.21 Acute and chronic respiratory failure with hypoxia; N18.6 End stage renal disease; R65.21 Severe sepsis with septic shock; K86.1 Other chronic pancreatitis; Q87.19 Other congenital malformation syndromes predominantly associated with short stature; I12.0 Hypertensive chronic kidney disease with stage 5 chronic kidney disease or end stage renal disease; I42.9 Cardiomyopathy, unspecified; F31.9 Bipolar disorder, unspecified; Z20.822 Contact with and (suspected) exposure to COVID-19; E20.9 Hypoparathyroidism, unspecified; I51.9 Heart disease, unspecified; D63.1 Anemia in chronic kidney disease; E11.22 Type 2 diabetes mellitus with diabetic chronic kidney disease; Q90.9 Down syndrome, unspecified; G47.33 Obstructive sleep apnea (adult) (pediatric); Z90.710 Acquired absence of both cervix and uterus; Z88.8 Allergy status to other drugs, medicaments and biological substances; Z99.2 Dependence on renal dialysis; Z88.1 Allergy status to other antibiotic agents; Z79.890 Hormone replacement therapy; Z79.899 Other long term (current) drug therapy; Z79.51 Long term (current) use of inhaled steroids; Z99.3 Dependence on wheelchair; Z78.1 Physical restraint status; D72.829 Elevated white blood cell count, unspecified; Z79.82 Long term (current) use of aspirin
CPT/HCPCS: 31500; 36415; 36416; 36600; 51702; 71045; 74230; 80048; 80053; 81003; 81015; 82533; 82553; 82805; 83605; 83880; 84484; 85025; 85730; 87040; 87086; 90935; 93005; 93010; 94002; 94003; 94640; 94644; 94660; 96374; 96375; 99292; C9113; G0257; J0692; J1644; J2185; J2270; J2405; J2704; J2930; J3010; J3490; J7070; J7611; J7620; P9047; Q5105; U0002